=== PATIENT | male | born 1965 | race Caucasian/White ===

== ENCOUNTER 2016-10-19 22:52 | Emergency (ER) | payer OTHER ==
[~2016-10-19] VITALS: Ht 185.4 cm; Wt 99.8 kg
[~2016-10-19 22:52] MED LIST: CITA20TA9 PO; CRD200 PO; CRG25 PO; FURO40TA3 PO; LEVO100T PO; LOSA50TA6 PO; MCRK20 PO; SPR25 PO
[2016-10-19 22:57] VITALS: TEMP 36.5; Ht 185.4 cm; Wt 99.8 kg
[2016-10-19] MEDS ORDERED: SODIUM CHLORIDE 0.9% 1000ML 300 ML IV STA (23:43)
[2016-10-20 00:04] LABS: BASO % 0.5 %; BASO ABS # 0.05 K/uL (0-0.2); COMPLETE YES; EOS % 3.6 %; HEMATOCRIT 43.4 % (42-52); IG% 0.3 %; LYMPH ABS # 1.95 K/uL (1.2-3.4); MEAN CELL VOLUME 86.5 fL (80-100); MEAN CORPUSCULAR HEMOGLOBIN 29.3 pg (25-34); MEAN CORPUSCULAR HGB CONC 33.9 g/dl (32-36); MONO % 13.9 %; NEUT % 60.7 %; PLATELET COUNT 286 K/uL (130-400); RED BLOOD COUNT 5.02 M/uL (4.7-6.1); WHITE BLOOD COUNT 9.27 K/uL (4.8-10.8)
[2016-10-20 00:09] LABS: URINE APPEARANCE CLEAR (CLEAR); URINE BILIRUBIN NEG (NEG); URINE COLOR DK YELLOW; URINE NITRITE NEG (NEG); URINE SPECIFIC GRAVITY 1.026 (1.000-1.030); UROBILINOGEN NEG (NEG); ZZUR CULT IF INDIC CLEAN CATCH NO
[2016-10-20 00:16] LABS: MANUAL MICROSCOPIC REQUIRED? NO; REVIEW REQ? NO
[2016-10-20 00:22] LABS: BUN/CREATININE RATIO 15.7 (10-20); CALCIUM 8.8 mg/dl (8.5-10.1); CREATININE 0.97 mg/dl (0.60-1.40); POTASSIUM 3.7 mmol/L (3.5-5.1)
[2016-10-20 00:25] LABS: ALB/GLOB RATIO 0.9 (0.9-2)
[2016-10-20] MEDS ORDERED: ONDANSETRON INJ 2 MG/ML 2 ML VIAL IV STA (00:39)
[2016-10-20] MEDS ORDERED: OPTIRAY 320 IV PRN (01:45)
[2016-10-20] MEDS ORDERED: POTA20TA16 PO (01:49)
--- NOTE | 2016-10-20 03:13 | EMERGENCY ROOM VISIT NOTE ---
ED Visit Note First contact with patient: 00:17 I saw this patient in conjunction with Sagar Saha PA-C. I agree with his decision-making and treatment plan.
[2016-10-20] MEDS ORDERED: ONDA4TAB10 SL (03:29)
--- NOTE | 2016-10-20 03:29 | EMERGENCY ROOM VISIT NOTE ---
History First contact with patient: 00:17 Chief Complaint: ABDOMINAL PAIN Stated Complaint: LOWER ABDOMINAL PAIN Nursing Triage Summary: Patient c/o n/v/d that began afternoon. Thursday morning, s/s worsened. Tonight, patient c/o low back pain with continued diarrhea. History of Present Illness The patient is a 51 year old male who presents to the Emergency Department by private vehicle for evaluation of his lower abdominal pain, nausea, vomiting, diarrhea, and belching. He reports that evening he noticed nausea and diarrhea. He has since had one episode of emesis. He reports that he's been belching a lot lately and reports that smells like rotten eggs. The patient has not seen his primary care provider this point. He reports some lower abdominal discomfort. The patient rates his current discomfort as 6/10. He denies a previous abdominal surgeries. He does have a significant past mental history of cardiomyopathy. He denies any chest pain, palpitations, short of breath, hemoptysis, headaches, dizziness, lightheadedness, hematemesis, hematochezia, melena, hematuria, or dysuria. Review of Systems A complete 10-point Review of Systems was discussed with the patient, with pertinent positives and negatives listed in the History of Present Illness. All remaining Review of Systems questions can be considered negative unless otherwise specified. Past Medical/Surgical History Medical Problems: (1) Abdominal pain (2) Cardiomyopathy (3) Cephalosporin drug rash (4) Left bundle branch block (5) Pacemaker (6) Ribs, multiple fractures (7) Systolic heart failure Family History Cancer Social History Smoking Status: Never Smoker Alcohol Use: none Drug Use: none Marital Status: Housing Status: lives with family Occupation Status: unemployed Current/Historical Medications Scheduled Amiodarone HCl (Amiodarone HCl), 200 MG PO DAILY Carvedilol (Carvedilol), 37.5 MG PO BID Citalopram Hydrobromide (Celexa), 20 MG PO DAILY Levothyroxine Sodium (Synthroid), 100 MCG PO DAILY Losartan Potassium (Cozaar), 50 MG PO BID Spironolactone (Spironolactone), 25 MG PO DAILY Scheduled PRN Furosemide (Lasix), 40 MG PO DAILY PRN for Fluid Retention/Weight Gain Ondasetron Odt (Zofran Odt), 1 TAB SL Q6 PRN for Nausea or Vomiting Potassium Ext Rel (Klor-Con), 20 MEQ PO DAILY PRN for WHEN LASIX IS TAKEN Allergies Coded Allergies: Cefuroxime (Verified Allergy, Severe, RASH, 10/21/16) Physical Exam Vital Signs Date Time Temp Pulse Resp B/P Pulse Ox O2 Delivery O2 Flow Rate FiO2 10/20/16 03:38 78 16 136/96 96 Room Air 10/20/16 01:44 78 16 141/87 96 Room Air 10/20/16 01:06 81 18 148/99 96 Room Air 10/19/16 22:57 36.5 83 18 146/92 96 Room Air Pain Rating (0-10): 6 Physical Exam VITAL SIGNS - Vital signs and nursing notes were reviewed. GENERAL - 51-year-old male appearing his stated age who is in no acute distress. Communicates well with provider and answers questions appropriately. LUNGS - Chest wall symmetric without accessory muscle use, intercostals retractions, or central cyanosis. Normal vesicular breath sounds CTA B/L. No wheezes, rales, or rhonchi appreciated. CARDIAC - RRR with S1/S2. No murmur, rubs, or gallops appreciated. ABDOMEN - Abdominal contour flat and without pulsations or visible masses. BS normoactive all four quadrants. Mild tenderness to palpation appreciated in the RIGHT upper quadrant. No guarding. no Rebound Tenderness. Negative Rovsing's. Negative Zapata's. No palpable masses, hepatosplenomegaly, or ascites noted. EXTREMITIES - No clubbing or peripheral cyanosis. No pretibial edema present. +3 /5 radial and dorsalis pedis pulses palpated throughout. PSYCH - A&Ox3 and cooperates fully with examiner. Pt is very pleasant and interacts well with examiner. Medical Decision & Procedures ER Provider Diagnostic Interpretation: Radiological imaging and reports were reviewed by myself. Radiologist's Interpretation as follows: KUB CLINICAL HISTORY: n/v/d dyspnea. Pain. COMPARISON STUDY: No previous studies for comparison. FINDINGS: Mild nonobstructive ileus. No evidence of bowel distention. No abnormal calcifications. IMPRESSION: Mild nonobstructive ileus. ULTRASOUND RIGHT UPPER QUADRANT ABDOMEN CLINICAL HISTORY: Right upper quadrant abdominal pain. COMPARISON STUDY: Abdominal CT dated 05/06/2009. TECHNIQUE: Real-time, grayscale, and color flow sonography of the right upper quadrant of the abdomen was performed. Images are reviewed in the transverse and longitudinal planes. FINDINGS: Liver: The liver is enlarged and demonstrates heterogeneously increased echotexture consistent with hepatic steatosis. Fatty sparing is seen adjacent to gallbladder fossa. There is no intrahepatic biliary ductal dilatation. The main portal vein is patent. Gallbladder: There are calcified shadowing gallstones identified. There is no gallbladder wall thickening or pericholecystic fluid. A sonographic Zapata's sign is reportedly absent. The common bile duct measures up to 0.4 cm in diameter. Pancreas: Visualized portions of the pancreatic head and body are normal in appearance. Right kidney: Survey images of the right kidney demonstrate normal size and echotexture. There is no hydronephrosis. Ascites: None. IMPRESSION: 1. Cholelithiasis without sonographic evidence of acute cholecystitis. 2. Hepatomegaly and hepatic steatosis. ABDOMEN AND PELVIS CT WITH IV CONTRAST CT DOSE: 749.45 mGy.cm HISTORY: Right upper quadrant ultrasound upper abd pain - f/u from US tonight TECHNIQUE: Multiaxial CT images of the abdomen and pelvis were performed following the use of intravenous contrast. COMPARISON STUDY: 2009 FINDINGS: Lung bases are clear. Fatty infiltration of liver. Kidneys are unremarkable. Bowel pattern is nonobstructive. Appendix is normal. There is no free fluid within the pelvic cul-de-sac. IMPRESSION: Fatty infiltration of liver. Otherwise negative study of the abdomen and pelvis Laboratory Results 10/19/16 23:50 Red Blood Count 5.02, Mean Corpuscular Volume 86.5, Mean Corpuscular Hemoglobin 29.3, Mean Corpuscular Hemoglobin Concent 33.9, Mean Platelet Volume 9.0, Neutrophils (%) (Auto) 60.7, Lymphocytes (%) (Auto) 21.0, Monocytes (%) (Auto) 13.9, Eosinophils (%) (Auto) 3.6, Basophils (%) (Auto) 0.5, Neutrophils # (Auto ) 5.62, Lymphocytes # (Auto) 1.95, Monocytes # (Auto) 1.29, Eosinophils # (Auto ) 0.33, Basophils # (Auto) 0.05 10/19/16 23:50 Test 10/19/16 23:45 10/19/16 23:50 Urine Color DK YELLOW Urine Appearance CLEAR (CLEAR) Urine pH 5.0 (4.5-7.5) Urine Specific [place] 1.026 (1.000-1.030) Urine Protein NEG (NEG) Urine Glucose (UA) NEG (NEG) Urine Ketones NEG (NEG) Urine Occult Blood NEG (NEG) Urine Nitrite NEG (NEG) Urine Bilirubin NEG (NEG) Urine Urobilinogen NEG (NEG) Urine Leukocyte Esterase NEG (NEG) White Blood Count 9.27 K/uL (4.8-10.8) Red Blood Count 5.02 M/uL (4.7-6.1) Hemoglobin 14.7 g/dL (14.0-18.0) Hematocrit 43.4 % (42-52) Mean Corpuscular Volume 86.5 fL (80-100) Mean Corpuscular Hemoglobin 29.3 pg (25-34) Mean Corpuscular Hemoglobin Concent 33.9 g/dl (32-36) Platelet Count 286 K/uL (130-400) Mean Platelet Volume 9.0 fL (7.4-10.4) Neutrophils (%) (Auto) 60.7 % Lymphocytes (%) (Auto) 21.0 % Monocytes (%) (Auto) 13.9 % Eosinophils (%) (Auto) 3.6 % Basophils (%) (Auto) 0.5 % Neutrophils # (Auto) 5.62 K/uL (1.4-6.5) Lymphocytes # (Auto) 1.95 K/uL (1.2-3.4) Monocytes # (Auto) 1.29 K/uL (0.11-0.59) Eosinophils # (Auto) 0.33 K/uL (0-0.5) Basophils # (Auto) 0.05 K/uL (0-0.2) RDW Standard Deviation 44.3 fL (36.4-46.3) RDW Coefficient of Variation 14.2 % (11.5-14.5) Immature Granulocyte % (Auto) 0.3 % Immature Granulocyte # (Auto) 0.03 K/uL (0.00-0.02) Anion Gap 8.0 mmol/L (3-11) Est Creatinine Clear Calc Drug Dose 111.9 ml/min Estimated GFR () 104.3 Estimated GFR (Non- 90.0 BUN/Creatinine Ratio 15.7 (10-20) Calcium Level 8.8 mg/dl (8.5-10.1) Total Bilirubin 0.5 mg/dl (0.2-1) Aspartate Amino Transf (AST/SGOT) 29 U/L (15-37) Alanine Aminotransferase (ALT/SGPT) 59 U/L (12-78) Alkaline Phosphatase 68 U/L (45-117) Total Protein 7.5 gm/dl (6.4-8.2) Albumin 3.5 gm/dl (3.4-5.0) Globulin 4.0 gm/dl (2.5-4.0) Albumin/Globulin Ratio 0.9 (0.9-2) Lipase 90 U/L (73-393) Medications Administered Medications (Trade) Dose Ordered Sig/Haresh Route Start Time Stop Time Status Last Admin Dose Admin Sodium Chloride (Nss 1000ml) 300 ml @ 999 mls/hr Q19M STAT IV 10/19/16 23:43 10/20/16 00:01 DC 10/19/16 23:43 999 MLS/HR Ondansetron HCl (Zofran Inj) 4 mg NOW STAT IV 10/20/16 00:39 10/20/16 00:40 DC 10/20/16 00:47 4 MG Ondansetron HCl (ZOFRAN ODT 4MG Home Pack) 1 homepack UD ONCE PO 10/20/16 03:30 10/20/16 03:31 DC 10/20/16 03:30 1 HOMEPACK ED Course Patient was seen and evaluated by myself. Labs were drawn, saline lock in place. The patient was hydrated with normal saline and received IV Zofran for nausea. Gallbladder ultrasound and KUB were ordered. Laboratory results demonstrate no acute leukocytosis, worrisome anemia, or bandemia. The patient has no significant electrolyte abnormalities. Serum results as above. I was contacted by insulator technician he was concern for possible air in the vena cava. Because of this, a CT of the abdomen and pelvis was obtained. Imaging results as above. Laboratory results and imaging studies were reviewed with the patient who acknowledges understanding. 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 He declines these report all. The case was discussed with my attending physician who in the family evaluated the patient and agrees with diagnostic approach and treatment plan. The patient was encouraged to follow-up with his primary care provider in 24-48 hours for repeat abdominal exam. Patient was educated on worrisome symptoms for return visit to the emergency department. Patient discharged home afebrile and in good condition. Medical Decision Given the patient's presentation and exam findings, I did elect to perform the above-mentioned workup. The patient resents today with complaints of nausea, belching, and abdominal discomfort. He does have mild tenderness to palpation in the RIGHT upper quadrant. There was concern for cholelithiasis without acute cholecystitis. The patient has no fever leukocytosis. He has no elevation of his liver enzymes. The patient received Zofran alone. He declines a think for pain at this time. I do not feel that admission is warranted at this point and the patient is resting comfortably not requiring any significant pain intervention at this point. Regardless, the patient was encouraged to follow up closely with his primary care provider in 24-48 hours for repeat abdominal exam. He was educated on worrisome symptoms for return visit to the emergency department. Patient discharged home afebrile and in good condition. In the evaluation and treatment of this patient, the following differential diagnoses were considered: Appendicitis, Diverticulitis, Diverticulosis, Colitis , Ischemic Colitis, Inflammatory Bowel Disease, Irritable Bowel Disease, Testicular Torsion, Kidney Stone, Pyelonephritis, Hydronephrosis, Cholecystitis , Ascending Cholangitis, Choledocholithiasis, GERD. Impression Primary Impression: Nausea Additional Impressions: Diarrhea Abdominal pain Departure Information Dispostion Home / Self-Care Condition GOOD Prescriptions Ondasetron Odt (ZOFRAN ODT) 4 Mg Tab 1 TAB SL Q6 Y for Nausea or Vomiting, #20 TAB Prov: Sagar Saha PA-C 10/20/16 Referrals Rajan Pedersen D.O. Pulmonary (PCP) Patient Instructions My [facility] Additional Instructions You have been treated in the Emergency Department your Abdominal Pain. Laboratory results and imaging studies have ruled out any emergent causes for your abdominal pain which would warrant admission or surgery. You have been prescribed Zofran to be used for any nausea or vomiting. Take as prescribed. For pain control, you can use the following [id number] medicines (if >12 yo): - Regular strength (325mg/tab) Tylenol (acetaminophen) 2 tabs every 4-6 hours as needed. Do not exceed 12 tablets in a 24 hour period. Avoid taking more than 4 grams (4000 mg) of Tylenol per day. This includes any other sources of acetaminophen you may take on a regular basis. - Regular strength (200 mg/tab) Advil (ibuprofen) 1-2 tabs every 4-6 hours as needed. Do not exceed a dose of 3200 mg per day. Drink plenty of water and stay well hydrated. As with any trip to the Emergency Department, you should follow-up with your Primary Care Provider from today's visit. Return to the emergency department if your symptoms persist despite treatment plan outlined above or if the following symptoms occur: increased fevers, chills , worsening nausea/vomiting, blood in your stool or urine. Problem Qualifiers Additional Impressions: Diarrhea Diarrhea type: unspecified type Qualified Codes: R19.7 - Diarrhea, unspecified Abdominal pain Abdominal location: unspecified location Qualified Codes: R10.9 - Unspecified abdominal pain
[2016-10-20] MEDS ORDERED: ONDANSETRON HOME PACK 4MG OD TAB PO ONE (03:30)
[2016-10-20 03:38] VITALS: BP 136/96; PULSE 78; O2SAT 96
--- NOTE | 2016-10-20 06:51 | DIAGNOSTIC IMAGING REPORT ---
ABDOMEN AND PELVIS CT WITH IV CONTRAST CT DOSE: 749.45 mGy.cm HISTORY: Right upper quadrant ultrasound upper abd pain - f/u from US tonight TECHNIQUE: Multiaxial CT images of the abdomen and pelvis were performed following the use of intravenous contrast. COMPARISON STUDY: 2008 FINDINGS: Lung bases are clear. Fatty infiltration of liver. Kidneys are unremarkable. Bowel pattern is nonobstructive. Appendix is normal. There is no free fluid within the pelvic cul-de-sac. IMPRESSION: Fatty infiltration of liver. Otherwise negative study of the abdomen and pelvis Electronically signed by: Marcial Calero M.D. 10/20/2016 6:49 AM Dictated Date/Time: 10/20/2016 6:46 AM
--- NOTE | 2016-10-20 07:09 | DIAGNOSTIC IMAGING REPORT ---
ULTRASOUND RIGHT UPPER QUADRANT ABDOMEN CLINICAL HISTORY: Right upper quadrant abdominal pain. COMPARISON STUDY: Abdominal CT dated 05/06/2009. TECHNIQUE: Real-time, grayscale, and color flow sonography of the right upper quadrant of the abdomen was performed. Images are reviewed in the transverse and longitudinal planes. FINDINGS: Liver: The liver is enlarged and demonstrates heterogeneously increased echotexture consistent with hepatic steatosis. Fatty sparing is seen adjacent to gallbladder fossa. There is no intrahepatic biliary ductal dilatation. The main portal vein is patent. Gallbladder: There are calcified shadowing gallstones identified. There is no gallbladder wall thickening or pericholecystic fluid. A sonographic Zapata's sign is reportedly absent. The common bile duct measures up to 0.4 cm in diameter. Pancreas: Visualized portions of the pancreatic head and body are normal in appearance. Right kidney: Survey images of the right kidney demonstrate normal size and echotexture. There is no hydronephrosis. Ascites: None. IMPRESSION: 1. Cholelithiasis without sonographic evidence of acute cholecystitis. 2. Hepatomegaly and hepatic steatosis. Electronically signed by: Mustapha Mendez M.D. 10/20/2016 7:08 AM Dictated Date/Time: 10/20/2016 7:06 AM
--- NOTE | 2016-10-20 07:57 | DIAGNOSTIC IMAGING REPORT ---
KUB CLINICAL HISTORY: n/v/d dyspnea. Pain. COMPARISON STUDY: No previous studies for comparison. FINDINGS: Mild nonobstructive ileus. No evidence of bowel distention. No abnormal calcifications. IMPRESSION: Mild nonobstructive ileus. Electronically signed by: Marcial Calero M.D. 10/20/2016 7:56 AM Dictated Date/Time: 10/20/2016 7:55 AM
[2016-10-24] MEDS ORDERED: SENN-65 PO (09:27)
[2016-10-24] MEDS ORDERED: OXYC-57 PO (09:27)
== END 2016-10-20 03:46 | disposition home or self-care (01) ==
LOC: C.EDB 22:53 → C.EDA 10-20 03:46
DX: R19.7 Diarrhea, unspecified (principal); R11.2 Nausea with vomiting, unspecified; R10.9 Unspecified abdominal pain; I44.7 Left bundle-branch block, unspecified; I50.20 Unspecified systolic (congestive) heart failure; Z79.899 Other long term (current) drug therapy

== ENCOUNTER 2016-10-21 09:02 | Inpatient (IN) | payer OTHER ==
[~2016-10-21] VITALS: Ht 185.4 cm; Wt 105.0 kg
[~2016-10-21 09:02] MED LIST changes: -MCRK20 PO; +ONDA4TAB10 SL; +POTA20TA16 PO
[2016-10-21 10:36] LABS: BASO % 0.5 %; BASO ABS # 0.04 K/uL (0-0.2); COMPLETE YES; EOS % 3.9 %; HEMATOCRIT 38.5 % (42-52); IG% 0.4 %; LYMPH % 20.8 %; LYMPH ABS # 1.71 K/uL (1.2-3.4); MEAN CELL VOLUME 86.5 fL (80-100); MEAN CORPUSCULAR HEMOGLOBIN 29.4 pg (25-34); MEAN PLATELET VOLUME 8.9 fL (7.4-10.4); MONO % 11.4 %; PLATELET COUNT 273 K/uL (130-400); RED BLOOD COUNT 4.45 M/uL (4.7-6.1); WHITE BLOOD COUNT 8.22 K/uL (4.8-10.8)
[2016-10-21 10:44] LABS: BUN/CREATININE RATIO 13.9 (10-20); CALCIUM 8.2 mg/dl (8.5-10.1); CREATININE 0.94 mg/dl (0.60-1.40)
--- NOTE | 2016-10-21 12:01 | DIAGNOSTIC IMAGING REPORT ---
Right upper quadrant ultrasound GALLBLADDER-ABD LIMITED CLINICAL HISTORY: eval for cholecystitis pain TECHNIQUE: Ultrasound COMPARISON STUDY: CT same date FINDINGS: 1.5 cm gallstone within the gallbladder neck. Gallbladder wall and biliary duct system are normal in terms of caliber. Fatty infiltration of liver. Common bile duct 9 mm intrahepatic defects are unremarkable. Poor visibility of the pancreas due to overlying bowel content. Right kidney is negative for hydronephrosis. IMPRESSION: 1.5 cm gallstone the region of the gallbladder neck. 2. Slight prominence of the biliary ductal system with the extra hepatic common bile duct 9 mm. 3. Fatty infiltration of liver. Electronically signed by: Marcial Calero M.D. 10/21/2016 11:59 AM Dictated Date/Time: 10/21/2016 11:54 AM
[2016-10-21 12:33] LABS: URINE APPEARANCE CLEAR (CLEAR); URINE BILIRUBIN NEG (NEG); URINE COLOR YELLOW; URINE NITRITE NEG (NEG); URINE SPECIFIC GRAVITY 1.012 (1.000-1.030); UROBILINOGEN NEG (NEG); ZZUR CULT IF INDIC CLEAN CATCH NO
[2016-10-21 12:42] LABS: MANUAL MICROSCOPIC REQUIRED? NO; REVIEW REQ? NO
--- NOTE | 2016-10-21 13:48 | History and Physical ---
History & Physical Date & Time of Service: Oct 21, 2016 at 13:45 Chief Complaint: Abdominal Pain,Nausea Primary Care Physician: Rajan Pedersen D.O. Pulmonary History of Present Illness Source: patient, family 51 yo M pmh idiopathic cardiomyopathy s/p AICD, Afib s/p ablation was supposed to be on Xarelto but has stopped taking them 3 months ago admitted for RUQ abd pain/ epigastric pain and found to have cholelithiasis. Patient was in the ED yesterday, had KUB and CT done yesterday which did not show any acute issues. HE was sent home and came back with persistent epigastric pain. Imaging studies today showed a stone in the GB neck. Patient c/o intermittent nausea, no vomiting, crampy RUQ to epigastric discomfort worsened by food intake, especially greasy food. No hcest pain , no sob. No urinary symptoms reported. No orthopnea, no PND. Past Medical/Surgical History Medical Problems: (1) Cardiomyopathy Status: Chronic (2) Cephalosporin drug rash Status: Resolved (3) Left bundle branch block Status: Chronic (4) Pacemaker Status: Chronic (5) Ribs, multiple fractures Status: Resolved (6) Systolic heart failure Status: Chronic Family History Cancer Social History Smoking Status: Never Smoker Drug Use: none Marital Status: Housing status: lives with family Occupational Status: unemployed Immunizations History of Influenza Vaccine: N/A History of Tetanus Vaccine?: Unknown Tetanus Immunization Date: Sep 17, 2009 History of Pneumococcal: No History of Hepatitis B Vaccine: Unknown Multi-Drug Resistant Organisms History of MDRO: No Allergies Coded Allergies: Cefuroxime (Verified Allergy, Severe, RASH, 10/21/16) Home Medications Scheduled Amiodarone HCl (Amiodarone HCl), 200 MG PO DAILY Carvedilol (Carvedilol), 37.5 MG PO BID Citalopram Hydrobromide (Celexa), 20 MG PO DAILY Levothyroxine Sodium (Synthroid), 100 MCG PO DAILY Losartan Potassium (Cozaar), 50 MG PO BID Spironolactone (Spironolactone), 25 MG PO DAILY Scheduled PRN Furosemide (Lasix), 40 MG PO DAILY PRN for Fluid Retention/Weight Gain Ondasetron Odt (Zofran Odt), 1 TAB SL Q6 PRN for Nausea or Vomiting Potassium Ext Rel (Klor-Con), 20 MEQ PO DAILY PRN for WHEN LASIX IS TAKEN Review of Systems ROS as per HPI. Rest of ROS negative. Physical Exam Vital Signs Date Time Temp Pulse Resp B/P Pulse Ox O2 Delivery O2 Flow Rate FiO2 10/21/16 13:00 66 18 138/93 95 Room Air 10/21/16 11:10 78 20 133/88 98 Room Air 10/21/16 09:10 36.4 96 18 143/90 97 Room Air NAD, AOx3 eomi, perrl, anicteric coherent and fluent speech with CN 2-12 grossly intact and without facial drooping s1 s2 rrr, no m/r/g, no JVD ctab no w/r/r abd soft , epigastric tend, -Zapata's, +BS no LE edema Diagnostics Laboratory Results Results Past 24 Hours Test 10/21/16 10:00 10/21/16 12:10 Range/Units White Blood Count 8.22 4.8-10.8 K/uL Red Blood Count 4.45 4.7-6.1 M/uL Hemoglobin 13.1 14.0-18.0 g/dL Hematocrit 38.5 42-52 % Mean Corpuscular Volume 86.5 80-100 fL Mean Corpuscular Hemoglobin 29.4 25-34 pg Mean Corpuscular Hemoglobin Concent 34.0 32-36 g/dl Platelet Count 273 130-400 K/uL Mean Platelet Volume 8.9 7.4-10.4 fL Neutrophils (%) (Auto) 63.0 % Lymphocytes (%) (Auto) 20.8 % Monocytes (%) (Auto) 11.4 % Eosinophils (%) (Auto) 3.9 % Basophils (%) (Auto) 0.5 % Neutrophils # (Auto) 5.18 1.4-6.5 K/uL Lymphocytes # (Auto) 1.71 1.2-3.4 K/uL Monocytes # (Auto) 0.94 0.11-0.59 K/uL Eosinophils # (Auto) 0.32 0-0.5 K/uL Basophils # (Auto) 0.04 0-0.2 K/uL RDW Standard Deviation 44.2 36.4-46.3 fL RDW Coefficient of Variation 14.0 11.5-14.5 % Immature Granulocyte % (Auto) 0.4 % Immature Granulocyte # (Auto) 0.03 0.00-0.02 K/uL Sodium Level 143 136-145 mmol/L Potassium Level 4.0 3.5-5.1 mmol/L Chloride Level 109 98-107 mmol/L Carbon Dioxide Level 25 21-32 mmol/L Anion Gap 9.0 3-11 mmol/L Blood Urea Nitrogen 13 7-18 mg/dl Creatinine 0.94 0.60-1.40 mg/dl Est Creatinine Clear Calc Drug Dose 115.6 ml/min Estimated GFR () 108.4 Estimated GFR (Non- 93.5 BUN/Creatinine Ratio 13.9 10-20 Random Glucose 102 70-99 mg/dl Calcium Level 8.2 8.5-10.1 mg/dl Total Bilirubin 0.4 0.2-1 mg/dl Aspartate Amino Transf (AST/SGOT) 22 15-37 U/L Alanine Aminotransferase (ALT/SGPT) 58 12-78 U/L Alkaline Phosphatase 67 45-117 U/L Troponin I < 0.015 0-0.045 ng/ml Total Protein 6.4 6.4-8.2 gm/dl Albumin 3.2 3.4-5.0 gm/dl Globulin 3.2 2.5-4.0 gm/dl Albumin/Globulin Ratio 1.0 0.9-2 Lipase 86 73-393 U/L Urine Color YELLOW Urine Appearance CLEAR CLEAR Urine pH 5.0 4.5-7.5 Urine Specific [place] 1.012 1.000-1.030 Urine Protein NEG NEG Urine Glucose (UA) NEG NEG Urine Ketones NEG NEG Urine Occult Blood NEG NEG Urine Nitrite NEG NEG Urine Bilirubin NEG NEG Urine Urobilinogen NEG NEG Urine Leukocyte Esterase NEG NEG Diagnostic Radiology KUB CLINICAL HISTORY: n/v/d dyspnea. Pain. COMPARISON STUDY: No previous studies for comparison. FINDINGS: Mild nonobstructive ileus. No evidence of bowel distention. No abnormal calcifications. IMPRESSION: Mild nonobstructive ileus. ABDOMEN AND PELVIS CT WITH IV CONTRAST CT DOSE: 749.45 mGy.cm HISTORY: Right upper quadrant ultrasound upper abd pain - f/u from US tonight TECHNIQUE: Multiaxial CT images of the abdomen and pelvis were performed following the use of intravenous contrast. COMPARISON STUDY: 2008 FINDINGS: Lung bases are clear. Fatty infiltration of liver. Kidneys are unremarkable. Bowel pattern is nonobstructive. Appendix is normal. There is no free fluid within the pelvic cul-de-sac. IMPRESSION: Fatty infiltration of liver. Otherwise negative study of the abdomen and pelvis Right upper quadrant ultrasound GALLBLADDER-ABD LIMITED CLINICAL HISTORY: eval for cholecystitis pain TECHNIQUE: Ultrasound COMPARISON STUDY: CT same date FINDINGS: 1.5 cm gallstone within the gallbladder neck. Gallbladder wall and biliary duct system are normal in terms of caliber. Fatty infiltration of liver. Common bile duct 9 mm intrahepatic defects are unremarkable. Poor visibility of the pancreas due to overlying bowel content. Right kidney is negative for hydronephrosis. IMPRESSION: 1.5 cm gallstone the region of the gallbladder neck. 2. Slight prominence of the biliary ductal system with the extra hepatic common bile duct 9 mm. 3. Fatty infiltration of liver. ABDOMEN 2VIEW W/PA CHEST RTN CLINICAL HISTORY: eval for obstruction pain COMPARISON STUDY: 10/20/2006 seen FINDINGS: Mild nonobstructive ileus. Similar as compared to the prior study. Lungs are clear. Permanent bipolar cardiac pacer/defibrillator is present. IMPRESSION: Mild left nonobstructive ileus. Negative chest. No change from the prior study. EKG Atrial-sensed ventricular-paced rhythm Abnormal ECG When compared with ECG of 14-JUL-2016 15:25, Electronic ventricular pacemaker has replaced Sinus rhythm Impression Assessment and Plan 1. Epigastric/RUQ abd pain - with nausea, no vomiting - GB neck stone - surgical consult - pain regimen 2. idiopathic cardiomyopathy - s/p AICD 2013, ef 40% in 2016 - h/o afib s/p ablation, stopped his xarelto - cardiology consult for risk assessment for OR 3. CHF systolic - clinically euvolemic and compensated - resume coreg, spironolactone, arb 4. AFib s/p ablation - resume amiodarone - cont holding Xarelto, anticipate OR 5. dvt ppx
[2016-10-21] MEDS ORDERED: POTASSIUM CHLORIDE 20 MEQ TABCR PO PRN (14:00)
--- NOTE | 2016-10-21 14:03 | DIAGNOSTIC IMAGING REPORT ---
ABDOMEN 2VIEW W/PA CHEST RTN CLINICAL HISTORY: eval for obstruction pain COMPARISON STUDY: 10/20/2006 seen FINDINGS: Mild nonobstructive ileus. Similar as compared to the prior study. Lungs are clear. Permanent bipolar cardiac pacer/defibrillator is present. IMPRESSION: Mild left nonobstructive ileus. Negative chest. No change from the prior study. Electronically signed by: Marcial Calero M.D. 10/21/2016 2:02 PM Dictated Date/Time: 10/21/2016 2:01 PM
[2016-10-21 14:45] VITALS: BP 130/78; PULSE 70; TEMP 36.6; O2SAT 97
[2016-10-21 15:23] VITALS: BP 144/94; PULSE 71; TEMP 36.9; O2SAT 95; Ht 185.4 cm; Wt 105.0 kg
[2016-10-21] MEDS: MoRPHine SULFATE 2 MG/ML CARP IV PRN ×2 (15:43→23:54)
[2016-10-21 15:55] LABS: PROTHROMBIN TIME (PATIENT) 10.7 SECONDS (9.0-12.0)
[2016-10-21] MEDS: D5W AND 1/2NSS 1,000 ML IV SCH (16:23)
--- NOTE | 2016-10-21 17:06 | Surgery Consultation ---
Consultation Date of Consultation: Oct 21, 2016. Attending Physician: Nolvia Mac MD Reason for Consultation: Cholelithiasis History of Present Illness Elsi is a 51 year-old male with significant past medical history of cardiomyopathy with pacemaker/defibrillator and atrial fibrillation who presented to emergency department originally on Thursday with complaint of abdominal pain, nausea, and diarrhea for 3 days. He states he was having associated lower back pain and mid and right abdominal pain. States he started having diarrhea which was yellow in color and then Thursday night had a loose stools which was doe colored. Denies of any blood in stools. States he ate peanut butter on ast which started his pain and he felt he ate some bad peanut butter but pain persisted and diarrhea began. He was diagnosed with gallstones on Thursday in ER but was discharged home however he states the nausea and abdominal pain persisted. He states he has had this pain previously in the last 1-2 years but not his bad. Denies of any fever, chills, night sweats, blood in stools, or jaundice. Father may have had history of gallstones. Stopped taking his Xarelto due to GI bleeding. Takes occasional aspirin. Past Medical/Surgical History Medical Problems: (1) Abdominal pain Status: Acute (2) Avulsion of skin of finger Status: Acute (3) Diarrhea Status: Acute (4) Nausea Status: Acute Family History Cancer Social History Smoking Status: Never Smoker Drug Use: none Marital Status: Housing Status: lives with family Occupation Status: unemployed Allergies Coded Allergies: Cefuroxime (Verified Allergy, Severe, RASH, 10/21/16) Home Medications Scheduled Amiodarone HCl (Amiodarone HCl), 200 MG PO DAILY Carvedilol (Carvedilol), 37.5 MG PO BID Citalopram Hydrobromide (Celexa), 20 MG PO DAILY Levothyroxine Sodium (Synthroid), 100 MCG PO DAILY Losartan Potassium (Cozaar), 50 MG PO BID Spironolactone (Spironolactone), 25 MG PO DAILY Scheduled PRN Furosemide (Lasix), 40 MG PO DAILY PRN for Fluid Retention/Weight Gain Ondasetron Odt (Zofran Odt), 1 TAB SL Q6 PRN for Nausea or Vomiting Potassium Ext Rel (Klor-Con), 20 MEQ PO DAILY PRN for WHEN LASIX IS TAKEN Current Inpatient Medications Current Inpatient Medications Medications (Trade) Dose Ordered Sig/Haresh Route Start Time Stop Time Status Last Admin Dose Admin Heparin Sodium (Porcine) (Heparin Sq 5000 Unit/0.5ml) 5,000 unit Q8H SQ 10/21/16 22:00 11/20/16 21:59 Amiodarone HCl (Cordarone Tab) 200 mg DAILY PO 10/22/16 09:00 11/21/16 08:59 Carvedilol (Coreg Tab) 37.5 mg BID PO 10/21/16 21:00 11/20/16 20:59 Citalopram Hydrobromide (celeXA TAB) 20 mg DAILY PO 10/22/16 09:00 11/21/16 08:59 Levothyroxine Sodium (Synthroid Tab) 100 mcg DAILYBB PO 10/22/16 06:00 11/21/16 06:59 Losartan Potassium (coZAAR TAB) 50 mg BID PO 10/21/16 21:00 11/20/16 20:59 Potassium Chloride (Klor-Con Tab) 20 meq DAILY PRN PO 10/21/16 14:00 11/20/16 13:59 Spironolactone 25 mg 25 mg DAILY PO 10/22/16 09:00 11/21/16 08:59 Dextrose/Sodium Chloride (D5W And 1/2nss) 1,000 ml @ 40 mls/hr Q24H IV 10/21/16 16:00 11/20/16 15:59 10/21/16 16:23 40 MLS/HR Morphine Sulfate (MoRPHine SULFATE INJ) 1 mg Q6H PRN IV 10/21/16 14:00 11/04/16 13:59 10/21/16 15:43 1 MG Review of Systems Constitutional: No chills, No fever, No sweats Respiratory: No shortness of breath Cardiovascular: No chest pain Abdomen: + diarrhea, + nausea, + pain, No GI bleeding, No constipation, No vomiting Musculoskeletal: + muscle pain (back pain, lower) Genitourinary - Male: No dysuria, No hematuria Neurologic: No weakness Endocrine: No fatigue Physical Exam Date Time Temp Pulse Resp B/P Pulse Ox O2 Delivery O2 Flow Rate FiO2 10/21/16 15:23 36.9 71 19 144/94 95 Room Air 10/21/16 15:09 70 18 129/85 95 10/21/16 14:53 69 18 129/85 96 Room Air 10/21/16 13:00 66 18 138/93 95 Room Air 10/21/16 11:10 78 20 133/88 98 Room Air 10/21/16 09:10 36.4 96 18 143/90 97 Room Air General Appearance: WD/WN, no apparent distress Head: normocephalic, atraumatic Eyes: sclerae normal Neck: supple Respiratory/Chest: lungs clear, normal breath sounds, no respiratory distress, no accessory muscle use Cardiovascular: regular rate, rhythm, no murmur Abdomen/GI: non tender, soft, no organomegaly, no pulsatile mass, + abnormal bowel sounds (hypoactive) Extremities/Musculoskelatal: normal range of motion Neurologic/Psych: alert, normal mood/affect, oriented x 3 Skin: normal color, warm/dry Laboratory Results Last 24 Hours Test 10/21/16 10:00 10/21/16 12:10 White Blood Count 8.22 K/uL Red Blood Count 4.45 M/uL Hemoglobin 13.1 g/dL Hematocrit 38.5 % Mean Corpuscular Volume 86.5 fL Mean Corpuscular Hemoglobin 29.4 pg Mean Corpuscular Hemoglobin Concent 34.0 g/dl Platelet Count 273 K/uL Mean Platelet Volume 8.9 fL Neutrophils (%) (Auto) 63.0 % Lymphocytes (%) (Auto) 20.8 % Monocytes (%) (Auto) 11.4 % Eosinophils (%) (Auto) 3.9 % Basophils (%) (Auto) 0.5 % Neutrophils # (Auto) 5.18 K/uL Lymphocytes # (Auto) 1.71 K/uL Monocytes # (Auto) 0.94 K/uL Eosinophils # (Auto) 0.32 K/uL Basophils # (Auto) 0.04 K/uL RDW Standard Deviation 44.2 fL RDW Coefficient of Variation 14.0 % Immature Granulocyte % (Auto) 0.4 % Immature Granulocyte # (Auto) 0.03 K/uL Prothrombin Time 10.7 SECONDS Prothromb Time International Ratio 1.0 Activated Partial Thromboplast Time 26.8 SECONDS Partial Thromboplastin Ratio 1.0 Sodium Level 143 mmol/L Potassium Level 4.0 mmol/L Chloride Level 109 mmol/L Carbon Dioxide Level 25 mmol/L Anion Gap 9.0 mmol/L Blood Urea Nitrogen 13 mg/dl Creatinine 0.94 mg/dl Est Creatinine Clear Calc Drug Dose 115.6 ml/min Estimated GFR () 108.4 Estimated GFR (Non- 93.5 BUN/Creatinine Ratio 13.9 Random Glucose 102 mg/dl Calcium Level 8.2 mg/dl Total Bilirubin 0.4 mg/dl Aspartate Amino Transf (AST/SGOT) 22 U/L Alanine Aminotransferase (ALT/SGPT) 58 U/L Alkaline Phosphatase 67 U/L Troponin I < 0.015 ng/ml Total Protein 6.4 gm/dl Albumin 3.2 gm/dl Globulin 3.2 gm/dl Albumin/Globulin Ratio 1.0 Lipase 86 U/L Hepatitis C Antibody Screen NEG Urine Color YELLOW Urine Appearance CLEAR Urine pH 5.0 Urine Specific [place] 1.012 Urine Protein NEG Urine Glucose (UA) NEG Urine Ketones NEG Urine Occult Blood NEG Urine Nitrite NEG Urine Bilirubin NEG Urine Urobilinogen NEG Urine Leukocyte Esterase NEG Right upper quadrant ultrasound GALLBLADDER-ABD LIMITED CLINICAL HISTORY: eval for cholecystitis pain TECHNIQUE: Ultrasound COMPARISON STUDY: CT same date FINDINGS: 1.5 cm gallstone within the gallbladder neck. Gallbladder wall and biliary duct system are normal in terms of caliber. Fatty infiltration of liver. Common bile duct 9 mm intrahepatic defects are unremarkable. Poor visibility of the pancreas due to overlying bowel content. Right kidney is negative for hydronephrosis. IMPRESSION: 1.5 cm gallstone the region of the gallbladder neck. 2. Slight prominence of the biliary ductal system with the extra hepatic common bile duct 9 mm. 3. Fatty infiltration of liver. Assessment & Plan Cholelithiasis with biliary colic - 1.5 cm stone neck of gallbladder - no leukocytosis - LFTS and lipase within normal limits - abdomen soft, nontender, negative Zapata's sign - Dilated CBD at 9 mm PLAN: HIDA scan Cardiology to assess patient for pre-operative clearance Continue IV fluids, IV pain management, Zofran Keep NPO repeat labs in am I have discussed this patient with Dr. Jones who is in agreement with above stated findings and treatment plan.
--- NOTE | 2016-10-21 17:18 | EMERGENCY ROOM VISIT NOTE ---
History Report prepared by [facility]: Kaylee Clarke Under the Supervision of: Dr. Scott Brenner M.D. First contact with patient: 10:36 Chief Complaint: ABDOMINAL PAIN Stated Complaint: ABDOMINAL PAIN,NAUSEA Nursing Triage Summary: Abdominal pain, nausea, lack of appetite, diarrhea. Seen Thursday for same symptoms; no improvement per pt. History of Present Illness The patient is a 51 year old male who presents to the Emergency Room with complaints of epigastric and left lower quadrant abdominal pain starting 5 days ago. The patient first started having nausea and diarrhea. He describes his diarrhea to be yellow-colored. He also had some blood with wiping. He has a history of hemorrhoids. He took Imodium with some relief. He is now having soft stools but they continue to be yellow. He states that his burps have a smell of stool. The patient reports his abdominal pain has persisted since its initial onset. He states it feels as though "there is a storm" in his abdomen. He reports a loss of appetite but has been forcing himself to eat. He was evaluated in the Emergency Room 2 days ago for similar symptoms and was diagnosed with gallstones. He was discharged home. He also currently complains of back pain which has been occurring for the past month. He denies any fevers, chest pain, vomiting, or any other complaints. He reports shortness of breath which is not above baseline. He has a history of cardiomyopathy. He was last placed on antibiotics about 3 weeks ago. Source of History: patient Onset: 5 days ago Position: abdomen (epigastric and left lower quadrant) Timing: other (persistent) Associated Symptoms: + diarrhea (resolved), + nausea, No chest pain, No fevers, No vomiting Review of Systems See HPI for pertinent positives & negatives. A total of 10 systems reviewed and were otherwise negative. Past Medical & Surgical Medical Problems: (1) Abdominal pain (2) Cardiomyopathy (3) Cephalosporin drug rash (4) Left bundle branch block (5) Pacemaker (6) Ribs, multiple fractures (7) Systolic heart failure Family History Cancer Social History Smoking Status: Never Smoker Alcohol Use: none Drug Use: none Marital Status: Housing Status: lives with family Occupation Status: unemployed Current/Historical Medications Scheduled Amiodarone HCl (Amiodarone HCl), 200 MG PO DAILY Carvedilol (Carvedilol), 37.5 MG PO BID Citalopram Hydrobromide (Celexa), 20 MG PO DAILY Levothyroxine Sodium (Synthroid), 100 MCG PO DAILY Losartan Potassium (Cozaar), 50 MG PO BID Spironolactone (Spironolactone), 25 MG PO DAILY Scheduled PRN Furosemide (Lasix), 40 MG PO DAILY PRN for Fluid Retention/Weight Gain Ondasetron Odt (Zofran Odt), 1 TAB SL Q6 PRN for Nausea or Vomiting Potassium Ext Rel (Klor-Con), 20 MEQ PO DAILY PRN for WHEN LASIX IS TAKEN Allergies Coded Allergies: Cefuroxime (Verified Allergy, Severe, RASH, 10/21/16) Physical Exam Vital Signs Date Time Temp Pulse Resp B/P Pulse Ox O2 Delivery O2 Flow Rate FiO2 10/21/16 13:00 66 18 138/93 95 Room Air 10/21/16 11:10 78 20 133/88 98 Room Air 10/21/16 09:10 36.4 96 18 143/90 97 Room Air Physical Exam Constitutional: Vital signs reviewed. Eyes: Pupils are equal round reactive to light. Conjunctiva are noninjected. ENT: Pharynx is clear without erythema or exudate. Mucous membranes are moist. Neck supple without meningeal signs. Respiratory: Clear to auscultation bilaterally. Breath sounds are equal bilaterally. Cardiovascular: Regular rate and rhythm. No rubs or gallops. GI: Soft, nondistended. Epigastric, right upper quadrant, and left lower quadrant tenderness, no guarding, no Zapata's sign. Bowel sounds are present. Rectal: Guaiac negative with yellow, light brown stool, no blood. Large hemorrhoids which were not thrombosed or bleeding. Musculoskeletal: No peripheral edema. No CVA tenderness. No midline tenderness to the thoracic or lumbar sacral spine. Integumentary: No cyanosis. No jaundice. Neurological: The patient is awake and alert. No focal deficits. Psychiatric: Normal affect. Medical Decision & Procedures ER Provider Diagnostic Interpretation: US results as stated below per my review and radiologist interpretation. Right upper quadrant ultrasound GALLBLADDER-ABD LIMITED CLINICAL HISTORY: eval for cholecystitis pain TECHNIQUE: Ultrasound COMPARISON STUDY: CT same date FINDINGS: 1.5 cm gallstone within the gallbladder neck. Gallbladder wall and biliary duct system are normal in terms of caliber. Fatty infiltration of liver. Common bile duct 9 mm intrahepatic defects are unremarkable. Poor visibility of the pancreas due to overlying bowel content. Right kidney is negative for hydronephrosis. IMPRESSION: 1.5 cm gallstone the region of the gallbladder neck. 2. Slight prominence of the biliary ductal system with the extra hepatic common bile duct 9 mm. 3. Fatty infiltration of liver. Electronically signed by: Marcial Calero M.D. 10/21/2016 11:59 AM Dictated Date/Time: 10/21/2016 11:54 AM X-ray results as stated below per interpretation by me and the radiologist: ABDOMEN 2VIEW W/PA CHEST RTN CLINICAL HISTORY: eval for obstruction pain COMPARISON STUDY: 10/20/2006 seen FINDINGS: Mild nonobstructive ileus. Similar as compared to the prior study. Lungs are clear. Permanent bipolar cardiac pacer/defibrillator is present. IMPRESSION: Mild left nonobstructive ileus. Negative chest. No change from the prior study. Electronically signed by: Marcial Calero M.D. 10/21/2016 2:02 PM Dictated Date/Time: 10/21/2016 2:01 PM Laboratory Results 10/21/16 10:00 Red Blood Count 4.45, Mean Corpuscular Volume 86.5, Mean Corpuscular Hemoglobin 29.4, Mean Corpuscular Hemoglobin Concent 34.0, Mean Platelet Volume 8.9, Neutrophils (%) (Auto) 63.0, Lymphocytes (%) (Auto) 20.8, Monocytes (%) (Auto) 11.4, Eosinophils (%) (Auto) 3.9, Basophils (%) (Auto) 0.5, Neutrophils # (Auto ) 5.18, Lymphocytes # (Auto) 1.71, Monocytes # (Auto) 0.94, Eosinophils # (Auto ) 0.32, Basophils # (Auto) 0.04 10/21/16 10:00 Test 10/21/16 10:00 10/21/16 12:10 White Blood Count 8.22 K/uL (4.8-10.8) Red Blood Count 4.45 M/uL (4.7-6.1) Hemoglobin 13.1 g/dL (14.0-18.0) Hematocrit 38.5 % (42-52) Mean Corpuscular Volume 86.5 fL (80-100) Mean Corpuscular Hemoglobin 29.4 pg (25-34) Mean Corpuscular Hemoglobin Concent 34.0 g/dl (32-36) Platelet Count 273 K/uL (130-400) Mean Platelet Volume 8.9 fL (7.4-10.4) Neutrophils (%) (Auto) 63.0 % Lymphocytes (%) (Auto) 20.8 % Monocytes (%) (Auto) 11.4 % Eosinophils (%) (Auto) 3.9 % Basophils (%) (Auto) 0.5 % Neutrophils # (Auto) 5.18 K/uL (1.4-6.5) Lymphocytes # (Auto) 1.71 K/uL (1.2-3.4) Monocytes # (Auto) 0.94 K/uL (0.11-0.59) Eosinophils # (Auto) 0.32 K/uL (0-0.5) Basophils # (Auto) 0.04 K/uL (0-0.2) RDW Standard Deviation 44.2 fL (36.4-46.3) RDW Coefficient of Variation 14.0 % (11.5-14.5) Immature Granulocyte % (Auto) 0.4 % Immature Granulocyte # (Auto) 0.03 K/uL (0.00-0.02) Prothrombin Time 10.7 SECONDS (9.0-12.0) Prothromb Time International Ratio 1.0 (0.9-1.1) Activated Partial Thromboplast Time 26.8 SECONDS (21.0-31.0) Partial Thromboplastin Ratio 1.0 Anion Gap 9.0 mmol/L (3-11) Est Creatinine Clear Calc Drug Dose 115.6 ml/min Estimated GFR () 108.4 Estimated GFR (Non- 93.5 BUN/Creatinine Ratio 13.9 (10-20) Calcium Level 8.2 mg/dl (8.5-10.1) Total Bilirubin 0.4 mg/dl (0.2-1) Aspartate Amino Transf (AST/SGOT) 22 U/L (15-37) Alanine Aminotransferase (ALT/SGPT) 58 U/L (12-78) Alkaline Phosphatase 67 U/L (45-117) Troponin I < 0.015 ng/ml (0-0.045) Total Protein 6.4 gm/dl (6.4-8.2) Albumin 3.2 gm/dl (3.4-5.0) Globulin 3.2 gm/dl (2.5-4.0) Albumin/Globulin Ratio 1.0 (0.9-2) Lipase 86 U/L (73-393) Hepatitis C Antibody Screen NEG (NEG) Urine Color YELLOW Urine Appearance CLEAR (CLEAR) Urine pH 5.0 (4.5-7.5) Urine Specific [place] 1.012 (1.000-1.030) Urine Protein NEG (NEG) Urine Glucose (UA) NEG (NEG) Urine Ketones NEG (NEG) Urine Occult Blood NEG (NEG) Urine Nitrite NEG (NEG) Urine Bilirubin NEG (NEG) Urine Urobilinogen NEG (NEG) Urine Leukocyte Esterase NEG (NEG) Laboratory results as reviewed by me. ECG Indication: abdominal pain Rate (beats per minute): 75 Rhythm: other (Atrial sensed ventricular paced rhythm) Findings: no acute ischemic change, no ectopy ED Course 1036: The patient was evaluated in room B06. A complete history and physical exam was performed. 1221: The patient is still complaining of pain. I performed a rectal exam which showed guaiac negative with yellow, light brown stool, no blood. Large hemorrhoids which were not thrombosed or bleeding. 1226: I discussed the patient's case with Dr. Jones, general surgeon with [facility]. Because of his cardiomyopathy, Dr. Jones wants internal medicine to see him to see if he is a candidate for surgery here or if he needs to be transferred. 1238: I [facility] the [facility]40: On reevaluation, the patient is resting comfortably. I discussed the results and findings with him. He verbalized agreement of the treatment plan. The patient will be evaluated for further management and care. Medical Decision This is a 51-year-old male who presents with abdominal pain and diarrhea. Differential diagnosis includes cholecystitis, biliary colic, pancreatitis, bowel obstruction, enteritis, irritable bowel syndrome. I did perform a limited focused review of portions of the patient's old chart on the electronic medical record. The patient was here 2 days ago for lower abdominal pain. His blood work was unremarkable. He had a CT scan of abdomen and pelvis which was unremarkable other than a fatty liver. Gallbladder ultrasound showed gallstones without cholecystitis. I did evaluate the patient as noted above. He is presenting with persistent abdominal pain which seems to be predominantly in the epigastric and right upper quadrant. He does have some pain in the left lower quadrant as well. He does not have a Zapata sign. IV access was established. I did order and personally review the patient's 12-lead EKG and abdominal/chest x-ray as described above. I did order and review the patient's blood work as noted in the electronic medical record. His white blood cell count is not elevated. Troponin is negative. LFTs are unremarkable. I did order an ultrasound of the right upper quadrant. I did review the images myself as well as the radiology report as described above. He has gallstones with one in the vicinity of the neck measuring 1.5 cm. No signs of pericholecystic fluid or wall thickening. I did discuss the test results with the patient. I did discuss the case with Dr. Odonnell of surgery. He recommended medical admission for HIDA scan and further evaluation. He will see the patient as a consult. I did discuss case with the hospitalist and outpatient case manager. Consults Time Called: 1220 Consulting Physician: Dr. Jones, general surgeon with [facility] Returned Call: 1223 I discussed the patient's case with Dr. Jones, general surgeon with [facility]. Because of his cardiomyopathy, Dr. Jones wants internal medicine to see him to see if he is a candidate for surgery here or if he needs to be transferred. Additional Consults: Time Called: 1235 Consulted Physician[facility] Returned Call: 1235 Additional Comments: I discussed the patient's [facility] Impression Primary Impression: Biliary colic Scribe Attestation The scribe's documentation has been prepared under my direct and personally reviewed by me in its entirety. I confirm that the note above accurately reflects all work, treatment, procedures, and medical decision making performed by me. Departure Information Dispostion Being Evaluated By Hospitalist Referrals Rajan Pedersen D.O. Pulmonary (PCP) Patient Instructions My [facility]
--- NOTE | 2016-10-21 17:56 | Cardiology Consultation ---
Cardiology Consultation Date of Consultation: Oct 21, 2016. Pt evaluation today including: conversation w/ patient, physical exam, lab review, review of studies, review of inpatient medication list History of Present Illness This is a very pleasant 51-year-old gentleman who has a nonischemic cardiomyopathy (catheterization with normal coronary arteries and ejection fraction of 30% in September of 2007). He was treated with carvedilol and GALO inhibitors since that time, his ejection fraction has been recorded as high as 40% (September 2009) however had been dropping subsequently. An echocardiogram done on March 26, 2011 demonstrated a baseline ejection fraction of 35% which dropped to 30% with exercise. He was having difficulty with exercise, he got very short of breath and somewhat lightheaded with exercise. Additionally he has a long history of left bundle branch block, this was identified at the time of his initial evaluation September of 2007, I believe that was the first electrocardiogram he had so the total duration of the left bundle pattern is unknown. The LBBB may have been part of the cause of his cardiomyopathy. He underwent biventricular ICD implantation on April 17, 2011. The procedure was uneventful and he was discharged the following day. He initially felt better after implant, his exercise ability had deteriorated subsequently and his corroborates that. We observed that he had very frequent premature ventricular beats at an office visit, this can also contribute to cardiomyopathy and he subsequently had PVC ablation performed at [place]. He is on amiodarone but his PVCs have mostly resolved since that time. His ICD reached replacement time due to battery depletion and was replaced on . An echocardiogram done on 09/10/2015 shows his ejection fraction being 35-40% (that was his last one). He is on gppd doses of carvedilol, and he was on lisinopril but was having a cough therefore that was switched to losartan 50 mg daily which he is tolerating well. He is admitted with gall stones and may require surgery. From the cardiovascular standpoint he feels well, he is not having CHF symptoms, does not have palpitations or chest discomfort. Past Medical/Surgical History Problems 1. Cardiomyopathy (I42.9) 2. Cardioverter-Defibrillator Pulse Generator With Synchronous Cardiac Pacemaker 3. Catheter Ablation for PVCs 4. Chronic systolic congestive heart failure (I50.22) 5. Depression (F32.9) 7. Hyperglycemia (R73.9) 9. Hypothyroidism (E03.9) 10. Left bundle-branch block (I44.7) 12. Paroxysmal atrial fibrillation (I48.0) 15. Premature ventricular contractions (I49.3) Family History Cancer Social History Smoking Status: Never Smoker History of Alcohol Use: Yes (occasional) Review of Systems Constitutional: No fever, No weakness, No weight loss Respiratory: + cough Cardiac: No PND, No chest pain, No edema, No orthopnea, No palpitations Abdomen: + nausea, + see HPI, No GI bleeding, No diarrhea, No pain, No vomiting Male : No nocturia more than once/night, No sexual dysfunction, No slowing stream, No urinary frequency Neurologic: No balance problems, No numbness/tingling, No paralysis, No weakness Heme: No abnormal bleeding/bruising, No clotting problems Endo: No fatigue Skin: No problem reported All Other Systems: Reviewed and Negative Allergies Coded Allergies: Cefuroxime (Verified Allergy, Severe, RASH, 10/21/16) Medications Current Inpatient Medications Medications (Trade) Dose Ordered Sig/Haresh Route Start Time Stop Time Status Last Admin Dose Admin Heparin Sodium (Porcine) (Heparin Sq 5000 Unit/0.5ml) 5,000 unit Q8H SQ 10/21/16 22:00 11/20/16 21:59 Amiodarone HCl (Cordarone Tab) 200 mg DAILY PO 10/22/16 09:00 11/21/16 08:59 Carvedilol (Coreg Tab) 37.5 mg BID PO 10/21/16 21:00 11/20/16 20:59 Citalopram Hydrobromide (celeXA TAB) 20 mg DAILY PO 10/22/16 09:00 11/21/16 08:59 Levothyroxine Sodium (Synthroid Tab) 100 mcg DAILYBB PO 10/22/16 06:00 11/21/16 06:59 Losartan Potassium (coZAAR TAB) 50 mg BID PO 10/21/16 21:00 11/20/16 20:59 Potassium Chloride (Klor-Con Tab) 20 meq DAILY PRN PO 10/21/16 14:00 11/20/16 13:59 Spironolactone 25 mg 25 mg DAILY PO 10/22/16 09:00 11/21/16 08:59 Dextrose/Sodium Chloride (D5W And 1/2nss) 1,000 ml @ 40 mls/hr Q24H IV 10/21/16 16:00 11/20/16 15:59 10/21/16 16:23 40 MLS/HR Morphine Sulfate (MoRPHine SULFATE INJ) 1 mg Q6H PRN IV 10/21/16 14:00 11/04/16 13:59 10/21/16 15:43 1 MG Physical Exam Vital Signs Past 12 Hours Date Time Temp Pulse Resp B/P Pulse Ox O2 Delivery O2 Flow Rate FiO2 10/21/16 15:23 36.9 71 19 144/94 95 Room Air 10/21/16 15:09 70 18 129/85 95 10/21/16 14:53 69 18 129/85 96 Room Air 10/21/16 14:45 36.6 70 18 130/78 97 Room Air 10/21/16 13:00 66 18 138/93 95 Room Air 10/21/16 11:10 78 20 133/88 98 Room Air 10/21/16 09:10 36.4 96 18 143/90 97 Room Air Constitutional: General Apperance: heathly-appearing Level of Distress: NAD Psychiatric: Mental Status: active & alert Head: normocephalic Eyes: EOM: EOMI ENMT: normal ENT inspection, hearing grossly normal Neck: supple, no masses Lungs: Respiratory effort: no dyspnea, good air movement Auscultation: breath sounds normal, no wheezing Cardiovascular: Heart Auscultation: RRR, no murmurs, no rubs, no gallops Peripheral Pulses: Bruits: none appreciated Abdomen: Bowel Sounds: normal Inspection & Palpation: soft, no tenderness, guarding & rebound, no masses Musculoskeletal: normal strength (5/5 throughout) Extremities: no edema Neurologic: Cranial Nerves: grossly intact Sensation: grossly intact Data Laboratory Results: Last 24 Hours Test 10/21/16 10:00 10/21/16 12:10 White Blood Count 8.22 K/uL Red Blood Count 4.45 M/uL Hemoglobin 13.1 g/dL Hematocrit 38.5 % Mean Corpuscular Volume 86.5 fL Mean Corpuscular Hemoglobin 29.4 pg Mean Corpuscular Hemoglobin Concent 34.0 g/dl Platelet Count 273 K/uL Mean Platelet Volume 8.9 fL Neutrophils (%) (Auto) 63.0 % Lymphocytes (%) (Auto) 20.8 % Monocytes (%) (Auto) 11.4 % Eosinophils (%) (Auto) 3.9 % Basophils (%) (Auto) 0.5 % Neutrophils # (Auto) 5.18 K/uL Lymphocytes # (Auto) 1.71 K/uL Monocytes # (Auto) 0.94 K/uL Eosinophils # (Auto) 0.32 K/uL Basophils # (Auto) 0.04 K/uL RDW Standard Deviation 44.2 fL RDW Coefficient of Variation 14.0 % Immature Granulocyte % (Auto) 0.4 % Immature Granulocyte # (Auto) 0.03 K/uL Prothrombin Time 10.7 SECONDS Prothromb Time International Ratio 1.0 Activated Partial Thromboplast Time 26.8 SECONDS Partial Thromboplastin Ratio 1.0 Sodium Level 143 mmol/L Potassium Level 4.0 mmol/L Chloride Level 109 mmol/L Carbon Dioxide Level 25 mmol/L Anion Gap 9.0 mmol/L Blood Urea Nitrogen 13 mg/dl Creatinine 0.94 mg/dl Est Creatinine Clear Calc Drug Dose 115.6 ml/min Estimated GFR () 108.4 Estimated GFR (Non- 93.5 BUN/Creatinine Ratio 13.9 Random Glucose 102 mg/dl Calcium Level 8.2 mg/dl Total Bilirubin 0.4 mg/dl Aspartate Amino Transf (AST/SGOT) 22 U/L Alanine Aminotransferase (ALT/SGPT) 58 U/L Alkaline Phosphatase 67 U/L Troponin I < 0.015 ng/ml Total Protein 6.4 gm/dl Albumin 3.2 gm/dl Globulin 3.2 gm/dl Albumin/Globulin Ratio 1.0 Lipase 86 U/L Hepatitis C Antibody Screen NEG Urine Color YELLOW Urine Appearance CLEAR Urine pH 5.0 Urine Specific [place] 1.012 Urine Protein NEG Urine Glucose (UA) NEG Urine Ketones NEG Urine Occult Blood NEG Urine Nitrite NEG Urine Bilirubin NEG Urine Urobilinogen NEG Urine Leukocyte Esterase NEG EKG: SR with appropriate bi-ventricular pacing Assessment & Plan #1. Biventricular ICD: His ICD has been functioning well, the left ventricular pacing threshold is near his diaphragmatic pacing threshold but we have been able to maintain capture without a lot of diaphragmatic pacing. It has been a year since his ICD was checked, we will do that here. #2. Nonischemic cardiomyopathy: His left ventricular ejection fraction has been in the 35-40% range. He is on good doses of carvedilol and is on Losartan. I think we should check his LVEF before surgery, but clinically he seem to be doing well and probably can go through surgery. #3. Congestive heart failure: Based on his description he has litte in terms of heart failure symptoms. He does not appear to have fluid overload. #4. Paroxysmal atrial fibrillation: Based on pacemaker monitoring he has had brief episodes of atrial fibrillation in the past, he was on Xarelto for this but has not been taking it. We can reassess the AF when we interrogate his ICD. #5. Premature ventricular beats: He has had very few premature ventricular beats since his ablation, he is still on amiodarone. We can tell from his ICD interrogation if this is an acceptable degree of suppression. Thank you for allowing me to participate in his care.
[2016-10-21] MEDS: LOSARTAN POTASSIUM 50 MG TAB PO SCH (19:56)
[2016-10-21] MEDS: CARVEDILOL 25 MG TAB PO SCH (19:57)
[2016-10-21] MEDS: HEPARIN SOD 5000 UNIT/0.5 ML CARP SQ SCH (19:58)
[2016-10-21 23:22] VITALS: BP 111/71; PULSE 70; TEMP 36.5; O2SAT 91
[2016-10-22] MEDS: LEVOTHYROXINE 100 MCG TAB PO SCH (06:13)
[2016-10-22] MEDS: HEPARIN SOD 5000 UNIT/0.5 ML CARP SQ SCH ×3 (06:14→21:51)
[2016-10-22 06:33] LABS: HEMATOCRIT 40.2 % (42-52); MEAN CELL VOLUME 86.1 fL (80-100); MEAN CORPUSCULAR HEMOGLOBIN 29.3 pg (25-34); MEAN CORPUSCULAR HGB CONC 34.1 g/dl (32-36); MEAN PLATELET VOLUME 8.9 fL (7.4-10.4); PLATELET COUNT 282 K/uL (130-400); RED BLOOD COUNT 4.67 M/uL (4.7-6.1); WHITE BLOOD COUNT 7.23 K/uL (4.8-10.8)
--- NOTE | 2016-10-22 06:59 | Surgery Progress Note ---
Surgery Progress Note Date of Service Oct 22, 2016. Subjective Post OP Day: HD 2 + complaints (still with RUQ pain but better), + diet (NPO), + feeling well, + flatus, + pain controlled, No nausea, No vomiting Objective Vital Signs: Date Time Temp Pulse Resp B/P Pulse Ox O2 Delivery O2 Flow Rate FiO2 10/21/16 23:45 Room Air 10/21/16 23:22 36.5 70 17 111/71 91 Room Air 10/21/16 17:30 Room Air 10/21/16 15:23 36.9 71 19 144/94 95 Room Air 10/21/16 15:09 70 18 129/85 95 10/21/16 14:53 69 18 129/85 96 Room Air 10/21/16 14:45 36.6 70 18 130/78 97 Room Air 10/21/16 13:00 66 18 138/93 95 Room Air 10/21/16 11:10 78 20 133/88 98 Room Air 10/21/16 09:10 36.4 96 18 143/90 97 Room Air General Appearance: WD/WN, no apparent distress Head: normocephalic, atraumatic Neck: supple, trachea midline Respiratory/Chest: chest non-tender, lungs clear Cardiovascular: regular rate, rhythm Abdomen: normal bowel sounds, non distended, soft, + tenderness (mild) Extremities: non-tender, no pedal edema Laboratory Results: Results Past 24 Hours Test 10/21/16 10:00 10/21/16 12:10 10/22/16 06:11 Range/Units White Blood Count 8.22 7.23 4.8-10.8 K/uL Red Blood Count 4.45 4.67 4.7-6.1 M/uL Hemoglobin 13.1 13.7 14.0-18.0 g/dL Hematocrit 38.5 40.2 42-52 % Mean Corpuscular Volume 86.5 86.1 80-100 fL Mean Corpuscular Hemoglobin 29.4 29.3 25-34 pg Mean Corpuscular Hemoglobin Concent 34.0 34.1 32-36 g/dl Platelet Count 273 282 130-400 K/uL Mean Platelet Volume 8.9 8.9 7.4-10.4 fL Neutrophils (%) (Auto) 63.0 % Lymphocytes (%) (Auto) 20.8 % Monocytes (%) (Auto) 11.4 % Eosinophils (%) (Auto) 3.9 % Basophils (%) (Auto) 0.5 % Neutrophils # (Auto) 5.18 1.4-6.5 K/uL Lymphocytes # (Auto) 1.71 1.2-3.4 K/uL Monocytes # (Auto) 0.94 0.11-0.59 K/uL Eosinophils # (Auto) 0.32 0-0.5 K/uL Basophils # (Auto) 0.04 0-0.2 K/uL RDW Standard Deviation 44.2 43.6 36.4-46.3 fL RDW Coefficient of Variation 14.0 14.0 11.5-14.5 % Immature Granulocyte % (Auto) 0.4 % Immature Granulocyte # (Auto) 0.03 0.00-0.02 K/uL Prothrombin Time 10.7 9.0-12.0 SECONDS Prothromb Time International Ratio 1.0 0.9-1.1 Activated Partial Thromboplast Time 26.8 21.0-31.0 SECONDS Partial Thromboplastin Ratio 1.0 Sodium Level 143 136-145 mmol/L Potassium Level 4.0 3.5-5.1 mmol/L Chloride Level 109 98-107 mmol/L Carbon Dioxide Level 25 21-32 mmol/L Anion Gap 9.0 3-11 mmol/L Blood Urea Nitrogen 13 7-18 mg/dl Creatinine 0.94 0.60-1.40 mg/dl Est Creatinine Clear Calc Drug Dose 115.6 ml/min Estimated GFR () 108.4 Estimated GFR (Non- 93.5 BUN/Creatinine Ratio 13.9 10-20 Random Glucose 102 70-99 mg/dl Calcium Level 8.2 8.5-10.1 mg/dl Total Bilirubin 0.4 0.2-1 mg/dl Aspartate Amino Transf (AST/SGOT) 22 15-37 U/L Alanine Aminotransferase (ALT/SGPT) 58 12-78 U/L Alkaline Phosphatase 67 45-117 U/L Troponin I < 0.015 0-0.045 ng/ml Total Protein 6.4 6.4-8.2 gm/dl Albumin 3.2 3.4-5.0 gm/dl Globulin 3.2 2.5-4.0 gm/dl Albumin/Globulin Ratio 1.0 0.9-2 Lipase 86 73-393 U/L Hepatitis C Antibody Screen NEG NEG Urine Color YELLOW Urine Appearance CLEAR CLEAR Urine pH 5.0 4.5-7.5 Urine Specific [place] 1.012 1.000-1.030 Urine Protein NEG NEG Urine Glucose (UA) NEG NEG Urine Ketones NEG NEG Urine Occult Blood NEG NEG Urine Nitrite NEG NEG Urine Bilirubin NEG NEG Urine Urobilinogen NEG NEG Urine Leukocyte Esterase NEG NEG Assessment & Plan Diverticulitis; very unlikely appendicitis -con't IV cipro/flagyl -begin clears, possible fulls for dinner -possible discharge in AM
--- NOTE | 2016-10-22 07:03 | Surgery Progress Note ---
Surgery Progress Note Date of Service Oct 22, 2016. Subjective Post OP Day: HD 2 + complaints (RUQ pain), + diet (NPO), + feeling well, + flatus, No nausea, No vomiting Objective Vital Signs: Date Time Temp Pulse Resp B/P Pulse Ox O2 Delivery O2 Flow Rate FiO2 10/21/16 23:45 Room Air 10/21/16 23:22 36.5 70 17 111/71 91 Room Air 10/21/16 17:30 Room Air 10/21/16 15:23 36.9 71 19 144/94 95 Room Air 10/21/16 15:09 70 18 129/85 95 10/21/16 14:53 69 18 129/85 96 Room Air 10/21/16 14:45 36.6 70 18 130/78 97 Room Air 10/21/16 13:00 66 18 138/93 95 Room Air 10/21/16 11:10 78 20 133/88 98 Room Air 10/21/16 09:10 36.4 96 18 143/90 97 Room Air General Appearance: WD/WN, no apparent distress Head: normocephalic, atraumatic Neck: supple, trachea midline Respiratory/Chest: chest non-tender, lungs clear Cardiovascular: regular rate, rhythm Abdomen: normal bowel sounds, non distended, soft, + tenderness (RUQ) Extremities: non-tender, no pedal edema Laboratory Results: Results Past 24 Hours Test 10/21/16 10:00 10/21/16 12:10 10/22/16 06:11 Range/Units White Blood Count 8.22 7.23 4.8-10.8 K/uL Red Blood Count 4.45 4.67 4.7-6.1 M/uL Hemoglobin 13.1 13.7 14.0-18.0 g/dL Hematocrit 38.5 40.2 42-52 % Mean Corpuscular Volume 86.5 86.1 80-100 fL Mean Corpuscular Hemoglobin 29.4 29.3 25-34 pg Mean Corpuscular Hemoglobin Concent 34.0 34.1 32-36 g/dl Platelet Count 273 282 130-400 K/uL Mean Platelet Volume 8.9 8.9 7.4-10.4 fL Neutrophils (%) (Auto) 63.0 % Lymphocytes (%) (Auto) 20.8 % Monocytes (%) (Auto) 11.4 % Eosinophils (%) (Auto) 3.9 % Basophils (%) (Auto) 0.5 % Neutrophils # (Auto) 5.18 1.4-6.5 K/uL Lymphocytes # (Auto) 1.71 1.2-3.4 K/uL Monocytes # (Auto) 0.94 0.11-0.59 K/uL Eosinophils # (Auto) 0.32 0-0.5 K/uL Basophils # (Auto) 0.04 0-0.2 K/uL RDW Standard Deviation 44.2 43.6 36.4-46.3 fL RDW Coefficient of Variation 14.0 14.0 11.5-14.5 % Immature Granulocyte % (Auto) 0.4 % Immature Granulocyte # (Auto) 0.03 0.00-0.02 K/uL Prothrombin Time 10.7 9.0-12.0 SECONDS Prothromb Time International Ratio 1.0 0.9-1.1 Activated Partial Thromboplast Time 26.8 21.0-31.0 SECONDS Partial Thromboplastin Ratio 1.0 Sodium Level 143 136-145 mmol/L Potassium Level 4.0 3.5-5.1 mmol/L Chloride Level 109 98-107 mmol/L Carbon Dioxide Level 25 21-32 mmol/L Anion Gap 9.0 3-11 mmol/L Blood Urea Nitrogen 13 7-18 mg/dl Creatinine 0.94 0.60-1.40 mg/dl Est Creatinine Clear Calc Drug Dose 115.6 ml/min Estimated GFR () 108.4 Estimated GFR (Non- 93.5 BUN/Creatinine Ratio 13.9 10-20 Random Glucose 102 70-99 mg/dl Calcium Level 8.2 8.5-10.1 mg/dl Total Bilirubin 0.4 0.2-1 mg/dl Aspartate Amino Transf (AST/SGOT) 22 15-37 U/L Alanine Aminotransferase (ALT/SGPT) 58 12-78 U/L Alkaline Phosphatase 67 45-117 U/L Troponin I < 0.015 0-0.045 ng/ml Total Protein 6.4 6.4-8.2 gm/dl Albumin 3.2 3.4-5.0 gm/dl Globulin 3.2 2.5-4.0 gm/dl Albumin/Globulin Ratio 1.0 0.9-2 Lipase 86 73-393 U/L Hepatitis C Antibody Screen NEG NEG Urine Color YELLOW Urine Appearance CLEAR CLEAR Urine pH 5.0 4.5-7.5 Urine Specific [place] 1.012 1.000-1.030 Urine Protein NEG NEG Urine Glucose (UA) NEG NEG Urine Ketones NEG NEG Urine Occult Blood NEG NEG Urine Nitrite NEG NEG Urine Bilirubin NEG NEG Urine Urobilinogen NEG NEG Urine Leukocyte Esterase NEG NEG Assessment & Plan Symptomatic gallstones versus acute cholecystitis -Cards saw and cleared for surgery -HIDA today -possible lap [place] in AM
[2016-10-22] MEDS: SPIRONOLACTONE 25 MG TAB PO SCH (07:05)
[2016-10-22] MEDS: LOSARTAN POTASSIUM 50 MG TAB PO SCH ×2 (07:06→20:55)
[2016-10-22] MEDS: CITALOPRAM 20 MG TAB PO SCH (07:06)
[2016-10-22] MEDS: AMIODARONE 200 MG TAB PO SCH (07:06)
[2016-10-22] MEDS: CARVEDILOL 25 MG TAB PO SCH ×2 (07:06→20:56)
[2016-10-22 07:08] LABS: BUN/CREATININE RATIO 13.9 (10-20); CALCIUM 8.4 mg/dl (8.5-10.1); CREATININE 0.87 mg/dl (0.60-1.40); POTASSIUM 3.7 mmol/L (3.5-5.1)
[2016-10-22 07:52] VITALS: BP 126/87; PULSE 70; TEMP 36.5; O2SAT 95
[2016-10-22] MEDS ORDERED: PERFLUTREN LIPID MICROSPHERE (DEFINITY) IV ONE (08:06)
--- NOTE | 2016-10-22 11:46 | DIAGNOSTIC IMAGING REPORT ---
NUCLEAR MEDICINE HEPATOBILIARY SCAN HISTORY: Pain r/o acute cholecystitis, gb neck stone present COMPARISON: Ultrasound same date TECHNIQUE: Immediately following the intravenous administration of 5.7 mCi Tc-99m Choletec, dynamic anterior abdominal imaging was performed. FINDINGS: Uniform hepatic tracer accumulation is shown. Prompt intrahepatic biliary excretion is seen. The gallbladder, common bile duct, and small bowel are all visualized by 45 minutes. This appearance represents the normal sequence of biliary excretion, although opacification of the gallbladder is delayed at 45 minutes. IMPRESSION: Slight delay in opacification of the gallbladder at 45 minutes. Possibility of developing chronic calculus cholecystitis is a consideration Electronically signed by: Marcial Calero M.D. 10/22/2016 11:45 AM Dictated Date/Time: 10/22/2016 11:43 AM
--- NOTE | 2016-10-22 12:10 | Progress Note ---
Subjective Date of Service: Oct 22, 2016. Subjective Pt evaluation today including: conversation w/ patient, conversation w/ family (), physical exam, lab review, review of inpatient medication list NO further epigastric/abdominal discomfort. Remains NPO. HIDA done today. No new complaints. No chest pian, no sob. Problem List Medical Problems: (1) Abdominal pain Status: Acute (2) Avulsion of skin of finger Status: Acute (3) Biliary colic Status: Acute (4) Diarrhea Status: Acute (5) Nausea Status: Acute Review of Systems All Other Systems: Reviewed and Negative Medications Amiodarone HCl (Cordarone Tab) 200 mg DAILY PO; Start 10/22/16 at 09:00; Stop at 08:59 Carvedilol (Coreg Tab) 37.5 mg BID PO Last administered on 10/21/16 19:57; Admin Dose 37.5 MG; Start 10/21/16 at 21:00; Stop 11/20/16 at 20:59 Citalopram Hydrobromide (celeXA TAB) 20 mg DAILY PO; Start 10/22/16 at 09:00; Stop 11/21/16 at 08:59 Dextrose/Sodium Chloride (D5W And 1/2nss) 1,000 ml @ 40 mls/hr Q24H IV Last administered on 10/22/16 16:05; Admin Dose 40 MLS/HR; Start 10/21/16 at 16:00; Stop 11/20/16 at 15:59 Heparin Sodium (Porcine) (Heparin Sq 5000 Unit/0.5ml) 5,000 unit Q8H SQ Last administered on 10/22/16 13:30; Admin Dose 5,000 UNIT; Start 10/21/16 at 22:00; Stop 11/20/16 at 21:59 Levothyroxine Sodium (Synthroid Tab) 100 mcg DAILYBB PO Last administered on 10/22 06:13; Admin Dose 100 MCG; Start 10/22/16 at 06:00; Stop 11/21/16 at 06:59 Losartan Potassium (coZAAR TAB) 50 mg BID PO Last administered on 10/21/16 19: 56; Admin Dose 50 MG; Start 10/21/16 at 21:00; Stop 11/20/16 at 20:59 Morphine Sulfate (MoRPHine SULFATE INJ) 1 mg Q6H PRN IV Last administered on t 23:54; Admin Dose 1 MG; Start 10/21/16 at 14:00; Stop 11/04/16 at 13:59 Potassium Chloride (Klor-Con Tab) 20 meq DAILY PRN PO; Start 10/21/16 at 14:00 ; Stop 11/20/16 at 13:59 Spironolactone 25 mg 25 mg DAILY PO; Start 10/22/16 at 09:00; Stop 11/21/16 at 08 :59 Objective Vital Signs Date Time Temp Pulse Resp B/P Pulse Ox O2 Delivery O2 Flow Rate FiO2 10/22/16 07:52 36.5 70 17 126/87 95 Room Air 10/22/16 07:50 Room Air 10/21/16 23:45 Room Air 10/21/16 23:22 36.5 70 17 111/71 91 Room Air 10/21/16 17:30 Room Air 10/21/16 15:23 36.9 71 19 144/94 95 Room Air 10/21/16 15:09 70 18 129/85 95 10/21/16 14:53 69 18 129/85 96 Room Air 10/21/16 14:45 36.6 70 18 130/78 97 Room Air 10/21/16 13:00 66 18 138/93 95 Room Air Physical Exam Comments: nad, aox3, coherent and fluent speech cn 2-12 grossly intact without facial drooping eomi, perrl s1 s2 rrr, no murmurs appreciated ctab no w/r/r abd soft nt/nd +BS no cva tend no LE edema Laboratory Results Last 24 Hours Test 10/21/16 12:10 10/22/16 06:11 Urine Color YELLOW Urine Appearance CLEAR Urine pH 5.0 Urine Specific [place] 1.012 Urine Protein NEG Urine Glucose (UA) NEG Urine Ketones NEG Urine Occult Blood NEG Urine Nitrite NEG Urine Bilirubin NEG Urine Urobilinogen NEG Urine Leukocyte Esterase NEG White Blood Count 7.23 K/uL Red Blood Count 4.67 M/uL Hemoglobin 13.7 g/dL Hematocrit 40.2 % Mean Corpuscular Volume 86.1 fL Mean Corpuscular Hemoglobin 29.3 pg Mean Corpuscular Hemoglobin Concent 34.1 g/dl RDW Standard Deviation 43.6 fL RDW Coefficient of Variation 14.0 % Platelet Count 282 K/uL Mean Platelet Volume 8.9 fL Sodium Level 141 mmol/L Potassium Level 3.7 mmol/L Chloride Level 106 mmol/L Carbon Dioxide Level 25 mmol/L Anion Gap 10.0 mmol/L Blood Urea Nitrogen 12 mg/dl Creatinine 0.87 mg/dl Est Creatinine Clear Calc Drug Dose 127.8 ml/min Estimated GFR () 115.8 Estimated GFR (Non- 99.9 BUN/Creatinine Ratio 13.9 Random Glucose 90 mg/dl Calcium Level 8.4 mg/dl Total Bilirubin 0.6 mg/dl Aspartate Amino Transf (AST/SGOT) 24 U/L Alanine Aminotransferase (ALT/SGPT) 61 U/L Alkaline Phosphatase 55 U/L Total Protein 6.4 gm/dl Albumin 3.2 gm/dl Globulin 3.2 gm/dl Albumin/Globulin Ratio 1.0 Lipase 73 U/L Interpretation Summary * Name: WYATT RAWLS Study Date: 10/22/2016 07:22 AM BP: 126/87 mmHg * Patient Location: [facility]\S\2 HR: 70 * : 1965 (M/d/yyyy) Gender: Male Height: 73 in * Age: 51 yrs Ethnicity: NM Weight: 231 lb * Ordering Physician: Abdirashid Martinez * Referring Physician: Self, Referred * Performed By: Megan Salazar * * Reason For Study: DILATED CARDIOMYOPATHY * BSA: 2.3 m2 * Mild to moderate left ventricular systolic dysfunction. * Mild concentric left ventricular hypertrophy. * Mild left atrial dilatation. * Trace mitral and tricuspid regurgitation. * No significant change from echocardiogram of 02/05/2015. Procedure Details * A complete two-dimensional transthoracic echocardiogram was performed (2D, M-mode, Doppler and color flow Doppler). * A contrast injection of Definity was performed to improve assessment of LV function. * Contrast was injected into an intravenous site in the right arm. * One vial of Definity ultrasound contrast was diluted in normal saline to a total volume of 10 ml. A total of '3' ml of solution was administered during imaging. * Lot # [id number] of Definity utilized for procedure. * Expiration date 09/10. * The attending nurse who injected the contrast agent was SHANT ONTIVEROS RN. Left Ventricle * The left ventricle is normal in size. * There is mild concentric left ventricular hypertrophy. * Ejection Fraction = 40-45%. * Left ventricular systolic function is mild to moderately reduced. * A full diastolic examination was done with clinical findings of Class I diastolic dysfunction. * There is mild to moderate global hypokinesis of the left ventricle. HISTORY: Pain r/o acute cholecystitis, gb neck stone present COMPARISON: Ultrasound same date TECHNIQUE: Immediately following the intravenous administration of 5.7 mCi Tc-99m Choletec, dynamic anterior abdominal imaging was performed. FINDINGS: Uniform hepatic tracer accumulation is shown. Prompt intrahepatic biliary excretion is seen. The gallbladder, common bile duct, and small bowel are all visualized by 45 minutes. This appearance represents the normal sequence of biliary excretion, although opacification of the gallbladder is delayed at 45 minutes. IMPRESSION: Slight delay in opacification of the gallbladder at 45 minutes. Possibility of developing chronic calculus cholecystitis is a consideration Assessment and Plan 1. Epigastric/RUQ abd pain - with nausea, no vomiting - GB neck stone - surgical, HIDA above. possibly for OR tomorrow 2. idiopathic cardiomyopathy - s/p AICD 2013, ef 40% in 2016 - h/o afib s/p ablation, stopped his xarelto - repeat echo as above, ef remains 40-45% - cardio assessment noted 3. CHF systolic - clinically euvolemic and compensated - resume coreg, spironolactone, arb 4. AFib s/p ablation - resume amiodarone - cont holding Xarelto, anticipate OR 5. dvt ppx
--- NOTE | 2016-10-22 12:51 | ECHOCARDIOGRAM REPORT ---
*NOTICE TO RECEIVING LIBERTARIAN AGENCY This information is strictly Confidential and protected under [place] law. [place] law prohibits you from making any further disclosure of this information unless further disclosure is expressly permitted by the written consent of the person to whom it pertains or is authorized by law. A general authorization for the release of medical or other information is not sufficient for this purpose. Hospital accepts no responsibility if the information is made available to any other person, INCLUDING THE PATIENT. Interpretation Summary * Name: WYATT RAWLS Study Date: 10/22/2016 07:22 AM BP: 126/87 mmHg * Patient Location: C.MSN\S\N387\S\2 HR: 70 * : 1965 (M/d/yyyy) Gender: Male Height: 73 in * Age: 51 yrs Ethnicity: CA Weight: 231 lb * Ordering Physician: Abdirashid Martinez * Referring Physician: Self, Referred * Performed By: Megan Salazar * * Reason For Study: DILATED CARDIOMYOPATHY * BSA: 2.3 m2 * Mild to moderate left ventricular systolic dysfunction. * Mild concentric left ventricular hypertrophy. * Mild left atrial dilatation. * Trace mitral and tricuspid regurgitation. * No significant change from echocardiogram of 02/05/2015. Procedure Details * A complete two-dimensional transthoracic echocardiogram was performed (2D, M-mode, Doppler and color flow Doppler). * A contrast injection of Definity was performed to improve assessment of LV function. * Contrast was injected into an intravenous site in the right arm. * One vial of Definity ultrasound contrast was diluted in normal saline to a total volume of 10 ml. A total of '3' ml of solution was administered during imaging. * Lot # [id number] of Definity utilized for procedure. * Expiration date 09/10. * The attending nurse who injected the contrast agent was SHANT ONTIVEROS RN. Left Ventricle * The left ventricle is normal in size. * There is mild concentric left ventricular hypertrophy. * Ejection Fraction = 40-45%. * Left ventricular systolic function is mild to moderately reduced. * A full diastolic examination was done with clinical findings of Class I diastolic dysfunction. * There is mild to moderate global hypokinesis of the left ventricle. Right Ventricle * The right ventricle is normal in size and function. * There is a pacemaker lead in the right ventricle. * The right ventricular systolic function is normal as assessed by tricuspid annular plane systolic excursion (TAPSE) (normal >1.5 cm). Atria * The left atrium is mildly dilated. * Right atrial size is normal. * No ASD detected; PFO is not assessed. Mitral Valve * The mitral valve is normal. * There is no mitral valve stenosis. * There is trace mitral regurgitation. Tricuspid Valve * The tricuspid valve is not well visualized, but is grossly normal. * There is no tricuspid stenosis. * There is trace tricuspid regurgitation. * Right ventricular systolic pressure is normal. Aortic Valve * The aortic valve is trileaflet. * The aortic valve opens well. * Aortic stenosis is absent. * No aortic regurgitation is present. Pulmonic Valve * The pulmonic valve is not well seen, but is grossly normal. * There is no pulmonic valvular stenosis. * There is no pulmonic valvular regurgitation. Great Vessels * The aortic root is normal size. Pericardium/Pleural * There is no pericardial effusion. Great Vessels * Normal inferior vena cava diameter and respiratory variation suggests normal central venous pressure. MMode 2D Measurements and Calculations IVSd 1.3 cm IVSs 1.5 cm LVIDd 5.0 cm LVIDs 3.9 cm LVPWd 1.2 cm LVPWs 1.7 cm IVS/LVPW 1.1 FS 21.2 % EDV(Teich) 118.0 ml ESV(Teich) 67.5 ml EF(Teich) 42.9 % EDV(cubed) 124.7 ml ESV(cubed) 61.1 ml EF(cubed) 51.0 % % IVS thick 15.8 % % LVPW thick 42.6 % LV mass(C)d 254.0 grams LV mass(C)dI 111.0 grams/m\S\2 LV mass(C)s 262.6 grams LV mass(C)sI 114.8 grams/m\S\2 CO(Teich) 3.6 l/min CI(Teich) 1.6 l/min/m\S\2 SV(Teich) 50.6 ml SI(Teich) 22.1 ml/m\S\2 CO(cubed) 4.5 l/min CI(cubed) 2.0 l/min/m\S\2 SV(cubed) 63.7 ml SI(cubed) 27.8 ml/m\S\2 EPSS 0.99 cm Ao root diam 3.4 cm Ao root area 8.8 cm\S\2 ACS 1.5 cm LA dimension 4.6 cm asc Aorta Diam 2.8 cm LA/Ao 1.4 LVOT diam 2.1 cm LVOT area 3.4 cm\S\2 LVAd ap4 45.2 cm\S\2 LVLd ap4 9.7 cm EDV(MOD-sp4) 172.0 ml LVAs ap4 29.6 cm\S\2 LVLs ap4 7.9 cm ESV(MOD-sp4) 89.0 ml EF(MOD-sp4) 48.3 % LVAd ap2 43.5 cm\S\2 LVLd ap2 9.8 cm EDV(MOD-sp2) 161.0 ml LVAs ap2 27.9 cm\S\2 LVLs ap2 7.8 cm ESV(MOD-sp2) 81.0 ml EF(MOD-sp2) 49.7 % CO(MOD-sp4) 5.9 l/min CI(MOD-sp4) 2.6 l/min/m\S\2 SV(MOD-sp4) 83.0 ml SI(MOD-sp4) 36.3 ml/m\S\2 CO(MOD-sp2) 5.7 l/min CI(MOD-sp2) 2.5 l/min/m\S\2 SV(MOD-sp2) 80.0 ml SI(MOD-sp2) 35.0 ml/m\S\2 Doppler Measurements and Calculations MV E max elijah 69.9 cm/sec MV A max elijah 68.6 cm/sec MV E/A 1.0 MV dec time 0.24 sec Ao V2 max 114.8 cm/sec Ao max PG 5.3 mmHg Ao max PG (full) 2.3 mmHg TAYLOR(V,A) 2.6 cm\S\2 TAYLOR(V,D) 2.6 cm\S\2 LV V1 max PG 3.0 mmHg LV V1 max 86.7 cm/sec MR max elijah 418.7 cm/sec MR max PG 70.1 mmHg PA V2 max 69.9 cm/sec PA max PG 2.0 mmHg TR max elijah 233.7 cm/sec
--- NOTE | 2016-10-22 14:37 | Anesthesiology Progress Note ---
Anesthesia Progress Note Date of Service Oct 22, 2016. Progress Notes Mr. Liang is a 51 year old male who is scheduled for a laparoscopic cholecystectomy on 10/23/[address] Jones. 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 He does get SOB with significant activity but is still functional in that he can easily walk to and from the car and is currently employed. Pacer/ICD is a medtronic BiV ICD that was interrogated on 10/22/16. Mode is DDDR, normal function, normal sensing thresholds and battery life 4.7 years. EKG showed HR 75 with Atrial sensed and ventricular paced rhythm. Echo from this hospital admission showed EF 40-45%, mild LVH, LV function mild to moderate reduced, class 1 diastolic dysfunction and mild to moderate global hypokinesis of LV. Cardiology saw this patient this admission and stated his ICD has been interrogated and is working appropriately. Patient does not have fluid overload. He has been doing well clinically and can go through with surgery. Airway exam showed srivastava, FROM of TMJ and neck. MP 2 with TMD 3. Several missing molars with [employer] upper front teeth. CTA and RRR without M/R/G. Anesthetic plan was discussed with patient and at his bedside. He was consented for GETA and all questions were answered. Matthew Nair MD Staff Anesthesiologist
[2016-10-22 15:50] VITALS: BP 131/87; PULSE 70; TEMP 36.5; O2SAT 93
[2016-10-22] MEDS: D5W AND 1/2NSS 1,000 ML IV SCH (16:05)
[2016-10-22 20:53] VITALS: BP 149/97; PULSE 76
[2016-10-22 22:51] VITALS: BP 129/83; PULSE 80; TEMP 37; O2SAT 93
[2016-10-23] VITALS (11 sets, daily range): BP systolic 102–137; BP diastolic 60–92; PULSE 69–94; TEMP 36.3–36.6; O2SAT 90–98
[2016-10-23] MEDS: LEVOTHYROXINE 100 MCG TAB PO SCH (05:44)
[2016-10-23] MEDS: HEPARIN SOD 5000 UNIT/0.5 ML CARP SQ SCH ×3 (05:44→21:21)
[2016-10-23 06:14] LABS: INR 1.1 (0.9-1.1); PROTHROMBIN TIME (PATIENT) 11.7 SECONDS (9.0-12.0)
[2016-10-23 06:29] LABS: BUN/CREATININE RATIO 10.1 (10-20); CALCIUM 8.6 mg/dl (8.5-10.1); CREATININE 0.89 mg/dl (0.60-1.40); MAGNESIUM 2.4 mg/dl (1.8-2.4); POTASSIUM 3.5 mmol/L (3.5-5.1)
[2016-10-23 06:32] LABS: ALB/GLOB RATIO 0.9 (0.9-2)
[2016-10-23 06:50] LABS: BASO % 0.5 %; BASO ABS # 0.04 K/uL (0-0.2); COMPLETE YES; EOS % 2.6 %; HEMATOCRIT 42.8 % (42-52); IG% 0.4 %; LYMPH % 29.5 %; MEAN CELL VOLUME 87.3 fL (80-100); MEAN CORPUSCULAR HGB CONC 33.2 g/dl (32-36); MEAN PLATELET VOLUME 9.1 fL (7.4-10.4); MONO % 9.1 %; NEUT % 57.9 %; PLATELET COUNT 316 K/uL (130-400); WHITE BLOOD COUNT 8.13 K/uL (4.8-10.8)
[2016-10-23] MEDS: SPIRONOLACTONE 25 MG TAB PO SCH (06:53)
[2016-10-23] MEDS: CITALOPRAM 20 MG TAB PO SCH (06:53)
[2016-10-23] MEDS: AMIODARONE 200 MG TAB PO SCH (06:54)
[2016-10-23] MEDS: CARVEDILOL 25 MG TAB PO SCH ×2 (06:54→21:16)
[2016-10-23] MEDS: LOSARTAN POTASSIUM 50 MG TAB PO SCH ×2 (06:54→21:16)
--- NOTE | 2016-10-23 11:27 | Progress Note ---
Subjective Date of Service: Oct 23, 2016. Subjective Pt evaluation today including: conversation w/ patient, physical exam, review of studies, review of inpatient medication list No chest pain, no sob. On IVF for maintenance while NPO. No abd pain, no n/v. Problem List Medical Problems: (1) Abdominal pain Status: Acute (2) Avulsion of skin of finger Status: Acute (3) Biliary colic Status: Acute (4) Diarrhea Status: Acute (5) Nausea Status: Acute Review of Systems All Other Systems: Reviewed and Negative Medications Amiodarone HCl (Cordarone Tab) 200 mg DAILY PO; Start 10/22/16 at 09:00; Stop at 08:59 Carvedilol (Coreg Tab) 37.5 mg BID PO Last administered on 10/22/16 20:56; Admin Dose 37.5 MG; Start 10/21/16 at 21:00; Stop 11/20/16 at 20:59 Citalopram Hydrobromide (celeXA TAB) 20 mg DAILY PO; Start 10/22/16 at 09:00; Stop 11/21/16 at 08:59 Dextrose/Sodium Chloride (D5W And 1/2nss) 1,000 ml @ 40 mls/hr Q24H IV Last administered on 10/22/16 16:05; Admin Dose 40 MLS/HR; Start 10/21/16 at 16:00; Stop 11/20/16 at 15:59 Heparin Sodium (Porcine) (Heparin Sq 5000 Unit/0.5ml) 5,000 unit Q8H SQ Last administered on 10/22/16 21:51; Admin Dose 5,000 UNIT; Start 10/21/16 at 22:00; Stop 11/20/16 at 21:59 Levothyroxine Sodium (Synthroid Tab) 100 mcg DAILYBB PO Last administered on 10/22 06:13; Admin Dose 100 MCG; Start 10/22/16 at 06:00; Stop 11/21/16 at 06:59 Losartan Potassium (coZAAR TAB) 50 mg BID PO Last administered on 10/22/16 20:55 ; Admin Dose 50 MG; Start 10/21/16 at 21:00; Stop 11/20/16 at 20:59 Morphine Sulfate (MoRPHine SULFATE INJ) 1 mg Q6H PRN IV Last administered on 2/ 28/17at 23:54; Admin Dose 1 MG; Start 10/21/16 at 14:00; Stop 11/04/16 at 13:59 Potassium Chloride (Klor-Con Tab) 20 meq DAILY PRN PO; Start 10/21/16 at 14:00 ; Stop 11/20/16 at 13:59 Spironolactone 25 mg 25 mg DAILY PO; Start 10/22/16 at 09:00; Stop 11/21/16 at 08 :59 Objective Vital Signs Date Time Temp Pulse Resp B/P Pulse Ox O2 Delivery O2 Flow Rate FiO2 10/23/16 08:24 Room Air 10/23/16 07:40 94 Room Air 10/23/16 07:23 36.5 69 16 102/60 92 Room Air 10/22/16 23:51 Room Air 10/22/16 22:51 37.0 80 14 129/83 93 Room Air 10/22/16 20:53 76 149/97 10/22/16 15:50 36.5 70 18 131/87 93 Room Air 10/22/16 15:45 Room Air Physical Exam Comments: nad, aox3, eomi, perrl, anicteric s1 s2 rrr, no m/r/g ctab no w/r/r abd soft nt/nd +BS no organomegaly no LE edema cn 2-12 grossly intact without facial drooping Laboratory Results Last 24 Hours Test 10/23/16 05:17 White Blood Count 8.13 K/uL Red Blood Count 4.90 M/uL Hemoglobin 14.2 g/dL Hematocrit 42.8 % Mean Corpuscular Volume 87.3 fL Mean Corpuscular Hemoglobin 29.0 pg Mean Corpuscular Hemoglobin Concent 33.2 g/dl Platelet Count 316 K/uL Mean Platelet Volume 9.1 fL Neutrophils (%) (Auto) 57.9 % Lymphocytes (%) (Auto) 29.5 % Monocytes (%) (Auto) 9.1 % Eosinophils (%) (Auto) 2.6 % Basophils (%) (Auto) 0.5 % Neutrophils # (Auto) 4.71 K/uL Lymphocytes # (Auto) 2.40 K/uL Monocytes # (Auto) 0.74 K/uL Eosinophils # (Auto) 0.21 K/uL Basophils # (Auto) 0.04 K/uL RDW Standard Deviation 44.6 fL RDW Coefficient of Variation 13.9 % Immature Granulocyte % (Auto) 0.4 % Immature Granulocyte # (Auto) 0.03 K/uL Prothrombin Time 11.7 SECONDS Prothromb Time International Ratio 1.1 Sodium Level 143 mmol/L Potassium Level 3.5 mmol/L Chloride Level 107 mmol/L Carbon Dioxide Level 26 mmol/L Anion Gap 10.0 mmol/L Blood Urea Nitrogen 9 mg/dl Creatinine 0.89 mg/dl Est Creatinine Clear Calc Drug Dose 124.9 ml/min Estimated GFR () 114.7 Estimated GFR (Non- 99.0 BUN/Creatinine Ratio 10.1 Random Glucose 91 mg/dl Calcium Level 8.6 mg/dl Magnesium Level 2.4 mg/dl Total Bilirubin 0.5 mg/dl Aspartate Amino Transf (AST/SGOT) 24 U/L Alanine Aminotransferase (ALT/SGPT) 59 U/L Alkaline Phosphatase 54 U/L Total Protein 6.8 gm/dl Albumin 3.3 gm/dl Globulin 3.5 gm/dl Albumin/Globulin Ratio 0.9 Assessment and Plan 1. Epigastric/RUQ abd pain - with nausea, no vomiting - GB neck stone - for OR this afternoon 2. idiopathic cardiomyopathy - s/p AICD 2013, ef 40% in 2016 - h/o afib s/p ablation, stopped his xarelto - repeat echo as above, ef remains 40-45% - cardio assessment noted 3. CHF systolic - clinically euvolemic and compensated - low-rate ivf for maintenance while npo - resume coreg, spironolactone, arb 4. AFib s/p ablation - resume amiodarone - cont holding Xarelto, anticipate OR 5. dvt ppx
--- NOTE | 2016-10-23 11:33 | Surgery Progress Note ---
Surgery Progress Note Date of Service Oct 23, 2016. Subjective Post OP Day: HD # 2 + complaints, + feeling well, No SOB, No chest pain, No nausea, No vomiting Objective Vital Signs: Date Time Temp Pulse Resp B/P Pulse Ox O2 Delivery O2 Flow Rate FiO2 10/23/16 11:28 36.6 70 14 137/92 95 Room Air 10/23/16 08:24 Room Air 10/23/16 07:40 94 Room Air 10/23/16 07:23 36.5 69 16 102/60 92 Room Air 10/22/16 23:51 Room Air 10/22/16 22:51 37.0 80 14 129/83 93 Room Air 10/22/16 20:53 76 149/97 10/22/16 15:50 36.5 70 18 131/87 93 Room Air 10/22/16 15:45 Room Air General Appearance: WD/WN, no apparent distress Head: normocephalic, atraumatic Respiratory/Chest: no respiratory distress, no accessory muscle use Abdomen: non distended, soft, + tenderness (slight tenderness in RUQ) Laboratory Results: Results Past 24 Hours Test 10/23/16 05:17 Range/Units White Blood Count 8.13 4.8-10.8 K/uL Red Blood Count 4.90 4.7-6.1 M/uL Hemoglobin 14.2 14.0-18.0 g/dL Hematocrit 42.8 42-52 % Mean Corpuscular Volume 87.3 80-100 fL Mean Corpuscular Hemoglobin 29.0 25-34 pg Mean Corpuscular Hemoglobin Concent 33.2 32-36 g/dl Platelet Count 316 130-400 K/uL Mean Platelet Volume 9.1 7.4-10.4 fL Neutrophils (%) (Auto) 57.9 % Lymphocytes (%) (Auto) 29.5 % Monocytes (%) (Auto) 9.1 % Eosinophils (%) (Auto) 2.6 % Basophils (%) (Auto) 0.5 % Neutrophils # (Auto) 4.71 1.4-6.5 K/uL Lymphocytes # (Auto) 2.40 1.2-3.4 K/uL Monocytes # (Auto) 0.74 0.11-0.59 K/uL Eosinophils # (Auto) 0.21 0-0.5 K/uL Basophils # (Auto) 0.04 0-0.2 K/uL RDW Standard Deviation 44.6 36.4-46.3 fL RDW Coefficient of Variation 13.9 11.5-14.5 % Immature Granulocyte % (Auto) 0.4 % Immature Granulocyte # (Auto) 0.03 0.00-0.02 K/uL Prothrombin Time 11.7 9.0-12.0 SECONDS Prothromb Time International Ratio 1.1 0.9-1.1 Sodium Level 143 136-145 mmol/L Potassium Level 3.5 3.5-5.1 mmol/L Chloride Level 107 98-107 mmol/L Carbon Dioxide Level 26 21-32 mmol/L Anion Gap 10.0 3-11 mmol/L Blood Urea Nitrogen 9 7-18 mg/dl Creatinine 0.89 0.60-1.40 mg/dl Est Creatinine Clear Calc Drug Dose 124.9 ml/min Estimated GFR () 114.7 Estimated GFR (Non- 99.0 BUN/Creatinine Ratio 10.1 10-20 Random Glucose 91 70-99 mg/dl Calcium Level 8.6 8.5-10.1 mg/dl Magnesium Level 2.4 1.8-2.4 mg/dl Total Bilirubin 0.5 0.2-1 mg/dl Aspartate Amino Transf (AST/SGOT) 24 15-37 U/L Alanine Aminotransferase (ALT/SGPT) 59 12-78 U/L Alkaline Phosphatase 54 45-117 U/L Total Protein 6.8 6.4-8.2 gm/dl Albumin 3.3 3.4-5.0 gm/dl Globulin 3.5 2.5-4.0 gm/dl Albumin/Globulin Ratio 0.9 0.9-2 Assessment & Plan Cholelithiasis with possible resolving acute cholecystitis - AVSS - HIDA scan showed Slight delay in opacification of the gallbladder at 45 minutes. Possibility of developing chronic calculus cholecystitis is a consideration. Plan for laparoscopic cholecystectomy today with Dr. Jones Cleared by medical laboratory scientist for surgery Continue NPO and current orders.
[2016-10-23] MEDS ORDERED: MIDAZOLAM HCL 1 MG/ML 2ML VIAL ONE (11:39)
[2016-10-23] MEDS ORDERED: FENTANYL CITRATE INJ 50 MCG/1 ML 2 ML VIAL ONE (11:39)
[2016-10-23] MEDS ORDERED: ROCURONIUM BROMID 50MG/5ML SYR ONE (11:40)
[2016-10-23] MEDS ORDERED: LIDOCAINE HCL 2% 2 ML VIAL (20MG/ML) ONE (11:40)
[2016-10-23] MEDS ORDERED: PROPOFOL IV EMULSION 10 MG/ML 20 ML VIAL IV ONE (11:40)
[2016-10-23] MEDS ORDERED: BUPIVACAINE/EPINEPHRINE 0.5% MPF 1:200,000 30 ML VIAL ONE (11:48)
[2016-10-23] MEDS ORDERED: NEOSTIGMINE METHYLSULFATE 5 MG/5 ML SYR ONE (11:57)
[2016-10-23] MEDS ORDERED: GLYCOPYRROLATE INJ 0.2 MG/ML VIAL ONE (11:57)
[2016-10-23] MEDS ORDERED: CEFAZOLIN IV 2,000 MG/60 ML D5W IV ONE (12:14)
[2016-10-23] MEDS ORDERED: LABETALOL HCL IV 5 MG/ML 20ML IV PRN (12:30)
[2016-10-23] MEDS ORDERED: ONDANSETRON INJ 2 MG/ML 2 ML VIAL IV PRN (12:30)
[2016-10-23] MEDS ORDERED: HYDROmorphone INJ 2 MG/ML SYR/VIAL IV PRN (12:30)
[2016-10-23] MEDS ORDERED: NURSING VERBAL MED ORDER ONE (12:30)
[2016-10-23] MEDS ORDERED: KETOROLAC TROMETHAMINE 30 MG/ML VIAL IV. PRN (12:30)
[2016-10-23] MEDS ORDERED: ATROPINE SULFATE 0.1 MG/ML 5ML SYR IV PRN (12:30)
[2016-10-23] MEDS ORDERED: PHENYLEPHRINE HCL INJ 10 MG/ML VIAL ONE (12:49)
--- NOTE | 2016-10-23 13:03 | [facility] Post Operative Brief Note ---
Immediate Operative Summary Operative Date Oct 23, 2016. Pre-Operative Diagnosis Cholelithiasis Post-Operative Diagnosis Cholelithiasis Procedure(s) Performed Laparoscopic cholecystectomy, no cholangiogram Surgeon Dr Miah Jones Product Distribution Specialist Surgeon(s) Ariadne Vallejo PA-C Estimated Blood Loss 15cc Findings acute cholecystitis Specimens gallbladder Drains none Anesthesia RONA w/annamaria Complication(s) None Disposition Recovery Room / PACU
[2016-10-23] MEDS ORDERED: MoRPHine SULFATE 2 MG/ML CARP IV PRN (13:15)
[2016-10-23] MEDS: CIPROFLOXACIN / D5W 400 MG in PREMIXED IN D5W 200 ML IV SCH (13:46)
--- NOTE | 2016-10-23 14:36 | Anesthesiology Progress Note ---
Anesthesia Post Op Note Date & Time Oct 23, 2016 at 14:36 Vital Signs Pain Intensity: 3 Vital Signs Past 12 Hours Date Time Temp Pulse Resp B/P Pulse Ox O2 Delivery O2 Flow Rate FiO2 10/23/16 14:30 36.5 70 14 124/74 98 Nasal Cannula 2.0 10/23/16 14:18 70 11 10/23/16 14:18 70 11 94 10/23/16 14:15 117/74 10/23/16 14:15 36.1 70 16 117/74 94 Nasal Cannula 2 10/23/16 14:13 69 12 10/23/16 14:13 69 12 93 10/23/16 14:10 123/78 10/23/16 14:08 70 16 10/23/16 14:08 70 16 94 10/23/16 14:05 114/72 10/23/16 14:03 66 12 10/23/16 14:03 70 12 93 10/23/16 14:02 70 11 92 10/23/16 14:02 70 11 10/23/16 14:00 128/81 10/23/16 13:57 70 10 10/23/16 13:57 69 10 96 10/23/16 13:55 116/77 10/23/16 13:52 70 11 96 10/23/16 13:52 70 11 10/23/16 13:50 115/73 10/23/16 13:47 70 12 95 10/23/16 13:47 71 12 10/23/16 13:45 127/78 10/23/16 13:42 76 18 10/23/16 13:42 76 18 96 10/23/16 13:40 128/86 10/23/16 13:37 36.6 77 16 129/86 97 Mask 10 10/23/16 13:37 78 13 10/23/16 13:37 78 13 129/86 98 10/23/16 11:28 36.6 70 14 137/92 95 Room Air 10/23/16 08:24 Room Air 10/23/16 07:40 94 Room Air 10/23/16 07:23 36.5 69 16 102/60 92 Room Air Notes Mental Status: alert / awake / arousable, participated in evaluation Pt Amnestic to Procedure: Yes Nausea / Vomiting: adequately controlled Pain: adequately controlled Airway Patency, RR, SpO2: stable & adequate BP & HR: stable & adequate Hydration State: stable & adequate Anesthetic Complications: no major complications apparent
[2016-10-23] MEDS: D5W AND 1/2NSS 1,000 ML IV SCH (15:34)
--- NOTE | 2016-10-23 16:08 | OPERATIVE REPORT ---
DATE OF OPERATION: 10/23/2016 PREOPERATIVE DIAGNOSIS: Acute cholecystitis. POSTOPERATIVE DIAGNOSIS: Same. PROCEDURE PERFORMED: Laparoscopic cholecystectomy. SURGEON: Frantz Jones MD RADAR ENGINEER: Ariadne Andrew PA-C ANESTHESIA: General endotracheal with 0.5% Marcaine with epinephrine local. ESTIMATED BLOOD LOSS: 15 mL. DRAINS: None. COMPLICATIONS: None. SPECIMENS: Gallbladder to pathology. INDICATION FOR PROCEDURE: This is a 51-year-old male who was admitted through the ER with a couple episodes previously of some right upper quadrant pain radiating into his back. He has a known gallstone. In a second time in the ED, he was admitted with continued pain. He has cardiomyopathy which was worked up by cardiology. He was cleared by cardiology, and will be taken to the OR for laparoscopic cholecystectomy. He understands the risk of an open procedure, common bile duct injury, retained common bile duct stone, postop bile leak, bleeding and wound problems. DESCRIPTION OF PROCEDURE: The patient was taken to the OR and underwent excellent general endotracheal anesthesia. His abdomen was prepped and draped in normal sterile fashion. Transverse supraumbilical incision was made and dissection was taken down to identify his anterior fascia. Two Vicryls placed in either side of midline. The midline was incised sharply. Brenda trocar was then inserted. Good pneumoperitoneum achieved to 15 mmHg pressure. Good diagnostic lap was performed. It could see some adhesions in his gallbladder and an acute gallbladder. An 11 subxiphoid and two 5 lateral ports were placed in normal fashion. The patient was placed in head up and rolled to the left. The fundus of the gallbladder was grasped and retracted superiorly. The neck was grasped and retracted laterally. The peritoneal attachments were taken down. Cystic duct and cystic artery were identified and skeletonized. A medial and lateral window was created in the gallbladder and gallbladder fossa and structures going straight to the gallbladder. Once this critical view was seen, 3 clips were placed distally on the cystic duct, 1 proximally on the cystic duct and cystic duct was transected. Two clips were then placed proximally on the cystic artery, 1 distally on the cystic artery and cystic artery was transected. A posterior branch was also clipped doubly and transected. Electrocautery hook was then used to remove the gallbladder from gallbladder fossa. The gallbladder was brought out with an Endobag and sent for pathologic evaluation. Pneumoperitoneum was reestablished, the abdomen was irrigated out. There were some raw areas on the gallbladder fossa which were cauterized. There was no bleeding at the end of the case. The clips were well placed in the duct and artery. The ports removed and pneumoperitoneum was decompressed. A 0 Vicryl was used to close the fascial defect. A 0.5% Marcaine with epinephrine local was used to create a local field block. Interrupted 3-0 Vicryl was used to close the subQ space. Interrupted 4-0 Vicryl suture was used to close the skin. Steri-Strips and benzoin were used to reinforce the incision. Sterile dressings were applied. The patient tolerated the procedure well with no complications, sent to postop recovery area for a period of observation and be discharged to his room once he meets criteria. I attest to the content of the Intraoperative Record and any orders documented therein. Any exceptio ns are noted below.
--- NOTE | 2016-10-23 17:28 | Cardiology Follow-Up ---
Subjective Date of Service: Oct 23, 2016. Pt evaluation today including: conversation w/ patient, physical exam, lab review, review of studies, review of inpatient medication list History of Present Illness This is a very pleasant 51-year-old gentleman who has a nonischemic cardiomyopathy (catheterization with normal coronary arteries and ejection fraction of 30% in September of 2007). He was treated with carvedilol and GALO inhibitors since that time, his ejection fraction has been recorded as high as 40% (September 2009) however had been dropping subsequently. An echocardiogram done on March 26, 2011 demonstrated a baseline ejection fraction of 35% which dropped to 30% with exercise. He was having difficulty with exercise, he got very short of breath and somewhat lightheaded with exercise. Additionally he has a long history of left bundle branch block, this was identified at the time of his initial evaluation September of 2007, I believe that was the first electrocardiogram he had so the total duration of the left bundle pattern is unknown. The LBBB may have been part of the cause of his cardiomyopathy. He underwent biventricular ICD implantation on April 17, 2011. The procedure was uneventful and he was discharged the following day. He initially felt better after implant, his exercise ability had deteriorated subsequently and his corroborates that. We observed that he had very frequent premature ventricular beats at an office visit, this can also contribute to cardiomyopathy and he subsequently had PVC ablation performed at [place]. He is on amiodarone but his PVCs have mostly resolved since that time. His ICD reached replacement time due to battery depletion and was replaced on . An echocardiogram done on 09/10/2015 shows his ejection fraction being 35-40% (that was his last one). He is on gppd doses of carvedilol, and he was on lisinopril but was having a cough therefore that was switched to losartan 50 mg daily which he is tolerating well. He is admitted with gall stones and had a laparoscopic cholecystectomy today. From the cardiovascular standpoint he feels well, he is not having CHF symptoms , does not have palpitations or chest discomfort. Social History Smoking Status: Never Smoker History of Alcohol Use: Yes (occasional) Review of Systems Respiratory: + cough Cardiac: No PND, No chest pain, No edema, No orthopnea, No palpitations Medications Cardiovascular: Item Value Date Time Labetalol HCl 5 mg 10/23/16 1230 (Normodyne IV) Q5M PRN/IV Amiodarone HCl 200 mg 10/22/16 0900 (Cordarone Tab) DAILY/PO Spironolactone 25 mg 10/22/16 0900 (Aldactone Tab) DAILY/PO Carvedilol 37.5 mg 10/21/16 2100 (Coreg Tab) BID/PO Losartan Potassium 50 mg 10/21/16 2100 (coZAAR TAB) BID/PO Objective Vital Signs Past 12 Hours Date Time Temp Pulse Resp B/P Pulse Ox O2 Delivery O2 Flow Rate FiO2 10/23/16 16:32 36.4 69 16 120/79 93 Nasal Cannula 2.0 10/23/16 15:30 36.5 69 16 121/79 94 Nasal Cannula 2.0 10/23/16 15:00 70 15 115/76 97 10/23/16 14:30 98 Nasal Cannula 2.0 10/23/16 14:30 36.5 70 14 124/74 98 Nasal Cannula 2.0 10/23/16 14:18 70 11 10/23/16 14:18 70 11 94 10/23/16 14:15 117/74 10/23/16 14:15 36.1 70 16 117/74 94 Nasal Cannula 2 10/23/16 14:13 69 12 10/23/16 14:13 69 12 93 10/23/16 14:10 123/78 10/23/16 14:08 70 16 10/23/16 14:08 70 16 94 10/23/16 14:05 114/72 10/23/16 14:03 66 12 10/23/16 14:03 70 12 93 10/23/16 14:02 70 11 92 10/23/16 14:02 70 11 10/23/16 14:00 128/81 10/23/16 13:57 70 10 10/23/16 13:57 69 10 96 10/23/16 13:55 116/77 10/23/16 13:52 70 11 96 10/23/16 13:52 70 11 10/23/16 13:50 115/73 10/23/16 13:47 70 12 95 10/23/16 13:47 71 12 10/23/16 13:45 127/78 10/23/16 13:42 76 18 10/23/16 13:42 76 18 96 10/23/16 13:40 128/86 10/23/16 13:37 36.6 77 16 129/86 97 Mask 10 10/23/16 13:37 78 13 10/23/16 13:37 78 13 129/86 98 10/23/16 11:28 36.6 70 14 137/92 95 Room Air 10/23/16 08:24 Room Air 10/23/16 07:40 94 Room Air 10/23/16 07:23 36.5 69 16 102/60 92 Room Air Last Recorded Weight-Kilograms: 105.000 Intake & Output 8-Hour Column 10/22/16 10/23/16 10/23/16 16:00 00:00 08:00 Intake Total 736 ml 755 ml 334 ml Output Total 1500 ml 600 ml Balance 736 ml -745 ml -266 ml 24-Hour Column 10/23/16 08:00 Intake Total 1825 ml Output Total 2100 ml Balance -275 ml Physical Exam Constitutional: General Apperance: heathly-appearing Level of Distress: NAD Lungs: Respiratory effort: no dyspnea, good air movement Auscultation: breath sounds normal, no wheezing Cardiovascular: Heart Auscultation: RRR, no murmurs, no rubs, no gallops Peripheral Pulses: Bruits: none appreciated Extremities: no edema Data Laboratory Results: Last 24 Hours Test 10/23/16 05:17 White Blood Count 8.13 K/uL Red Blood Count 4.90 M/uL Hemoglobin 14.2 g/dL Hematocrit 42.8 % Mean Corpuscular Volume 87.3 fL Mean Corpuscular Hemoglobin 29.0 pg Mean Corpuscular Hemoglobin Concent 33.2 g/dl Platelet Count 316 K/uL Mean Platelet Volume 9.1 fL Neutrophils (%) (Auto) 57.9 % Lymphocytes (%) (Auto) 29.5 % Monocytes (%) (Auto) 9.1 % Eosinophils (%) (Auto) 2.6 % Basophils (%) (Auto) 0.5 % Neutrophils # (Auto) 4.71 K/uL Lymphocytes # (Auto) 2.40 K/uL Monocytes # (Auto) 0.74 K/uL Eosinophils # (Auto) 0.21 K/uL Basophils # (Auto) 0.04 K/uL RDW Standard Deviation 44.6 fL RDW Coefficient of Variation 13.9 % Immature Granulocyte % (Auto) 0.4 % Immature Granulocyte # (Auto) 0.03 K/uL Prothrombin Time 11.7 SECONDS Prothromb Time International Ratio 1.1 Sodium Level 143 mmol/L Potassium Level 3.5 mmol/L Chloride Level 107 mmol/L Carbon Dioxide Level 26 mmol/L Anion Gap 10.0 mmol/L Blood Urea Nitrogen 9 mg/dl Creatinine 0.89 mg/dl Est Creatinine Clear Calc Drug Dose 124.9 ml/min Estimated GFR () 114.7 Estimated GFR (Non- 99.0 BUN/Creatinine Ratio 10.1 Random Glucose 91 mg/dl Calcium Level 8.6 mg/dl Magnesium Level 2.4 mg/dl Total Bilirubin 0.5 mg/dl Aspartate Amino Transf (AST/SGOT) 24 U/L Alanine Aminotransferase (ALT/SGPT) 59 U/L Alkaline Phosphatase 54 U/L Total Protein 6.8 gm/dl Albumin 3.3 gm/dl Globulin 3.5 gm/dl Albumin/Globulin Ratio 0.9 Assessment and Plan #1. Biventricular ICD: His ICD has been functioning well, the left ventricular pacing threshold is near his diaphragmatic pacing threshold but we have been able to maintain capture without a lot of diaphragmatic pacing. We checked his ICD here and is functioning very well.. #2. Nonischemic cardiomyopathy: His left ventricular ejection fraction has been in the 35-40% range. He is on good doses of carvedilol and is on Losartan ( although these are held until he eats again). His left ventricular ejection fraction is no worse on his recent echocardiogram preop. #3. Congestive heart failure: Based on his description he has litle in terms of heart failure symptoms. He does not appear to have fluid overload. #4. Paroxysmal atrial fibrillation: Based on pacemaker monitoring he has had brief episodes of atrial fibrillation in the past, he was on Xarelto for this but has not been taking it. We will have to address this when, at the moment he is in sinus rhythm and I've not started it. #5. Premature ventricular beats: He has had very few premature ventricular beats since his ablation, he is still on amiodarone. Hopefully he can restart his oral medications since, right now I don't think we need to switch most of them to IV. Thank you for allowing me to participate in his care.
[2016-10-23] MEDS: OXYCODONE/ACETAMINOPHEN 5-325 TAB PO PRN (21:11)
[2016-10-24] MEDS: CIPROFLOXACIN / D5W 400 MG in PREMIXED IN D5W 200 ML IV SCH (01:47)
[2016-10-24 03:50] VITALS: BP 99/57; PULSE 70; TEMP 36.7; O2SAT 92
[2016-10-24] MEDS: LEVOTHYROXINE 100 MCG TAB PO SCH (05:33)
[2016-10-24] MEDS: HEPARIN SOD 5000 UNIT/0.5 ML CARP SQ SCH (05:35)
[2016-10-24 07:59] LABS: BASO % 0.1 %; BASO ABS # 0.01 K/uL (0-0.2); COMPLETE YES; HEMATOCRIT 39.7 % (42-52); IG% 0.3 %; LYMPH % 8.8 %; LYMPH ABS # 1.12 K/uL (1.2-3.4); MEAN CELL VOLUME 85.6 fL (80-100); MEAN CORPUSCULAR HEMOGLOBIN 28.7 pg (25-34); MEAN CORPUSCULAR HGB CONC 33.5 g/dl (32-36); MEAN PLATELET VOLUME 8.8 fL (7.4-10.4); MONO % 7.5 %; NEUT % 83.3 %; PLATELET COUNT 318 K/uL (130-400); RED BLOOD COUNT 4.64 M/uL (4.7-6.1); WHITE BLOOD COUNT 12.68 K/uL (4.8-10.8)
[2016-10-24 08:34] LABS: BUN/CREATININE RATIO 7.1 (10-20); CALCIUM 8.6 mg/dl (8.5-10.1); CREATININE 0.98 mg/dl (0.60-1.40); MAGNESIUM 2.3 mg/dl (1.8-2.4)
[2016-10-24 08:37] LABS: ALB/GLOB RATIO 0.9 (0.9-2)
[2016-10-24 08:42] VITALS: BP 110/72; PULSE 67; TEMP 36.7; O2SAT 91
--- NOTE | 2016-10-24 09:18 | Discharge Summary ---
Discharge Summary Date of Service Oct 24, 2016. Discharge Summary Admission Date: Oct 21, 2016 at 13:54 Discharge Date: Oct 24, 2016 Discharge Disposition: Home Principal Diagnosis: chronic cholelithiasis Immunizations: Have You Had Influenza Vaccine: N/A History of Tetanus Vaccine?: Unknown Tetanus Immunization Date: Sep 17, 2009 History of Pneumococcal: No History of Hepatitis B Vaccine: Unknown Medication Reconciliation New Medications: Sennosides-Docusate Sodium (Senokot S) 1 Tab Tab 1 TAB PO DAILY for 5 Days, #5 TAB take with pain medication Oxycodone/Acetaminophen 5MG/325MG (Percocet 5MG/325MG) Tab 1-2 TAB PO Q8H PRN for Pain for 5 Days, #15 TAB PAIN Continued Medications: Amiodarone HCl (Amiodarone HCl) 200 Mg Tab 200 MG PO DAILY Carvedilol (Carvedilol) 25 Mg Tab 37.5 MG PO BID Citalopram Hydrobromide (Celexa) 20 Mg Tab 20 MG PO DAILY, TAB Furosemide (Lasix) 40 Mg Tab 40 MG PO DAILY PRN for Fluid Retention/Weight Gain, TAB Levothyroxine Sodium (Synthroid) 100 Mcg Tab 100 MCG PO DAILY, TAB Losartan Potassium (Cozaar) 50 Mg Tab 50 MG PO BID, TAB Ondasetron Odt (Zofran Odt) 4 Mg Tab 1 TAB SL Q6 PRN for Nausea or Vomiting, #20 TAB Potassium Ext Rel (Klor-Con) 20 Meq Tabcr 20 MEQ PO DAILY PRN for WHEN LASIX IS TAKEN, TAB Spironolactone (Spironolactone) 25 Mg Tab 25 MG PO DAILY Hospital Course 51 yo M pmh idiopathic cardiomyopathy s/p AICD, Afib s/p ablation was supposed to be on Xarelto but has stopped taking them 3 months ago admitted for RUQ abd pain/ epigastric pain and found to have cholelithiasis. Patient was in the ED yesterday, had KUB and CT done yesterday which did not show any acute issues. HE was sent home and came back with persistent epigastric pain. Imaging studies today showed a stone in the GB neck. Patient c/o intermittent nausea, no vomiting, crampy RUQ to epigastric discomfort worsened by food intake, especially greasy food. No hcest pain , no sob. No urinary symptoms reported. No orthopnea, no PND. Patient was evaluated by surgery and risk-assessment done by cardiology. HIDA was done as above and patient was scheduled for lap [facility] on 10/23/16. Patient tolerated surgery well. AMbulating without problems and has +flatus. Tolerating diet without abd pain, n/v. Vital Signs Date Time Temp Pulse Resp B/P Pulse Ox O2 Delivery O2 Flow Rate FiO2 10/24/16 10:28 36.7 67 16 91 Room Air 10/24/16 08:42 110/72 10/23/16 17:35 2.0 nad, aox3 eomi, perrl s1 s2 rrr no murmurs appreciated ctab no w/r/r abd soft, surgical incisions dressed, no active bleeding, nt +BS no LE edema 1. Epigastric/RUQ abd pain - with nausea, no vomiting - GB neck stone - POD#1 lap [facility] - + flatus - pain regimen with bowel regimen at discharge - will hold off further abx therapy on discharge - f/u surgery as outpatient - stop ivf 2. idiopathic cardiomyopathy - s/p AICD 2013, ef 40% in 2016 - h/o afib s/p ablation, stopped his xarelto - repeat echo as above, ef remains 40-45% 3. CHF systolic - clinically euvolemic and compensated - stop fluids, tolerating diet - resume coreg, spironolactone, arb 4. AFib s/p ablation - resume amiodarone - stopped Xarelto bec he was bleeding too much - will defer to cardio Total Time Spent: Less than 30 minutes This includes examination of the patient, discharge planning, medication reconciliation, and communication with other providers. Discharge Instructions Please refer to the electronic Patient Visit Report (Discharge Instructions) for additional information.
[2016-10-24] MEDS: CITALOPRAM 20 MG TAB PO SCH (09:19)
[2016-10-24] MEDS: CARVEDILOL 25 MG TAB PO SCH (09:20)
[2016-10-24] MEDS: SPIRONOLACTONE 25 MG TAB PO SCH (09:20)
[2016-10-24] MEDS: LOSARTAN POTASSIUM 50 MG TAB PO SCH (09:20)
[2016-10-24] MEDS: AMIODARONE 200 MG TAB PO SCH (09:21)
[2016-10-24] MEDS: OXYCODONE/ACETAMINOPHEN 5-325 TAB PO PRN (09:25)
[2016-10-24] MEDS ORDERED: OXYC-57 PO (09:27)
[2016-10-24] MEDS ORDERED: SENN-65 PO (09:27)
--- NOTE | 2016-10-24 09:29 | Discharge Instructions ---
Discharge Instructions Admission Reason for Admission: Abdominal Pain Discharge Discharge Diagnosis / Problem: stable for home Discharge Goals Goal(s): Decrease discomfort Activity Recommendations Activity Limitations: resume your previous activity Driving or Machine Use: do not drive or operate heavy machineries if on pain meds . Current Hospital Diet Patient's current hospital diet: Regular Diet Discharge Diet Recommended Diet: Low Fat Diet Fluid Restriction: 1200 ml (5 cups) Procedures Procedures Performed: Laparoscopic cholecystectomy, no cholangiogram Pending Studies Studies pending at discharge: no Medical Emergencies . Who to Call and When: Medical Emergencies: If at any time you feel your situation is an emergency, please call 911 immediately. . Non-Emergent Contact Non-Emergency issues call your: Primary Care Provider, Postdoctoral Fellow . . "Provider Documentation" section prepared by Nolvia Mac. VTE Core Measure Inpt VTE Proph given/why not?: SCD's
[2016-10-24 09:54] VITALS: O2SAT 91
--- NOTE | 2016-10-24 10:15 | Cardiology Follow-Up ---
Cardiology Follow-Up Date of Service Oct 24, 2016. Cardiology Follow-Up SUBJECTIVE: 51-year-old man with nonischemic cardiomyopathy (normal coronaries 2007), chronic left bundle-branch block, status post ICD implantation, status post he ablation procedure for ventricular ectopy (on amiodarone) who is now status post laparoscopic cholecystectomy (performed yesterday). He feels well, denies any chest pain, shortness of breath, or other complaints. PHYSICAL EXAMINATION: No distress. Vitals: Afebrile. BP 110/72, pulse 67 and regular, respirations 16. Skin: No unusual lesions or ecchymosis. HEENT: Unremarkable. Neck: Jugular venous pulse at the clavicle at 90, no carotid bruits. Lungs: Clear and equal breath sounds bilaterally. No wheezing or crackles. Cardiac: Regular rhythm with normal S1 and S2. No murmur or gallop. Abdomen: Benign. Extremities: Nontender without edema. Intact peripheral pulses. Neurologic: Normal affect, nonfocal DATA: Hemoglobin 13.3 with white count 12.68, normal platelet count. Normal electrolytes, BUN 7, creatinine 0.98. Pacemaker/ICD check this hospitalization showed episodic paroxysmal atrial fibrillation but no episodes longer than 4 hours. Occasional nonsustained ventricular tachycardia noted, less than 5 seconds. Sensing, thresholds, and device function were all within acceptable limits. IMPRESSION: 1. Biventricular ICD, functioning appropriately. 2. Nonischemic cardiomyopathy (EF 35-40 % range), compensated. 3. Paroxysmal atrial fibrillation, infrequent/nonsustained. 4. PVCs, infrequent since ablation/on amiodarone. 5. Status post laparoscopic cholecystectomy, uneventful course. DISCUSSION: Patient is doing well from a cardiac standpoint. Several weeks ago, he had noted some rectal bleeding on Xarelto (? hemorrhoidal ) and he stopped this medication. Since he has a low Chads-Vasc score (0 or 1 depending upon whether his remote heart failure is counted) and does not have evidence of sustained atrial fibrillation, reasonable for him to remain OFF Xarelto for now. No other medication changes, he looks well enough for discharge from a cardiac standpoint. Thank you for allowing me to participate in the care of this patient.
[2016-10-24 10:28] VITALS: BP 110/72; PULSE 67; TEMP 36.7; O2SAT 91
--- NOTE | 2016-10-24 10:44 | Surgery Progress Note ---
Surgery Progress Note Date of Service Oct 24, 2016. Subjective Post OP Day: 1 + diet (fulls), + feeling well, + flatus, No complaints, No nausea, No vomiting Objective Vital Signs: Date Time Temp Pulse Resp B/P Pulse Ox O2 Delivery O2 Flow Rate FiO2 10/24/16 10:28 36.7 67 16 91 Room Air 10/24/16 09:54 91 Room Air 10/24/16 08:42 36.7 67 16 110/72 91 Room Air 10/24/16 07:20 Room Air 10/24/16 03:50 36.7 70 17 99/57 92 Room Air 10/23/16 22:51 36.5 88 17 119/75 90 Room Air 10/23/16 21:14 94 113/73 10/23/16 20:56 36.3 93 16 111/68 91 Room Air 10/23/16 19:20 Room Air 10/23/16 17:35 36.4 72 16 114/72 92 Nasal Cannula 2.0 10/23/16 16:32 36.4 69 16 120/79 93 Nasal Cannula 2.0 10/23/16 15:30 36.5 69 16 121/79 94 Nasal Cannula 2.0 10/23/16 15:00 70 15 115/76 97 10/23/16 14:30 98 Nasal Cannula 2.0 10/23/16 14:30 36.5 70 14 124/74 98 Nasal Cannula 2.0 10/23/16 14:18 70 11 10/23/16 14:18 70 11 94 10/23/16 14:15 117/74 10/23/16 14:15 36.1 70 16 117/74 94 Nasal Cannula 2 10/23/16 14:13 69 12 10/23/16 14:13 69 12 93 10/23/16 14:10 123/78 10/23/16 14:08 70 16 10/23/16 14:08 70 16 94 10/23/16 14:05 114/72 10/23/16 14:03 66 12 10/23/16 14:03 70 12 93 10/23/16 14:02 70 11 92 10/23/16 14:02 70 11 10/23/16 14:00 128/81 10/23/16 13:57 70 10 10/23/16 13:57 69 10 96 10/23/16 13:55 116/77 10/23/16 13:52 70 11 96 10/23/16 13:52 70 11 10/23/16 13:50 115/73 10/23/16 13:47 70 12 95 10/23/16 13:47 71 12 10/23/16 13:45 127/78 10/23/16 13:42 76 18 10/23/16 13:42 76 18 96 10/23/16 13:40 128/86 10/23/16 13:37 36.6 77 16 129/86 97 Mask 10 10/23/16 13:37 78 13 10/23/16 13:37 78 13 129/86 98 10/23/16 11:28 36.6 70 14 137/92 95 Room Air General Appearance: WD/WN, no apparent distress Head: normocephalic, atraumatic Neck: supple Respiratory/Chest: lungs clear Cardiovascular: regular rate, rhythm Abdomen: normal bowel sounds, non distended, soft, + tenderness Incision(s): dry, intact Extremities: non-tender, no pedal edema Laboratory Results: Results Past 24 Hours Test 10/24/16 07:46 Range/Units White Blood Count 12.68 4.8-10.8 K/uL Red Blood Count 4.64 4.7-6.1 M/uL Hemoglobin 13.3 14.0-18.0 g/dL Hematocrit 39.7 42-52 % Mean Corpuscular Volume 85.6 80-100 fL Mean Corpuscular Hemoglobin 28.7 25-34 pg Mean Corpuscular Hemoglobin Concent 33.5 32-36 g/dl Platelet Count 318 130-400 K/uL Mean Platelet Volume 8.8 7.4-10.4 fL Neutrophils (%) (Auto) 83.3 % Lymphocytes (%) (Auto) 8.8 % Monocytes (%) (Auto) 7.5 % Eosinophils (%) (Auto) 0.0 % Basophils (%) (Auto) 0.1 % Neutrophils # (Auto) 10.56 1.4-6.5 K/uL Lymphocytes # (Auto) 1.12 1.2-3.4 K/uL Monocytes # (Auto) 0.95 0.11-0.59 K/uL Eosinophils # (Auto) 0.00 0-0.5 K/uL Basophils # (Auto) 0.01 0-0.2 K/uL RDW Standard Deviation 42.5 36.4-46.3 fL RDW Coefficient of Variation 13.7 11.5-14.5 % Immature Granulocyte % (Auto) 0.3 % Immature Granulocyte # (Auto) 0.04 0.00-0.02 K/uL Sodium Level 141 136-145 mmol/L Potassium Level 4.0 3.5-5.1 mmol/L Chloride Level 107 98-107 mmol/L Carbon Dioxide Level 24 21-32 mmol/L Anion Gap 10.0 3-11 mmol/L Blood Urea Nitrogen 7 7-18 mg/dl Creatinine 0.98 0.60-1.40 mg/dl Est Creatinine Clear Calc Drug Dose 113.4 ml/min Estimated GFR () 103.0 Estimated GFR (Non- 88.9 BUN/Creatinine Ratio 7.1 10-20 Random Glucose 133 70-99 mg/dl Calcium Level 8.6 8.5-10.1 mg/dl Magnesium Level 2.3 1.8-2.4 mg/dl Total Bilirubin 0.4 0.2-1 mg/dl Aspartate Amino Transf (AST/SGOT) 46 15-37 U/L Alanine Aminotransferase (ALT/SGPT) 90 12-78 U/L Alkaline Phosphatase 57 45-117 U/L Total Protein 6.6 6.4-8.2 gm/dl Albumin 3.2 3.4-5.0 gm/dl Globulin 3.4 2.5-4.0 gm/dl Albumin/Globulin Ratio 0.9 0.9-2 Assessment & Plan s/p lap [facility] -doing well -discharge -appt 3 weeks
--- NOTE | 2016-10-24 13:43 | Anesthesiology Progress Note ---
Anesthesia Post Op Note Date & Time Oct 24, 2016 at 08:00 Vital Signs Pain Intensity: 3.0 Vital Signs Past 12 Hours Date Time Temp Pulse Resp B/P Pulse Ox O2 Delivery O2 Flow Rate FiO2 10/24/16 10:28 36.7 67 16 91 Room Air 10/24/16 09:54 91 Room Air 10/24/16 08:42 36.7 67 16 110/72 91 Room Air 10/24/16 07:20 Room Air 10/24/16 03:50 36.7 70 17 99/57 92 Room Air Notes Mental Status: alert / awake / arousable, participated in evaluation Pt Amnestic to Procedure: Yes Nausea / Vomiting: adequately controlled Pain: adequately controlled Airway Patency, RR, SpO2: stable & adequate BP & HR: stable & adequate Hydration State: stable & adequate Anesthetic Complications: no major complications apparent
== END 2016-10-24 12:15 | disposition home or self-care (01) | DRG 418 ==
LOC: ENRESERVTM → ENRESERVDT → C.EDB 09:03 → C.MSN 13:54
PROVIDERS: ADMIT Internal Medicine; ATTEND Internal Medicine
PROC: 0FT44ZZ Resection of Gallbladder, Percutaneous Endoscopic Approach (ICD-10-PCS; principal; 2016-10-23 12:15)
DX: K80.10 Calculus of gallbladder with chronic cholecystitis without obstruction (principal); I42.9 Cardiomyopathy, unspecified; I50.22 Chronic systolic (congestive) heart failure; K56.7 Ileus, unspecified; Z95.810 Presence of automatic (implantable) cardiac defibrillator; I44.7 Left bundle-branch block, unspecified; Z79.899 Other long term (current) drug therapy

== ENCOUNTER 2017-03-08 10:07 | Emergency (ER) | payer OTHER ==
[~2017-03-08] VITALS: Ht 185.4 cm; Wt 89.0 kg
[~2017-03-08 10:07] MED LIST changes: +OXYC-57 PO
[2017-03-08 10:12] VITALS: TEMP 36.7; Ht 185.4 cm; Wt 89.0 kg
[2017-03-08] MEDS ORDERED: SODIUM CHLORIDE 0.9% 250ML 250 ML IV STA (10:39)
[2017-03-08 11:12] LABS: ALT/SGPT 29 U/L (12-78); BLOOD UREA NITROGEN 17 mg/dl (7-18); BUN/CREATININE RATIO 21.4 (10-20); CALCIUM 9.4 mg/dl (8.5-10.1); CARBON DIOXIDE 26 mmol/L (21-32); CHLORIDE 109 mmol/L (98-107); GLUCOSE 99 mg/dl (70-99); MAGNESIUM 1.9 mg/dl (1.8-2.4); POTASSIUM 4.1 mmol/L (3.5-5.1); SODIUM 142 mmol/L (136-145)
--- NOTE | 2017-03-08 11:20 | DIAGNOSTIC IMAGING REPORT ---
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 Diaphragms smooth. Lungs are considered clear. IMPRESSION: No acute process. The above report was generated using voice recognition software. It may contain grammatical, syntax or spelling errors. Electronically signed by: Marcial Calero M.D. 03/08/2017 11:19 AM Dictated Date/Time: 03/08/2017 11:19 AM
--- NOTE | 2017-03-08 11:21 | DIAGNOSTIC IMAGING REPORT ---
LEFT ELBOW MIN 3 VIEWS ROUTINE CLINICAL HISTORY: eval for epicondylitis pain COMPARISON: None. DISCUSSION: The bones and joint spaces appear intact. There is no evidence of fracture, dislocation or bony disease. There is no evidence for soft tissue swelling. IMPRESSION: Negative study. The above report was generated using voice recognition software. It may contain grammatical, syntax or spelling errors. Electronically signed by: Marcial Calero M.D. 03/08/2017 11:20 AM Dictated Date/Time: 03/08/2017 11:19 AM
[2017-03-08 11:25] LABS: ALKALINE PHOSPHATASE 58 U/L (45-117); AST/SGOT 19 U/L (15-37); THYROID STIMULATING HORMONE < 0.005 uIu/ml (0.300-4.500)
[2017-03-08 11:28] LABS: MEAN CELL VOLUME 85.4 fL (80-100); MEAN CORPUSCULAR HEMOGLOBIN 27.7 pg (25-34); MEAN CORPUSCULAR HGB CONC 32.4 g/dl (32-36); MEAN PLATELET VOLUME 10.4 fL (7.4-10.4); PLATELET COUNT 222 K/uL (130-400); WHITE BLOOD COUNT 6.37 K/uL (4.8-10.8)
[2017-03-08 11:29] LABS: BASO % 0.2 %; BASO ABS # 0.01 K/uL (0-0.2); COMPLETE YES; EOS % 3.6 %; IG% 0.2 %; LYMPH % 19.2 %; LYMPH ABS # 1.22 K/uL (1.2-3.4); MONO % 18.4 %; NEUT % 58.4 %
[2017-03-08 11:31] LABS: LYME DISEASE AB IGG NEG (NEG); LYME DISEASE AB IGM NEG (NEG)
[2017-03-08] MEDS ORDERED: SODIUM CHLORIDE 0.9% 500ML 500 ML IV STA (12:00)
[2017-03-08] MEDS ORDERED: LOSARTAN POTASSIUM 50 MG TAB PO STA (13:20)
[2017-03-08] MEDS ORDERED: CARVEDILOL 25 MG TAB PO ONE (13:30)
[2017-03-08] MEDS ORDERED: AMIODARONE 200 MG TAB PO ONE (13:30)
[2017-03-08 14:01] LABS: MANUAL MICROSCOPIC REQUIRED? NO; REVIEW REQ? NO; URINE APPEARANCE CLEAR (CLEAR); URINE BILIRUBIN NEG (NEG); URINE COLOR YELLOW; URINE NITRITE NEG (NEG); UROBILINOGEN NEG (NEG)
[2017-03-08] MEDS ORDERED: DOXY100C2 PO (14:51)
[2017-03-08 15:14] VITALS: BP 104/68; PULSE 105; O2SAT 94
--- NOTE | 2017-03-08 16:35 | EMERGENCY ROOM VISIT NOTE ---
History Report prepared by Freedom: Carmen Shanks Under the Supervision of: Dr. Scott Brenner M.D. First contact with patient: 10:29 Chief Complaint: ILLNESS Stated Complaint: RUN DOWN,WEAKNESS,SORE ARM History of Present Illness The patient is a 51 year old male who presents to the Emergency Room with complaints of a persistent decrease in appetite over the past month. The patient states that for the past month he has had not been eating normally. He states that food just seems too hot to eat. The patient states that he has been losing weight and has been feeling run down. He states that he will typically stop at [employer] and buy a sandwich, but states that he will eat half a sandwich, but drink the entire soda he gets. Then the next day he won't eat anything at all. The patient states that he has been drinking soda, energy drinks, and water, but will not eat. The patient reports a history of congestive heart failure and notes that he has a pacemaker/defibrillator. He states that he feels he is retaining fluids, but states that he has been taking his medication regularly. He feels like his feet and hands are swelling. The patient denies any current breathing difficulties. He states that he has noticed a lump on his left arm for the past year, noting that it is painful if he lets it hang down. The patient states that Thursday he noticed a tickbite to his right neck, stating that he successfully removed it with addis dish soap. He denies any rash. The patient states that he did vomit on Thursday night. He denies any fever, chest pain, diarrhea, or urinary symptoms. The patient reports joint pain the past week and a headache on Thursday. Source of History: patient Onset: past month Position: other (global) Quality: other (decrease in appetite) Timing: other (persistent) Associated Symptoms: + headache, No fevers, No chest pain, No SOB, No diarrhea, No urinary symptoms, No rash Note: Associated symptoms: fluid retention, feeling run down, recent tick bite, joint pain Review of Systems See HPI for pertinent positives & negatives. A total of 10 systems reviewed and were otherwise negative. Past Medical & Surgical Medical Problems: (1) Abdominal pain (2) Cardiomyopathy (3) Cephalosporin drug rash (4) Left bundle branch block (5) Pacemaker (6) Ribs, multiple fractures (7) Systolic heart failure Family History Cancer Social History Smoking Status: Never Smoker Alcohol Use: none Drug Use: none Marital Status: Housing Status: lives with family Occupation Status: unemployed Current/Historical Medications Scheduled Amiodarone HCl (Amiodarone HCl), 200 MG PO DAILY Carvedilol (Carvedilol), 37.5 MG PO BID Citalopram Hydrobromide (Celexa), 20 MG PO DAILY Doxycycline Hyclate (Vibramycin), 100 MG PO BID Losartan Potassium (Cozaar), 50 MG PO BID Spironolactone (Spironolactone), 25 MG PO DAILY Scheduled PRN Furosemide (Lasix), 40 MG PO DAILY PRN for Fluid Retention/Weight Gain Potassium Ext Rel (Klor-Con), 20 MEQ PO DAILY PRN for WHEN LASIX IS TAKEN Allergies Coded Allergies: Cefuroxime (Verified Allergy, Intermediate, RASH, 03/08/17) Physical Exam Vital Signs Date Time Temp Pulse Resp B/P (MAP) Pulse Ox O2 Delivery O2 Flow Rate FiO2 03/08/17 15:14 105 20 104/68 94 03/08/17 14:09 110 03/08/17 13:00 107 20 140/105 97 Room Air 03/08/17 11:43 107 16 135/100 97 Room Air 03/08/17 11:17 101 20 136/95 97 Room Air 03/08/17 10:57 111 03/08/17 10:52 108 22 119/77 94 Room Air 03/08/17 10:12 36.7 85 18 123/72 95 Physical Exam Constitutional: Vital signs reviewed. Eyes: Pupils are equal round reactive to light. Conjunctiva are noninjected. ENT: Pharynx is clear without erythema or exudate. Mucous membranes are moist. Neck supple without meningeal signs. No thyromegaly Respiratory: Clear to auscultation bilaterally. Breath sounds are equal bilaterally. Cardiovascular: Regular rate and rhythm. No rubs or gallops. GI: Soft, nondistended and nontender. Bowel sounds are present. Musculoskeletal: Left elbow his mild tenderness over medial epicondyle no masses noted. No peripheral edema. No lower extremity tenderness. Integumentary: Mild erythema to the posterior right neck without erythema migrans or tick parts. No cyanosis. Neurological: The patient is awake and alert. No focal deficits. Psychiatric: Normal affect. Medical Decision & Procedures ER Provider Diagnostic Interpretation: Radiology results as stated below per my review and the radiologist's interpretation: LEFT ELBOW MIN 3 VIEWS ROUTINE CLINICAL HISTORY: eval for epicondylitis pain COMPARISON: None. DISCUSSION: The bones and joint spaces appear intact. There is no evidence of fracture, dislocation or bony disease. There is no evidence for soft tissue swelling. IMPRESSION: Negative study. The above report was generated using voice recognition software. It may contain grammatical, syntax or spelling errors. Electronically signed by: Marcial Calero M.D. 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 Diaphragms smooth. Lungs are considered clear. IMPRESSION: No acute process. The above report was generated using voice recognition software. It may contain grammatical, syntax or spelling errors. Electronically signed by: Marcial Calero M.D. 03/08/2017 11:19 AM Dictated Date/Time: 03/08/2017 11:19 AM Laboratory Results 03/08/17 10:30 Red Blood Count 4.80, Mean Corpuscular Volume 85.4, Mean Corpuscular Hemoglobin 27.7, Mean Corpuscular Hemoglobin Concent 32.4, Mean Platelet Volume 10.4, Neutrophils (%) (Auto) 58.4, Lymphocytes (%) (Auto) 19.2, Monocytes (%) (Auto) 18.4, Eosinophils (%) (Auto) 3.6, Basophils (%) (Auto) 0.2, Neutrophils # (Auto ) 3.73, Lymphocytes # (Auto) 1.22, Monocytes # (Auto) 1.17, Eosinophils # (Auto ) 0.23, Basophils # (Auto) 0.01 03/08/17 10:30 Test 03/08/17 10:30 03/08/17 13:30 White Blood Count 6.37 K/uL (4.8-10.8) Red Blood Count 4.80 M/uL (4.7-6.1) Hemoglobin 13.3 g/dL (14.0-18.0) Hematocrit 41.0 % (42-52) Mean Corpuscular Volume 85.4 fL (80-100) Mean Corpuscular Hemoglobin 27.7 pg (25-34) Mean Corpuscular Hemoglobin Concent 32.4 g/dl (32-36) Platelet Count 222 K/uL (130-400) Mean Platelet Volume 10.4 fL (7.4-10.4) Neutrophils (%) (Auto) 58.4 % Lymphocytes (%) (Auto) 19.2 % Monocytes (%) (Auto) 18.4 % Eosinophils (%) (Auto) 3.6 % Basophils (%) (Auto) 0.2 % Neutrophils # (Auto) 3.73 K/uL (1.4-6.5) Lymphocytes # (Auto) 1.22 K/uL (1.2-3.4) Monocytes # (Auto) 1.17 K/uL (0.11-0.59) Eosinophils # (Auto) 0.23 K/uL (0-0.5) Basophils # (Auto) 0.01 K/uL (0-0.2) RDW Standard Deviation 40.8 fL (36.4-46.3) RDW Coefficient of Variation 13.0 % (11.5-14.5) Immature Granulocyte % (Auto) 0.2 % Immature Granulocyte # (Auto) 0.01 K/uL (0.00-0.02) Anion Gap 7.0 mmol/L (3-11) Est Creatinine Clear Calc Drug Dose 123.4 ml/min Estimated GFR () 119.9 Estimated GFR (Non- 103.4 BUN/Creatinine Ratio 21.4 (10-20) Calcium Level 9.4 mg/dl (8.5-10.1) Magnesium Level 1.9 mg/dl (1.8-2.4) Total Bilirubin 0.4 mg/dl (0.2-1) Direct Bilirubin 0.1 mg/dl (0-0.2) Aspartate Amino Transf (AST/SGOT) 19 U/L (15-37) Alanine Aminotransferase (ALT/SGPT) 29 U/L (12-78) Alkaline Phosphatase 58 U/L (45-117) Total Protein 6.6 gm/dl (6.4-8.2) Albumin 3.0 gm/dl (3.4-5.0) Thyroid Stimulating Hormone (TSH) < 0.005 uIu/ml (0.300-4.500) Free Thyroxine 6.23 ng/dl (0.80-1.60) Lyme Disease IgG Antibody NEG (NEG) Lyme Disease IgM Antibody NEG (NEG) Urine Color YELLOW Urine Appearance CLEAR (CLEAR) Urine pH 5.0 (4.5-7.5) Urine Specific [place] 1.020 (1.000-1.030) Urine Protein NEG (NEG) Urine Glucose (UA) NEG (NEG) Urine Ketones NEG (NEG) Urine Occult Blood NEG (NEG) Urine Nitrite NEG (NEG) Urine Bilirubin NEG (NEG) Urine Urobilinogen NEG (NEG) Urine Leukocyte Esterase NEG (NEG) Laboratory results as reviewed by me. Medications Administered Medications (Trade) Dose Ordered Sig/Haresh Route Start Time Stop Time Status Last Admin Dose Admin Sodium Chloride 250 ml @ 999 mls/hr Q16M STAT IV 03/08/17 10:39 03/08/17 10:54 DC 03/08/17 10:39 999 MLS/HR Sodium Chloride 500 ml @ 999 mls/hr Q31M STAT IV 03/08/17 12:00 03/08/17 12:30 DC 03/08/17 12:00 999 MLS/HR Amiodarone HCl (Cordarone Tab) 200 mg NOW ONCE PO 03/08/17 13:30 03/08/17 13:31 DC 03/08/17 13:30 200 MG Carvedilol (Coreg Tab) 37.5 mg NOW ONCE PO 03/08/17 13:30 03/08/17 13:31 DC 03/08/17 13:30 37.5 MG Losartan Potassium (coZAAR TAB) 50 mg NOW STAT PO 03/08/17 13:20 03/08/17 13:22 DC 03/08/17 13:20 50 MG ECG Indication: other (decrease in appetite, feeling run down) Rate (beats per minute): 103 Rhythm: other (atrial sensed, ventricularly paced) Findings: PVC, other (no widening of QRS) ED Course 1031: The patient was evaluated in room B8. A complete history and physical exam was performed. 1039: Ordered Sodium Chloride 250 ml @ 999 mls/hr IV. 1143: I reevaluated the patient and he states that he used to be on thyroid medications, but states that he stopped taking the mediation one month ago. I discussed all the exam findings with him thus far. 1157: I discussed the patients case with RONN Meadows. He states that he would not treat with Methimazole, but would place on a beta romy, but he is already on Carvedilol. He states that the patient should be treated with fluids and see how he does. 1200: Ordered Sodium Chloride 500 ml @ 999 mls/hr IV. 1317: I reevaluated the patient and he is slightly hypertensive and still tachycardic. He mentioned that he did not take any of his medications today. 1320: Ordered Cozaar Tab 50 mg PO. 1330: Ordered Carvedilol 37.5 mg PO, Cordarone Tab 200 mg PO. 1414: I reevaluated the patient and he is still tachycardic. He states that he just got his medication a little while ago. 1443: I reevaluated the patient and he is still tachycardic, but still feels fine. 1452: I reevaluated the patient and he is resting. I discussed all the exam findings with him and I discussed the treatment plan. He verbalized complete understanding and agreement. He is ready to go home. Medical Decision This is a 51-year-old male who presents with generalized weakness. Differential diagnosis includes poor nutrition, dehydration, metabolic derangement, infection, renal failure. I did perform a limited focused review of portions of the patient's old chart on the electronic medical record. The patient was admitted in September for chronic cholecystitis. He underwent a cholecystectomy. Medication Reconciliation: I attest that I have personally reviewed the patient' s current medication list. Blood Pressure Screening: Patient was found to have normal blood pressure on screening and does not require follow-up. I did evaluate the patient as noted above. The patient is presenting with generalized weakness. The patient states that he has not been eating for the past month. He will eat occasionally and will mostly drink sugary sodas and energy drinks. I did explain to him that this certainly can be contributing to his feeling of being rundown. He was advised to eat regularly whether he has an appetite are not and to avoid injury drinks. He also had a tick bite to the right neck and has a rash developing there. He also complains of headache and joint pain. Finally he complains of a lump to his left elbow. He does not have a palpable lump to his elbow and when he shows me where the lump is he is pointing to his medial epicondyle. There is no erythema or significant tenderness or joint effusion. IV access was established. The patient was placed on a continuous satellite project site monitor. While in the emergency department the patient became increasingly tachycardic. I did treat him with IV fluids. I did order and personally review the patient's 12-lead EKG and chest/elbow x- rays as described above. I did order and review the patient's blood work as noted in the electronic medical record. His TSH is low and his T4 is elevated. I did reassess the patient. He continues to be tachycardic despite IV fluids. He finally tells me that he has not taken any of his medications this morning. This may be contributing to his tachycardia. He was given his carvedilol, losartan and amiodarone. His heart rate did improve but he did remain slightly tachycardic. He states that he feels fine and does not notice his heart racing or have any chest pain or shortness of breath. At this time I did not feel any hospitalization was indicated. He was advised to call his doctor tomorrow for further evaluation and management of his symptoms and elevated thyroid levels. He was discharged in good condition. He was given a prescription for doxycycline. Despite a negative Lyme test he does have symptoms concerning for lung disease. Consults Time Called: 1145 Consulting Physician: RONN Meadows Returned Call: 1158 I discussed the patients case with RONN Meadows. He states that he would not treat with Methimazole, but would place on a beta romy, but he is already on Carvedilol. He states that the patient should be treated with fluids and see how he does. Impression Primary Impression: Generalized weakness Additional Impressions: Loss of appetite Tick bite Rash Scribe Attestation The scribe's documentation has been prepared under my direct and personally reviewed by me in its entirety. I confirm that the note above accurately reflects all work, treatment, procedures, and medical decision making performed by me. Departure Information Dispostion Home / Self-Care Prescriptions Doxycycline Hyclate (VIBRAMYCIN) 100 Mg Cap 100 MG PO BID for 21 Days, #42 CAP Prov: Scott Brenner M.D. 03/08/17 Referrals No Doctor, Assigned (PCP) Forms HOME CARE DOCUMENTATION FORM, IMPORTANT VISIT INFORMATION, WORK / SCHOOL INSTRUCTIONS Patient Instructions Hyperthyroidism Nathan, My [facility] Additional Instructions You have been examined and treated today on an emergency basis only. This is not a substitute for, or an effort to provide, complete comprehensive medical care. It is impossible to recognize and treat all injuries or illnesses in a single emergency department visit. It is therefore important that you follow up closely with your physician. Call as soon as possible for an appointment. Return for worsening symptoms or if you develop fever, vomiting, chest pain, shortness of breath, confusion or any other concerning symptoms. Problem Qualifiers Additional Impressions: Tick bite Encounter type: initial encounter Qualified Codes: W57.XXXA - Bitten or stung by nonvenomous insect and other nonvenomous arthropods, initial encounter
[2017-03-09 11:05] LABS: POINT OF CARE TROPONIN I 0.04 ng/ml (0-0.045)
== END 2017-03-08 15:16 | disposition home or self-care (01) ==
LOC: C.EDB 10:08
DX: R53.1 Weakness (principal); R63.0 Anorexia; S10.96XA Insect bite of unspecified part of neck, initial encounter; W57.XXXA Bitten or stung by nonvenomous insect and other nonvenomous arthropods, initial encounter; R21 Rash and other nonspecific skin eruption; R00.0 Tachycardia, unspecified; R22.32 Localized swelling, mass and lump, left upper limb; I42.9 Cardiomyopathy, unspecified; I50.22 Chronic systolic (congestive) heart failure; Z95.810 Presence of automatic (implantable) cardiac defibrillator; Z79.899 Other long term (current) drug therapy

== ENCOUNTER 2017-03-22 13:34 | Observation (INO) | payer OTHER ==
[~2017-03-22] VITALS: Ht 185.4 cm; Wt 88.6 kg
[~2017-03-22 13:34] MED LIST changes: +DOXY100C2 PO; -LEVO100T PO; -ONDA4TAB10 SL; -OXYC-57 PO
[2017-03-22] MEDS ORDERED: SODIUM CHLORIDE 0.9% 1000ML 1,000 ML IV STA (14:01)
[2017-03-22] MEDS ORDERED: FURO-85 PO (14:17)
[2017-03-22] MEDS ORDERED: SERT25TA PO (14:17)
[2017-03-22] MEDS ORDERED: POTA10CA28 PO (14:17)
[2017-03-22] MEDS ORDERED: LISI-725 PO (14:17)
--- NOTE | 2017-03-22 14:24 | DIAGNOSTIC IMAGING REPORT ---
CHEST ONE VIEW PORTABLE CLINICAL HISTORY: EVALUATE WEAKNESS dyspnea COMPARISON STUDY: 03/08/2017 FINDINGS: Permanent cardiac pacemaker. These are in good position. Lungs are considered clear. IMPRESSION: No acute process. The above report was generated using voice recognition software. It may contain grammatical, syntax or spelling errors. Electronically signed by: Marcial Calero M.D. 03/22/2017 2:23 PM Dictated Date/Time: 03/22/2017 2:22 PM
[2017-03-22 14:37] LABS: BASO % 0.3 %; BASO ABS # 0.02 K/uL (0-0.2); COMPLETE YES; EOS % 3.4 %; HEMATOCRIT 41.7 % (42-52); IG% 0.2 %; LYMPH ABS # 1.28 K/uL (1.2-3.4); MEAN CELL VOLUME 84.2 fL (80-100); MEAN CORPUSCULAR HEMOGLOBIN 27.3 pg (25-34); MEAN CORPUSCULAR HGB CONC 32.4 g/dl (32-36); MEAN PLATELET VOLUME 9.5 fL (7.4-10.4); MONO % 12.3 %; NEUT % 61.8 %; PLATELET COUNT 243 K/uL (130-400); RED BLOOD COUNT 4.95 M/uL (4.7-6.1); WHITE BLOOD COUNT 5.83 K/uL (4.8-10.8)
[2017-03-22 14:52] LABS: ALT/SGPT 29 U/L (12-78); BLOOD UREA NITROGEN 15 mg/dl (7-18); BUN/CREATININE RATIO 20.4 (10-20); CALCIUM 9.3 mg/dl (8.5-10.1); CARBON DIOXIDE 26 mmol/L (21-32); CHLORIDE 109 mmol/L (98-107); CREATININE 0.74 mg/dl (0.60-1.40); GLUCOSE 102 mg/dl (70-99); MAGNESIUM 1.9 mg/dl (1.8-2.4); POTASSIUM 4.5 mmol/L (3.5-5.1); SODIUM 142 mmol/L (136-145)
[2017-03-22 15:36] LABS: LYME DISEASE AB IGG NEG (NEG); LYME DISEASE AB IGM NEG (NEG)
[2017-03-22 15:51] LABS: ALKALINE PHOSPHATASE 66 U/L (45-117); AST/SGOT 15 U/L (15-37); CKMB/CK RATIO 3.2 (0-3.0); THYROID STIMULATING HORMONE < 0.005 uIu/ml (0.300-4.500)
[2017-03-22 15:56] LABS: URINE APPEARANCE CLEAR (CLEAR); URINE BILIRUBIN NEG (NEG); URINE COLOR YELLOW; URINE NITRITE NEG (NEG); URINE SPECIFIC GRAVITY 1.022 (1.000-1.030); UROBILINOGEN NEG (NEG)
[2017-03-22 15:58] LABS: MANUAL MICROSCOPIC REQUIRED? NO; REVIEW REQ? NO
[2017-03-22 16:53] VITALS: O2SAT 96; Ht 185.4 cm; Wt 88.6 kg
[2017-03-22] MEDS ORDERED: ASPIRIN 81 MG CHEW PO STA (18:17)
[2017-03-22] MEDS ORDERED: MoRPHine SULFATE 2 MG/ML CARP IV PRN (18:30)
[2017-03-22] MEDS ORDERED: ACETAMINOPHEN 325 MG TAB PO PRN (18:30)
[2017-03-22] MEDS ORDERED: FUROSEMIDE 20 MG TAB PO PRN (18:30)
[2017-03-22] MEDS ORDERED: NITROGLYCERIN 0.4 MG SL PER TAB CHARGE SL PRN (18:30)
[2017-03-22] MEDS ORDERED: ONDANSETRON INJ 2 MG/ML 2 ML VIAL IV PRN (18:30)
[2017-03-22 19:03] VITALS: BP 123/81; PULSE 96; TEMP 36.4; O2SAT 96
[2017-03-22] MEDS ORDERED: IV FLUIDS COMPLETED PRN (19:30)
[2017-03-22 20:00] VITALS: O2SAT 96
--- NOTE | 2017-03-22 20:10 | EMERGENCY ROOM VISIT NOTE ---
History Report prepared by Rodrigueibvijaya: Patty Jane Under the Supervision of: Dr. Valentín Clements M.D. First contact with patient: 13:47 Chief Complaint: ILLNESS Stated Complaint: LOSS OF WEIGHT, LIGHTHEADED History of Present Illness The patient is a 51 year old male who presents to the Emergency Room with complaints of unintended weight loss for the past several months. He states he feels tired all the time and has been losing weight without trying. He believes he's lost over 40 pounds in the past 6 months. His appetite has been extremely decreased. The patient states he used to eat a large fast food meal with no problem, but now "that stuff doesn't appeal to me". He was seen here in the ED 2 weeks ago for a tick bite and was advised to start retaking thyroid medication he had been previously prescribed. He states he recently saw his PCP , who told him to stop taking the medication. The patient complains of fatigue, weakness and dizziness for the past several months as well as intermittent joint pain. He also notes about 10 days ago, his pacemaker fired, but he was experiencing no symptoms. He denies LOC, headache, fevers, chills, diaphoresis, visual changes, neck pain, chest pain, breathing difficulties, nausea, vomiting , abdominal pain, back pain, melena, hematochezia, urinary symptoms, numbness, lymphadenopathy, rash, or other complaints. 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 A total of ten systems were reviewed and were otherwise negative. Past Medical & Surgical Medical Problems: (1) Abdominal pain (2) Cardiomyopathy (3) Cephalosporin drug rash (4) Hyperthyroidism (5) Left bundle branch block (6) Pacemaker (7) Ribs, multiple fractures (8) Systolic heart failure Family History Cancer Social History Smoking Status: Former Smoker Alcohol Use: none Drug Use: none Marital Status: Housing Status: lives with family Occupation Status: unemployed Current/Historical Medications Scheduled Amiodarone HCl (Amiodarone HCl), 200 MG PO DAILY Carvedilol (Carvedilol), 37.5 MG PO BID Doxycycline Hyclate (Vibramycin), 100 MG PO BID Lisinopril (Zestril), 20 MG PO DAILY Potassium Chloride (Micro-K Ext Rel), 10 MEQ PO DAILY Sertraline (Zoloft), 25 MG PO DAILY Spironolactone (Spironolactone), 25 MG PO DAILY Scheduled PRN Furosemide (Lasix), 20 MG PO DAILY PRN for FLUID RETENTION Allergies Coded Allergies: Cefuroxime (Verified Allergy, Intermediate, RASH, 03/08/17) Physical Exam Vital Signs Date Time Temp Pulse Resp B/P (MAP) Pulse Ox O2 Delivery O2 Flow Rate FiO2 03/22/17 16:53 96 Room Air 03/22/17 15:31 90 16 126/85 96 Room Air 03/22/17 15:05 90 16 96 03/22/17 14:31 87 03/22/17 14:29 87 16 114/80 96 Room Air 03/22/17 14:28 96 Room Air 03/22/17 13:39 36.6 94 18 102/70 97 Room Air Physical Exam GENERAL: Awake, alert, well-appearing, in no distress HENT: Normocephalic, atraumatic. Oropharynx unremarkable. EYES: Normal conjunctiva. Sclera non-icteric. NECK: Supple. No nuchal rigidity. FROM. No JVD. RESPIRATORY: Clear to auscultation. CARDIAC: Borderline tachycardic heart rate, normal rhythm. Extremities warm and well perfused. Pulses equal. ABDOMEN: Soft, non-distended. No tenderness to palpation. No rebound or guarding. No masses. RECTAL: Deferred. MUSCULOSKELETAL: Chest examination reveals no tenderness. The back is symmetrical on inspection without obvious abnormality. There is no CVA tenderness to palpation. No joint edema. LOWER EXTREMITIES: Calves are equal size bilaterally and non-tender. No edema. No discoloration. NEURO: Normal sensorium. No sensory or motor deficits noted. SKIN: No rash or jaundice noted. Medical Decision & Procedures ER Provider Diagnostic Interpretation: Radiology results as stated below per my review and radiologist interpretation: CHEST ONE VIEW PORTABLE CLINICAL HISTORY: EVALUATE WEAKNESS dyspnea COMPARISON STUDY: 03/08/2017 FINDINGS: Permanent cardiac pacemaker. These are in good position. Lungs are considered clear. IMPRESSION: No acute process. The above report was generated using voice recognition software. It may contain grammatical, syntax or spelling errors. Electronically signed by: Marcial Calero M.D. 03/22/2017 2:23 PM Laboratory Results 03/22/17 14:15 Red Blood Count 4.95, Mean Corpuscular Volume 84.2, Mean Corpuscular Hemoglobin 27.3, Mean Corpuscular Hemoglobin Concent 32.4, Mean Platelet Volume 9.5, Neutrophils (%) (Auto) 61.8, Lymphocytes (%) (Auto) 22.0, Monocytes (%) (Auto) 12.3, Eosinophils (%) (Auto) 3.4, Basophils (%) (Auto) 0.3, Neutrophils # (Auto ) 3.60, Lymphocytes # (Auto) 1.28, Monocytes # (Auto) 0.72, Eosinophils # (Auto ) 0.20, Basophils # (Auto) 0.02 03/22/17 14:15 Test 03/22/17 14:15 03/22/17 15:30 White Blood Count 5.83 K/uL (4.8-10.8) Red Blood Count 4.95 M/uL (4.7-6.1) Hemoglobin 13.5 g/dL (14.0-18.0) Hematocrit 41.7 % (42-52) Mean Corpuscular Volume 84.2 fL (80-100) Mean Corpuscular Hemoglobin 27.3 pg (25-34) Mean Corpuscular Hemoglobin Concent 32.4 g/dl (32-36) Platelet Count 243 K/uL (130-400) Mean Platelet Volume 9.5 fL (7.4-10.4) Neutrophils (%) (Auto) 61.8 % Lymphocytes (%) (Auto) 22.0 % Monocytes (%) (Auto) 12.3 % Eosinophils (%) (Auto) 3.4 % Basophils (%) (Auto) 0.3 % Neutrophils # (Auto) 3.60 K/uL (1.4-6.5) Lymphocytes # (Auto) 1.28 K/uL (1.2-3.4) Monocytes # (Auto) 0.72 K/uL (0.11-0.59) Eosinophils # (Auto) 0.20 K/uL (0-0.5) Basophils # (Auto) 0.02 K/uL (0-0.2) RDW Standard Deviation 39.5 fL (36.4-46.3) RDW Coefficient of Variation 13.0 % (11.5-14.5) Immature Granulocyte % (Auto) 0.2 % Immature Granulocyte # (Auto) 0.01 K/uL (0.00-0.02) Prothrombin Time 11.0 SECONDS (9.0-12.0) Prothromb Time International Ratio 1.0 (0.9-1.1) Activated Partial Thromboplast Time 25.0 SECONDS (21.0-31.0) Partial Thromboplastin Ratio 1.0 Anion Gap 7.0 mmol/L (3-11) Est Creatinine Clear Calc Drug Dose 133.4 ml/min Estimated GFR () 123.8 Estimated GFR (Non- 106.8 BUN/Creatinine Ratio 20.4 (10-20) Calcium Level 9.3 mg/dl (8.5-10.1) Magnesium Level 1.9 mg/dl (1.8-2.4) Total Bilirubin 0.3 mg/dl (0.2-1) Direct Bilirubin < 0.1 mg/dl (0-0.2) Aspartate Amino Transf (AST/SGOT) 15 U/L (15-37) Alanine Aminotransferase (ALT/SGPT) 29 U/L (12-78) Alkaline Phosphatase 66 U/L (45-117) Total Creatine Kinase 31 U/L (39-308) Creatine Kinase MB 1.0 ng/ml (0.5-3.6) Creatine Kinase MB Ratio 3.2 (0-3.0) Troponin I < 0.015 ng/ml (0-0.045) Total Protein 6.4 gm/dl (6.4-8.2) Albumin 3.0 gm/dl (3.4-5.0) Lipase 114 U/L (73-393) Thyroid Stimulating Hormone (TSH) < 0.005 uIu/ml (0.300-4.500) Free Thyroxine 3.71 ng/dl (0.80-1.60) Free Triiodothyronine 9.78 pg/ml (2.30-4.20) Lyme Disease IgG Antibody NEG (NEG) Lyme Disease IgM Antibody NEG (NEG) Urine Color YELLOW Urine Appearance CLEAR (CLEAR) Urine pH 5.0 (4.5-7.5) Urine Specific [place] 1.022 (1.000-1.030) Urine Protein NEG (NEG) Urine Glucose (UA) NEG (NEG) Urine Ketones NEG (NEG) Urine Occult Blood NEG (NEG) Urine Nitrite NEG (NEG) Urine Bilirubin NEG (NEG) Urine Urobilinogen NEG (NEG) Urine Leukocyte Esterase NEG (NEG) Laboratory results reviewed by me Medications Administered Medications (Trade) Dose Ordered Sig/Haresh Route Start Time Stop Time Status Last Admin Dose Admin Sodium Chloride 1,000 ml @ 125 mls/hr Q8H STAT IV 03/22/17 14:01 03/22/17 18:36 DC 03/22/17 14:01 125 MLS/HR ED Course 1356: The patient was evaluated in room B2. A complete history and physical exam was performed. 1401: NSS 1000 ml @ 125 mls/hr IV. 1620: I reevaluated the patient. He is resting comfortably. I discussed my recommendation that he remain in the hospital for further evaluation and management and he verbalized complete understanding and agreement. 1633: I [facility] the patients [facility] The patient will be further evaluated. Medical Decision Triage Nursing notes reviewed. The patient's presentation and history were concerning for weight loss and thyroid issues. Etiologies such as hyperthyroidism, metabolic, infection, hypo/hyperglycemia, electrolyte abnormalities, cardiac sources, intracerebral event, toxicologic, neurologic, as well as others were entertained. The patient was evaluated. Physical examination as above. The patient was borderline tachycardic. His CBC, chemistry panel, LFTs, and cardiac markers were unremarkable. His TSH was undetectable and his T3 and T4 were elevated consistent with hyperthyroidism. The patient noted having a defibrillator discharge last week. His device was interrogated. The [employer] billing representative noted that he had an episode of A. fib with RVR that was defibrillated successfully to normal sinus rhythm. He also had an episode of nonsustained ventricular tachycardia, about 6 beats, and an episode of nonsustained one-to-one SVT. The patient was hydrated. Given the findings further evaluation and management in the hospital is felt to be appropriate. Consultation was made with the internal medicine team. The patient was evaluated for further management. Medication Reconcilliation Current Medication List: was personally reviewed by me Blood Pressure Screening Patient's blood pressure: Normal blood pressure Blood pressure disposition: Did not require urgent referral Consults Time Called: 1628 Consulting Physician: Khari [facility] Hospitalist Returned Call: 1633 I discussed the patients case [facility]. The patient will be further evaluated. Impression Primary Impression: Thyrotoxicosis Scribe Attestation The scribe's documentation has been prepared under my direction and personally reviewed by me in its entirety. I confirm that the note above accurately reflects all work, treatment, procedures, and medical decision making performed by me. Departure Information Dispostion Being Evaluated By Hospitalist Referrals Georgia Aguillon D.O. (PCP) Patient Instructions My [facility]
--- NOTE | 2017-03-22 20:55 | History and Physical ---
History & Physical Date & Time of Service: Mar 22, 2017 at 18:29 Chief Complaint: Hyperthyroidism Primary Care Physician: Georgia Aguillon D.O. History of Present Illness Source: patient, family, clinic records, hospital records Pt is a 51 yoM who presents to the ER with complaints of weight loss x 3 months. He was in the ER two weeks ago for a tick bite and was started on doxycycline, and has completed 14 of the 21 day course. Since then he was seen to establish care with Dr. Aguillon. At that time he told her that he had been noncompliant with his meds for a few months including his Synthroid. She encouraged compliance, however, when the labwork came back showing that he was hyperthyroid, she called him and advised him to stop his Synthroid. He reports being diagnosed with hypothyroidism after significant weight gain and fatigue 1- 2 years ago. His son committed suicide a few months ago and the patient stopped taking some of his meds including Synthroid and Lisinopril. He has an idiopathic cardiomyopathy, which is being managed by Dr. Munson with [facility], however, the patient was interested in a change and recently was referred to [facility] with an appointment in two weeks. He reports feeling his ICD fire a few days ago. [facility], he was found to have gone into afib w/RVR which was initially paced and then a shock occurred. He was in sinus rhythm after this with some periods of NSVT around 5- 6 beat runs. He reports having a h/o afib and underwent ablation in the past. He was on coumadin for a time and then was on Xarelto, but stopped this a year ago 2/2 GI bleeding and discomfort. He reports his baseline weight 3 months ago was 230lbs and he is currently 195lbs. He has insomnia and is tachycardic despite being on Carvedilol 37.5mg PO BID (and compliant with this med). He also reports chest pain that "feels like a heaviness in the center of my chest" and occurs with exertion. The discomfort lasts anywhere from 10-20 minutes at a time and is relieved by rest. He also reports dyspnea on exertion that is worse form his baseline dyspnea. This started about 1-2 months ago. Past Medical/Surgical History Medical Problems: (1) Cardiomyopathy Status: Chronic (2) Cephalosporin drug rash Status: Resolved (3) Left bundle branch block Status: Chronic (4) Pacemaker Status: Chronic (5) Ribs, multiple fractures Status: Resolved (6) Systolic heart failure Status: Chronic Surgical Problems: (1) S/P ablation of atrial fibrillation Status: Chronic (2) S/P cholecystectomy Status: Chronic (3) S/P ICD (internal cardiac defibrillator) procedure Status: Chronic Family History Cancer Largely unknown as patient was adopted. Social History Smoking Status: Former Smoker Smokeless Tobacco Use: Yes Alcohol Use: none Drug Use: none Marital Status: Housing status: lives with family Occupational Status: unemployed Immunizations History of Influenza Vaccine: N/A History of Tetanus Vaccine?: Unknown Tetanus Immunization Date: Sep 17, 2009 History of Pneumococcal: No History of Hepatitis B Vaccine: Unknown Multi-Drug Resistant Organisms History of MDRO: No Allergies Coded Allergies: Cefuroxime (Verified Allergy, Intermediate, RASH, 03/08/17) Home Medications Scheduled Carvedilol (Carvedilol), 37.5 MG PO BID Doxycycline Hyclate (Vibramycin), 100 MG PO BID Lisinopril (Zestril), 20 MG PO DAILY Potassium Chloride (Micro-K Ext Rel), 10 MEQ PO DAILY Sertraline (Zoloft), 25 MG PO DAILY Spironolactone (Spironolactone), 25 MG PO DAILY Scheduled PRN Furosemide (Lasix), 20 MG PO DAILY PRN for FLUID RETENTION Review of Systems Constitutional: + chills, + weight loss, No fever Eyes: No problem reported ENT: No sore throat Respiratory: + dyspnea on exertion, No cough, No dyspnea at rest Cardiovascular: + chest pain, + orthopnea, + edema, No palpitations Abdomen: + diarrhea, + problem reported (blood in stool from hemorrhoids), No pain, No nausea, No vomiting Musculoskeletal: + joint pain (L shoulder) Genitourinary - Male: + urinary frequency, No hematuria, No dysuria, No urinary urgency Neurologic: No numbness/tingling Psychiatric: + insomnia Hematologic / Lymphatic: + night sweats Integumentary: No new/changing skin lesions Allergic / Immunologic: No food allergies Physical Exam Vital Signs Date Time Temp Pulse Resp B/P (MAP) Pulse Ox O2 Delivery O2 Flow Rate FiO2 03/22/17 17:23 86 16 135/93 97 03/22/17 16:53 96 Room Air 03/22/17 15:31 90 16 126/85 96 Room Air 03/22/17 15:05 90 16 96 03/22/17 14:31 87 03/22/17 14:29 87 16 114/80 96 Room Air 03/22/17 14:28 96 Room Air 03/22/17 13:39 36.6 94 18 102/70 97 Room Air GEN: WNWD, in no acute distress, alert and appropriate, mentating appropriately with no tachypnea, tremulousness or conversational dyspnea. HEENT: NC/AT, PERRL, normal sclerae, no evidence of ophthalmopathy CARDIO: reg rate, S1/2 heard without m/g/r, no JVD, no edema. LUNGS: CTA bilaterally, no crackles, rales or wheezes, good diaphragmatic excursion ABD: soft, non-tender, non-distended, no rebound or guarding, +BS EXTREMITY: RP and DP palpable 2+ bilat, no LE swelling or edema, extremities are warm and well-perfused NEURO: CN 2-12 grossly intact, sensation intact throughout, no gross focal deficits. MUSC: 5/5 strength throughout, no focal deficits SKIN: warm and dry Diagnostics Laboratory Results Results Past 24 Hours Test 03/22/17 14:15 03/22/17 15:30 Range/Units White Blood Count 5.83 4.8-10.8 K/uL Red Blood Count 4.95 4.7-6.1 M/uL Hemoglobin 13.5 14.0-18.0 g/dL Hematocrit 41.7 42-52 % Mean Corpuscular Volume 84.2 80-100 fL Mean Corpuscular Hemoglobin 27.3 25-34 pg Mean Corpuscular Hemoglobin Concent 32.4 32-36 g/dl Platelet Count 243 130-400 K/uL Mean Platelet Volume 9.5 7.4-10.4 fL Neutrophils (%) (Auto) 61.8 % Lymphocytes (%) (Auto) 22.0 % Monocytes (%) (Auto) 12.3 % Eosinophils (%) (Auto) 3.4 % Basophils (%) (Auto) 0.3 % Neutrophils # (Auto) 3.60 1.4-6.5 K/uL Lymphocytes # (Auto) 1.28 1.2-3.4 K/uL Monocytes # (Auto) 0.72 0.11-0.59 K/uL Eosinophils # (Auto) 0.20 0-0.5 K/uL Basophils # (Auto) 0.02 0-0.2 K/uL RDW Standard Deviation 39.5 36.4-46.3 fL RDW Coefficient of Variation 13.0 11.5-14.5 % Immature Granulocyte % (Auto) 0.2 % Immature Granulocyte # (Auto) 0.01 0.00-0.02 K/uL Prothrombin Time 11.0 9.0-12.0 SECONDS Prothromb Time International Ratio 1.0 0.9-1.1 Activated Partial Thromboplast Time 25.0 21.0-31.0 SECONDS Partial Thromboplastin Ratio 1.0 Sodium Level 142 136-145 mmol/L Potassium Level 4.5 3.5-5.1 mmol/L Chloride Level 109 98-107 mmol/L Carbon Dioxide Level 26 21-32 mmol/L Anion Gap 7.0 3-11 mmol/L Blood Urea Nitrogen 15 7-18 mg/dl Creatinine 0.74 0.60-1.40 mg/dl Est Creatinine Clear Calc Drug Dose 133.4 ml/min Estimated GFR () 123.8 Estimated GFR (Non- 106.8 BUN/Creatinine Ratio 20.4 10-20 Random Glucose 102 70-99 mg/dl Calcium Level 9.3 8.5-10.1 mg/dl Magnesium Level 1.9 1.8-2.4 mg/dl Total Bilirubin 0.3 0.2-1 mg/dl Direct Bilirubin < 0.1 0-0.2 mg/dl Aspartate Amino Transf (AST/SGOT) 15 15-37 U/L Alanine Aminotransferase (ALT/SGPT) 29 12-78 U/L Alkaline Phosphatase 66 45-117 U/L Total Creatine Kinase 31 39-308 U/L Creatine Kinase MB 1.0 0.5-3.6 ng/ml Creatine Kinase MB Ratio 3.2 0-3.0 Troponin I < 0.015 0-0.045 ng/ml Total Protein 6.4 6.4-8.2 gm/dl Albumin 3.0 3.4-5.0 gm/dl Lipase 114 73-393 U/L Thyroid Stimulating Hormone (TSH) < 0.005 0.300-4.500 uIu/ml Free Thyroxine 3.71 0.80-1.60 ng/dl Free Triiodothyronine 9.78 2.30-4.20 pg/ml Lyme Disease IgG Antibody NEG NEG Lyme Disease IgM Antibody NEG NEG Urine Color YELLOW Urine Appearance CLEAR CLEAR Urine pH 5.0 4.5-7.5 Urine Specific [place] 1.022 1.000-1.030 Urine Protein NEG NEG Urine Glucose (UA) NEG NEG Urine Ketones NEG NEG Urine Occult Blood NEG NEG Urine Nitrite NEG NEG Urine Bilirubin NEG NEG Urine Urobilinogen NEG NEG Urine Leukocyte Esterase NEG NEG Microbiology Results 03/22/17 Urine Culture, Received Pending Diagnostic Radiology CHEST ONE VIEW PORTABLE CLINICAL HISTORY: EVALUATE WEAKNESS dyspnea COMPARISON STUDY: 03/08/2017 FINDINGS: Permanent cardiac pacemaker. These are in good position. Lungs are considered clear. IMPRESSION: No acute process. EKG A-sensed, v-paced, no ST changes. Impression Assessment and Plan 51 yo M with overt hypothyroidism likely peripheral in nature with very low TSH. 1. Hyperthyroidism-no evidence of myxedema and he is relatively hemodynamically stable aside from the fact that his HR is in the 90s on Coreg 37.5mg BID. TSH Receptor antibodies were ordered and as a reference lab, will not be back prior to discharge. Will ask Cardiology to adjust meds. No overt signs of Graves on exam, may require a LAMAS uptake scan which cane be performed as outpatient. Referral to endocrinology is highly recommended to the patient and his . 2. Idiopathic cardiomyopathy s/p ICD-medically managed, however, reports being noncompliant with medications. No overt failure on exam today but patient reporting new chest pain and worsening exercise tolerance. Will repeat TTE and consult Cardiology for assistance with evel and titrating meds Trend serial cardiac enzymes to ensure no ACS. 3. Depression-appears stable. Cont sertraline. Was taking Celexa in the past. 4. Weight loss 2/2 #1 5. Atrial fibrillation with discharge from ICD recently-likely 2/2 hyperthyroid state. Currently in NSR and not anticoagulated. Cont amiodarone/ coreg 6. Lyme disease-on day 14 of 21 of doxycycline. DVT prophylaxis: Lovenox FULL CODE Dispo-to telemetry Level of Care Telemetry Advanced Directives Existing Living Will: No Existing Power of Waiter/Waitress Club: No Resuscitation Status FULL RESUSCITATION VTE Prophylaxis VTE Risk Assessment Done? Y/N: Yes Risk Level: Moderate Given or contraindicated: Enoxaparin (Lovenox)SQ
[2017-03-22 21:12] LABS: CKMB/CK RATIO 2.6 (0-3.0)
[2017-03-22] MEDS: CARVEDILOL 12.5 MG TAB PO SCH (21:25)
[2017-03-22] MEDS: DOXYCYCLINE HYCLATE 100 MG CAP PO SCH (21:25)
[2017-03-22 23:14] VITALS: BP 107/73; PULSE 84; TEMP 36.6; O2SAT 96
[2017-03-23 02:40] LABS: HEMATOCRIT 39.8 % (42-52); MEAN CELL VOLUME 84.1 fL (80-100); MEAN CORPUSCULAR HEMOGLOBIN 26.6 pg (25-34); MEAN CORPUSCULAR HGB CONC 31.7 g/dl (32-36); MEAN PLATELET VOLUME 9.3 fL (7.4-10.4); PLATELET COUNT 231 K/uL (130-400); RED BLOOD COUNT 4.73 M/uL (4.7-6.1); WHITE BLOOD COUNT 6.75 K/uL (4.8-10.8)
[2017-03-23 03:02] LABS: BUN/CREATININE RATIO 18.2 (10-20); CALCIUM 9.1 mg/dl (8.5-10.1); CREATININE 0.72 mg/dl (0.60-1.40); POTASSIUM 4.1 mmol/L (3.5-5.1)
[2017-03-23 03:07] LABS: CHOLESTEROL/HDL RATIO 3.2; FERRITIN 411.2 ng/ml (8.0-388.0)
[2017-03-23 03:10] LABS: CKMB/CK RATIO 1.7 (0-3.0)
[2017-03-23 04:19] VITALS: BP 103/68; PULSE 79; TEMP 36.8; O2SAT 94
[2017-03-23 07:41] VITALS: BP 118/73; PULSE 89; TEMP 36.5; O2SAT 94
[2017-03-23] MEDS: DOXYCYCLINE HYCLATE 100 MG CAP PO SCH (07:49)
[2017-03-23] MEDS: CARVEDILOL 12.5 MG TAB PO SCH (07:49)
[2017-03-23] MEDS ORDERED: LISINOPRIL 20 MG TAB PO SCH (09:00)
[2017-03-23] MEDS ORDERED: POTASSIUM CHLORIDE 10 MEQ TABCR PO SCH (09:00)
[2017-03-23] MEDS ORDERED: ASPIRIN 81 MG ECTAB PO SCH (09:00)
[2017-03-23] MEDS ORDERED: SPIRONOLACTONE 25 MG TAB PO SCH (09:00)
[2017-03-23] MEDS ORDERED: AMIODARONE 200 MG TAB PO SCH (09:00)
[2017-03-23] MEDS ORDERED: SERTRALINE HCL 50 MG TAB PO SCH (09:00)
[2017-03-23] MEDS ORDERED: ENOXAPARIN 40 MG/0.4 ML SYR SC SCH (09:00)
--- NOTE | 2017-03-23 09:41 | CARDIOLOGY CONSULTATION ---
DATE OF CONSULTATION: 03/23/2017 REFERRING PHYSICIAN: Dr. Martinez. REASON FOR CONSULTATION: Cardiomyopathy. HISTORY OF PRESENT ILLNESS: This is a 51-year-old male patient who has an idiopathic cardiomyopathy, normal coronary arteries by cardiac catheterization, left bundle branch block, biventricular pacemaker/ICD and a history of ablation for frequent PVCs. He also has a history of paroxysmal atrial fibrillation. His PVC ablation was performed at [facility] several years ago, at which time the patient states that he was started on amiodarone. Approximately 1-2 years ago, he was noted to be hypothyroid and was started on hormone supplement. At that time, he had gained weight and had symptoms of hypothyroidism and felt better after being placed on Synthroid. Approximately a year ago, the patient states that he stopped his Synthroid and had been doing well until the past 2-3 months he has noted weight loss approximately 40 pounds. The patient also has been hyperactive and felt warm all the time with sweating. The patient has been somewhat noncompliant with other medications as well as followup, but recently has started to follow with Dr. Aguillon through [facility] internal medicine. Labs were obtained and the patient is noted to be hyperthyroid. He was asked to stop his Synthroid. He was admitted through the Emergency Department due to symptoms of insomnia, tachycardia and chest pain. It should be noted that his ICD was interrogated in the Emergency Department and previously, the patient had received a therapy due to AFib with RVR. He was noted to be in normal sinus in the Emergency Department. Finally, the patient had been on Xarelto, which was stopped a year ago due to GI bleeding. He has had no complaints of progressive shortness of breath, lower extremity edema, dizziness or lightheadedness. So far, his labs indicate that he has hyperthyroid. He has thyroid immunoglobulins pending. He has no history of goiter and there is no family history of thyroid goiters. ALLERGIES: CEFUROXIME. PAST MEDICAL HISTORY: As outlined in the history of chief complaint, he has a nonischemic cardiomyopathy with a left bundle branch block and is status post biventricular pacemaker ICD. He has had a previous cardiac catheterization, which revealed normal coronary arteries. Several years ago, he was noted to have frequent PVCs and was referred to [facility], where he underwent a PVC ablation. He does have a history of paroxysmal atrial fibrillation, but according to records, he was started on amiodarone after the PVC ablation perhaps to suppress some of the ventricular arrhythmias. He has been on amiodarone for several years. SOCIAL HISTORY: He is currently a nonsmoker. He lives with his . FAMILY MEDICAL HISTORY: Noncontributory. REVIEW OF SYSTEMS: A 10-point review of systems is negative except for the history of chief complaint. PHYSICAL EXAMINATION: GENERAL: He is alert and oriented. No acute distress. VITAL SIGNS: Blood pressure is 120/80. Pulse is regular at 80 beats per minute. He is afebrile. HEENT: He is normocephalic. Pupils are equal and reactive to light. Extraocular muscles are intact bilaterally. NECK: The neck veins are flat. Carotids have good upstrokes bilaterally without bruits. Thyroid is nonpalpable. RESPIRATORY: Breath sounds equal bilaterally and clear to auscultation. CARDIOVASCULAR: Heart has a regular rhythm. Normal S1 and S2. No S3 or S4. No cardiac rubs or murmurs. GASTROINTESTINAL: Abdomen is soft and nontender without organomegaly. EXTREMITIES: Free of edema, digit clubbing, or cyanosis. NEUROLOGIC: Grossly intact. SKIN: Warm to touch. LYMPH NODES: Negative to palpation. LABORATORY DATA: TSH is less than 0.005. Free T4 is 3.71. Free T3 is 9.78. Lyme's titer is negative. EKG reveals a sinus rhythm with ventricular pacing. IMPRESSION: 1. Hyperthyroidism, which could be related to amiodarone therapy, rule out Graves' disease and other etiologies for hyperthyroidism. 2. Idiopathic nonischemic cardiomyopathy. 3. Left bundle branch block. 4. PVC ablation at [facility]. 5. Paroxysmal atrial fibrillation. 6. Status post biventricular pacemaker/ICD. RECOMMENDATIONS: I would recommend stopping his amiodarone at this point. Amiodarone can cause both hypo and hyperthyroidism. It is a very complex drug. I would continue his other cardiac medications including his carvedilol. We will wait for the thyroid stimulating antibodies, but I have ordered an ultrasound of the thyroid to rule out a possible goiter. The patient is with a history or potential for thyroid goiter are at greater risk for developing hyperthyroidism from amiodarone. He has an echocardiogram pending. Once other labs are back, we may want to consider starting him on methimazole. Once we have the other labs and thyroid ultrasound, we should consider doing a nuclear medicine uptake scan of the thyroid. We will follow along with you during his hospital stay.
[2017-03-23 11:29] VITALS: BP 104/66; PULSE 83; TEMP 36.6; O2SAT 94
--- NOTE | 2017-03-23 11:58 | DIAGNOSTIC IMAGING REPORT ---
SOFT TISS HEAD/NECK-THYROID CLINICAL HISTORY: 51 years-old Male presenting with hyperthyroid. TECHNIQUE: Real-time grayscale and color and spectral Doppler ultrasound imaging of the thyroid and base of the neck was performed. COMPARISON: None. FINDINGS: Right lobe: Heterogeneous echotexture. The right lobe of the thyroid measures 4.6 x 2.1 x 1.9 cm. No nodules. No parenchymal hyperemia. Left lobe: Heterogeneous echotexture. The left lobe of the thyroid measures 5.2 x 2.1 x 2.0 cm. No nodules. No parenchymal hyperemia. Isthmus: The isthmus measures 6 mm in thickness. No nodules. IMPRESSION: Heterogeneous echotexture of the thyroid could be compatible with the given history of hyperthyroidism/Graves' disease. No focal nodule. Electronically signed by: Rony Teran M.D. 03/23/2017 11:57 AM Dictated Date/Time: 03/23/2017 11:55 AM
--- NOTE | 2017-03-23 12:09 | Progress Note ---
Medicine Progress Note Date & Time of Visit: Mar 23, 2017 at 12:03. Subjective 51 yo M admitted with 3 months of weight loss and progressive dyspnea on exertion -no SOB, no CP -we discussed the outgoing plan and he repeated it back to me to ensure understanding. -was unable to contact his as promised as I called her but no answer and no vmail was setup. This was conveyed to nurse, who promised to let her know this and page me if she had any questions. -reviewed case with Endocrinology at [facility] (Dr. Huffman) and Dr. Gaudencio Ley- Cardiology. Objective Last 8 Hrs Date Time Temp Pulse Resp B/P (MAP) Pulse Ox O2 Delivery O2 Flow Rate FiO2 03/23/17 11:29 36.6 83 18 104/66 (79) 94 Room Air 03/23/17 08:00 Room Air 03/23/17 07:41 36.5 89 18 118/73 (88) 94 Room Air 03/23/17 04:19 36.8 79 18 103/68 (80) 94 Room Air Physical Exam: GEN: WNWD, in no acute distress, alert and appropriate, mentating appropriately with no tachypnea, tremulousness or conversational dyspnea. HEENT: NC/AT, normal sclerae, no evidence of ophthalmopathy CARDIO: reg rate, S1/2 heard without m/g/r, no JVD, no edema. LUNGS: CTA bilaterally, no crackles, rales or wheezes, good diaphragmatic excursion ABD: soft, non-tender, non-distended, no rebound or guarding, +BS EXTREMITY: RP and DP palpable 2+ bilat, no LE swelling or edema, extremities are warm and well-perfused NEURO: CN 2-12 grossly intact, sensation intact throughout, no gross focal deficits. MUSC: 5/5 strength throughout, no focal deficits SKIN: warm and dry Laboratory Results: Last 24 Hours Test 03/22/17 14:15 03/22/17 15:30 03/22/17 20:36 03/23/17 02:31 White Blood Count 5.83 K/uL 6.75 K/uL Red Blood Count 4.95 M/uL 4.73 M/uL Hemoglobin 13.5 g/dL 12.6 g/dL Hematocrit 41.7 % 39.8 % Mean Corpuscular Volume 84.2 fL 84.1 fL Mean Corpuscular Hemoglobin 27.3 pg 26.6 pg Mean Corpuscular Hemoglobin Concent 32.4 g/dl 31.7 g/dl Platelet Count 243 K/uL 231 K/uL Mean Platelet Volume 9.5 fL 9.3 fL Neutrophils (%) (Auto) 61.8 % Lymphocytes (%) (Auto) 22.0 % Monocytes (%) (Auto) 12.3 % Eosinophils (%) (Auto) 3.4 % Basophils (%) (Auto) 0.3 % Neutrophils # (Auto) 3.60 K/uL Lymphocytes # (Auto) 1.28 K/uL Monocytes # (Auto) 0.72 K/uL Eosinophils # (Auto) 0.20 K/uL Basophils # (Auto) 0.02 K/uL RDW Standard Deviation 39.5 fL 39.4 fL RDW Coefficient of Variation 13.0 % 12.9 % Immature Granulocyte % (Auto) 0.2 % Immature Granulocyte # (Auto) 0.01 K/uL Prothrombin Time 11.0 SECONDS Prothromb Time International Ratio 1.0 Activated Partial Thromboplast Time 25.0 SECONDS Partial Thromboplastin Ratio 1.0 Sodium Level 142 mmol/L 143 mmol/L Potassium Level 4.5 mmol/L 4.1 mmol/L Chloride Level 109 mmol/L 110 mmol/L Carbon Dioxide Level 26 mmol/L 27 mmol/L Anion Gap 7.0 mmol/L 6.0 mmol/L Blood Urea Nitrogen 15 mg/dl 13 mg/dl Creatinine 0.74 mg/dl 0.72 mg/dl Est Creatinine Clear Calc Drug Dose 133.4 ml/min 137.1 ml/min Estimated GFR () 123.8 125.2 Estimated GFR (Non- 106.8 108.0 BUN/Creatinine Ratio 20.4 18.2 Random Glucose 102 mg/dl 92 mg/dl Calcium Level 9.3 mg/dl 9.1 mg/dl Magnesium Level 1.9 mg/dl Total Bilirubin 0.3 mg/dl Direct Bilirubin < 0.1 mg/dl Aspartate Amino Transf (AST/SGOT) 15 U/L Alanine Aminotransferase (ALT/SGPT) 29 U/L Alkaline Phosphatase 66 U/L Total Creatine Kinase 31 U/L 27 U/L 29 U/L Creatine Kinase MB 1.0 ng/ml 0.7 ng/ml 0.5 ng/ml Creatine Kinase MB Ratio 3.2 2.6 1.7 Troponin I < 0.015 ng/ml < 0.015 ng/ml < 0.015 ng/ml Total Protein 6.4 gm/dl Albumin 3.0 gm/dl Lipase 114 U/L Thyroid Stimulating Hormone (TSH) < 0.005 uIu/ml Free Thyroxine 3.71 ng/dl Free Triiodothyronine 9.78 pg/ml Lyme Disease IgG Antibody NEG Lyme Disease IgM Antibody NEG Urine Color YELLOW Urine Appearance CLEAR Urine pH 5.0 Urine Specific Wright 1.022 Urine Protein NEG Urine Glucose (UA) NEG Urine Ketones NEG Urine Occult Blood NEG Urine Nitrite NEG Urine Bilirubin NEG Urine Urobilinogen NEG Urine Leukocyte Esterase NEG Iron Level 47 mcg/dl Total Iron Binding Capacity 212 mcg/dl Ferritin 411.2 ng/ml Triglycerides Level 132 mg/dl Cholesterol Level 123 mg/dl HDL Cholesterol 38 mg/dl LDL Cholesterol, Calculated 59 mg/dl VLDL Cholesterol, Calculated 26 mg/dl Cholesterol/HDL Ratio 3.2 Date/Time Source Procedure Growth Status 03/22/17 15:30 Urine , Clean Catch Urine Culture - Preliminary PIN-POINT GROWTH PRESENT, REINCUBATING. 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 1. Hyperthyroidism-no evidence of myxedema and he is relatively hemodynamically stable aside from the fact that his HR is in the 90s on Coreg 37.5mg BID. TSH Receptor antibodies were ordered and as a reference lab, will not be back prior to discharge. No overt signs of Graves on exam, and antibodies have been ordered. Per Endocrinology at [facility], stopping the amiodarone is the mainstay of treatment here. A LAMAS uptake scan will not be helpful in the setting of recent amio administration. Some T4 to T3 blockade may occur on the methimazole-type drugs, however, this will be a relatively small effect in the setting of amio use. It will take roughly 6 months for the amiodarone effects to wear off. In that time, he will need to remain beta- blocked to maintain HD stability. However, if he becomes acutely ill/ symptomatic, he may need a therapeutic thyroidectomy. For these reasons, plan to send patient for urgent outpatient referral to Endocrinology and if he returns to the ER with symptoms or clinically picture consistent with hyperthyroidism,i immediate transfer to [place] would be advised. 2. Idiopathic cardiomyopathy s/p ICD-medically managed, however, reports being noncompliant with medications. No overt failure on exam today but patient reporting new chest pain--not currently present and did not occur during admission-- and worsening exercise tolerance. Repeat TTE reveals * No significant change compared to previous study of 10/22/16. * Normal LV chamber size with mild concentric LVH. * Moderately reduced LV systolic function with moderate global hypokinesis, EF 40-45%. * No segmental left ventricular wall motion abnormalities are noted. * Grade II diastolic dysfunction. * No significant valvular pathology. Serial cardiac enzymes were negative overnight and telemetry was unremarkable. Per Cardiology, will have him followed as an outpatient in 2-3 weeks. 3. Depression-appears stable. Cont sertraline. Was taking Celexa in the past. Pt is dealing with the loss of his son to suicide 6 months ago. 4. Weight loss 2/2 #1 5. Atrial fibrillation with discharge from ICD recently-likely 2/2 hyperthyroid state. Currently in NSR and not anticoagulated. Cont coreg. 6. Lyme disease-on 21-day course of doxycycline--will cont as outpatient. On day of discharge he was hemodynamically stable and afebrile. He was tolerating PO and ambulatory. He was scheduled for 3-day follow up with PCP to obtain referral to Endocrinology. Cardiology followup appointment was also scheduled in advance and included on discharge instructions sheet. Consultants: Dr. Gaudencio Ley (Cardiology) Current Inpatient Medications: Current Inpatient Medications Medications (Trade) Dose Ordered Sig/Haresh Route Start Time Stop Time Status Last Admin Dose Admin Enoxaparin Sodium (Lovenox Inj) 40 mg QAM SC 03/23/17 09:00 04/22/17 08:59 Acetaminophen (Tylenol Tab) 650 mg Q4H PRN PO 03/22/17 18:30 04/21/17 18:29 Ondansetron HCl (Zofran Inj) 4 mg Q6H PRN IV 03/22/17 18:30 04/21/17 18:29 Nitroglycerin (Nitrostat Tab) 0.4 mg UD PRN SL 03/22/17 18:30 04/21/17 18:29 Morphine Sulfate (MoRPHine SULFATE INJ) 2 mg Q30M PRN IV 03/22/17 18:30 04/05/17 18:29 Aspirin (Ecotrin Tab) 81 mg QAM PO 03/23/17 09:00 04/22/17 08:59 03/23/17 07:48 81 MG Carvedilol (Coreg Tab) 37.5 mg BID PO 03/22/17 21:00 04/21/17 20:59 03/23/17 07:49 37.5 MG Doxycycline Hyclate (Vibramycin Cap) 100 mg BID PO 03/22/17 21:00 04/01/17 20:59 03/23/17 07:49 100 MG Furosemide (Lasix Tab) 20 mg DAILY PRN PO 03/22/17 18:30 04/21/17 18:29 Lisinopril (Zestril Tab) 20 mg DAILY PO 03/23/17 09:00 04/22/17 08:59 03/23/17 07:48 20 MG Potassium Chloride (Klor-Con M10) 10 meq DAILY PO 03/23/17 09:00 04/22/17 08:59 03/23/17 07:49 10 MEQ Sertraline HCl (Zoloft Tab) 25 mg DAILY PO 03/23/17 09:00 04/22/17 08:59 03/23/17 07:48 25 MG Spironolactone (Aldactone Tab) 25 mg DAILY PO 03/23/17 09:00 04/22/17 08:59 03/23/17 07:48 25 MG Miscellaneous (Iv Fluids Completed) 1 ea PRN PRN N/A 03/22/17 19:30 03/22/18 19:29
--- NOTE | 2017-03-23 12:11 | ECHOCARDIOGRAM REPORT ---
*NOTICE TO RECEIVING CONSTITUTION PARTY AGENCY This information is strictly Confidential and protected under [place] law. [place] law prohibits you from making any further disclosure of this information unless further disclosure is expressly permitted by the written consent of the person to whom it pertains or is authorized by law. A general authorization for the release of medical or other information is not sufficient for this purpose. Hospital accepts no responsibility if the information is made available to any other person, INCLUDING THE PATIENT. Interpretation Summary * Name: WYATT RAWLS Study Date: 03/23/2017 09:03 AM BP: 103/68 mmHg * Patient Location: [facility]\S\N276\S\1 HR: 79 * : 1965 (M/d/yyyy) Gender: Male Height: 73 in * Age: 51 yrs Ethnicity: CA Weight: 198 lb * Ordering Physician: Nissa Martinez * Performed By: Megan Salazar * * Reason For Study: CHEST PAIN * BSA: 2.1 m2 * -- Conclusions -- * No significant change compared to previous study of 10/22/16. * Normal LV chamber size with mild concentric LVH. * Moderately reduced LV systolic function with moderate global hypokinesis, EF 40-45%. * No segmental left ventricular wall motion abnormalities are noted. * Grade II diastolic dysfunction. * No significant valvular pathology. Procedure Details * A complete two-dimensional transthoracic echocardiogram was performed (2D, M-mode, Doppler and color flow Doppler). Left Ventricle * The left ventricle is normal in size. * There is mild concentric left ventricular hypertrophy. * Ejection Fraction = 40-45%. * Left ventricular systolic function is moderately reduced. * No segmental left ventricular wall motion abnormalities are noted. * There is moderate global hypokinesis of the left ventricle. Right Ventricle * The right ventricular cavity size is normal (basal dimension <4.2 cm in right ventricular apical 4-chamber view). * There is a pacemaker lead in the right ventricle. * The right ventricular systolic function is normal as assessed by tricuspid annular plane systolic excursion (TAPSE) (normal >1.5 cm). Atria * The left atrium is mildly dilated. * Right atrial size is normal. * No ASD detected; PFO is not assessed. Mitral Valve * The mitral valve is normal in structure and function. Tricuspid Valve * The tricuspid valve is normal in structure and function. Aortic Valve * The aortic valve is normal in structure and function. Pulmonic Valve * The pulmonary valve is not well seen, but the Doppler examination is normal without significant regurgitation or stenosis. Great Vessels * The aortic root and proximal ascending aorta are normal sized. Pericardium/Pleural * There is no pericardial effusion. Left Ventricular Diastolic Function * Diastolic dysfunction, Grade II (pseudonormalization pattern). MMode 2D Measurements and Calculations IVSd 1.5 cm IVSs 1.9 cm LVIDd 5.4 cm LVIDs 4.1 cm LVPWd 1.5 cm LVPWs 2.6 cm IVS/LVPW 1.0 FS 22.7 % EDV(Teich) 138.6 ml ESV(Teich) 75.8 ml EF(Teich) 45.3 % EDV(cubed) 153.5 ml ESV(cubed) 70.8 ml EF(cubed) 53.9 % % IVS thick 28.5 % % LVPW thick 72.2 % LV mass(C)d 356.4 grams LV mass(C)dI 166.3 grams/m\S\2 LV mass(C)s 476.1 grams LV mass(C)sI 222.2 grams/m\S\2 SV(Teich) 62.8 ml SI(Teich) 29.3 ml/m\S\2 SV(cubed) 82.7 ml SI(cubed) 38.6 ml/m\S\2 ACS 1.5 cm LA dimension 4.9 cm asc Aorta Diam 2.6 cm LVOT diam 2.1 cm LVOT area 3.6 cm\S\2 LVAd ap4 35.2 cm\S\2 LVLd ap4 8.5 cm EDV(MOD-sp4) 122.8 ml EDV(sp4-el) 122.8 ml LVAs ap4 24.3 cm\S\2 LVLs ap4 7.7 cm ESV(MOD-sp4) 66.6 ml ESV(sp4-el) 65.0 ml EF(MOD-sp4) 45.8 % EF(sp4-el) 47.1 % LVAd ap2 41.2 cm\S\2 LVLd ap2 9.1 cm EDV(MOD-sp2) 159.1 ml EDV(sp2-el) 158.3 ml LVAs ap2 28.8 cm\S\2 LVLs ap2 8.0 cm ESV(MOD-sp2) 84.6 ml ESV(sp2-el) 87.8 ml EF(MOD-sp2) 46.8 % EF(sp2-el) 44.6 % LVLd %diff 6.0 % EDV(MOD-bp) 144.1 ml LVLs %diff 3.7 % ESV(MOD-bp) 77.2 ml EF(MOD-bp) 46.4 % SV(MOD-sp4) 56.2 ml SI(MOD-sp4) 26.2 ml/m\S\2 SV(MOD-sp2) 74.5 ml SI(MOD-sp2) 34.8 ml/m\S\2 SV(MOD-bp) 66.9 ml SI(MOD-bp) 31.2 ml/m\S\2 SV(sp4-el) 57.8 ml SI(sp4-el) 27.0 ml/m\S\2 SV(sp2-el) 70.6 ml SI(sp2-el) 32.9 ml/m\S\2 Doppler Measurements and Calculations MV E max elijah 84.5 cm/sec MV A max elijah 60.3 cm/sec MV E/A 1.4 MV dec time 0.22 sec Ao V2 max 141.2 cm/sec Ao max PG 8.0 mmHg Ao max PG (full) 3.7 mmHg TAYLOR(V,A) 2.6 cm\S\2 TAYLOR(V,D) 2.6 cm\S\2 LV V1 max PG 4.3 mmHg LV V1 max 103.3 cm/sec MR max elijah 391.4 cm/sec MR max PG 62.0 mmHg PA V2 max 138.0 cm/sec PA max PG 7.6 mmHg TR max elijah 264.8 cm/sec
--- NOTE | 2017-03-23 12:57 | Discharge Instructions ---
Discharge Instructions Date of Service Mar 23, 2017. Admission Reason for Admission: Hyperthyroidism Discharge Discharge Diagnosis / Problem: Amiodarone-induced Hyperthyroidism Discharge Goals Goal(s): Prevent Disease Progression Activity Recommendations Activity Limitations: per Instructions/Follow-up section . Instructions / Follow-Up Instructions / Follow-Up Please take all medications as instructed. Please stop your amiodarone. You have a follow-up appointment with Dr. Aguillon on , 03/26 @ 11:05am for follow-up from this hospitalization. It will be important to get an Endocrinology referral from her at this time and get set up to see them in 2-3 weeks. You have a follow-up appointment with Dr. Ken Do ([facility]) on 04/08 @ 2:45p which was previously scheduled. You have completed an echocardiogram here in the hospital, so likely do not need to repeat the echocardiogram again as an outpatient as you are currently scheduled. Please call and cancel this appointment after speaking with Dr. Aguillon on . It was a pleasure taking care of you! Call if you have any questions or problems. You can reach a [facility] hospitalist on duty at [facility] 24 hours a day by calling [phone]. Take care of yourself. Nissa Martinez DO [facility] Hospitalist Current Hospital Diet Patient's current hospital diet: Low Sodium Diet (2gm Na) Discharge Diet Recommended Diet: Low Sodium Diet (2gm Na) Pending Studies Studies pending at discharge: yes List of pending studies: Final urine culture-prelim negative TSH Receptor antibody pending at discharge Laboratory Results Lipid Panel Test 03/23/17 02:31 Range/Units Triglycerides Level 132 0-150 mg/dl Cholesterol Level 123 0-200 mg/dl HDL Cholesterol 38 mg/dl Cholesterol/HDL Ratio 3.2 LDL Cholesterol, Calculated 59 mg/dl Medical Emergencies . Who to Call and When: Medical Emergencies: If at any time you feel your situation is an emergency, please call 911 immediately. . Non-Emergent Contact Non-Emergency issues call your: Primary Care Provider . . "Provider Documentation" section prepared by Nissa Martinez. . VTE Core Measure Inpt VTE Proph given/why not?: Enoxaparin (Lovenox)SQ
--- NOTE | 2017-03-23 13:00 | Discharge Summary ---
Discharge Summary Date of Service Mar 23, 2017. 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 Vaccinations: None. Consultations: Cardiology-Dr. Gaudencio Ley Endocrinology-Dr. Huffman ([facility] [place]) Pending Studies/Follow-Up: see instructions below Medication Reconciliation Continued Medications: Carvedilol (Carvedilol) 25 Mg Tab 37.5 MG PO BID Doxycycline Hyclate (Vibramycin) 100 Mg Cap 100 MG PO BID for 21 Days, #42 CAP Furosemide (Lasix) 20 Mg Tab 20 MG PO DAILY PRN for FLUID RETENTION, TAB Lisinopril (Zestril) 20 Mg Tab 20 MG PO DAILY, TAB Potassium Chloride (Micro-K Ext Rel) 10 Meq Capcr 10 MEQ PO DAILY, CAP Sertraline (Zoloft) 25 Mg Tab 25 MG PO DAILY, TAB Spironolactone (Spironolactone) 25 Mg Tab 25 MG PO DAILY Discontinued Medications: Amiodarone HCl (Amiodarone HCl) 200 Mg Tab 200 MG PO DAILY Admission Information HPI (per Admitting provider): Pt is a 51 yoM who presents to the ER with complaints of weight loss x 3 months. He was in the ER two weeks ago for a tick bite and was started on doxycycline, and has completed 14 of the 21 day course. Since then he was seen to establish care with Dr. Aguillon. At that time he told her that he had been noncompliant with his meds for a few months including his Synthroid. She encouraged compliance, however, when the labwork came back showing that he was hyperthyroid, she called him and advised him to stop his Synthroid. He reports being diagnosed with hypothyroidism after significant weight gain and fatigue 1- 2 years ago. His son committed suicide a few months ago and the patient stopped taking some of his meds including Synthroid and Lisinopril. He has an idiopathic cardiomyopathy, which is being managed by Dr. Munson with [facility], however, the patient was interested in a change and recently was referred to [facility]iology with an appointment in two weeks. He reports feeling his ICD fire a few days ago. Upon device interrogation in the ER tonalvaro, he was found to have gone into afib w/RVR which was initially paced and then a shock occurred. He was in sinus rhythm after this with some periods of NSVT around 5- 6 beat runs. He reports having a h/o afib and underwent ablation in the past. He was on coumadin for a time and then was on Xarelto, but stopped this a year ago 2/2 GI bleeding and discomfort. He reports his baseline weight 3 months ago was 230lbs and he is currently 195lbs. He has insomnia and is tachycardic despite being on Carvedilol 37.5mg PO BID (and compliant with this med). He also reports chest pain that "feels like a heaviness in the center of my chest" and occurs with exertion. The discomfort lasts anywhere from 10-20 minutes at a time and is relieved by rest. He also reports dyspnea on exertion that is worse form his baseline dyspnea. This started about 1-2 months ago. Physical Exam (per Admitting): GEN: WNWD, in no acute distress, alert and appropriate, mentating appropriately with no tachypnea, tremulousness or conversational dyspnea. HEENT: NC/AT, PERRL, normal sclerae, no evidence of ophthalmopathy CARDIO: reg rate, S1/2 heard without m/g/r, no JVD, no edema. LUNGS: CTA bilaterally, no crackles, rales or wheezes, good diaphragmatic excursion ABD: soft, non-tender, non-distended, no rebound or guarding, +BS EXTREMITY: RP and DP palpable 2+ bilat, no LE swelling or edema, extremities are warm and well-perfused NEURO: CN 2-12 grossly intact, sensation intact throughout, no gross focal deficits. MUSC: 5/5 strength throughout, no focal deficits SKIN: warm and dry Hospital Course 51 yo M with amiodarone-induced hyperthyroidism admitted for observation for cardiac stability in setting of idiopathic cardiomyopathy with recent ICD discharge last week. 1. Hyperthyroidism-no evidence of myxedema and he is relatively hemodynamically stable aside from the fact that his HR is in the 90s on Coreg 37.5mg BID. TSH Receptor antibodies were ordered and as a reference lab, will not be back prior to discharge. No overt signs of Graves on exam, and antibodies have been ordered. Per Endocrinology at [facility] [place], stopping the amiodarone is the mainstay of treatment here. A LAMAS uptake scan will not be helpful in the setting of recent amio administration. Some T4 to T3 blockade may occur on the methimazole-type drugs, however, this will be a relatively small effect in the setting of amio use. It will take roughly 6 months for the amiodarone effects to wear off. In that time, he will need to remain beta- blocked to maintain HD stability. However, if he becomes acutely ill/ symptomatic, he may need a therapeutic thyroidectomy. For these reasons, plan to send patient for urgent outpatient referral to Endocrinology and if he returns to the ER with symptoms or clinically picture consistent with hyperthyroidism,i immediate transfer to [place] would be advised. 2. Idiopathic cardiomyopathy s/p ICD-medically managed, however, reports being noncompliant with medications. No overt failure on exam today but patient reporting new chest pain--not currently present and did not occur during admission-- and worsening exercise tolerance. Repeat TTE reveals * No significant change compared to previous study of 10/22/16. * Normal LV chamber size with mild concentric LVH. * Moderately reduced LV systolic function with moderate global hypokinesis, EF 40-45%. * No segmental left ventricular wall motion abnormalities are noted. * Grade II diastolic dysfunction. * No significant valvular pathology. Serial cardiac enzymes were negative overnight and telemetry was unremarkable. Per Cardiology, will have him followed as an outpatient in 2-3 weeks. We discussed briefly the ICD interrogation results regarding PAF that was seen prior to the shock. No anticoagulation was advised at this time. 3. Depression-appears stable. Cont sertraline. Was taking Celexa in the past. Pt is dealing with the loss of his son to suicide 6 months ago. 4. Weight loss 2/2 #1 5. Atrial fibrillation with discharge from ICD recently-likely 2/2 hyperthyroid state. Currently in NSR and not anticoagulated. Cont coreg. 6. Lyme disease-on 21-day course of doxycycline--will cont as outpatient. On day of discharge he was hemodynamically stable and afebrile. He was tolerating PO and ambulatory. He was scheduled for 3-day follow up with PCP to obtain referral to Endocrinology. Cardiology followup appointment was also scheduled in advance and included on discharge instructions sheet. Total time spent on discharge = 60 minutes This includes examination of the patient, discharge planning, medication reconciliation, and communication with other providers. Discharge Instructions Discharge Instructions Date of Service Mar 23, 2017. Admission Reason for Admission: Hyperthyroidism Discharge Discharge Diagnosis / Problem: Amiodarone-induced Hyperthyroidism Discharge Goals Goal(s): Prevent Disease Progression Activity Recommendations Activity Limitations: per Instructions/Follow-up section . Instructions / Follow-Up Instructions / Follow-Up Please take all medications as instructed. Please stop your amiodarone. You have a follow-up appointment with Dr. Aguillon on 03/26 @ 11:05am for follow-up from this hospitalization. It will be important to get an Endocrinology referral from her at this time and get set up to see them in 2-3 weeks. You will need to follow-up with [facility]iology in 2-3 weeks time. It was a pleasure taking care of you! Call if you have any questions or problems. You can reach a [facility] hospitalist on duty at [facility] 24 hours a day by calling [phone]. Take care of yourself. Nissa Martinez DO [facility] Hospitalist Current Hospital Diet Patient's current hospital diet: Low Sodium Diet (2gm Na) Discharge Diet Recommended Diet: Low Sodium Diet (2gm Na) Pending Studies Studies pending at discharge: yes List of pending studies: Final urine culture-prelim negative TSH Receptor antibody pending at discharge Laboratory Results Lipid Panel Test 03/23/17 02:31 Range/Units Triglycerides Level 132 0-150 mg/dl Cholesterol Level 123 0-200 mg/dl HDL Cholesterol 38 mg/dl Cholesterol/HDL Ratio 3.2 LDL Cholesterol, Calculated 59 mg/dl Medical Emergencies . Who to Call and When: Medical Emergencies: If at any time you feel your situation is an emergency, please call 911 immediately. . Non-Emergent Contact Non-Emergency issues call your: Primary Care Provider . . "Provider Documentation" section prepared by Nissa Martinez. . VTE Core Measure Inpt VTE Proph given/why not?: Enoxaparin (Lovenox)SQ Additional Copies To Miah Ley DO; Georgia Aguillon D.O.
[2017-03-23 13:21] VITALS: BP 104/66; PULSE 83; TEMP 36.6; O2SAT 94
[2017-03-25 19:33] LABS: TSI <89 % baseline (<140)
== END 2017-03-23 14:38 | disposition home or self-care (01) ==
LOC: C.EDB 13:36 → C.MED 16:56 → ENRESERV 17:11 → C.MED 20:25
PROVIDERS: ADMIT Hospitalist; ATTEND Hospitalist
DX: E05.90 Thyrotoxicosis, unspecified without thyrotoxic crisis or storm (principal); R63.4 Abnormal weight loss; Z87.891 Personal history of nicotine dependence; I42.9 Cardiomyopathy, unspecified; Z95.0 Presence of cardiac pacemaker; Z87.81 Personal history of (healed) traumatic fracture; Z90.49 Acquired absence of other specified parts of digestive tract; F32.9 Major depressive disorder, single episode, unspecified; A69.20 Lyme disease, unspecified; I48.0 Paroxysmal atrial fibrillation; I44.7 Left bundle-branch block, unspecified

== ENCOUNTER 2017-04-29 11:58 | Emergency (ER) | payer OTHER ==
[~2017-04-29] VITALS: Ht 185.4 cm; Wt 89.1 kg
[~2017-04-29 11:58] MED LIST changes: -CITA20TA9 PO; -CRD200 PO; +FURO-85 PO; -FURO40TA3 PO; +LISI-725 PO; -LOSA50TA6 PO; +POTA10CA28 PO; -POTA20TA16 PO; +SERT25TA PO
[2017-04-29 12:01] VITALS: TEMP 36.7
[2017-04-29] MEDS ORDERED: METH10TA6 PO (12:23)
--- NOTE | 2017-04-29 12:34 | EMERGENCY ROOM VISIT NOTE ---
History Report prepared by [place]: Jam Tripp Under the Supervision of: Dr. Jonathna Huang D.O. First contact with patient: 12:11 Chief Complaint: COUGH Stated Complaint: FLU LIKE SX Nursing Triage Summary: patient reports productive cough x 3 weeks. Also c/o body aches History of Present Illness The patient is a 51 year old male who presents to the Emergency Room with complaints of an intermittent cough that started around a month ago. He says that he has a thyroid problem, and was seen here in February for it. He then proceeded to see his thyroid doctor, who started him on a new thyroid medication. He states that ever since he started the new medication, he has had an intermittent cough with phlegm, but the phlegm is not colored. He adds that he has had flu-like symptoms as well, including body aches. The patient notes that intermittently when he eats, he feels that food gets caught in his throat and he gurgles, and he has to cough the food back up. He says the same things happen occasionally when he drinks. The patient says that this occurrence does not happen every day. He called his primary care doctor about the problem prior to arrival, but he says that his doctor was busy, so he decided to come here. The patient notes that he has been taking Jacqueline [place] and Mucinex with no relief. The patient adds that he has been losing weight even though he has been eating. He says that he has a pacemaker defibrillator for cardiomyopathy. He says that he takes medications for his heart issues. The patient takes medication occasionally for leg swelling as well. He is an ex-smoker. Source of History: patient Onset: A month ago Position: other (global - cough) Timing: intermittent Note: Associated symptoms: Body aches. Food gets caught in throat as well as liquids. Review of Systems See HPI for pertinent positives & negatives. A total of 10 systems reviewed and were otherwise negative. Past Medical & Surgical Medical Problems: (1) Abdominal pain (2) Cardiomyopathy (3) Cephalosporin drug rash (4) Hyperthyroidism (5) Left bundle branch block (6) Pacemaker (7) Ribs, multiple fractures (8) Systolic heart failure Surgical Problems: (1) S/P ablation of atrial fibrillation (2) S/P cholecystectomy (3) S/P ICD (internal cardiac defibrillator) procedure Family History Cancer Social History Smoking Status: Never Smoker Alcohol Use: none Drug Use: none Marital Status: Housing Status: lives with family Occupation Status: unemployed Current/Historical Medications Scheduled Carvedilol (Carvedilol), 37.5 MG PO BID Lisinopril (Zestril), 10 MG PO BID Methimazole (Methimazole), 10 MG PO QAM Potassium Chloride (Micro-K Ext Rel), 10 MEQ PO UD Spironolactone (Spironolactone), 25 MG PO QAM Scheduled PRN Furosemide (Lasix), 20 MG PO UD PRN for FLUID RETENTION Allergies Coded Allergies: Cefuroxime (Verified Allergy, Intermediate, RASH, 04/29/17) Physical Exam Vital Signs Date Time Temp Pulse Resp B/P (MAP) Pulse Ox O2 Delivery O2 Flow Rate FiO2 04/29/17 14:00 16 117/74 98 Room Air 04/29/17 12:56 79 16 110/75 04/29/17 12:55 89 04/29/17 12:04 99 Room Air 04/29/17 12:01 36.7 108 20 112/79 99 Room Air Physical Exam GENERAL: Patient is awake, alert, and in no acute distress. Patient is resting comfortably and showing no signs of anxiety EYES: The conjunctivae are clear. The pupils are round and reactive. EARS, NOSE, MOUTH AND THROAT: The nose is without any evidence of any deformity. Mucous membranes are moist tongue is midline NECK: The neck is nontender and supple. RESPIRATORY: Lung sounds diminished throughout with scattered rhonchi. No tachypnea or conversational dyspnea appreciated. CARDIOVASCULAR: Regular rate and rhythm noted there no murmurs rubs or gallops normal S1 normal S2 GASTROINTESTINAL: The abdomen is soft. Bowel sounds are present in all quadrants. Abdomen is nontender MUSCULOSKELETAL/EXTREMITIES: There is no evidence of gross deformity full range of motion is noted in the hips and shoulders SKIN: There is no obvious evidence of any rash. There are no petechiae, pallor or cyanosis noted. NEUROLOGIC: Patient is awake alert and oriented x3 strength is symmetric patellar reflexes are 2+ bilaterally Medical Decision & Procedures ER Provider Diagnostic Interpretation: X-ray results as stated below per interpretation by me and the radiologist. CHEST 2 VIEWS ROUTINE CLINICAL HISTORY: EVALUATE RESPIRATORY DISTRESS. DYSPNEA dyspnea COMPARISON STUDY: 03/22/2017 FINDINGS: Prominent bipolar cardiac pacemaker/defibrillator. Mild chronic atelectatic change left base. Multiple old right-sided rib fractures. No acute infiltrate. IMPRESSION: Chronic and postoperative change. No acute process. The above report was generated using voice recognition software. It may contain grammatical, syntax or spelling errors. Electronically signed by: Marcial Calero M.D. 04/29/2017 1:25 PM Dictated Date/Time: 04/29/2017 1:22 PM Laboratory Results 04/29/17 13:00 Red Blood Count 5.09, Mean Corpuscular Volume 80.9, Mean Corpuscular Hemoglobin 26.7, Mean Corpuscular Hemoglobin Concent 33.0, Mean Platelet Volume 9.3, Neutrophils (%) (Auto) 60.1, Lymphocytes (%) (Auto) 21.8, Monocytes (%) (Auto) 13.5, Eosinophils (%) (Auto) 4.2, Basophils (%) (Auto) 0.3, Neutrophils # (Auto ) 4.04, Lymphocytes # (Auto) 1.47, Monocytes # (Auto) 0.91, Eosinophils # (Auto ) 0.28, Basophils # (Auto) 0.02 04/29/17 13:00 Test 04/29/17 13:00 White Blood Count 6.73 K/uL (4.8-10.8) Red Blood Count 5.09 M/uL (4.7-6.1) Hemoglobin 13.6 g/dL (14.0-18.0) Hematocrit 41.2 % (42-52) Mean Corpuscular Volume 80.9 fL (80-100) Mean Corpuscular Hemoglobin 26.7 pg (25-34) Mean Corpuscular Hemoglobin Concent 33.0 g/dl (32-36) Platelet Count 247 K/uL (130-400) Mean Platelet Volume 9.3 fL (7.4-10.4) Neutrophils (%) (Auto) 60.1 % Lymphocytes (%) (Auto) 21.8 % Monocytes (%) (Auto) 13.5 % Eosinophils (%) (Auto) 4.2 % Basophils (%) (Auto) 0.3 % Neutrophils # (Auto) 4.04 K/uL (1.4-6.5) Lymphocytes # (Auto) 1.47 K/uL (1.2-3.4) Monocytes # (Auto) 0.91 K/uL (0.11-0.59) Eosinophils # (Auto) 0.28 K/uL (0-0.5) Basophils # (Auto) 0.02 K/uL (0-0.2) RDW Standard Deviation 40.7 fL (36.4-46.3) RDW Coefficient of Variation 13.8 % (11.5-14.5) Immature Granulocyte % (Auto) 0.1 % Immature Granulocyte # (Auto) 0.01 K/uL (0.00-0.02) Anion Gap 7.0 mmol/L (3-11) Est Creatinine Clear Calc Drug Dose 106.2 ml/min Estimated GFR () 109.8 Estimated GFR (Non- 94.7 BUN/Creatinine Ratio 17.4 (10-20) Calcium Level 9.1 mg/dl (8.5-10.1) Total Bilirubin 0.3 mg/dl (0.2-1) Aspartate Amino Transf (AST/SGOT) 13 U/L (15-37) Alanine Aminotransferase (ALT/SGPT) 23 U/L (12-78) Alkaline Phosphatase 79 U/L (45-117) Total Creatine Kinase 39 U/L (39-308) Creatine Kinase MB < 0.5 ng/ml (0.5-3.6) Creatine Kinase MB Ratio (0-3.0) Troponin I < 0.015 ng/ml (0-0.045) Pro-B-Type Natriuretic Peptide 646 pg/ml (0-900) Total Protein 6.7 gm/dl (6.4-8.2) Albumin 3.3 gm/dl (3.4-5.0) Globulin 3.4 gm/dl (2.5-4.0) Albumin/Globulin Ratio 1.0 (0.9-2) Thyroid Stimulating Hormone (TSH) < 0.005 uIu/ml (0.300-4.500) Free Thyroxine 2.33 ng/dl (0.80-1.60) Laboratory results per my review. ECG Indication: SOB/dyspnea Rate (beats per minute): 79 Rhythm: other (atrial sensed ventricular paced rhythm) Findings: other (no PVCs, inferior ST and T-wave abnormalities noted) Change: no significant change (from March 23 of this year) ED Course 1220: The patient was evaluated in room B6. complete history and physical examination were performed. 1404: Upon reevaluation, the patient is resting comfortably. I discussed the results and treatment plan with him. He verbalized agreement of the treatment plan. He was discharged home. Medical Decision Differential diagnosis: Etiologies such as infections, reactive airway disease, pneumonia, pneumothorax , COPD, CHF, cardiac ischemia, pulmonary embolism, musculoskeletal, gastrointestinal, as well as others were entertained. Nursing notes reviewed. The patient is a 51-year-old male who presented to emergency department for an evaluation of cough. He does not appear to have signs of pneumonia. This did not appear to be cardiac in nature. The patient doesn't a history of hyperthyroidism. I did review the patient's laboratory radiographic studies with him. He was encouraged to try to avoid any tobacco use. He was also encouraged to follow-up with his primary care physician this is possible. The rn field case manager's were able to get the patient an appointment with his primary care physician this week. I encouraged him to discuss the possibility he may require a change in his thyroid medication as well as a referral to an endocrine specialist. He does not appear to have any signs of goiter on exam. He was encouraged to rest and avoid any strenuous activity. He was also encouraged return to the emergency apartment immediately if symptoms change worsen or the need arises. Medication Reconcilliation Current Medication List: was personally reviewed by me Blood Pressure Screening Patient's blood pressure: Normal blood pressure Impression Primary Impression: Hyperthyroidism Additional Impression: Cough Scribe Attestation The scribe's documentation has been prepared under my direction and personally reviewed by me in its entirety. I confirm that the note above accurately reflects all work, treatment, procedures, and medical decision making performed by me. Departure Information Dispostion Home / Self-Care Referrals Georgia Aguillon D.O. (PCP) Forms HOME CARE DOCUMENTATION FORM, IMPORTANT VISIT INFORMATION, Work Instructions Patient Instructions Grave Disease [place], My [facility] Additional Instructions Follow-up with your family tomorrow as scheduled. Try to avoid any tobacco use. Rest and avoid any strenuous activity. Continue all medications as prescribed. Problem Qualifiers
[2017-04-29 12:56] VITALS: PULSE 79; Ht 185.4 cm; Wt 89.1 kg
[2017-04-29 13:22] LABS: BASO % 0.3 %; BASO ABS # 0.02 K/uL (0-0.2); COMPLETE YES; EOS % 4.2 %; HEMATOCRIT 41.2 % (42-52); IG% 0.1 %; LYMPH % 21.8 %; LYMPH ABS # 1.47 K/uL (1.2-3.4); MEAN CELL VOLUME 80.9 fL (80-100); MEAN CORPUSCULAR HEMOGLOBIN 26.7 pg (25-34); MEAN PLATELET VOLUME 9.3 fL (7.4-10.4); MONO % 13.5 %; NEUT % 60.1 %; PLATELET COUNT 247 K/uL (130-400); RED BLOOD COUNT 5.09 M/uL (4.7-6.1); WHITE BLOOD COUNT 6.73 K/uL (4.8-10.8)
--- NOTE | 2017-04-29 13:26 | DIAGNOSTIC IMAGING REPORT ---
CHEST 2 VIEWS ROUTINE CLINICAL HISTORY: EVALUATE RESPIRATORY DISTRESS. DYSPNEA dyspnea COMPARISON STUDY: 03/22/2017 FINDINGS: Prominent bipolar cardiac pacemaker/defibrillator. Mild chronic atelectatic change left base. Multiple old right-sided rib fractures. No acute infiltrate. IMPRESSION: Chronic and postoperative change. No acute process. The above report was generated using voice recognition software. It may contain grammatical, syntax or spelling errors. Electronically signed by: Marcial Calero M.D. 04/29/2017 1:25 PM Dictated Date/Time: 04/29/2017 1:22 PM
[2017-04-29 13:41] LABS: ALT/SGPT 23 U/L (12-78); AST/SGOT 13 U/L (15-37); BLOOD UREA NITROGEN 16 mg/dl (7-18); BUN/CREATININE RATIO 17.4 (10-20); CALCIUM 9.1 mg/dl (8.5-10.1); CARBON DIOXIDE 24 mmol/L (21-32); CHLORIDE 108 mmol/L (98-107); CREATININE 0.93 mg/dl (0.60-1.40); GLUCOSE 94 mg/dl (70-99); SODIUM 139 mmol/L (136-145)
[2017-04-29 13:51] LABS: ALKALINE PHOSPHATASE 79 U/L (45-117); THYROID STIMULATING HORMONE < 0.005 uIu/ml (0.300-4.500)
[2017-04-29 14:00] VITALS: BP 117/74; O2SAT 98
== END 2017-04-29 14:28 | disposition home or self-care (01) ==
LOC: C.EDB 11:59
DX: E05.90 Thyrotoxicosis, unspecified without thyrotoxic crisis or storm (principal); R05 Cough; Z95.0 Presence of cardiac pacemaker; I42.9 Cardiomyopathy, unspecified; Z80.9 Family history of malignant neoplasm, unspecified; Z79.899 Other long term (current) drug therapy

== ENCOUNTER 2017-08-04 07:00 | Inpatient (IN) | payer OTHER ==
[~2017-08-04] VITALS: Ht 185.4 cm; Wt 95.6 kg
[~2017-08-04 07:00] MED LIST changes: -DOXY100C2 PO; +METH10TA6 PO; -SERT25TA PO
[2017-08-04] MEDS ORDERED: MoRPHine SULFATE 10 MG/ML CARP/VIAL IV STA (07:32)
[2017-08-04] MEDS ORDERED: ONDANSETRON INJ 2 MG/ML 2 ML VIAL IV STA (07:32)
[2017-08-04 08:11] LABS: BASO % 0.5 %; BASO ABS # 0.04 K/uL (0-0.2); COMPLETE YES; EOS % 2.9 %; HEMATOCRIT 44.2 % (42-52); IG% 0.3 %; LYMPH % 18.3 %; LYMPH ABS # 1.62 K/uL (1.2-3.4); MEAN CELL VOLUME 89.8 fL (80-100); MEAN CORPUSCULAR HEMOGLOBIN 29.5 pg (25-34); MEAN CORPUSCULAR HGB CONC 32.8 g/dl (32-36); MEAN PLATELET VOLUME 9.2 fL (7.4-10.4); MONO % 10.5 %; NEUT % 67.5 %; PLATELET COUNT 276 K/uL (130-400); RED BLOOD COUNT 4.92 M/uL (4.7-6.1); WHITE BLOOD COUNT 8.83 K/uL (4.8-10.8)
[2017-08-04 08:28] LABS: ALT/SGPT 36 U/L (12-78); BLOOD UREA NITROGEN 11 mg/dl (7-18); BUN/CREATININE RATIO 13.2 (10-20); CALCIUM 8.4 mg/dl (8.5-10.1); CARBON DIOXIDE 25 mmol/L (21-32); CHLORIDE 108 mmol/L (98-107); CREATININE 0.86 mg/dl (0.60-1.40); GLUCOSE 94 mg/dl (70-99); POTASSIUM 3.6 mmol/L (3.5-5.1); SODIUM 141 mmol/L (136-145)
[2017-08-04 08:30] LABS: ALKALINE PHOSPHATASE 78 U/L (45-117); AST/SGOT 24 U/L (15-37)
[2017-08-04 08:33] LABS: URINE APPEARANCE CLEAR (CLEAR); URINE BILIRUBIN NEG (NEG); URINE COLOR YELLOW; URINE NITRITE NEG (NEG); URINE SPECIFIC GRAVITY 1.021 (1.000-1.030); UROBILINOGEN NEG (NEG); ZZUR CULT IF INDIC CLEAN CATCH NO
--- NOTE | 2017-08-04 08:33 | DIAGNOSTIC IMAGING REPORT ---
ABDOMEN 2VIEW W/PA CHEST RTN CLINICAL HISTORY: 52 years-old Male presenting with lower abdominal pain. TECHNIQUE: PA view of the chest and supine and upright views of the abdomen were obtained. COMPARISON: 04/29/2017 and 10/21/2016.. FINDINGS: Left subclavian implanted cardiac defibrillator with leads to the right atrium, right ventricular apex, and coronary sinus. Mild prominence of the main pulmonary artery. Cardiac silhouette mildly enlarged, new from prior. Prominence of pulmonary vasculature most pronounced in the upper lobes, stable slightly increased from prior. Minimal perihilar opacity, right greater than left. Minimal bandlike opacity at the left lung base. Cholecystectomy clips. The stomach is mildly distended with gas and ingested material. Mild stool burden noted throughout the colon. Small bowel is distended with gas diffusely measuring up to an apparent diameter of 4.5 cm though this may be affected by magnification. No gross pneumoperitoneum. Mottled lucencies most consistent with stool. No convincing evidence of pneumatosis or portal venous gas. Allowing for bowel gas and stool, no calcifications project over the kidneys to suggest nephrolithiasis. Few pelvic phleboliths, similar distribution to prior exam from September. Multiple old right rib fractures evident. IMPRESSION: 1. Mild cardiomegaly, new from prior with suggestion of volume overload. No spencer pulmonary edema. 2. Diffuse small bowel gaseous distention. The apparent diameter of 4.5 cm is likely affected by magnification. However, this is concerning for small bowel obstruction or ileus. Further evaluation with CT should be considered. Electronically signed by: Rony Teran M.D. 08/04/2017 8:32 AM Dictated Date/Time: 08/04/2017 8:28 AM
[2017-08-04 08:35] LABS: MANUAL MICROSCOPIC REQUIRED? NO; REVIEW REQ? NO
[2017-08-04] MEDS ORDERED: OPTIRAY 320 IV PRN (09:00)
--- NOTE | 2017-08-04 12:02 | DIAGNOSTIC IMAGING REPORT ---
ABDOMEN AND PELVIS CT WITH IV AND ORAL CONTRAST CT DOSE: 576.42 mGy.cm HISTORY: Small bowel dilation seen on comparison radiographs concerning for ileus or obstruction. Acute lower abdominal pain abnormal x-ray CT recommended TECHNIQUE: Multiaxial CT images of the abdomen and pelvis were performed following the use of intravenous and oral contrast. A dose lowering technique was utilized adhering to the principles of ALARA. COMPARISON STUDY: Acute abdominal series radiographs of same day, CT 10/20/2016. FINDINGS: Mild dependent bibasilar atelectasis. No pneumatosis or pneumoperitoneum identified. Imaged inferior cardiac chambers are moderately enlarged with pacer wires noted. The liver, spleen, pancreas and adrenal glands are within normal limits. Prior cholecystectomy. Probable cyst of the interpolar left kidney is noted, 6 mm. Focal area of slightly decreased attenuation is noted within the inferior pole left kidney as seen on image 226 series 3. Additionally, there is mild nonspecific bilateral perinephric stranding. No renal calculi or hydronephrosis. Prostate measures Limits of normal. Urinary bladder is unremarkable. Small fat filled left inguinal hernia. Aorta is normal in course and caliber. No bulky adenopathy. There is distention of the contrast filled stomach. The duodenum appears normal in caliber. There are multiple loops of mildly dilated small bowel within the central and right lower abdomen measuring up to 3.6 cm transversely. Several loops are fluid-filled and several demonstrate fecal material. The terminal ileum is collapsed. Transitioned dilated normal caliber loops of small bowel are seen within the right midabdomen without definite transition point identified. Several loops of small bowel demonstrate angular morphology suggesting possible underlying adhesions. Appendix appears normal. No large volume ascites. Contrast does not extend past small bowel the mid abdomen. Moderate volume of formed colonic stool suggests constipation. Mild colonic diverticulosis without diverticulitis. Soft tissues are unremarkable. Probable bone island of the pelvis. Facet arthrosis of the lower lumbar spine. IMPRESSION: 1. Mildly dilated loops of small bowel within the central and right lower abdomen measure up to 3.6 cm with transitioned normal caliber loops of ileum seen within the right lower abdomen. No discrete transition point identified. Findings suggest a low-grade partial small bowel obstruction. Follow-up recommended. 2. No pneumatosis or pneumoperitoneum. 3. Normal appendix. 4. Mild colonic diverticulosis without diverticulitis. 5. Prior cholecystectomy. 6. Ill-defined area of decreased enhancement involving the lower pole left kidney may reflect subtle pyelonephritis. Correlate with urinalysis. Electronically signed by: Abilio Hamilton M.D. 08/04/2017 12:01 PM Dictated Date/Time: 08/04/2017 11:48 AM
[2017-08-04] MEDS ORDERED: SODIUM CHLORIDE 0.9% 1000ML 1,000 ML IV STA (12:12)
[2017-08-04] MEDS ORDERED: SODIUM CHLORIDE 0.9% 500ML 500 ML IV STA (12:12)
--- NOTE | 2017-08-04 12:20 | EMERGENCY ROOM VISIT NOTE ---
History First contact with patient: 07:10 Chief Complaint: ABDOMINAL PAIN Stated Complaint: FLU LIKE SYMPTOMS,STOMACH PAIN ALSO Nursing Triage Summary: Has not felt good since Thursday with diarrhea & abdominal pain, called here yesterday and was told "there's something going around". "I just can't shake this". Current symptoms include abdominal pain, now constipation, last BM sat, nausea, & poor intake. Denies vomiting. Reports frequent urination. History of Present Illness The patient is a 52 year old male who presents to the Emergency Room with complaints of abdominal pain which started on Thursday. The patient states that at the onset of the symptoms he felt tired with decreased appetite and felt dizzy. Then he got the diarrhea for 2 days. Now he has not had a bowel movement since Thursday. He is passing gas but has not passed any stool since that time. The patient took Pepto-Bismol Tums and Imodium for his diarrhea and upset stomach. He now feels like there is "a basketball in his belly." He also states that his stools are black from Pepto-Bismol. He does have a history of hemorrhoids. He denies any bright red blood per rectum. He denies any pain with bowel movements. The patient denies any fever, chest pain he does admit to some nausea but denies any vomiting. The patient states that his pain is mainly across the entire lower abdomen but he has also had some reflux with his symptoms. He does not have a history of GERD. Review of Systems 10 system review was performed and was negative unless stated otherwise history of present illness. Past Medical/Surgical History Medical Problems: (1) Abdominal pain (2) Cardiomyopathy (3) Cephalosporin drug rash (4) Hyperthyroidism (5) Left bundle branch block (6) Pacemaker (7) Ribs, multiple fractures (8) Systolic heart failure Surgical Problems: (1) S/P ablation of atrial fibrillation (2) S/P cholecystectomy (3) S/P ICD (internal cardiac defibrillator) procedure Family History Cancer Social History Smoking Status: Never Smoker Alcohol Use: none Drug Use: none Marital Status: Housing Status: lives with family Occupation Status: unemployed Current/Historical Medications Scheduled Carvedilol (Carvedilol), 37.5 MG PO BID Lisinopril (Zestril), 10 MG PO BID Methimazole (Methimazole), 10 MG PO QAM Potassium Chloride (Micro-K Ext Rel), 10 MEQ PO UD Spironolactone (Spironolactone), 25 MG PO QAM Scheduled PRN Furosemide (Lasix), 20 MG PO UD PRN for FLUID RETENTION Physical Exam Vital Signs Date Time Temp Pulse Resp B/P (MAP) Pulse Ox O2 Delivery O2 Flow Rate FiO2 08/04/17 11:00 80 16 129/88 98 Room Air 08/04/17 09:00 70 16 132/89 96 Room Air 08/04/17 07:03 36.4 78 18 151/95 95 Room Air Physical Exam GENERAL: 52-year-old white male appears in no acute distress. MENTAL Status: Alert and oriented 3. MOUTH: Mucosa is moist NECK: Supple, no lymphadenopathy noted. No carotid bruits noted. LUNGS: Clear auscultation without wheezes rales or rhonchi. CARDIAC: Regular rate and rhythm without murmur. Pulses is full and equal throughout. BACK: No CVA tenderness noted. ABDOMEN: Positive bowel sounds all 4 quadrants. Bowel sounds are hyperactive throughout. Abdomen is protuberant. Soft, generalized tenderness to palpation throughout. No organomegaly or masses noted. EXTREMITIES: No cyanosis or edema noted. Medical Decision & Procedures ER Provider Diagnostic Interpretation: Patient Name: WYATT RAWLS Unit Number: [id number] Dictated: 08/04/17827 Transcribed: 08/04/17827 PBS Printed Date/Time: [~ rep prt dt]/[~ rep prt tm] [~ rep ct labl] - [~ rep ct ivnm] [facility] [place] [address] Dictated: 08/04/17827 Transcribed: 08/04/17827 PBS Printed Date/Time: [~ rep prt dt]/[~ rep prt tm] [~ rep ct labl] - [~ rep ct ivnm] ABDOMEN 2VIEW W/PA CHEST RTN CLINICAL HISTORY: 52 years-old Male presenting with lower abdominal pain. TECHNIQUE: PA view of the chest and supine and upright views of the abdomen were obtained. COMPARISON: 04/29/2017 and 10/21/2016.. FINDINGS: Left subclavian implanted cardiac defibrillator with leads to the right atrium, right ventricular apex, and coronary sinus. Mild prominence of the main pulmonary artery. Cardiac silhouette mildly enlarged, new from prior. Prominence of pulmonary vasculature most pronounced in the upper lobes, stable slightly increased from prior. Minimal perihilar opacity, right greater than left. Minimal bandlike opacity at the left lung base. Cholecystectomy clips. The stomach is mildly distended with gas and ingested material. Mild stool burden noted throughout the colon. Small bowel is distended with gas diffusely measuring up to an apparent diameter of 4.5 cm though this may be affected by magnification. No gross pneumoperitoneum. Mottled lucencies most consistent with stool. No convincing evidence of pneumatosis or portal venous gas. Allowing for bowel gas and stool, no calcifications project over the kidneys to suggest nephrolithiasis. Few pelvic phleboliths, similar distribution to prior exam from September. Multiple old right rib fractures evident. IMPRESSION: 1. Mild cardiomegaly, new from prior with suggestion of volume overload. No spencer pulmonary edema. 2. Diffuse small bowel gaseous distention. The apparent diameter of 4.5 cm is likely affected by magnification. However, this is concerning for small bowel obstruction or ileus. Further evaluation with CT should be considered. Electronically signed by: Rony Teran M.D. 08/04/2017 8:32 AM Dictated Date/Time: 08/04/2017 8:28 AM The status of this report is Signed. Draft = Not yet reviewed or approved by Radiologist. Signed = Reviewed and approved by Radiologist. <AttendingPhy></AttendingPhy> <FamilyPhy>Georgia Aguillon D.O.</FamilyPhy> < PrimaryPhy>Georgia Aguillon D.O.</PrimaryPhy> <UnitNumber>[id number]</ UnitNumber> <VisitNumber>[id number]</VisitNumber> <PatientName>WYATT RAWLS</PatientName> <DateOfBirth>1965</DateOfBirth> <Location>[facility]</ Location> <ServiceDate>08/04/17</ServiceDate> <MNE>ESINDI</MNE> <OrderingPhy> Tamela Calero PA-C</OrderingPhy> <OrderingPhyMNE>f rep ord dr bacon</ OrderingPhyMNE> <DictatingPhyMNE>f rep dict dr bacon</DictatingPhyMNE> <CCListMNE> f rep ct bryane</CCListMNE> <AdmittingPhyMNE>f pt admit dr bacon</AdmittingPhyMNE> < AttendingPhyMNE>f pt attend dr bacon</AttendingPhyMNE> <ConsultingPhyMNE>f pt consult dr bacon</ConsultingPhyMNE> <FamilyPhyMNE>f pt fam dr bacon</FamilyPhyMNE> <OtherPhyMNE>f pt other dr bacon</OtherPhyMNE> < PrimaryPhyMNE>f pt prim care dr bacon</PrimaryPhyMNE> <ReferringPhyMNE>f pt referring dr bacon</ReferringPhyMNE> ABDOMEN AND PELVIS CT WITH IV AND ORAL CONTRAST CT DOSE: 576.42 mGy.cm HISTORY: Small bowel dilation seen on comparison radiographs concerning for ileus or obstruction. Acute lower abdominal pain abnormal x-ray CT recommended TECHNIQUE: Multiaxial CT images of the abdomen and pelvis were performed following the use of intravenous and oral contrast. A dose lowering technique was utilized adhering to the principles of ALARA. COMPARISON STUDY: Acute abdominal series radiographs of same day, CT 10/20/2016. FINDINGS: Mild dependent bibasilar atelectasis. No pneumatosis or pneumoperitoneum identified. Imaged inferior cardiac chambers are moderately enlarged with pacer wires noted. The liver, spleen, pancreas and adrenal glands are within normal limits. Prior cholecystectomy. Probable cyst of the interpolar left kidney is noted, 6 mm. Focal area of slightly decreased attenuation is noted within the inferior pole left kidney as seen on image 226 series 3. Additionally, there is mild nonspecific bilateral perinephric stranding. No renal calculi or hydronephrosis. Prostate measures Limits of normal. Urinary bladder is unremarkable. Small fat filled left inguinal hernia. Aorta is normal in course and caliber. No bulky adenopathy. There is distention of the contrast filled stomach. The duodenum appears normal in caliber. There are multiple loops of mildly dilated small bowel within the central and right lower abdomen measuring up to 3.6 cm transversely. Several loops are fluid-filled and several demonstrate fecal material. The terminal ileum is collapsed. Transitioned dilated normal caliber loops of small bowel are seen within the right midabdomen without definite transition point identified. Several loops of small bowel demonstrate angular morphology suggesting possible underlying adhesions. Appendix appears normal. No large volume ascites. Contrast does not extend past small bowel the mid abdomen. Moderate volume of formed colonic stool suggests constipation. Mild colonic diverticulosis without diverticulitis. Soft tissues are unremarkable. Probable bone island of the pelvis. Facet arthrosis of the lower lumbar spine. IMPRESSION: 1. Mildly dilated loops of small bowel within the central and right lower abdomen measure up to 3.6 cm with transitioned normal caliber loops of ileum seen within the right lower abdomen. No discrete transition point identified. Findings suggest a low-grade partial small bowel obstruction. Follow-up recommended. 2. No pneumatosis or pneumoperitoneum. 3. Normal appendix. 4. Mild colonic diverticulosis without diverticulitis. 5. Prior cholecystectomy. 6. Ill-defined area of decreased enhancement involving the lower pole left kidney may reflect subtle pyelonephritis. Correlate with urinalysis. Electronically signed by: Abilio Hamilton M.D. 08/04/2017 12:01 PM Dictated Date/Time: 08/04/2017 11:48 AM Laboratory Results 08/04/17 07:50 Red Blood Count 4.92, Mean Corpuscular Volume 89.8, Mean Corpuscular Hemoglobin 29.5, Mean Corpuscular Hemoglobin Concent 32.8, Mean Platelet Volume 9.2, Neutrophils (%) (Auto) 67.5, Lymphocytes (%) (Auto) 18.3, Monocytes (%) (Auto) 10.5, Eosinophils (%) (Auto) 2.9, Basophils (%) (Auto) 0.5, Neutrophils # (Auto ) 5.95, Lymphocytes # (Auto) 1.62, Monocytes # (Auto) 0.93, Eosinophils # (Auto ) 0.26, Basophils # (Auto) 0.04 08/04/17 07:50 Test 08/04/17 07:25 08/04/17 07:50 Urine Color YELLOW Urine Appearance CLEAR (CLEAR) Urine pH 5.0 (4.5-7.5) Urine Specific Howard 1.021 (1.000-1.030) Urine Protein NEG (NEG) Urine Glucose (UA) NEG (NEG) Urine Ketones NEG (NEG) Urine Occult Blood NEG (NEG) Urine Nitrite NEG (NEG) Urine Bilirubin NEG (NEG) Urine Urobilinogen NEG (NEG) Urine Leukocyte Esterase NEG (NEG) White Blood Count 8.83 K/uL (4.8-10.8) Red Blood Count 4.92 M/uL (4.7-6.1) Hemoglobin 14.5 g/dL (14.0-18.0) Hematocrit 44.2 % (42-52) Mean Corpuscular Volume 89.8 fL (80-100) Mean Corpuscular Hemoglobin 29.5 pg (25-34) Mean Corpuscular Hemoglobin Concent 32.8 g/dl (32-36) Platelet Count 276 K/uL (130-400) Mean Platelet Volume 9.2 fL (7.4-10.4) Neutrophils (%) (Auto) 67.5 % Lymphocytes (%) (Auto) 18.3 % Monocytes (%) (Auto) 10.5 % Eosinophils (%) (Auto) 2.9 % Basophils (%) (Auto) 0.5 % Neutrophils # (Auto) 5.95 K/uL (1.4-6.5) Lymphocytes # (Auto) 1.62 K/uL (1.2-3.4) Monocytes # (Auto) 0.93 K/uL (0.11-0.59) Eosinophils # (Auto) 0.26 K/uL (0-0.5) Basophils # (Auto) 0.04 K/uL (0-0.2) RDW Standard Deviation 48.5 fL (36.4-46.3) RDW Coefficient of Variation 14.7 % (11.5-14.5) Immature Granulocyte % (Auto) 0.3 % Immature Granulocyte # (Auto) 0.03 K/uL (0.00-0.02) Anion Gap 8.0 mmol/L (3-11) Est Creatinine Clear Calc Drug Dose 113.5 ml/min Estimated GFR () 115.6 Estimated GFR (Non- 99.7 BUN/Creatinine Ratio 13.2 (10-20) Calcium Level 8.4 mg/dl (8.5-10.1) Total Bilirubin 0.3 mg/dl (0.2-1) Direct Bilirubin < 0.1 mg/dl (0-0.2) Aspartate Amino Transf (AST/SGOT) 24 U/L (15-37) Alanine Aminotransferase (ALT/SGPT) 36 U/L (12-78) Alkaline Phosphatase 78 U/L (45-117) Total Protein 6.6 gm/dl (6.4-8.2) Albumin 3.2 gm/dl (3.4-5.0) Lipase 79 U/L (73-393) Medications Administered Medications (Trade) Dose Ordered Sig/Haresh Route Start Time Stop Time Status Last Admin Dose Admin Ondansetron HCl (Zofran Inj) 4 mg NOW STAT IV 08/04/17 07:32 08/04/17 07:35 DC 08/04/17 07:56 4 MG ED Course The patient was evaluated. The patient's EMR medication list were reviewed. IV access was obtained. CBC and differential, renal profile, LFTs and lipase levels were ordered. Labs are reviewed and were unremarkable. Urinalysis was ordered. Urinalysis was negative. Abdominal series x-ray was ordered and interpreted by the radiologist and myself as above with a partial small bowel obstruction. The patient was given morphine 6 mg IV for pain and Zofran 4 mg IV push for nausea. The patient was reevaluated by myself and Dr. Tracy. He stated that he did not feel any better and we gave him the option to come into the hospital or to go home. The patient opted to be admitted. The [facility] hospitalist was consulted. Who agreed to admit the patient but one me to consult surgery. I consult the doctor Linh to inform him that the patient was being admitted. Medical Decision Differential diagnoses include reflux, gastritis, gastroenteritis, pancreatitis , cholelithiasis, cholecystitis, appendicitis, mesenteric ischemia, pyelonephritis, urinary tract infection, renal colic, diverticulitis, shingles, bowel obstruction, intussusception, hernia, [place] Drug Monitoring Program Search Results: patient reviewed within database Medication Reconcilliation Current Medication List: was personally reviewed by me Blood Pressure Screening Patient's blood pressure: Normal blood pressure Impression Primary Impression: Partial small bowel obstruction Departure Information Dispostion Being Evaluated By Hospitalist Condition GOOD Referrals Georgia Aguillon D.O. (PCP) Patient Instructions My [facility]
[2017-08-04] MEDS ORDERED: ONDANSETRON INJ 2 MG/ML 2 ML VIAL IV PRN (12:45)
[2017-08-04] MEDS ORDERED: MoRPHine SULFATE 4 MG/ML 1 ML CARP\\VIAL IV PRN (12:45)
[2017-08-04 12:50] VITALS: O2SAT 95; Ht 185.4 cm; Wt 95.6 kg
--- NOTE | 2017-08-04 13:01 | Surgery Consultation ---
Consultation Date of Consultation: Aug 04, 2017. Attending Physician: Reason for Consultation: Possible partial small bowel obstruction History of Present Illness 52-year-old male presented to the emergency department with 1 week history of nausea, vomiting, diarrhea, and abdominal pain. He started feeling ill last week, and his had a viral illness and he believed he had the same thing. He started to feel better, however on Thursday he had a loose bowel movement and started feeling bloated. He took some Imodium, and has not had a bowel movement since Thursday evening. He is passing gas. He denies any nausea or vomiting. His abdomen feels bloated, there is minimal pain. He has never had a bowel obstruction the past. Prior history of laparoscopic cholecystectomy. He had a colonoscopy in the past that was normal. Past Medical/Surgical History Past Medical History: SVT s/p pacemaker, cardiomyopathy, thyroid disorder, htn Past Surgical History: laparoscopic cholecystectomy Family History Cancer noncontributory Social History Smoking Status: Never Smoker Drug Use: none Marital Status: Housing Status: lives with family Occupation Status: unemployed Allergies Coded Allergies: Cefuroxime (Verified Allergy, Intermediate, RASH, 08/04/17) Home Medications Scheduled Carvedilol (Carvedilol), 37.5 MG PO BID Lisinopril (Zestril), 10 MG PO BID Methimazole (Methimazole), 10 MG PO QAM Potassium Chloride (Micro-K Ext Rel), 10 MEQ PO UD Spironolactone (Spironolactone), 25 MG PO QAM Scheduled PRN Furosemide (Lasix), 20 MG PO UD PRN for FLUID RETENTION Current Inpatient Medications Current Inpatient Medications Medications (Trade) Dose Ordered Sig/Haresh Route Start Time Stop Time Status Last Admin Dose Admin Ioversol (Optiray 320) 125 ml UD PRN IV 08/04/17 09:00 08/08/17 08:59 Sodium Chloride 500 ml @ 999 mls/hr Q31M STAT IV 08/04/17 12:12 08/04/17 12:42 Sodium Chloride 1,000 ml @ 125 mls/hr Q8H STAT IV 08/04/17 12:12 08/04/17 20:11 Review of Systems 10 point review of systems negative except as above Physical Exam Date Time Temp Pulse Resp B/P (MAP) Pulse Ox O2 Delivery O2 Flow Rate FiO2 08/04/17 11:00 80 16 129/88 98 Room Air 08/04/17 09:00 70 16 132/89 96 Room Air 08/04/17 07:03 36.4 78 18 151/95 95 Room Air General Appearance: WD/WN, no apparent distress Head: normocephalic, atraumatic Eyes: normal inspection, PERRL, EOMI ENT: normal ENT inspection, hearing grossly normal Neck: supple, no adenopathy Respiratory/Chest: chest non-tender, lungs clear, normal breath sounds Cardiovascular: regular rate, rhythm, no edema, no gallop Abdomen/GI: normal bowel sounds, non tender, soft, + distended, + pertinent finding (port site scars well-healed) Back: normal inspection, no CVA tenderness Extremities/Musculoskelatal: normal inspection, no calf tenderness, no pedal edema Neurologic/Psych: gambling monitor II-XII nml as tested, no motor/sensory deficits, alert, oriented x 3 Laboratory Results Last 24 Hours Test 08/04/17 07:25 08/04/17 07:50 Urine Color YELLOW Urine Appearance CLEAR Urine pH 5.0 Urine Specific [place] 1.021 Urine Protein NEG Urine Glucose (UA) NEG Urine Ketones NEG Urine Occult Blood NEG Urine Nitrite NEG Urine Bilirubin NEG Urine Urobilinogen NEG Urine Leukocyte Esterase NEG White Blood Count 8.83 K/uL Red Blood Count 4.92 M/uL Hemoglobin 14.5 g/dL Hematocrit 44.2 % Mean Corpuscular Volume 89.8 fL Mean Corpuscular Hemoglobin 29.5 pg Mean Corpuscular Hemoglobin Concent 32.8 g/dl Platelet Count 276 K/uL Mean Platelet Volume 9.2 fL Neutrophils (%) (Auto) 67.5 % Lymphocytes (%) (Auto) 18.3 % Monocytes (%) (Auto) 10.5 % Eosinophils (%) (Auto) 2.9 % Basophils (%) (Auto) 0.5 % Neutrophils # (Auto) 5.95 K/uL Lymphocytes # (Auto) 1.62 K/uL Monocytes # (Auto) 0.93 K/uL Eosinophils # (Auto) 0.26 K/uL Basophils # (Auto) 0.04 K/uL RDW Standard Deviation 48.5 fL RDW Coefficient of Variation 14.7 % Immature Granulocyte % (Auto) 0.3 % Immature Granulocyte # (Auto) 0.03 K/uL Sodium Level 141 mmol/L Potassium Level 3.6 mmol/L Chloride Level 108 mmol/L Carbon Dioxide Level 25 mmol/L Anion Gap 8.0 mmol/L Blood Urea Nitrogen 11 mg/dl Creatinine 0.86 mg/dl Est Creatinine Clear Calc Drug Dose 113.5 ml/min Estimated GFR () 115.6 Estimated GFR (Non- 99.7 BUN/Creatinine Ratio 13.2 Random Glucose 94 mg/dl Calcium Level 8.4 mg/dl Total Bilirubin 0.3 mg/dl Direct Bilirubin < 0.1 mg/dl Aspartate Amino Transf (AST/SGOT) 24 U/L Alanine Aminotransferase (ALT/SGPT) 36 U/L Alkaline Phosphatase 78 U/L Total Protein 6.6 gm/dl Albumin 3.2 gm/dl Lipase 79 U/L ABDOMEN AND PELVIS CT WITH IV AND ORAL CONTRAST CT DOSE: 576.42 mGy.cm HISTORY: Small bowel dilation seen on comparison radiographs concerning for ileus or obstruction. Acute lower abdominal pain abnormal x-ray CT recommended TECHNIQUE: Multiaxial CT images of the abdomen and pelvis were performed following the use of intravenous and oral contrast. A dose lowering technique was utilized adhering to the principles of ALARA. COMPARISON STUDY: Acute abdominal series radiographs of same day, CT 10/20/2016. FINDINGS: Mild dependent bibasilar atelectasis. No pneumatosis or pneumoperitoneum identified. Imaged inferior cardiac chambers are moderately enlarged with pacer wires noted. The liver, spleen, pancreas and adrenal glands are within normal limits. Prior cholecystectomy. Probable cyst of the interpolar left kidney is noted, 6 mm. Focal area of slightly decreased attenuation is noted within the inferior pole left kidney as seen on image 226 series 3. Additionally, there is mild nonspecific bilateral perinephric stranding. No renal calculi or hydronephrosis. Prostate measures Limits of normal. Urinary bladder is unremarkable. Small fat filled left inguinal hernia. Aorta is normal in course and caliber. No bulky adenopathy. There is distention of the contrast filled stomach. The duodenum appears normal in caliber. There are multiple loops of mildly dilated small bowel within the central and right lower abdomen measuring up to 3.6 cm transversely. Several loops are fluid-filled and several demonstrate fecal material. The terminal ileum is collapsed. Transitioned dilated normal caliber loops of small bowel are seen within the right midabdomen without definite transition point identified. Several loops of small bowel demonstrate angular morphology suggesting possible underlying adhesions. Appendix appears normal. No large volume ascites. Contrast does not extend past small bowel the mid abdomen. Moderate volume of formed colonic stool suggests constipation. Mild colonic diverticulosis without diverticulitis. Soft tissues are unremarkable. Probable bone island of the pelvis. Facet arthrosis of the lower lumbar spine. IMPRESSION: 1. Mildly dilated loops of small bowel within the central and right lower abdomen measure up to 3.6 cm with transitioned normal caliber loops of ileum seen within the right lower abdomen. No discrete transition point identified. Findings suggest a low-grade partial small bowel obstruction. Follow-up recommended. 2. No pneumatosis or pneumoperitoneum. 3. Normal appendix. 4. Mild colonic diverticulosis without diverticulitis. 5. Prior cholecystectomy. 6. Ill-defined area of decreased enhancement involving the lower pole left kidney may reflect subtle pyelonephritis. Correlate with urinalysis. Electronically signed by: Abilio Hamilton M.D. Assessment & Plan 52-year-old male with abdominal distention, CT scan with concern for low-grade partial small bowel traction. He has significant stool burden noted on CT, and I feel that this may be result of constipation. He is currently stable, his abdomen is distended but benign, with no nausea or vomiting, and normal labs. Agree with admission to hospitalist service Sips of clears and ice chips okay Recommend MiraLAX, and tap water enemas when necessary Surgery will continue to follow Call if questions or concerns The plan of care was discussed with the patient and admitting service, all questions are answered, the patient expressed understanding and agreed with the plan of care as stated
[2017-08-04] MEDS ORDERED: MoRPHine SULFATE 4 MG/ML 1 ML CARP\\VIAL ONE (13:09)
[2017-08-04] MEDS ORDERED: SERT25TA PO (13:20)
[2017-08-04 13:31] LABS: MAGNESIUM 2.3 mg/dl (1.8-2.4); THYROID STIMULATING HORMONE 5.94 uIu/ml (0.300-4.500)
[2017-08-04] MEDS: D5W AND NSS 1,000 ML IV SCH ×2 (13:58→23:28)
[2017-08-04] MEDS ORDERED: POLYETHYLENE (MIRALAX) 17 GM PACK PO ONE (14:00)
--- NOTE | 2017-08-04 14:09 | History and Physical ---
History & Physical Date & Time of Service: Aug 04, 2017 ~ 12:15 Chief Complaint: Abdominal Pain Primary Care Physician: Georgia Aguillon D.O. History of Present Illness 52 year old male who presented to the ED with abdominal pain. Patient reports his symptoms began about 6 days ago. He reports he initially felt tired and weak for 2 days. Then he developed diarrhea a four days ago. He reports 3-4 episodes. Three days ago, he reports a very hard bowel movement that was followed by diarrhea. He has had no further bowel movements since then. He reports increasing abdominal distention. He has has mid epigastric pain that he describes as a pressure. He reports a poor appetite but denies nausea or vomiting. He took several over the counter medicines including TUMS, Maalox, and Imodium. No fevers or chills. He denies chest pain, palpitations, and shortness of breath. He has had some mild lightheadedness and dizziness but denies any syncopal events. No urinary symptoms. In the ED, patient had a CT abd /pelvis that is suggesting possible partial SBO. He was given IVF and Zofran. He is hemodynamically stable. Past Medical/Surgical History Medical Problems: (1) Amiodarone-induced hyperthyroidism Status: Chronic (2) Diastolic dysfunction Permanent Comment: echo 02/2017- grade II Status: Chronic (3) Idiopathic cardiomyopathy Permanent Comment: echo 02/2017 - EF 40-45% Status: Chronic Surgical Problems: (1) S/P ablation of atrial fibrillation Status: Chronic (2) S/P cholecystectomy Status: Chronic (3) S/P ICD (internal cardiac defibrillator) procedure Status: Chronic Family History Cervical cancer MOTHER Social History Smoking Status: Former Smoker Smokeless Tobacco Use: Yes Alcohol Use: socially Marital Status: Housing status: lives with family Occupational Status: employed Immunizations History of Tetanus Vaccine?: Yes Tetanus Immunization Date: Apr 30, 2015 History of Pneumococcal: Yes Pneumococcal Date: Jul 05, 2012 Multi-Drug Resistant Organisms History of MDRO: No Allergies Coded Allergies: Cefuroxime (Verified Allergy, Intermediate, RASH, 08/04/17) Home Medications Scheduled Carvedilol (Carvedilol), 37.5 MG PO BID Methimazole (Methimazole), 10 MG PO QAM Sertraline (Zoloft), 1 TAB PO DAILY Spironolactone (Spironolactone), 25 MG PO QAM Scheduled PRN Furosemide (Lasix), 20 MG PO UD PRN for FLUID RETENTION Potassium Chloride (Micro-K Ext Rel), 10 MEQ PO UD PRN for with lasix Review of Systems ROS per HPI, all other systems reviewed and negative Physical Exam Vital Signs Date Time Temp Pulse Resp B/P (MAP) Pulse Ox O2 Delivery O2 Flow Rate FiO2 08/04/17 12:58 75 16 135/87 95 Room Air 08/04/17 12:50 95 Room Air 08/04/17 11:00 80 16 129/88 98 Room Air 08/04/17 09:00 70 16 132/89 96 Room Air 08/04/17 07:03 36.4 78 18 151/95 95 Room Air General Appearance: WD/WN, no apparent distress Head: normocephalic, atraumatic Eyes: normal inspection, EOMI, sclerae normal ENT: hearing grossly normal, + pertinent finding (mucous membranes moist) Neck: supple, no JVD, trachea midline Respiratory/Chest: chest non-tender, lungs clear, normal breath sounds, no respiratory distress Cardiovascular: regular rate, rhythm, no edema, normal peripheral pulses Abdomen/GI: no organomegaly, + tenderness (mild, generalized), + abnormal bowel sounds (hypoactive), + distended (semi firm) Extremities/Musculoskelatal: normal inspection, no calf tenderness, normal capillary refill Neurologic/Psych: no motor/sensory deficits, alert, normal mood/affect, oriented x 3 Skin: normal color, warm/dry Diagnostics Laboratory Results Results Past 24 Hours Test 08/04/17 07:25 08/04/17 07:50 08/04/17 13:46 Range/Units Urine Color YELLOW Urine Appearance CLEAR CLEAR Urine pH 5.0 4.5-7.5 Urine Specific [place] 1.021 1.000-1.030 Urine Protein NEG NEG Urine Glucose (UA) NEG NEG Urine Ketones NEG NEG Urine Occult Blood NEG NEG Urine Nitrite NEG NEG Urine Bilirubin NEG NEG Urine Urobilinogen NEG NEG Urine Leukocyte Esterase NEG NEG White Blood Count 8.83 4.8-10.8 K/uL Red Blood Count 4.92 4.7-6.1 M/uL Hemoglobin 14.5 14.0-18.0 g/dL Hematocrit 44.2 42-52 % Mean Corpuscular Volume 89.8 80-100 fL Mean Corpuscular Hemoglobin 29.5 25-34 pg Mean Corpuscular Hemoglobin Concent 32.8 32-36 g/dl Platelet Count 276 130-400 K/uL Mean Platelet Volume 9.2 7.4-10.4 fL Neutrophils (%) (Auto) 67.5 % Lymphocytes (%) (Auto) 18.3 % Monocytes (%) (Auto) 10.5 % Eosinophils (%) (Auto) 2.9 % Basophils (%) (Auto) 0.5 % Neutrophils # (Auto) 5.95 1.4-6.5 K/uL Lymphocytes # (Auto) 1.62 1.2-3.4 K/uL Monocytes # (Auto) 0.93 0.11-0.59 K/uL Eosinophils # (Auto) 0.26 0-0.5 K/uL Basophils # (Auto) 0.04 0-0.2 K/uL RDW Standard Deviation 48.5 36.4-46.3 fL RDW Coefficient of Variation 14.7 11.5-14.5 % Immature Granulocyte % (Auto) 0.3 % Immature Granulocyte # (Auto) 0.03 0.00-0.02 K/uL Sodium Level 141 136-145 mmol/L Potassium Level 3.6 3.5-5.1 mmol/L Chloride Level 108 98-107 mmol/L Carbon Dioxide Level 25 21-32 mmol/L Anion Gap 8.0 3-11 mmol/L Blood Urea Nitrogen 11 7-18 mg/dl Creatinine 0.86 0.60-1.40 mg/dl Est Creatinine Clear Calc Drug Dose 113.5 ml/min Estimated GFR () 115.6 Estimated GFR (Non- 99.7 BUN/Creatinine Ratio 13.2 10-20 Random Glucose 94 70-99 mg/dl Calcium Level 8.4 8.5-10.1 mg/dl Magnesium Level 2.3 1.8-2.4 mg/dl Total Bilirubin 0.3 0.2-1 mg/dl Direct Bilirubin < 0.1 0-0.2 mg/dl Aspartate Amino Transf (AST/SGOT) 24 15-37 U/L Alanine Aminotransferase (ALT/SGPT) 36 12-78 U/L Alkaline Phosphatase 78 45-117 U/L Total Protein 6.6 6.4-8.2 gm/dl Albumin 3.2 3.4-5.0 gm/dl Lipase 79 73-393 U/L Thyroid Stimulating Hormone (TSH) 5.940 0.300-4.500 uIu/ml Diagnostic Radiology CHEST/ABD XR IMPRESSION: 1. Mild cardiomegaly, new from prior with suggestion of volume overload. No spencer pulmonary edema. 2. Diffuse small bowel gaseous distention. The apparent diameter of 4.5 cm is likely affected by magnification. However, this is concerning for small bowel obstruction or ileus. Further evaluation with CT should be considered. CT ABD/PELVIS IMPRESSION: 1. Mildly dilated loops of small bowel within the central and right lower abdomen measure up to 3.6 cm with transitioned normal caliber loops of ileum seen within the right lower abdomen. No discrete transition point identified. Findings suggest a low-grade partial small bowel obstruction. Follow-up recommended. 2. No pneumatosis or pneumoperitoneum. 3. Normal appendix. 4. Mild colonic diverticulosis without diverticulitis. 5. Prior cholecystectomy. 6. Ill-defined area of decreased enhancement involving the lower pole left kidney may reflect subtle pyelonephritis. Correlate with urinalysis. Impression Assessment and Plan POSSIBLE PARTIAL SBO - admit to med/surg - patient presenting with 4 days of increasing abdominal distention and diarrhea / constipation; in the ED, CT suggestive of possible partial SBO - abdominal surgical history: cholecystectomy - evaluated by surgery in the ED who feels this is more constipation rather than SBO - will give one dose of Miralx today; NPO except sips, IVF - no role for NG at this time - follow up abdominal XR in AM - case discussed with Dr. Melton IDIOPATHIC CARDIOMYOPATHY S/P AICD - EF 40-45% - appears euvolemic; CXR suggestive of pulmonary congestion however lungs are clear on exam, no other signs of volume overload - holding diuretics while giving IVF for SBO and NPO status - monitor volume status closely - continue beta romy AMIODARONE INDUCED HYPERTHYROIDISM - follows with endocrine in [place] - check TFTs - continue methimazole for now DVT PROPHYLAXIS - SCDs in the event patient needs a surgical procedure DISPO - In my clinical judgment this beneficiary meets acute admission criteria, established by [facility], that includes being hospitalized through two midnights. - expect d/c home once medically stable ADDENDUM: This is a 52 year old male with a PMH of idiopathic cardiomyopathy s/p implantable defibrillator, hx. of paroxysmal A. fib off of anticoagulation due to multiple GI bleed episodes, hx. of PVC s/p ablation, hx. of cholecystectomy in October 2016 - presents with abdominal pain/discomfort/distention. States that on July 30 or he initially developed some diarrhea/loose stools. This stopped and he has not had a bowel movement since then. He denies fevers/ chills. Denies nausea/vomiting. Presented to the ED - noted to have abdominal distention. CT was done showing a possible partial SBO. General surgery saw the patient and decision to admit was made. On exam: there are surgical scars from previous lap [place]; abdomen is distended and bowel sounds are diminished. +defibrillator L chest wall Plan is to admit the patient under med/surg. sips/chips for now, IVFs, pain control general surgery consulted check KUB in AM Advanced Directives Existing Living Will: No Existing Power of Documentation Designer: No VTE Prophylaxis VTE Risk Assessment Done? Y/N: Yes Risk Level: Moderate
[2017-08-04 14:46] VITALS: BP 152/104; PULSE 73; TEMP 36.6; O2SAT 96
[2017-08-04 14:49] VITALS: BP_SYST 147; BP_SYST 150; BP_DIAS 103; BP_DIAS 99; PULSE 82; O2SAT 94
[2017-08-04 15:30] VITALS: BP 137/91; PULSE 76; TEMP 36.4; O2SAT 95
[2017-08-04] MEDS ORDERED: POLYETHYLENE (MIRALAX) 17 GM PACK PO PRN (16:00)
[2017-08-04] MEDS: CARVEDILOL 25 MG TAB PO SCH (20:58)
[2017-08-04 21:02] VITALS: BP 135/91; PULSE 71
[2017-08-04 23:25] VITALS: BP 120/79; PULSE 71; TEMP 36.6; O2SAT 94
[2017-08-04] MEDS: ACETAMINOPHEN 325 MG TAB PO PRN (23:27)
[2017-08-05 06:20] LABS: HEMATOCRIT 41.1 % (42-52); MEAN CELL VOLUME 90.1 fL (80-100); MEAN CORPUSCULAR HEMOGLOBIN 29.6 pg (25-34); MEAN CORPUSCULAR HGB CONC 32.8 g/dl (32-36); MEAN PLATELET VOLUME 9.1 fL (7.4-10.4); PLATELET COUNT 232 K/uL (130-400); RED BLOOD COUNT 4.56 M/uL (4.7-6.1)
[2017-08-05 06:54] LABS: BUN/CREATININE RATIO 10.2 (10-20); CREATININE 0.76 mg/dl (0.60-1.40); POTASSIUM 3.6 mmol/L (3.5-5.1)
[2017-08-05 08:22] VITALS: BP 117/72; PULSE 62; PULSE 64; TEMP 36.8; O2SAT 94
[2017-08-05 08:36] VITALS: O2SAT 97
[2017-08-05] MEDS: METHIMAZOLE 5 MG TAB PO SCH (08:51)
[2017-08-05] MEDS: SERTRALINE HCL 50 MG TAB PO SCH (08:51)
[2017-08-05] MEDS: CARVEDILOL 25 MG TAB PO SCH ×2 (08:52→21:23)
--- NOTE | 2017-08-05 09:08 | Surgery Progress Note ---
Surgery Progress Note Date of Service Aug 05, 2017. Subjective + feeling well, + ambulating, + flatus, + pain controlled, + diet (NPO), No complaints, No bowel movement, No nausea, No vomiting Doing well, abdominal bloating improving. States he feels hungry. Objective Vital Signs: Date Time Temp Pulse Resp B/P (MAP) Pulse Ox O2 Delivery O2 Flow Rate FiO2 08/05/17 00:15 Room Air 08/04/17 23:25 36.6 71 16 120/79 (93) 94 Room Air 08/04/17 21:02 71 135/91 (106) 08/04/17 15:30 Room Air 08/04/17 15:30 36.4 76 17 137/91 (106) 95 Room Air 08/04/17 14:49 82 150/103 (119) 94 Room Air 147/99 (115) 08/04/17 14:46 36.6 73 20 152/104 (120) 96 Room Air 08/04/17 12:58 75 16 135/87 95 Room Air 08/04/17 12:50 95 Room Air 08/04/17 11:00 80 16 129/88 98 Room Air 08/04/17 09:00 70 16 132/89 96 Room Air General Appearance: WD/WN, no apparent distress Head: normocephalic, atraumatic Neck: supple Abdomen: normal bowel sounds, non tender, soft, no organomegaly, no pulsatile mass, + distended (Mild) Laboratory Results: Results Past 24 Hours Test 08/04/17 07:50 08/05/17 05:29 Range/Units White Blood Count 8.83 6.10 4.8-10.8 K/uL Red Blood Count 4.92 4.56 4.7-6.1 M/uL Hemoglobin 14.5 13.5 14.0-18.0 g/dL Hematocrit 44.2 41.1 42-52 % Mean Corpuscular Volume 89.8 90.1 80-100 fL Mean Corpuscular Hemoglobin 29.5 29.6 25-34 pg Mean Corpuscular Hemoglobin Concent 32.8 32.8 32-36 g/dl Platelet Count 276 232 130-400 K/uL Mean Platelet Volume 9.2 9.1 7.4-10.4 fL Neutrophils (%) (Auto) 67.5 % Lymphocytes (%) (Auto) 18.3 % Monocytes (%) (Auto) 10.5 % Eosinophils (%) (Auto) 2.9 % Basophils (%) (Auto) 0.5 % Neutrophils # (Auto) 5.95 1.4-6.5 K/uL Lymphocytes # (Auto) 1.62 1.2-3.4 K/uL Monocytes # (Auto) 0.93 0.11-0.59 K/uL Eosinophils # (Auto) 0.26 0-0.5 K/uL Basophils # (Auto) 0.04 0-0.2 K/uL RDW Standard Deviation 48.5 48.2 36.4-46.3 fL RDW Coefficient of Variation 14.7 14.6 11.5-14.5 % Immature Granulocyte % (Auto) 0.3 % Immature Granulocyte # (Auto) 0.03 0.00-0.02 K/uL Sodium Level 141 141 136-145 mmol/L Potassium Level 3.6 3.6 3.5-5.1 mmol/L Chloride Level 108 109 98-107 mmol/L Carbon Dioxide Level 25 25 21-32 mmol/L Anion Gap 8.0 7.0 3-11 mmol/L Blood Urea Nitrogen 11 8 7-18 mg/dl Creatinine 0.86 0.76 0.60-1.40 mg/dl Est Creatinine Clear Calc Drug Dose 113.5 128.5 ml/min Estimated GFR () 115.6 121.6 Estimated GFR (Non- 99.7 104.9 BUN/Creatinine Ratio 13.2 10.2 10-20 Random Glucose 94 89 70-99 mg/dl Calcium Level 8.4 8.0 8.5-10.1 mg/dl Magnesium Level 2.3 1.8-2.4 mg/dl Total Bilirubin 0.3 0.2-1 mg/dl Direct Bilirubin < 0.1 0-0.2 mg/dl Aspartate Amino Transf (AST/SGOT) 24 15-37 U/L Alanine Aminotransferase (ALT/SGPT) 36 12-78 U/L Alkaline Phosphatase 78 45-117 U/L Total Protein 6.6 6.4-8.2 gm/dl Albumin 3.2 3.4-5.0 gm/dl Lipase 79 73-393 U/L Thyroid Stimulating Hormone (TSH) 5.940 0.300-4.500 uIu/ml Free Thyroxine 0.94 0.80-1.60 ng/dl Diagnostic Interpretation: ABDOMEN AND PELVIS CT WITH IV AND ORAL CONTRAST CT DOSE: 576.42 mGy.cm HISTORY: Small bowel dilation seen on comparison radiographs concerning for ileus or obstruction. Acute lower abdominal pain abnormal x-ray CT recommended TECHNIQUE: Multiaxial CT images of the abdomen and pelvis were performed following the use of intravenous and oral contrast. A dose lowering technique was utilized adhering to the principles of ALARA. COMPARISON STUDY: Acute abdominal series radiographs of same day, CT 10/20/2016. FINDINGS: Mild dependent bibasilar atelectasis. No pneumatosis or pneumoperitoneum identified. Imaged inferior cardiac chambers are moderately enlarged with pacer wires noted. The liver, spleen, pancreas and adrenal glands are within normal limits. Prior cholecystectomy. Probable cyst of the interpolar left kidney is noted, 6 mm. Focal area of slightly decreased attenuation is noted within the inferior pole left kidney as seen on image 226 series 3. Additionally, there is mild nonspecific bilateral perinephric stranding. No renal calculi or hydronephrosis. Prostate measures Limits of normal. Urinary bladder is unremarkable. Small fat filled left inguinal hernia. Aorta is normal in course and caliber. No bulky adenopathy. There is distention of the contrast filled stomach. The duodenum appears normal in caliber. There are multiple loops of mildly dilated small bowel within the central and right lower abdomen measuring up to 3.6 cm transversely. Several loops are fluid-filled and several demonstrate fecal material. The terminal ileum is collapsed. Transitioned dilated normal caliber loops of small bowel are seen within the right midabdomen without definite transition point identified. Several loops of small bowel demonstrate angular morphology suggesting possible underlying adhesions. Appendix appears normal. No large volume ascites. Contrast does not extend past small bowel the mid abdomen. Moderate volume of formed colonic stool suggests constipation. Mild colonic diverticulosis without diverticulitis. Soft tissues are unremarkable. Probable bone island of the pelvis. Facet arthrosis of the lower lumbar spine. IMPRESSION: 1. Mildly dilated loops of small bowel within the central and right lower abdomen measure up to 3.6 cm with transitioned normal caliber loops of ileum seen within the right lower abdomen. No discrete transition point identified. Findings suggest a low-grade partial small bowel obstruction. Follow-up recommended. 2. No pneumatosis or pneumoperitoneum. 3. Normal appendix. 4. Mild colonic diverticulosis without diverticulitis. 5. Prior cholecystectomy. 6. Ill-defined area of decreased enhancement involving the lower pole left kidney may reflect subtle pyelonephritis. Correlate with urinalysis. Electronically signed by: Abilio Hamilton M.D. 08/04/2017 12:01 PM Dictated Date/Time: 08/04/2017 11:48 AM Assessment & Plan Low-grade partial small bowel obstruction and significant stool burden on CT Abdomen distention improving. No BM yet. No N/V. Continue MiraLAX PRN, Tap water enema today to stimulate bowel. Will attempt clears for now and see how he tolerates. Surgery will continue to follow. Please call with questions or concerns.
[2017-08-05] MEDS: D5W AND NSS 1,000 ML IV SCH (10:32)
--- NOTE | 2017-08-05 11:03 | DIAGNOSTIC IMAGING REPORT ---
ABDOMEN 2 VIEWS CLINICAL HISTORY: Follow-up small bowel obstruction. FINDINGS: Supine and erect abdominal radiographs are correlated with abdominal CT dated 08/04/2017. Cholestatic clips are identified in the right upper quadrant. There is no radiographic evidence of small bowel obstruction. Enteric contrast is seen throughout the colon. Mildly distended and gas-filled loops of small bowel measure up to 3.7 cm. No evidence of intraperitoneal free air is seen. Phlebolith are observed in the pelvis. The bony structures appear intact. The heart is enlarged and pacemaker leads are identified. IMPRESSION: 1. There is no radiographic evidence of high-grade bowel obstruction. Enteric contrast fills the colon. 2. Mildly distended and gas-filled loops of small bowel persist. These are nonspecific and may represent an infectious/inflammatory enteritis. Low-grade/partial bowel obstruction is the top differential consideration. 3. No intraperitoneal free air is seen. Electronically signed by: Mustapha Mendez M.D. 08/05/2017 11:01 AM Dictated Date/Time: 08/05/2017 10:59 AM
[2017-08-05 11:54] VITALS: BP 117/72; PULSE 64; TEMP 36.8; O2SAT 94
--- NOTE | 2017-08-05 15:36 | Progress Note ---
Medicine Progress Note Date & Time of Visit: Aug 05, 2017 at 13:14. Subjective 52 yoM presents with several days of non-bloody diarrhea and worsening abdominal pain with evidence of partial SBO on workup in the ER. He was started on IVF and given supportive care without NGT placement. Overnight he did well and General Surgery has advanced him to clear liquids which he is tolerating without issue. He reports taking TUMS, Pepto-Bismol and Imodium all prior to arrival yesterday. He has now had another episode of diarrhea just today. His pain is very minimal and much improved since yesterday. Objective Last 8 Hrs Date Time Temp Pulse Resp B/P (MAP) Pulse Ox O2 Delivery O2 Flow Rate FiO2 08/05/17 11:54 36.8 64 18 117/72 (87) 94 Room Air 08/05/17 08:36 97 Room Air 08/05/17 08:22 36.8 62 18 117/72 (87) 94 Room Air 08/05/17 07:55 Room Air Physical Exam: GEN: WNWD, in no acute distress, alert and appropriate HEENT: NC/AT, normal sclerae, MMM CARDIO: reg rate, S1/2 heard without m/g/r LUNGS: CTA bilaterally, no crackles, rales or wheezes, good diaphragmatic excursion ABD: soft, non-tender, non-distended, no rebound or guarding, +BS EXTREMITY: RP and DP palpable 2+ bilat, no LE swelling or edema, extremities are warm and well-perfused NEURO: CN 2-12 grossly intact, no gross focal deficits. MUSC: moves all extremities equally SKIN: warm and dry Laboratory Results: 08/05/17 05:29 08/05/17 05:29 Test 08/04/17 07:25 08/04/17 07:50 08/05/17 05:29 Urine Color YELLOW Urine Appearance CLEAR (CLEAR) Urine pH 5.0 (4.5-7.5) Urine Specific [place] 1.021 (1.000-1.030) Urine Protein NEG (NEG) Urine Glucose (UA) NEG (NEG) Urine Ketones NEG (NEG) Urine Occult Blood NEG (NEG) Urine Nitrite NEG (NEG) Urine Bilirubin NEG (NEG) Urine Urobilinogen NEG (NEG) Urine Leukocyte Esterase NEG (NEG) Immature Granulocyte % (Auto) 0.3 % White Blood Count 8.83 K/uL (4.8-10.8) Red Blood Count 4.92 M/uL (4.7-6.1) 4.56 M/uL (4.7-6.1) Hemoglobin 14.5 g/dL (14.0-18.0) Hematocrit 44.2 % (42-52) Mean Corpuscular Volume 89.8 fL (80-100) 90.1 fL (80-100) Mean Corpuscular Hemoglobin 29.5 pg (25-34) 29.6 pg (25-34) Mean Corpuscular Hemoglobin Concent 32.8 g/dl (32-36) 32.8 g/dl (32-36) Platelet Count 276 K/uL (130-400) Mean Platelet Volume 9.2 fL (7.4-10.4) 9.1 fL (7.4-10.4) Neutrophils (%) (Auto) 67.5 % Lymphocytes (%) (Auto) 18.3 % Monocytes (%) (Auto) 10.5 % Eosinophils (%) (Auto) 2.9 % Basophils (%) (Auto) 0.5 % Neutrophils # (Auto) 5.95 K/uL (1.4-6.5) Lymphocytes # (Auto) 1.62 K/uL (1.2-3.4) Monocytes # (Auto) 0.93 K/uL (0.11-0.59) Eosinophils # (Auto) 0.26 K/uL (0-0.5) Basophils # (Auto) 0.04 K/uL (0-0.2) Immature Granulocyte # (Auto) 0.03 K/uL (0.00-0.02) Magnesium Level 2.3 mg/dl (1.8-2.4) Total Bilirubin 0.3 mg/dl (0.2-1) Direct Bilirubin < 0.1 mg/dl (0-0.2) Aspartate Amino Transf (AST/SGOT) 24 U/L (15-37) Alanine Aminotransferase (ALT/SGPT) 36 U/L (12-78) Alkaline Phosphatase 78 U/L (45-117) Total Protein 6.6 gm/dl (6.4-8.2) Albumin 3.2 gm/dl (3.4-5.0) Lipase 79 U/L (73-393) Thyroid Stimulating Hormone (TSH) 5.940 uIu/ml (0.300-4.500) Free Thyroxine 0.94 ng/dl (0.80-1.60) RDW Standard Deviation 48.2 fL (36.4-46.3) RDW Coefficient of Variation 14.6 % (11.5-14.5) Anion Gap 7.0 mmol/L (3-11) Est Creatinine Clear Calc Drug Dose 128.5 ml/min Estimated GFR () 121.6 Estimated GFR (Non- 104.9 BUN/Creatinine Ratio 10.2 (10-20) Calcium Level 8.0 mg/dl (8.5-10.1) Last 24 Hours Test 08/05/17 05:29 White Blood Count 6.10 K/uL Red Blood Count 4.56 M/uL Hemoglobin 13.5 g/dL Hematocrit 41.1 % Mean Corpuscular Volume 90.1 fL Mean Corpuscular Hemoglobin 29.6 pg Mean Corpuscular Hemoglobin Concent 32.8 g/dl RDW Standard Deviation 48.2 fL RDW Coefficient of Variation 14.6 % Platelet Count 232 K/uL Mean Platelet Volume 9.1 fL Sodium Level 141 mmol/L Potassium Level 3.6 mmol/L Chloride Level 109 mmol/L Carbon Dioxide Level 25 mmol/L Anion Gap 7.0 mmol/L Blood Urea Nitrogen 8 mg/dl Creatinine 0.76 mg/dl Est Creatinine Clear Calc Drug Dose 128.5 ml/min Estimated GFR () 121.6 Estimated GFR (Non- 104.9 BUN/Creatinine Ratio 10.2 Random Glucose 89 mg/dl Calcium Level 8.0 mg/dl Assessment & Plan 52 yoM presents with several days of non-bloody diarrhea and worsening abdominal pain with evidence of partial SBO on workup in the ER. He was started on IVF and given supportive care without NGT placement. Overnight he did well and General Surgery has advanced him to clear liquids which he is tolerating without issue. He reports taking TUMS, Pepto-Bismol and Imodium all prior to arrival yesterday. He has now had another episode of diarrhea just today. His pain is very minimal and much improved since yesterday. 1. Abdominal pain 2/2 partial SBO vs acute gastroenteritis. Pt has minimal pain and is now tolerating clear liquids. Diarrhea has returned so will monitor this and check stool studies. Of note, was also sick with a GI illness recently. 2. Idiopathic cardiomyopathy s/p AICD-admission CXR was suggestive of pulmonary congestion, however, he is compensated. Stopping IVF to avoid fluid overload. Cont BB. 3. Amiodarone-induced hyperthyroidism-cont methimazole. Cont management per outpatient Endo group in [place]. DVT PROPHYLAXIS: Lovenox Full Code Dispo-To home in 1-2 days. Nissa Martinez DO [facility] Hospitalist Consultants: Gen Surg. Current Inpatient Medications: Current Inpatient Medications Medications (Trade) Dose Ordered Sig/Haresh Route Start Time Stop Time Status Last Admin Dose Admin Ioversol (Optiray 320) 125 ml UD PRN IV 08/04/17 09:00 08/08/17 08:59 Acetaminophen (Tylenol Tab) 650 mg Q4H PRN PO 08/04/17 12:45 09/03/17 12:44 08/04/17 23:27 650 MG Ondansetron HCl (Zofran Inj) 4 mg Q6H PRN IV 08/04/17 12:45 09/03/17 12:44 Dextrose/Sodium Chloride 1,000 ml @ 100 mls/hr Q10H IV 08/04/17 14:00 09/03/17 13:59 08/05/17 10:32 100 MLS/HR Morphine Sulfate (MoRPHine SULFATE INJ) 4 mg Q4H PRN IV 08/04/17 12:45 08/18/17 12:44 Carvedilol (Coreg Tab) 37.5 mg BID PO 08/04/17 21:00 09/03/17 20:59 08/05/17 08:52 37.5 MG Sertraline HCl (Zoloft Tab) 25 mg DAILY PO 08/05/17 09:00 09/04/17 08:59 08/05/17 08:51 25 MG Methimazole (Methimazole Tab) 10 mg QAM PO 08/05/17 09:00 09/04/17 08:59 08/05/17 08:51 10 MG Polyethylene (Miralax Powder Packet) 17 gm DAILY PRN PO 08/04/17 16:00 09/03/17 15:59
[2017-08-05 15:40] VITALS: BP 108/73; PULSE 71; TEMP 36.8; O2SAT 96
[2017-08-05] MEDS: ACETAMINOPHEN 325 MG TAB PO PRN (15:54)
[2017-08-05 21:31] VITALS: BP 126/84; PULSE 71
[2017-08-05 23:02] VITALS: BP 116/74; PULSE 68; TEMP 36.6; O2SAT 95
[2017-08-06 06:40] LABS: HEMATOCRIT 42.2 % (42-52); MEAN CELL VOLUME 89.8 fL (80-100); MEAN CORPUSCULAR HEMOGLOBIN 29.6 pg (25-34); MEAN CORPUSCULAR HGB CONC 32.9 g/dl (32-36); MEAN PLATELET VOLUME 9.1 fL (7.4-10.4); PLATELET COUNT 239 K/uL (130-400); WHITE BLOOD COUNT 6.43 K/uL (4.8-10.8)
[2017-08-06 06:56] LABS: INR 1.1 (0.9-1.1); PROTHROMBIN TIME (PATIENT) 11.3 SECONDS (9.0-12.0)
[2017-08-06 07:14] LABS: BUN/CREATININE RATIO 8.5 (10-20); CALCIUM 8.2 mg/dl (8.5-10.1); CREATININE 0.83 mg/dl (0.60-1.40); MAGNESIUM 2.2 mg/dl (1.8-2.4); POTASSIUM 3.7 mmol/L (3.5-5.1)
[2017-08-06 07:20] VITALS: BP 129/84; PULSE 70; TEMP 36.6; O2SAT 95
--- NOTE | 2017-08-06 07:48 | Surgery Progress Note ---
Surgery Progress Note Date of Service Aug 06, 2017. Subjective + bowel movement, + diet (clears), No nausea Objective Vital Signs: Date Time Temp Pulse Resp B/P (MAP) Pulse Ox O2 Delivery O2 Flow Rate FiO2 08/06/17 07:20 36.6 70 16 129/84 (99) 95 Room Air 08/06/17 00:15 Room Air 08/05/17 23:02 36.6 68 18 116/74 (88) 95 Room Air 08/05/17 21:31 71 126/84 (98) 08/05/17 15:40 36.8 71 16 108/73 (85) 96 Room Air 08/05/17 15:30 Room Air 08/05/17 11:54 36.8 64 18 117/72 (87) 94 Room Air 08/05/17 08:36 97 Room Air 08/05/17 08:22 36.8 62 18 117/72 (87) 94 Room Air 08/05/17 07:55 Room Air Abdomen: non tender, non distended, soft Laboratory Results: Results Past 24 Hours Test 08/06/17 06:17 Range/Units White Blood Count 6.43 4.8-10.8 K/uL Red Blood Count 4.70 4.7-6.1 M/uL Hemoglobin 13.9 14.0-18.0 g/dL Hematocrit 42.2 42-52 % Mean Corpuscular Volume 89.8 80-100 fL Mean Corpuscular Hemoglobin 29.6 25-34 pg Mean Corpuscular Hemoglobin Concent 32.9 32-36 g/dl RDW Standard Deviation 47.1 36.4-46.3 fL RDW Coefficient of Variation 14.5 11.5-14.5 % Platelet Count 239 130-400 K/uL Mean Platelet Volume 9.1 7.4-10.4 fL Prothrombin Time 11.3 9.0-12.0 SECONDS Prothromb Time International Ratio 1.1 0.9-1.1 Sodium Level 141 136-145 mmol/L Potassium Level 3.7 3.5-5.1 mmol/L Chloride Level 108 98-107 mmol/L Carbon Dioxide Level 27 21-32 mmol/L Anion Gap 6.0 3-11 mmol/L Blood Urea Nitrogen 7 7-18 mg/dl Creatinine 0.83 0.60-1.40 mg/dl Est Creatinine Clear Calc Drug Dose 117.6 ml/min Estimated GFR () 117.3 Estimated GFR (Non- 101.2 BUN/Creatinine Ratio 8.5 10-20 Random Glucose 88 70-99 mg/dl Calcium Level 8.2 8.5-10.1 mg/dl Magnesium Level 2.2 1.8-2.4 mg/dl Assessment & Plan PSBO vs enteritis improving can begin advancing diet
[2017-08-06] MEDS: CARVEDILOL 25 MG TAB PO SCH (08:03)
[2017-08-06] MEDS: SERTRALINE HCL 50 MG TAB PO SCH (08:04)
[2017-08-06] MEDS: METHIMAZOLE 5 MG TAB PO SCH (08:04)
[2017-08-06] MEDS ORDERED: ENOXAPARIN 40 MG/0.4 ML SYR SQ SCH (09:00)
--- NOTE | 2017-08-06 14:07 | Discharge Summary ---
Discharge Summary Date of Service Aug 06, 2017. Discharge Summary Admission Date: Aug 04, 2017 at 12:44 Discharge Date: Aug 06, 2017 Discharge Disposition: Home Principal Diagnosis: Partial SBO. Consultations: Gen Surg. Medication Reconciliation Continued Medications: Carvedilol (Carvedilol) 25 Mg Tab 37.5 MG PO BID Furosemide (Lasix) 20 Mg Tab 20 MG PO UD PRN for FLUID RETENTION Methimazole (Methimazole) 10 Mg Tab 10 MG PO QAM Potassium Chloride (Micro-K Ext Rel) 10 Meq Capcr 10 MEQ PO UD PRN for with lasix Sertraline (Zoloft) 25 Mg Tab 1 TAB PO DAILY for 30 Days, #30 TAB 2 Refills Spironolactone (Spironolactone) 25 Mg Tab 25 MG PO QAM Admission Information HPI (per Admitting provider): 52 year old male who presented to the ED with abdominal pain. Patient reports his symptoms began about 6 days ago. He reports he initially felt tired and weak for 2 days. Then he developed diarrhea a four days ago. He reports 3-4 episodes. Three days ago, he reports a very hard bowel movement that was followed by diarrhea. He has had no further bowel movements since then. He reports increasing abdominal distention. He has has mid epigastric pain that he describes as a pressure. He reports a poor appetite but denies nausea or vomiting. He took several over the counter medicines including TUMS, Maalox, and Imodium. No fevers or chills. He denies chest pain, palpitations, and shortness of breath. He has had some mild lightheadedness and dizziness but denies any syncopal events. No urinary symptoms. In the ED, patient had a CT abd /pelvis that is suggesting possible partial SBO. He was given IVF and Zofran. He is hemodynamically stable. Physical Exam (per Admitting): General Appearance: WD/WN, no apparent distress Head: normocephalic, atraumatic Eyes: normal inspection, EOMI, sclerae normal ENT: hearing grossly normal, + pertinent finding (mucous membranes moist) Neck: supple, no JVD, trachea midline Respiratory/Chest: chest non-tender, lungs clear, normal breath sounds, no respiratory distress Cardiovascular: regular rate, rhythm, no edema, normal peripheral pulses Abdomen/GI: no organomegaly, + tenderness (mild, generalized), + abnormal bowel sounds (hypoactive), + distended (semi firm) Extremities/Musculoskelatal: normal inspection, no calf tenderness, normal capillary refill Neurologic/Psych: no motor/sensory deficits, alert, normal mood/affect, oriented x 3 Skin: normal color, warm/dry Hospital Course 52 yoM presents with several days of non-bloody diarrhea and worsening abdominal pain with evidence of partial SBO on workup in the ER. He was started on IVF and given supportive care without NGT placement. Overnight he did well and General Surgery has advanced him to clear liquids which he is tolerating without issue. He reports taking TUMS, Pepto-Bismol and Imodium all prior to arrival yesterday. He has now had another episode of diarrhea just today. His pain is very minimal and much improved since yesterday. 1. Abdominal pain 2/2 partial SBO vs acute gastroenteritis. Pt has minimal pain and is now tolerating clear liquids. Diarrhea has returned so will monitor this and check stool studies. Of note, was also sick with a GI illness recently. 2. Idiopathic cardiomyopathy s/p AICD-admission CXR was suggestive of pulmonary congestion, however, he is compensated. Stopping IVF to avoid fluid overload. Cont BB. 3. Amiodarone-induced hyperthyroidism-cont methimazole. Cont management per outpatient Endo group in [place]. DVT PROPHYLAXIS: Lovenox Full Code Dispo-To home in 1-2 days. Nissa Martinez DO [facility] Hospitalist Total time spent on discharge = 60 minutes This includes examination of the patient, discharge planning, medication reconciliation, and communication with other providers. Discharge Instructions [address] [address] Discharge Medical Patient Name: Elsi Liang Unit Number: [id number] Date of : 1965 Patient Status: Admitted Inpatient Attending Doctor: Nissa Martinez DO DI: Medical v4 Discharge Instructions Date of Service Aug 06, 2017. Admission Reason for Admission: Partial Small Bowel Obstruction Discharge Discharge Diagnosis / Problem: partial SBO Discharge Goals Goal(s): Prevent Disease Progression Activity Recommendations Activity Limitations: per Instructions/Follow-up section . Instructions / Follow-Up Instructions / Follow-Up Please continue all medications as listed above. I would recommend sticking to a diet that is bland and does not include any dairy products or milk products until things normalize for you. I would also avoid any Imodium, Pepto or other over the counter anti-diarrhea meds or any laxatives at this point for few days. This will allow your body to readjust back to baseline. You have a follow-up appointment with Dr. Aguillon on 08/10 @ 1045am at the [facility] location for follow-up from this hospitalization. It was a pleasure taking care of you! Call if you have any questions or problems. You can reach a [facility] hospitalist on duty at [facility] 24 hours a day by calling [phone]. Take care of yourself. Nissa Martinez DO [facility] Hospitalist Current Hospital Diet Patient's current hospital diet: Regular Diet Discharge Diet Recommended Diet: Regular Diet Procedures Procedures Performed: None. Pending Studies Studies pending at discharge: yes List of pending studies: Stool studies. Medical Emergencies . Who to Call and When: Medical Emergencies: If at any time you feel your situation is an emergency, please call 911 immediately. . Non-Emergent Contact Non-Emergency issues call your: Primary Care Provider . . "Provider Documentation" section prepared by Nissa Martinez. . VTE Core Measure Inpt VTE Proph given/why not?: Enoxaparin (Lovenox)SQ Additional Copies To [place] Aguillon D.O.
[2017-08-06 14:29] VITALS: BP 129/84; PULSE 70; TEMP 36.6; O2SAT 95
== END 2017-08-06 15:35 | disposition home or self-care (01) | DRG 389 ==
LOC: C.EDB 07:00 → C.MSW 12:44 → ENRESERV 13:06
PROVIDERS: ADMIT Family Medicine; ATTEND Hospitalist
DX: K56.600 Partial intestinal obstruction, unspecified as to cause (principal); I42.9 Cardiomyopathy, unspecified; K52.9 Noninfective gastroenteritis and colitis, unspecified; I48.0 Paroxysmal atrial fibrillation; E05.80 Other thyrotoxicosis without thyrotoxic crisis or storm; T46.2X5S Adverse effect of other antidysrhythmic drugs, sequela; Z95.810 Presence of automatic (implantable) cardiac defibrillator; Z79.899 Other long term (current) drug therapy

== ENCOUNTER → 2017-11-24 | Outpatient (CLI) | payer OTHER ==
[~2017-11-24] MED LIST changes: -LISI-725 PO; +SERT25TA PO
[2017-11-24 12:07] LABS: BASO % 0.6 %; BASO ABS # 0.05 K/uL (0-0.2); EOS % 3.6 %; EOS ABS # 0.31 K/uL (0-0.5); HEMATOCRIT 45.3 % (42-52); IG# 0.02 K/uL (0.00-0.02); LYMPH % 23.9 %; LYMPH ABS # 2.09 K/uL (1.2-3.4); MEAN CELL VOLUME 88.8 fL (80-100); MEAN CORPUSCULAR HEMOGLOBIN 29.4 pg (25-34); MEAN CORPUSCULAR HGB CONC 33.1 g/dl (32-36); MEAN PLATELET VOLUME 9.4 fL (7.4-10.4); MONO % 9.2 %; NEUT % 62.5 %; NEUT ABS # 5.46 K/uL (1.4-6.5); PLATELET COUNT 297 K/uL (130-400); RED CELL DISTRIBUTION WIDTH CV 13.6 % (11.5-14.5); RED CELL DISTRIBUTION WIDTH SD 44.5 fL (36.4-46.3); WHITE BLOOD COUNT 8.73 K/uL (4.8-10.8)
[2017-11-24 12:45] LABS: ALT/SGPT 30 U/L (12-78); BLOOD UREA NITROGEN 26 mg/dl (7-18); CARBON DIOXIDE 25 mmol/L (21-32); CREATININE 1.06 mg/dl (0.60-1.40); GLUCOSE 93 mg/dl (70-99); POTASSIUM 4.2 mmol/L (3.5-5.1); SODIUM 140 mmol/L (136-145)
[2017-11-24 13:02] LABS: ALKALINE PHOSPHATASE 63 U/L (45-117); AST/SGOT 16 U/L (15-37); TOTAL PROTEIN 7.4 gm/dl (6.4-8.2)
== END | disposition home or self-care (01) ==
LOC: C.LAB1850 09:56
PROVIDERS: ATTEND Physician Assistant Medical
DX: E03.9 Hypothyroidism, unspecified (principal)

== ENCOUNTER 2018-12-08 15:52 | Observation (INO) ==
[2018-12-08] MEDS ORDERED: ASPIRIN CHEW 324 MG PO STA (17:15)
[2018-12-08] MEDS ORDERED: SODIUM CHLORIDE 0.9% 500 ML IV SCH (17:15)
--- NOTE | 2018-12-08 17:35 | XRay Report ---
XR chest 1V portable CLINICAL HISTORY: Chest Pain dyspnea COMPARISON STUDY: 09/01/2018 FINDINGS: The bones soft tissues and hemidiaphragms are normal. The cardiomediastinal silhouette is n ormal. The lungs are clear. The pulmonary vasculature is normal. IMPRESSION: Negative chest. Permanent pacemaker in good position The above report was generated using voice recognition software. It may contain grammatical, syntax or spelling errors. Electronically signed by: Marcial Calero M.D. 12/08/2018 5:34 PM
[2018-12-08 18:25] LABS: Basophils # (auto) 0.03 K/uL (0-0.2); Basophils % (auto) 0.3 %; Eosinophils # (auto) 0.19 K/uL (0-0.5); Eosinophils % (auto) 2.1 %; Hematocrit (blood only) 43.1 % (42-52); Hemoglobin 14.4 g/dL (14.0-18.0); Immature Granulocytes # (auto) 0.02 K/uL (0.00-0.02); Immature Granulocytes % (auto) 0.2 %; Lymphocytes # (auto) 2.24 K/uL (1.2-3.4); Lymphocytes % (auto) 25.1 %; Mean Corpuscular Hgb Conc 33.4 g/dL (32-36); Mean Corpuscular Volume 88.3 fL (80-100); Mean Platelet Volume 9.1 fL (7.4-10.4); Monocytes # (auto) 0.74 K/uL (0.11-0.59); Monocytes % (auto) 8.3 %; Neutrophils # (auto) 5.71 K/uL (1.4-6.5); Platelet Count 261 K/uL (130-400); RDW Coefficient of Variation 13.8 % (11.5-14.5); RDW Standard Deviation 44.8 fL (36.4-46.3); Red Blood Count 4.88 M/uL (4.7-6.1); White Blood Count 8.93 K/uL (4.8-10.8)
[2018-12-08 18:37] LABS: INR 1.1 (0.9-1.1); Partial Thromboplastin Ratio 0.9; Partial Thromboplastin Time 24.8 Seconds (21.0-31.0); Prothrombin Time 10.9 Seconds (9.0-12.0)
[2018-12-08 18:46] LABS: Alanine Aminotransferase 43 U/L (12-78); Albumin Level 3.7 gm/dl (3.4-5.0); Aspartate Aminotransferase 23 U/L (15-37); Blood Urea Nitrogen 21 mg/dl (7-18); Carbon Dioxide 25 mmol/L (21-32); Chloride 110 mmol/L (98-107); Est GFR (African American) 96.8; Est GFR (Non-African American) 83.5; Glucose 76 mg/dl (70-99); Magnesium 2.4 mg/dl (1.8-2.4); Potassium 3.7 mmol/L (3.5-5.1); Sodium 142 mmol/L (136-145)
[2018-12-08 18:51] LABS: Alkaline Phosphatase 63 U/L (45-117); Bilirubin,Total 0.6 mg/dl (0.2-1); Globulin 3.7 gm/dl (2.5-4.0); Total Protein 7.4 gm/dl (6.4-8.2); Troponin I < 0.015 ng/ml (0-0.045)
--- NOTE | 2018-12-08 20:08 | History & Physical Report ---
Date of Service December 08, 2018 Assessment & Plan (1) Chest pain: This is a 53-year-old male who has a significant past medical history of nonischemic cardiomyopathy EF 45%, AICD, PAF, thyroid disorder who presents to [facility] secondary to chest pain X 1 day. In ED initial troponin WNL, ECG revealing paced rhythm Received ASA 325 mg Symptoms have resolved on arrival While in ED he remained hemodynamically stable upon my evaluation he was hypertensive 157/107 CBC, CMP, TSH relatively unremarkable Admit patient to telemetry Consult cardiology Recently had a nuclear stress test in August 2018 N.p.o. after midnight Please refer to attending addendum for further assessment and plan (2) Cardiomyopathy: Nonischemic cardiomyopathy diagnosed in 2007, cardiac cath at that time revealed minimal nonobstructive CAD Follows [facility] cardiology Recent nuclear stress echo on 08/2018 -EF 45% was negative for inducible ischemia Continue medical management with ASA, BB, ARB, Aldactone, lasix prn Daily weights, strict I and O (3) PAF (paroxysmal atrial fibrillation): Rate and rhythm control on sotalol Not on oral anticoagulation - per recent cardiology note pt had stopped on own due to blood in stool ( had been on eliquis, xarelto and coumadin in past) Currently on ASA 81mg (4) Thyroid disorder: TSH WNL had been on high dose levothyroxine secondary to amiodarone toxicity - stopped levothyroxine on his own monitor (5) DVT prophylaxis: DVT ppx: Per Attending Full Code Disposition: D/C to home when able Follow up: PCP Dr. Li upon discharge Patient was seen and examined in collaboration with Dr. Rivas, please see addendum for full assessment and plan History of Present Illness Chief Complaint: Chest pain x 1 day. Primary Care Provider: Georgia Aguillon, This is a 53-year-old male who has a significant past medical history of nonischemic cardiomyopathy EF 45%, AICD, PAF, thyroid disorder who presents to [facility] secondary to chest pain X 1 day. Patient was shoveling cow manure today when he developed diffuse chest tightness that radiated to his left arm, described as "pressure, ache," overall feel ill, dizzy, diaphoretic. Patient rested and symptoms did not resolve therefore he opted to come to ED. He did not try anything [id number] to improve symptoms. When he arrived at ED symptoms had improved with rest. He feels symptoms were present for approximately 2-3 hours. He denies any recent illness, shortness of breath, ADRIAN, palpitations, cough, hemoptysis. He further denies any fever, chills, sweats, syncope, nausea, vomiting, diarrhea, abdominal pain. He notes for the past month and a half he has been having looser stool, but denies melena or hematochezia. His appetite has been normal. Patient follows with [facility] cardiology. He saw Dr. Dwyer in 08/2018 in which he expressed an episode of chest pain. Given symptoms he underwent a nuclear stress test which revealed EF of 45% and negative for inducible ischemia. At that visit it was also noted that patient had overall stopped his levothyroxine. 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 A repeat TSH revealed TSH elevated at 5.4 with a normal T4. He was recommended to restart levothyroxine at a lower dose 50 mcg, but never did. Allergies Allergy/AdvReac Type Severity Reaction Status Date / Time cefuroxime Allergy Intermediate Rash Verified 12/08/18 17:09 Home Medications Home Medications Medication Instructions Recorded Confirmed Type aspirin [Aspir-81] 81 mg PO DAILY 07/05/18 12/08/18 History carvedilol 37.5 mg PO BID 07/05/18 12/08/18 History potassium chloride [Klor-Con M20] 20 meq PO UD PRN 07/05/18 12/08/18 History spironolactone 25 mg PO DAILY 07/05/18 12/08/18 History amiodarone 100 mg PO DAILY 09/01/18 12/08/18 History furosemide [Lasix] 20 mg PO DAILY PRN 12/08/18 12/08/18 History losartan 100 mg PO DAILY 12/08/18 12/08/18 History Past Med/Surg History Medical History PAF (paroxysmal atrial fibrillation) (Chronic) Thyroid disorder (Chronic) Diastolic dysfunction (Chronic) "echo 02/2017- grade II" Idiopathic cardiomyopathy (Chronic) Had nuclear stress test/echo 08/2018 EF 45%, negative for inducible ischemia Amiodarone-induced hyperthyroidism (Chronic) Surgical History S/P cholecystectomy (Chronic) S/P ablation of atrial fibrillation (Chronic) S/P ICD (internal cardiac defibrillator) procedure (Chronic) Family History Uncle Stroke Mother , 38 Cervical cancer Other Adopted Social History Preferred Language: Romanian Communication Ability: Effective 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 Beliefs That Will Affect Care: None marital status: Current Living Situation: Spouse current occupational status: employed Other Information That Helps Us Care for You: No Feels Safe at Home: Yes Safety Concerns: Feels Safe At This Time Smoking Status: Former smoker Tobacco Type: smokeless tobacco Do You Dip or Chew Tobacco: Yes (1-2 cans/year) Second Hand Exposure: No Tobacco Cessation Education Requested by Patient: No Hx Alcohol Use: Yes Alcohol type: beer Hx Substance Use: No Review of Systems Review of Systems: All systems reviewed & are unremarkable except as noted in HPI & below Physical Exam Vital Signs (Past 24 Hours): Last Vital Signs Temp 36.6 C 12/08/18 15:55 Pulse 70 12/08/18 18:47 Resp 17 12/08/18 18:47 BP 130/88 12/08/18 18:47 Pulse Ox 98 12/08/18 18:47 Physical Exam: Gen: WD/WN, M, NAD, sitting up in bed, pleasant, conversing easily Head: Normocephalic, Atraumatic Eyes: Sclera normal, no conjunctival injection, PERRLA, EOMI ENT: Gross hearing intact, normal pharynx, mucous membranes moist Neck: supple, no adenopathy, No JVD, no bruit, Resp: Clear to auscultation b/l, no wheeze, rales, rhonchi. 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 Extremities: Minimal edema bilaterally Skin: warm, moist, no rash, negative turgor, cap refill < 2sec Neuro: Alert and oriented x 3, speech normal, good mood/affect, cran nerve 2-12 intact grossly : deferred Results & Data Laboratory Results 12/08/18 12/08/18 12/08/18 Range/Units 18:08 18:08 18:08 WBC 8.93 (4.8-10.8) K/uL RBC 4.88 (4.7-6.1) M/uL Hgb 14.4 (14.0-18.0) g/dL Hct 43.1 (42-52) % MCV 88.3 (80-100) fL MCH 29.5 (25-34) pg MCHC 33.4 (32-36) g/dL RDW Std Deviation 44.8 (36.4-46.3) fL RDW Coeff of Yousuf 13.8 (11.5-14.5) % Plt Count 261 (130-400) K/uL MPV 9.1 (7.4-10.4) fL Immature Gran % (Auto) 0.2 % Neut % (Auto) 64.0 % Lymph % (Auto) 25.1 % Wayne % (Auto) 8.3 % Eos % (Auto) 2.1 % Baso % (Auto) 0.3 % Immature Gran # (Auto) 0.02 (0.00-0.02) K/uL Neut # (Auto) 5.71 (1.4-6.5) K/uL Lymph # (Auto) 2.24 (1.2-3.4) K/uL Wayne # (Auto) 0.74 H (0.11-0.59) K/uL Eos # (Auto) 0.19 (0-0.5) K/uL Baso # (Auto) 0.03 (0-0.2) K/uL PT 10.9 (9.0-12.0) Seconds INR 1.1 (0.9-1.1) APTT 24.8 (21.0-31.0) Seconds PTT Ratio 0.9 Sodium 142 (136-145) mmol/L Potassium 3.7 (3.5-5.1) mmol/L Chloride 110 H (98-107) mmol/L Carbon Dioxide 25 (21-32) mmol/L Anion Gap 7.0 (3-11) BUN 21 H (7-18) mg/dl Creatinine 1.02 (0.6-1.4) mg/dl Est Cr Clr Drug Dosing Not Reportable Est GFR ( Amer) 96.8 Est GFR (Non-Af Amer) 83.5 BUN/Creatinine Ratio 21.0 H (10-20) Glucose 76 (70-99) mg/dl Calcium 9.0 (8.5-10.1) mg/dl Magnesium 2.4 (1.8-2.4) mg/dl Total Bilirubin 0.6 (0.2-1) mg/dl AST 23 (15-37) U/L ALT 43 (12-78) U/L Alkaline Phosphatase 63 (45-117) U/L Troponin I < 0.015 (0-0.045) ng/ml Total Protein 7.4 (6.4-8.2) gm/dl Albumin 3.7 (3.4-5.0) gm/dl Globulin 3.7 (2.5-4.0) gm/dl Albumin/Globulin Ratio 1.0 (0.9-2) Lipase 70 L (73-393) U/L TSH 3.710 (0.300-4.500) uIu/ml Diagnostic Findings CXR: IMPRESSION: Negative chest. Permanent pacemaker in good position Medications Administered Discontinued Medications Aspirin (Aspirin) 324 mg PO NOW STA Stop: 12/08/18 17:16 Last Admin: 12/08/18 17:52 Dose: 324 mg Documented by: [id number] Sodium Chloride (Nss) 500 mls @ 999 mls/hr IV .Q31M RED Stop: 12/08/18 17:45 Last Infusion: 12/08/18 18:48 Dose: 0 mls/hr Documented by: [id number] Admin: 12/08/18 18:15 Dose: 999 mls/hr Documented by: [id number] ECG Rate (beats per minute): 74 Findings: + paced rhythm Code Status & VTE Plan Code Status Full code VTE Prophylaxis Plan VTE Prophylaxis will be ordered: Yes Supervising Physician Co-Signing Physician Notes IM ATTENDING : Patient seen and examined. History obtained from patient and records. Preceding documentation by Ms. Charisma Teague PA-C reviewed. FINAL ASSESSMENT AND PLAN as follows : Chest pain going to the left arm Possible ACS hx CAD on previous diagnostic cardiac catheterization Chronic systolic CHF, patient euvolemic PAF status post ablation status post PPM, not on anti-coagulation as per patient preference hx left bundle branch block OBS Medical telemetry Continue aspirin for secondary CAD prevention Follow troponin Cardiology consult in a.m. RE exertional angina DVT prophylaxis. Lovenox subcu Full code (1) Chest pain Chest pain type: precordial pain Qualified Code(s): R07.2 - Precordial pain (2) Cardiomyopathy Cardiomyopathy type: unspecified Qualified Code(s): I42.9 - Cardiomyopathy, unspecified
[2018-12-08] MEDS ORDERED: MoRPHine SULFATE 4 MG/ML 1 ML CARP\\VIAL IV PRN (21:10)
[2018-12-08] MEDS ORDERED: NITROGLYCERIN SL 0.4 MG/TAB TAB SL PRN (21:10)
[2018-12-08] MEDS ORDERED: ACETAMINOPHEN 325 MG TAB PO PRN (21:10)
[2018-12-08] MEDS ORDERED: TRAMADOL HCL 50 MG TABLET PO PRN (21:10)
[2018-12-08] MEDS ORDERED: PROCHLORPERAZINE 5 MG in SYRINGE 4 ML IV PRN (21:10)
[2018-12-08] MEDS ORDERED: LORazepam 0.25 MG/0.5 ML VIAL IV PRN (21:10)
[2018-12-08] MEDS: CARVEDILOL 25 MG TAB PO SCH (22:11)
[2018-12-09] MEDS ORDERED: D5W AND LACTATED RINGERS 1,000 ML IV SCH (00:01)
--- NOTE | 2018-12-09 00:22 | Emergency Department Note ---
Entered by Karey Silva acting as a scribe for History of Present Illness General Chief complaint: Chest Pain Stated complaint: CHEST PAIN, SWEATING, RUN DOWN Time Seen by Provider: 12/08/18 17:06 Source: patient Mode of arrival: ambulatory Limitations: no limitations History of Present Illness Provider complaint: chest pain Onset (ago): hour(s) 6 Location: chest Radiation: extremity Pain Consistency: + other (episode) Maximum Pain Intensity: 3 Quality: + other (chest pain) Relieved By: + rest Associated symptoms: + diaphoresis, + shortness of breath and + other (diarrhea, tingling); no nausea/vomiting The patient is a 53 year old male who presents to the ER with complaints of an episode of chest pain that occurred about 6 hours ago. The patient reports that he did experience diaphoresis and shortness of breath during this episode and that he decided to sit and rest. He notes his symptoms persisted after rest but that the pain did decrease from a 10/10. He states that he has been having diarrhea recently as well been tired and restless. He denies any nausea or vomiting. He reports he has a history of a cholecystectomy. He also states that during the episode, the chest pain did radiate to his left arm. He reports that he was shoveling dirt when his symptoms started. He denies ever experiencing a heart attack. Home Medications Home Medications Medication Instructions Recorded Confirmed Type aspirin [Aspir-81] 81 mg PO DAILY 07/05/18 12/08/18 History carvedilol 37.5 mg PO BID 07/05/18 12/08/18 History potassium chloride [Klor-Con M20] 20 meq PO UD PRN 07/05/18 12/08/18 History spironolactone 25 mg PO DAILY 07/05/18 12/08/18 History amiodarone 100 mg PO DAILY 09/01/18 12/08/18 History furosemide [Lasix] 20 mg PO DAILY PRN 12/08/18 12/08/18 History losartan 100 mg PO DAILY 12/08/18 12/08/18 History Allergies Allergy/AdvReac Type Severity Reaction Status Date / Time cefuroxime Allergy Intermediate Rash Verified 12/08/18 17:09 Past Med/Surg History Medical History PAF (paroxysmal atrial fibrillation) (Chronic) Thyroid disorder (Chronic) Diastolic dysfunction (Chronic) "echo 02/2017- grade II" Idiopathic cardiomyopathy (Chronic) Had nuclear stress test/echo 08/2018 EF 45%, negative for inducible ischemia Amiodarone-induced hyperthyroidism (Chronic) Surgical History S/P cholecystectomy (Chronic) S/P ablation of atrial fibrillation (Chronic) S/P ICD (internal cardiac defibrillator) procedure (Chronic) Family History Uncle Stroke Mother , 38 Cervical cancer Other Adopted Social History Preferred Language: Ivorian Communication Ability: Effective Superintendent Tests Required: No Beliefs That Will Affect Care: None marital status: Current Living Situation: Spouse current occupational status: employed Other Information That Helps Us Care for You: No Feels Safe at Home: Yes Safety Concerns: Feels Safe At This Time Smoking Status: Former smoker Tobacco Type: smokeless tobacco Do You Dip or Chew Tobacco: Yes (1-2 cans/year) Second Hand Exposure: No Tobacco Cessation Education Requested by Patient: No Hx Alcohol Use: Yes Alcohol type: beer Hx Substance Use: No Review of Systems See HPI for pertinent positives & negatives. and A total of 10 systems reviewed and were otherwise negative Physical Exam Vital Signs Vital Signs - 24 hr 12/08/18 15:55 12/08/18 16:40 12/08/18 16:48 Temperature 36.6 C Temperature Source Oral Sepsis Recent Fever Within 48 Hours No Sepsis New/Unexplained Change in Mental Status No Sepsis Action Taken by Nursing No Action Required Pulse Rate 71 71 70 Pulse Rate [Finger] Pulse Rate from SpO2 Sensor 68 70 Respiratory Rate 17 15 15 Respiratory Effort / Characteristics Non-Labored Respiratory Depth Normal Blood Pressure 114/70 139/94 Blood Pressure [Left Arm] Blood Pressure Mean 84 109 Blood Pressure Mean [Left Arm] Blood Pressure Position Sitting Blood Pressure Position [Left Arm] Pulse Oximetry 98 94 94 Oxygen Delivery Method Room Air 12/08/18 17:00 12/08/18 17:07 12/08/18 17:19 Temperature Temperature Source Sepsis Recent Fever Within 48 Hours Sepsis New/Unexplained Change in Mental Status Sepsis Action Taken by Nursing Pulse Rate 70 Pulse Rate [Finger] Pulse Rate from SpO2 Sensor 70 Respiratory Rate 13 Respiratory Effort / Characteristics Respiratory Depth Blood Pressure Blood Pressure [Left Arm] Blood Pressure Mean Blood Pressure Mean [Left Arm] Blood Pressure Position Blood Pressure Position [Left Arm] Pulse Oximetry 95 96 97 Oxygen Delivery Method Room Air Room Air 12/08/18 17:30 12/08/18 18:00 12/08/18 18:30 Temperature Temperature Source Sepsis Recent Fever Within 48 Hours Sepsis New/Unexplained Change in Mental Status Sepsis Action Taken by Nursing Pulse Rate 75 75 74 Pulse Rate [Finger] Pulse Rate from SpO2 Sensor 69 Respiratory Rate 20 17 15 Respiratory Effort / Characteristics Respiratory Depth Blood Pressure Blood Pressure [Left Arm] Blood Pressure Mean Blood Pressure Mean [Left Arm] Blood Pressure Position Blood Pressure Position [Left Arm] Pulse Oximetry 97 Oxygen Delivery Method 12/08/18 18:47 12/08/18 19:01 12/08/18 19:31 Temperature Temperature Source Sepsis Recent Fever Within 48 Hours Sepsis New/Unexplained Change in Mental Status Sepsis Action Taken by Nursing Pulse Rate 72 70 72 Pulse Rate [Finger] 70 Pulse Rate from SpO2 Sensor 64 69 68 Respiratory Rate 20 15 14 Respiratory Effort / Characteristics Respiratory Depth Blood Pressure 130/88 137/87 155/108 H Blood Pressure [Left Arm] 130/88 Blood Pressure Mean 102 103 123 Blood Pressure Mean [Left Arm] 102 Blood Pressure Position Blood Pressure Position [Left Arm] Pulse Oximetry 96 96 97 Oxygen Delivery Method Room Air 12/08/18 20:01 12/08/18 21:39 12/08/18 21:52 Temperature 36.4 C L Temperature Source Oral Sepsis Recent Fever Within 48 Hours Sepsis New/Unexplained Change in Mental Status Sepsis Action Taken by Nursing Pulse Rate 71 75 Pulse Rate [Finger] 60 Pulse Rate from SpO2 Sensor 70 Respiratory Rate 18 18 Respiratory Effort / Characteristics Respiratory Depth Blood Pressure 157/107 H Blood Pressure [Left Arm] 139/90 Blood Pressure Mean 123 Blood Pressure Mean [Left Arm] 106 Blood Pressure Position Blood Pressure Position [Left Arm] Pulse Oximetry 96 93 Oxygen Delivery Method Room Air 12/08/18 23:33 Temperature 36.3 C L Temperature Source Oral Sepsis Recent Fever Within 48 Hours Sepsis New/Unexplained Change in Mental Status Sepsis Action Taken by Nursing Pulse Rate Pulse Rate [Finger] 69 Pulse Rate from SpO2 Sensor Respiratory Rate 18 Respiratory Effort / Characteristics Respiratory Depth Blood Pressure Blood Pressure [Left Arm] 117/73 Blood Pressure Mean Blood Pressure Mean [Left Arm] 87 Blood Pressure Position Blood Pressure Position [Left Arm] Lying Pulse Oximetry 90 Oxygen Delivery Method Room Air GENERAL: Patient is in no acute distress. HEENT: No acute trauma, normocephalic atraumatic, mucous membranes moist, no nasal congestion, no scleral icterus. NECK: No stridor, no adenopathy, no meningismus, trachea is midline. LUNGS: Clear to auscultation bilaterally, no wheeze, no rhonchi, breath sounds equal. HEART: Slight systolic murmur, regular rate and rhythm. ABDOMEN: Soft, nontender, bowel sounds positive, no hernias, no peritonitis. EXTREMITIES: No cyanosis or edema, full range of motion of all the joints without pain or difficulty, no signs for acute trauma. NEUROLOGIC: Oriented x 3, no acute motor or sensory deficits, no focal weakness. SKIN: No rash, no jaundice, no diaphoresis. Course 1706: Past medical records reviewed. The patient was evaluated in room A10 and a complete history and physical examination was performed. 1904: I updated the patient on todays findings and on the treatment plan. 1906: I discussed the patients case with Charisma Teague PA-C. She will evaluate the patient for further management. Administered Medications Carvedilol (Coreg) 37.5 mg PO BID RED Stop: 01/07/19 21:09 Last Admin: 12/08/18 22:11 Dose: 37.5 mg Documented by: [id number] Dextrose/Lactated Ringer's (D5w And Lactated Ringers) 1,000 mls @ 40 mls/hr IV .Q24H RED Stop: 01/08/19 00:00 Last Admin: 12/09/18 00:19 Dose: 40 mls/hr Documented by: [id number] Discontinued Medications Aspirin (Aspirin) 324 mg PO NOW STA Stop: 12/08/18 17:16 Last Admin: 12/08/18 17:52 Dose: 324 mg Documented by: [id number] Sodium Chloride (Nss) 500 mls @ 999 mls/hr IV .Q31M RED Stop: 12/08/18 17:45 Last Infusion: 12/08/18 18:48 Dose: 0 mls/hr Documented by: [id number] Admin: 12/08/18 18:15 Dose: 999 mls/hr Documented by: [id number] Medical Decision Making Differential Diagnosis Differential Diagnosis includes: HI, angina, aortic dissection, PE, pneumothorax, musculoskeletal pain, and dysrhythmia. Medical Records Attestation: I reviewed the patient's medical records. Home Medications Current Medication List: was personally reviewed by me Laboratory Data Attestation: I reviewed the patient's lab results. Result diagrams: 12/08/18 18:08 12/08/18 18:08 Lab Results 12/08/18 12/08/18 12/08/18 Range/Units 18:08 18:08 18:08 WBC 8.93 (4.8-10.8) K/uL RBC 4.88 (4.7-6.1) M/uL Hgb 14.4 (14.0-18.0) g/dL Hct 43.1 (42-52) % MCV 88.3 (80-100) fL MCH 29.5 (25-34) pg MCHC 33.4 (32-36) g/dL RDW Std Deviation 44.8 (36.4-46.3) fL RDW Coeff of Yousuf 13.8 (11.5-14.5) % Plt Count 261 (130-400) K/uL MPV 9.1 (7.4-10.4) fL Immature Gran % (Auto) 0.2 % Neut % (Auto) 64.0 % Lymph % (Auto) 25.1 % [place] % (Auto) 8.3 % Eos % (Auto) 2.1 % Baso % (Auto) 0.3 % Immature Gran # (Auto) 0.02 (0.00-0.02) K/uL Neut # (Auto) 5.71 (1.4-6.5) K/uL Lymph # (Auto) 2.24 (1.2-3.4) K/uL [place] # (Auto) 0.74 H (0.11-0.59) K/uL Eos # (Auto) 0.19 (0-0.5) K/uL Baso # (Auto) 0.03 (0-0.2) K/uL PT 10.9 (9.0-12.0) Seconds INR 1.1 (0.9-1.1) APTT 24.8 (21.0-31.0) Seconds PTT Ratio 0.9 Sodium 142 (136-145) mmol/L Potassium 3.7 (3.5-5.1) mmol/L Chloride 110 H (98-107) mmol/L Carbon Dioxide 25 (21-32) mmol/L Anion Gap 7.0 (3-11) BUN 21 H (7-18) mg/dl Creatinine 1.02 (0.6-1.4) mg/dl Est Cr Clr Drug Dosing Not Reportable Est GFR ( Amer) 96.8 Est GFR (Non-Af Amer) 83.5 BUN/Creatinine Ratio 21.0 H (10-20) Glucose 76 (70-99) mg/dl Calcium 9.0 (8.5-10.1) mg/dl Magnesium 2.4 (1.8-2.4) mg/dl Total Bilirubin 0.6 (0.2-1) mg/dl AST 23 (15-37) U/L ALT 43 (12-78) U/L Alkaline Phosphatase 63 (45-117) U/L Troponin I < 0.015 (0-0.045) ng/ml Total Protein 7.4 (6.4-8.2) gm/dl Albumin 3.7 (3.4-5.0) gm/dl Globulin 3.7 (2.5-4.0) gm/dl Albumin/Globulin Ratio 1.0 (0.9-2) Lipase 70 L (73-393) U/L TSH 3.710 (0.300-4.500) uIu/ml Imaging Data Radiologist's Impression: Radiology results as stated below per my review and the radiologist's interpretation: XR chest 1V portable CLINICAL HISTORY: Chest Pain dyspnea COMPARISON STUDY: 09/01/2018 FINDINGS: The bones soft tissues and hemidiaphragms are normal. The cardiomediastinal silhouette is normal. The lungs are clear. The pulmonary vasculature is normal. IMPRESSION: Negative chest. Permanent pacemaker in good position The above report was generated using voice recognition software. It may contain grammatical, syntax or spelling errors. Electronically signed by: Marcial Calero M.D. 12/08/2018 5:34 PM ECG Data Attestation: I personally reviewed and interpreted this ECG as follows: Indication: chest pain Rate (beats per minute): 76 Rhythm: other (AV pacemaker) Findings: + PVC; no ST elevation Blood Pressure Blood Pressure Findings: Normal blood pressure Blood Pressure Disposition: did not require urgent referral MDM Narrative There is no leukocytosis or concerning anemia. No coagulopathy. No significant electrolyte abnormality or kidney failure. No hepatitis. The patient appears to be in a euthyroid state. No evidence for pancreatitis. EKG shows a sinus rhythm, no acute ischemia. Cardiac enzyme testing x1 is not consistent with acute cardiac injury. Chest x-ray does not show mediastinal widening, pneumothorax or pneumonia. The patient does have a heart history. He presents with chest pain and diaphoresis. The pain was present with exertion. I do think further cardiac workup is warranted. I do not feel safe with discharge home. During the ED stay, the patient was given oral aspirin, he received a small amount of IV saline. I did speak to the patient and case management. The on-call hospitalist was consulted. Impression & Plan Chest pain, Diaphoresis, Cardiomyopathy Discharge Plan Visit Data *Final* Discharge Date/Time: 12/08/18 20:52 Chief Complaint: Chest Pain Stated Complaint: CHEST PAIN, SWEATING, RUN DOWN ED Provider: Mustapha Atwood Discharge Problem: Chest pain, Diaphoresis, Cardiomyopathy Patient Disposition: Admitted As Inpatient Discharge Instructions Interventions: ED Discharge Assessment Last Done: 12/08/18 20:52 Discharge Problem: Chest pain Qualifiers: Chest pain type: precordial pain Qualified Code(s): R07.2 - Precordial pain Cardiomyopathy Qualifiers: Cardiomyopathy type: unspecified Qualified Code(s): I42.9 - Cardiomyopathy, unspecified The scribe's documentation has been prepared under my direction and personally reviewed by me in its entirety. I confirm that the note above accurately reflects all work, treatment, procedures, and medical decision making performed by me.
[2018-12-09 02:10] LABS: Basophils # (auto) 0.02 K/uL (0-0.2); Basophils % (auto) 0.3 %; Eosinophils # (auto) 0.25 K/uL (0-0.5); Eosinophils % (auto) 3.9 %; Hematocrit (blood only) 39.5 % (42-52); Hemoglobin 12.9 g/dL (14.0-18.0); Immature Granulocytes # (auto) 0.01 K/uL (0.00-0.02); Immature Granulocytes % (auto) 0.2 %; Lymphocytes # (auto) 2.13 K/uL (1.2-3.4); Lymphocytes % (auto) 33.6 %; Mean Corpuscular Hgb Conc 32.7 g/dL (32-36); Mean Corpuscular Volume 89.2 fL (80-100); Mean Platelet Volume 8.9 fL (7.4-10.4); Monocytes # (auto) 0.62 K/uL (0.11-0.59); Monocytes % (auto) 9.8 %; Neutrophils # (auto) 3.31 K/uL (1.4-6.5); Neutrophils % (auto) 52.2 %; Platelet Count 224 K/uL (130-400); RDW Coefficient of Variation 13.8 % (11.5-14.5); RDW Standard Deviation 45.6 fL (36.4-46.3); Red Blood Count 4.43 M/uL (4.7-6.1); White Blood Count 6.34 K/uL (4.8-10.8)
[2018-12-09 02:22] LABS: Partial Thromboplastin Ratio 0.9; Partial Thromboplastin Time 25.6 Seconds (21.0-31.0)
[2018-12-09 02:37] LABS: BUN Creatinine Ratio 18.1 (10-20); Blood Urea Nitrogen 20 mg/dl (7-18); Calcium 8.1 mg/dl (8.5-10.1); Carbon Dioxide 28 mmol/L (21-32); Chloride 109 mmol/L (98-107); Creatinine Clr Calc Pharmacy 96.3 ml/min; Est GFR (African American) 87.4; Est GFR (Non-African American) 75.4; Glucose 110 mg/dl (70-99); Potassium 3.3 mmol/L (3.5-5.1); Sodium 141 mmol/L (136-145)
[2018-12-09 02:42] LABS: Chol HDL Ratio 4; Cholesterol 159 mg/dl (0-200); HDL Cholesterol 39 mg/dl; LDL Cholesterol Calculated 88 mg/dl; Triglycerides 161 mg/dl (0-150); Troponin I < 0.015 ng/ml (0-0.045); VLDL Cholesterol 32 mg/dl
[2018-12-09] MEDS ORDERED: POTASSIUM CHLORIDE 20 MEQ TABCR PO STA (06:20)
[2018-12-09] MEDS ORDERED: INFLUENZA ADMINISTRATION CHARGE ONE (07:45)
[2018-12-09] MEDS ORDERED: INFLUENZA VIRUS QUAD VACCINE 0.5 ML SYR IM ONE (07:45)
[2018-12-09 07:59] LABS: BUN Creatinine Ratio 20.7 (10-20); Blood Urea Nitrogen 19 mg/dl (7-18); Calcium 8.4 mg/dl (8.5-10.1); Carbon Dioxide 25 mmol/L (21-32); Chloride 111 mmol/L (98-107); Creatinine Clr Calc Pharmacy 116.8 ml/min; Est GFR (African American) 109.7; Est GFR (Non-African American) 94.6; Glucose 103 mg/dl (70-99); Magnesium 2.4 mg/dl (1.8-2.4); Sodium 142 mmol/L (136-145)
[2018-12-09 08:04] LABS: Troponin I < 0.015 ng/ml (0-0.045)
[2018-12-09] MEDS: CARVEDILOL 25 MG TAB PO SCH (08:37)
[2018-12-09] MEDS ORDERED: LOSARTAN POTASSIUM 50 MG TAB PO SCH (09:00)
[2018-12-09] MEDS ORDERED: ASPIRIN 81 MG ECTAB PO SCH (09:00)
[2018-12-09] MEDS ORDERED: AMIODARONE 200 MG TAB PO SCH (09:00)
[2018-12-09] MEDS ORDERED: ENOXAPARIN INJ 40 MG/0.4 ML SYR SQ SCH (09:00)
--- NOTE | 2018-12-09 13:13 | Consultation Report ---
DATE OF CONSULTATION: 12/09/2018 INPATIENT CARDIOLOGY CONSULTATION CONSULTATION REQUESTED BY: Charisma Teague PA-C REASON FOR CONSULTATION: Chest pain. HISTORY OF PRESENT ILLNESS: Mr. Liang is a 53-year-old gentleman who normally follows with Dr. Dwyer of our cardiology practice who presented to [facility] on 12/08/2018 with a complaint of chest pain. The patient states he was in his normal state of health yesterday when he decided to shovel maneuver and subsequently developed chest pain. He admits that he has not been very active over the winter and this was the first time he shoveled in quite some time. He shoveled for about 10 minutes and then developed a sharp, stabbing chest pain, radiating across the precordium. This was a fall with significant diaphoresis; however, the patient does note that he is wearing a coat at that time and he did feel overheated and he felt a little short of breath. He sat down and rested and tried to repeat shoveling; however, the pain reoccurred. Upon further questioning, he admits that when he was having the pain if he took a deep inhalation, it would significantly worsen the pain. He became concerned and came to the Emergency Department. In the Emergency Department, his workup was unremarkable and his pain resolved prior to presentation. He has not had any further pain overnight after being admitted to telemetry. His cardiac enzymes are unremarkable. Upon further questioning, the patient states that this is exactly similar to the pain that he had in August when Dr. Wells sent for nuclear stress test which ended up being nonischemic. PAST SURGICAL HISTORY: 1. BiV ICD placement. 2. Cardiac catheterization reportedly showing no significant disease. 3. Cholecystectomy. 4. PVC ablation. MEDICAL ILLNESSES: 1. Nonischemic cardiomyopathy. 2. Hypothyroidism, on amiodarone. 3. Paroxysmal atrial fibrillation. FAMILY HISTORY: Noncontributory. SOCIAL HISTORY: The patient is a former smoker. Drinks occasional alcohol. Denies any recreational drug use. REVIEW OF SYSTEMS: As per HPI. All other review of systems reviewed and negative at this time. ALLERGIES: CEFUROXIME. MEDICATIONS AN OUTPATIENT: 1. Amiodarone 100 mg daily. 2. Losartan 100 mg daily. 3. Spironolactone 25 mg daily. 4. Carvedilol 37.5 mg b.i.d. 5. Aspirin 81 mg daily. 6. Lasix and potassium as needed. 7. Levoxyl daily. PHYSICAL EXAMINATION: VITALS: Temperature 36.4, pulse 70, respiratory rate 12, blood pressure 110/70. GENERAL: Awake, alert, oriented x3, in no acute distress. HEENT: Normocephalic, atraumatic. Pupils equal, round, reactive to light and accommodation. Extraocular muscles intact. Anicteric sclerae. Moist mucous membranes. NECK: No JVD, no bruit. CARDIOVASCULAR: Regular. Positive S4. Normal S1 and S2. No S3. No murmurs or rubs. PULMONARY: Clear to auscultation bilaterally. No rales, rhonchi, or wheezing. ABDOMEN: Bowel sounds x4, soft rebound, guarding, tenderness. No organomegaly. EXTREMITIES: No clubbing, cyanosis or edema. +2 pedal pulses bilaterally. SKIN: Warm and dry. MUSCULOSKELETAL: Direct palpation of the right sternal border fourth intercostal space was able to reproduce the pain. TEST RESULTS, LABORATORY STUDIES OF SIGNIFICANCE: Troponin negative x2. A 12-lead EKG reveals a paced rhythm. Lexiscan nuclear stress test performed 09/20/2018 at [facility] was nonischemic. IMPRESSION: 1. Chest pain, reproducible. 2. History of nonischemic cardiomyopathy. 3. Paroxysmal atrial fibrillation. 4. Frequent premature ventricular contractions. RECOMMENDATIONS: Mr. Liang was counseled given the fact that his chest pain is reproducible and similar to the pain he had back with a negative stress test several months ago. I believe this is musculoskeletal in nature, so at this point, a 2D echocardiogram will be performed to evaluate for wall motion and should there not be any significant changes, it is okay to discharge the patient to home and follow up as regularly scheduled. Otherwise, he should follow up with his primary care physician for the musculoskeletal pain. No medication changes will be made today.
[2018-12-09] MEDS ORDERED: FUROSEMIDE 20 MG TAB PO PRN (15:20)
--- NOTE | 2018-12-09 15:43 | Hospitalist Progress Note ---
Date of Service December 09, 2018 Assessment & Plan (1) Chest pain: This is a 53-year-old male who has a significant past medical history of nonischemic cardiomyopathy EF 45%, AICD, PAF, thyroid disorder who presents to [facility] secondary to chest pain X 1 day. Recent nuclear stress echo on 08/2018 -EF 45% was negative for inducible ischemia In ED initial troponin WNL, ECG revealing paced rhythm Received ASA 325 mg Symptoms have resolved on arrival While in ED he remained hemodynamically stable but mildly hypertensive 157/107 CBC, CMP, TSH relatively unremarkable patient's blood pressure generally better controlled during rest of hospital stay was monitored on telemetry and evaluated by cardiology service, troponins negative Echocardiogram again with EF 40 to 45% (mild to moderate global hypokinesis of the left ventricle), discussed results with Dr. Yañez who reports patient can be discharge. and main diagnosis that chest pain was non cardiac in etiology (2) Cardiomyopathy: Nonischemic cardiomyopathy diagnosed in 2007, cardiac cath at that time revealed minimal nonobstructive CAD Recent nuclear stress echo on 08/2018 -EF 45% was negative for inducible ischemia Echocardiogram again with EF 40 to 45% (mild to moderate global hypokinesis of the left ventricle), discussed results with Dr. Yañez who reports patient can be discharge. 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 - patient stopped levothyroxine on his own in the past TSH is normal and no need to be on levothyroxine at this time (5) DVT prophylaxis: DVT ppx: ambulation Full Code Discharge diagnosis Chest pain, nonischemic cardiomyopathy, Paroxysmal atrial fibrillation Discharge to home Continue medications as prescribed and follow up with clinic appointments 12/16/2018 1:00 PM Provider Georgia Aguillon DO Department General Internal Medicine [facility] 01/20/2019 2:30 PM Provider Rafael Dwyer DO Department Cardiology, [facility] Subjective patient denies chest pain during the day. no shortness of breath. no lightheadedness, no dizziness. no vomiting Physical Exam Constitutional: WD/WN, vitals as above Eyes: PERRL, conjunctivae normal, anicteric sclerae EOM intact bilaterally ENMT: external ear and nose normal, oropharynx normal Neck: trachea midline, no thyromegaly Respiratory: normal respiratory effort, lungs clear to auscultation Cardiovascular: RRR, no murmur, no edema Gastrointestinal (Abdomen): normal bowel sounds, soft, nontender, no hepatosplenomegaly Musculoskeletal: no cyanosis or clubbing, extremities motor strength 5/5 Head/Neck/Chest: normocephalic and head atraumatic Neurologic: PERRL, EOMI, accommodation nl, no face palsy, no dysarthria CN's II-XI intact bilaterally Psychiatric: A+Ox3, euthymic affect Results & Data Vital Signs (Past 12 Hours) Vital Signs Temp Pulse Pulse Resp BP Pulse Ox 12/09/18 11:32 36.4 C L 71 16 118/76 94 12/09/18 07:41 70 12/09/18 07:16 36.4 C L 73 16 110/70 92 12/09/18 04:00 36.5 C 75 18 110/72 93 (1) Chest pain Chest pain type: precordial pain Qualified Code(s): R07.2 - Precordial pain (2) Cardiomyopathy Cardiomyopathy type: unspecified Qualified Code(s): I42.9 - Cardiomyopathy, unspecified
--- NOTE | 2018-12-09 15:50 | Discharge Summary ---
Date of Service December 09, 2018 Admission HPI Per Admitting Provider This is a 53-year-old male who has a significant past medical history of nonischemic cardiomyopathy EF 45%, AICD, PAF, thyroid disorder who presents to [facility] secondary to chest pain X 1 day. Patient was shoveling cow manure today when he developed diffuse chest tightness that radiated to his left arm, described as "pressure, ache," overall feel ill, dizzy, diaphoretic. Patient rested and symptoms did not resolve therefore he opted to come to ED. He did not try anything [id number] to improve symptoms. When he arrived at ED symptoms had improved with rest. He feels symptoms were present for approximately 2-3 hours. He denies any recent illness, shortness of breath, ADRIAN, palpitations, cough, hemoptysis. He further denies any fever, chills, sweats, syncope, nausea, vomiting, diarrhea, abdominal pain. He notes for the past month and a half he has been having looser stool, but denies melena or hematochezia. His appetite has been normal. Patient follows with [facility] cardiology. He saw Dr. Dwyer in 08/2018 in which he expressed an episode of chest pain. Given symptoms he underwent a nuclear stress test which revealed EF of 45% and negative for inducible ischemia. At that visit it was also noted that patient had overall stopped his levothyroxine. 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 A repeat TSH revealed TSH elevated at 5.4 with a normal T4. He was recommended to restart levothyroxine at a lower dose 50 mcg, but never did. Admission Exam Per Admitting Provider Gen: WD/WN, M, NAD, sitting up in bed, pleasant, conversing easily Head: Normocephalic, Atraumatic Eyes: Sclera normal, no conjunctival injection, PERRLA, EOMI ENT: Gross hearing intact, normal pharynx, mucous membranes moist Neck: supple, no adenopathy, No JVD, no bruit, Resp: Clear to auscultation b/l, no wheeze, rales, rhonchi. 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 Extremities: Minimal edema bilaterally Skin: warm, moist, no rash, negative turgor, cap refill < 2sec Neuro: Alert and oriented x 3, speech normal, good mood/affect, cran nerve 2-12 intact grossly : deferred Principal Diagnosis Chest pain, nonischemic cardiomyopathy, Paroxysmal atrial fibrillation Discharge Exam Constitutional WD/WN, vitals as above Eyes PERRL, conjunctivae normal, anicteric sclerae EOM intact bilaterally ENMT external ear and nose normal, oropharynx normal Neck trachea midline, no thyromegaly Respiratory normal respiratory effort, lungs clear to auscultation Cardiovascular RRR, no murmur, no edema Gastrointestinal (Abdomen) normal bowel sounds, soft, nontender, no hepatosplenomegaly Musculoskeletal no cyanosis or clubbing, extremities motor strength 5/5 Head/Neck/Chest: normocephalic and head atraumatic Neurologic PERRL, EOMI, accommodation nl, no face palsy, no dysarthria CN's II-XI intact bilaterally Psychiatric A+Ox3, euthymic affect Discharge Data Allergies Allergy/AdvReac Type Severity Reaction Status Date / Time cefuroxime Allergy Intermediate Rash Verified 12/08/18 17:09 Consultations 12/08/18 19:07 ED Decision to Admit Stat 12/08/18 21:10 Consult Cardiology Routine Hospital Course (1) Chest pain: This is a 53-year-old male who has a significant past medical history of nonischemic cardiomyopathy EF 45%, AICD, PAF, thyroid disorder who presents to [facility] secondary to chest pain X 1 day. Recent nuclear stress echo on 08/2018 -EF 45% was negative for inducible ischemia In ED initial troponin WNL, ECG revealing paced rhythm Received ASA 325 mg Symptoms have resolved on arrival While in ED he remained hemodynamically stable but mildly hypertensive 157/107 CBC, CMP, TSH relatively unremarkable patient's blood pressure generally better controlled during rest of hospital stay was monitored on telemetry and evaluated by cardiology service, troponins negative Echocardiogram again with EF 40 to 45% (mild to moderate global hypokinesis of the left ventricle), discussed results with Dr. Yañez who reports patient can be discharge. and main diagnosis that chest pain was non cardiac in etiology (2) Cardiomyopathy: Nonischemic cardiomyopathy diagnosed in 2007, cardiac cath at that time revealed minimal nonobstructive CAD Recent nuclear stress echo on 08/2018 -EF 45% was negative for inducible ischemia Echocardiogram again with EF 40 to 45% (mild to moderate global hypokinesis of the left ventricle), discussed results with Dr. Yañez who reports patient can be discharge. 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 - patient stopped levothyroxine on his own in the past TSH is normal and no need to be on levothyroxine at this time (5) DVT prophylaxis: DVT ppx: ambulation Full Code Discharge diagnosis Chest pain, nonischemic cardiomyopathy, Paroxysmal atrial fibrillation Discharge to home Continue medications as prescribed and follow up with clinic appointments 12/16/2018 1:00 PM Provider Georgia Aguillon DO Department General Internal Medicine [facility] 01/20/2019 2:30 PM Provider Rafael Dwyer DO Department Cardiology, [facility] Total Time Total Time Spent Total Time Spent (In Minutes): 40 minutes Total Time Includes: Examination of the Patient, Discharge Planning and Medication Reconciliation Discharge Plan Discharge Items Patient Disposition: Home - Self-Care Reason For Visit: CHEST PAIN Discharge Diagnosis: Chest pain, nonischemic cardiomyopathy, Paroxysmal atrial fibrillation Condition: Good Discharge Goals: Decrease discomfort Activity: Resume your previous activity Non-emergency contact: Primary Care Provider Call non-emergency contact if: you have any medication questions Follow-up/Referrals: Georgia Aguillon DO [Primary Care Provider] - Diet: Heart Healthy Addtl Provider Instructions: Discharge to home Continue medications as prescribed and follow up with clinic appointments 12/16/2018 1:00 PM Provider Georgia Aguillon DO Department General Internal Medicine [facility] 01/20/2019 2:30 PM Provider Rafael Dwyer DO Department Cardiology, [facility] Prescriptions: New carvedilol 25 mg Tablet 37.5 mg PO BID 30 Days Qty: 90 RF: 0 amiodarone 200 mg Tablet 100 mg PO DAILY 30 Days Qty: 15 RF: 0 aspirin [Ecotrin Low Strength] 81 mg Tablet,Delayed Release (Dr/Ec) 81 mg PO DAILY 30 Days Qty: 30 RF: 0 spironolactone 25 mg Tablet 25 mg PO QAM 30 Days Qty: 30 RF: 0 furosemide 20 mg Tablet 20 mg PO QAM PRN (Reason: edema) 30 Days Qty: 30 RF: 0 losartan 50 mg Tablet 100 mg PO DAILY 30 Days Qty: 60 RF: 0 Continued potassium chloride [Klor-Con M20] 20 mEq Tablet,Er Particles/Crystals 20 meq PO UD PRN (Reason: lasix) RF: 0 Discontinued carvedilol 25 mg Tablet 37.5 mg PO BID RF: 0 aspirin [Aspir-81] 81 mg Tablet,Delayed Release (Dr/Ec) 81 mg PO DAILY RF: 0 spironolactone 25 mg Tablet 25 mg PO DAILY RF: 0 furosemide [Lasix] 20 mg Tablet 20 mg PO DAILY PRN (Reason: Edema) RF: 0 losartan 100 mg Tablet 100 mg PO DAILY RF: 0 amiodarone 200 mg tablet 100 mg PO DAILY RF: 0 Stand-Alone Forms: Call Back Authorization, [facility] Discharge Orders: Discharge Order (Routine); Ordered 12/09/18 Ordered By: Levi Root Admission Data Admit Date/Time: 12/08/18 20:16 Attending Provider: Levi Root Admit Provider: Justin Rivas Primary Care Provider: Georgia Aguillon Other Providers: Justin Rivas ; Jonathan Yañez ; Rafael Dwyer ; Ken Mcguire ; Scott Newsome ; Miah Ley ; Marcial El ; Elena Amaya ; Maura Dunaway Service: Telemetry Medical
[2018-12-10] MEDS ORDERED: SPIRONOLACTONE 25 MG TAB PO SCH (09:00)
== END 2018-12-09 16:02 | disposition home or self-care (01) ==
LOC: 2N 15:52 → ED 15:52 → 2N 20:52

== ENCOUNTER 2021-02-06 22:45 | Inpatient (IN) ==
[2021-02-07 00:28] LABS: Basophils # (auto) 0.03 K/uL (0-0.2); Basophils % (auto) 0.3 %; Eosinophils % (auto) 3.2 %; Hematocrit (blood only) 43.8 % (42-52); Hemoglobin 14.3 g/dL (14.0-18.0); Immature Granulocytes # (auto) 0.03 K/uL (0.00-0.02); Immature Granulocytes % (auto) 0.3 %; Lymphocytes # (auto) 2.48 K/uL (1.2-3.4); Lymphocytes % (auto) 26.5 %; Mean Corpuscular Hemoglobin 29.5 pg (25-34); Mean Corpuscular Hgb Conc 32.6 g/dL (32-36); Mean Corpuscular Volume 90.3 fL (80-100); Mean Platelet Volume 9.2 fL (7.4-10.4); Monocytes % (auto) 10.7 %; Neutrophils # (auto) 5.51 K/uL (1.4-6.5); Platelet Count 289 K/uL (130-400); RDW Coefficient of Variation 13.7 % (11.5-14.5); RDW Standard Deviation 45.3 fL (36.4-46.3); Red Blood Count 4.85 M/uL (4.7-6.1); White Blood Count 9.35 K/uL (4.8-10.8)
[2021-02-07 00:39] LABS: Partial Thromboplastin Ratio 0.9; Partial Thromboplastin Time 24.8 Seconds (21.0-31.0)
[2021-02-07 00:46] LABS: Albumin Level 3.5 gm/dl (3.4-5.0); BUN Creatinine Ratio 16.2 (10-20); Calcium 8.7 mg/dl (8.5-10.1); Creatinine Clr Calc Pharmacy 13.6 ml/min; Est GFR (African American) 106.7 ml/min; Est GFR (Non-African American) 92.1 ml/min; Potassium 3.5 mmol/L (3.5-5.1)
[2021-02-07 01:12] LABS: Albumin Globulin Ratio 1.1 (0.9-2); Bilirubin,Total 0.4 mg/dl (0.2-1); Globulin 3.2 gm/dl (2.5-4.0); Total Protein 6.7 gm/dl (6.4-8.2); Troponin I 0.472 ng/ml (0-0.045)
--- NOTE | 2021-02-07 01:20 | Emergency Department Note ---
History of Present Illness General Chief complaint: Cardiac Assessment Stated complaint: DIFIBULATOR ALARMED 2 TIMES Time Seen by Provider: 02/07/21 00:13 Source: patient Mode of arrival: ambulatory Limitations: no limitations History of Present Illness Provider complaint: Defibrillator activation Maximum Pain Intensity: 5 This is a 55-year-old male who presents to the ED with a chief complaint of a defibrillator activation. The patient reports that he was out of town and he was talking with a friend. He states that he began feeling a little lightheaded around 340 and his defibrillator fired. He did not have syncope. Short time later it fired a second time. Other than feeling a little weak and little lightheaded, he had no other symptoms. Denies any chest pains or shortness of breath. No fevers or recent illness. He states that he decided come here this evening because he just arrived back into the area and wanted to be evaluated for his symptoms since his doctors are here. Previous activation of his defibrillator occurred a couple years ago. Home Medications Medication Instructions Recorded Confirmed Type amiodarone 200 mg tablet 100 mg PO QAM #90 tab 05/11/19 12/31/20 History carvedilol 25 mg tablet 37.5 mg PO BID #90 tab 05/11/19 12/31/20 History furosemide 40 mg tablet 40 mg PO DAILY PRN #30 tab 05/11/19 12/31/20 History losartan 50 mg tablet 50 mg PO BID #60 tab 05/11/19 12/31/20 History potassium chloride 20 mEq 20 meq PO DAILY PRN #30 tab 05/11/19 12/31/20 History tablet,extended release spironolactone 25 mg tablet 25 mg PO QAM #30 tab 05/11/19 12/31/20 History Allergy Medicine 1 dose PO QAM 02/13/20 12/31/20 History cholestyramine (with sugar) 4 g PO DAILY #378 g 11/06/20 12/31/20 Rx Allergies Allergy/AdvReac Type Severity Reaction Status Date / Time cefuroxime Allergy Intermediate Rash Verified 12/31/20 14:40 Past Med/Surg History Medical History (Updated 02/07/21 @ 01:33 by Keyon Saucedo DO) Amiodarone-induced hyperthyroidism Anxiety Change in bowel movement Diarrhea Diastolic dysfunction "echo 02/2017- grade II" HTN (hypertension) Hyperlipidemia Idiopathic cardiomyopathy Had nuclear stress test/echo 08/2018 EF 45%, negative for inducible ischemia Osteoarthritis PAF (paroxysmal atrial fibrillation) Thyroid disorder Surgical History History of cardiac cath > 10 years ago - no stents History of cardiac radiofrequency ablation History of colonoscopy Presence of combination internal cardiac defibrillator (ICD) and pacemaker 2003 - cardiomyopathy - follows w/ Dr. Dwyer - medtronic - last checked 3- 4 weeks ago S/P cholecystectomy Family History Uncle Stroke Mother , 38 Cervical cancer Other Adopted No family history of adverse response to anesthesia Social History Smoking Status: Current every day smoker Tobacco Type: Cigarettes Second Hand Exposure: Yes ( smokes); Hx Alcohol Use: Yes Alcohol type: beer Hx Substance Use: No Preferred Language: Mongolian Communication Ability: Effective Cream Gatherer Required: No Beliefs That Will Affect Care: None marital status: Current Living Situation: Spouse current occupational status: employed Feels Safe at Home: Yes Assistive Devices: Glasses Review of Systems A total of 10 systems reviewed and were otherwise negative Physical Exam Vital Signs Vital Signs - 24 hr 02/06/21 22:49 02/06/21 23:43 02/07/21 00:01 Temperature 36.6 C Temperature Source Temporal Artery Scan Pulse Rate 86 Respiratory Rate 18 Blood Pressure 124/88 Blood Pressure Mean 100 Blood Pressure Position Sitting Pulse Oximetry 96 Oxygen Delivery Method Room Air Room Air Room Air Sepsis Recent Fever Within 48 Hours No Sepsis New/Unexplained Change in Mental Status No Sepsis Action Taken by Nursing No Action Required CONSTITUTIONAL/VITAL SIGNS: Reviewed / noted above. GENERAL: Non-toxic in appearance. INTEGUMENTARY: Warm, dry, and [place]. HEAD: Normocephalic. EYES: without scleral icterus or trauma. ENT/OROPHARYNX: clear and moist. LYMPHADENOPATHY/NECK: Is supple without lymphadenopathy or meningismus. RESPIRATORY: Lungs clear and equal. CARDIOVASCULAR: Regular rate and rhythm. GI/ABDOMEN: Soft and nontender. No organomegaly or pulsatile mass. No rebound or guarding. Normal bowel sounds. EXTREMITIES: Warm and well perfused. BACK: No CVA tenderness. NEUROLOGICAL: Intact without focal deficits. PSYCHIATRIC: normal affect. MUSCULOSKELETAL: Normally developed with good muscle tone. TRIAGE NURSING DOCUMENTATION REVIEWED. Medical Decision Making Differential Diagnosis The differential that was considered includes acute myocardial infarction, acute coronary syndrome, myocarditis, pericarditis, pericardial effusions /tamponade, esophageal perforation, thoracic aortic dissection, pulmonary embolism, pneumonia, pneumothorax, pancreatitis, shingles, acute cholecystitis, perforated abdominal viscus. Medical Records Attestation: I reviewed the patient's medical records. Home Medications Current Medication List: was personally reviewed by me Laboratory Data Attestation: I reviewed the patient's lab results. Result diagrams: 02/07/21 00:11 02/07/21 00:11 Lab Results 02/07/21 02/07/21 02/07/21 Range/Units 00:11 00:11 00:11 WBC 9.35 (4.8-10.8) K/uL RBC 4.85 (4.7-6.1) M/uL Hgb 14.3 (14.0-18.0) g/dL Hct 43.8 (42-52) % MCV 90.3 (80-100) fL MCH 29.5 (25-34) pg MCHC 32.6 (32-36) g/dL RDW Std Deviation 45.3 (36.4-46.3) fL RDW Coeff of Yousuf 13.7 (11.5-14.5) % Plt Count 289 (130-400) K/uL MPV 9.2 (7.4-10.4) fL Immature Gran % (Auto) 0.3 % Neut % (Auto) 59.0 % Lymph % (Auto) 26.5 % Island % (Auto) 10.7 % Eos % (Auto) 3.2 % Baso % (Auto) 0.3 % Neut # (Auto) 5.51 (1.4-6.5) K/uL Lymph # (Auto) 2.48 (1.2-3.4) K/uL Island # (Auto) 1.00 H (0.11-0.59) K/uL Eos # (Auto) 0.30 (0-0.5) K/uL Baso # (Auto) 0.03 (0-0.2) K/uL Immature Gran # (Auto) 0.03 H (0.00-0.02) K/uL APTT 24.8 (21.0-31.0) Seconds PTT Ratio 0.9 Sodium 140 (136-145) mmol/L Potassium 3.5 (3.5-5.1) mmol/L Chloride 107 (98-107) mmol/L Carbon Dioxide 26 (21-32) mmol/L Anion Gap 7.0 (3-11) BUN 15 (7-18) mg/dl Creatinine 0.93 (0.6-1.4) mg/dl Est Cr Clr Drug Dosing 13.6 ml/min Est GFR ( Amer) 106.7 ml/min Est GFR (Non-Af Amer) 92.1 ml/min BUN/Creatinine Ratio 16.2 (10-20) Glucose 104 H (70-99) mg/dl Calcium 8.7 (8.5-10.1) mg/dl Total Bilirubin 0.4 (0.2-1) mg/dl AST 14 L (15-37) U/L ALT 39 (12-78) U/L Alkaline Phosphatase 50 (45-117) U/L Troponin I 0.472 H* (0-0.045) ng/ml Total Protein 6.7 (6.4-8.2) gm/dl Albumin 3.5 (3.4-5.0) gm/dl Globulin 3.2 (2.5-4.0) gm/dl Albumin/Globulin Ratio 1.1 (0.9-2) Lipase 84 (73-393) U/L Imaging Data Attestation: I personally reviewed and interpreted this imaging study as follows: My Impression: Chest x-ray: No pneumothorax or pneumonia. No acute disease. ECG Data Attestation: I personally reviewed and interpreted this ECG as follows: Indication: + chest pain Rate (beats per minute): 86 Rhythm: + other (Paced ventricular rhythm) MDM Narrative Patient presents to the ED after his defibrillator fired twice around 340 today. This was confirmed by the [employer] rep. His troponin was elevated 0.472. CBC and chemistry panel was unremarkable. EKG shows a ventricular paced rhythm at a rate of 86 and a chest x-ray did not show acute process. Because of the occurrence and his elevated troponin, he will be seen by the hospitalist. He is currently asymptomatic. Impression & Plan AICD discharge, Elevated troponin Discharge Plan Visit Data Chief Complaint: Cardiac Assessment Stated Complaint: DIFIBULATOR ALARMED 2 TIMES ED Provider: Keyon Saucedo Discharge Problem: AICD discharge, Elevated troponin Patient Disposition: Being Evaluated by Hospitalist Forms Stand Alone Forms: My [facility] Prescriptions Prescriptions: No Action carvedilol 25 mg tablet 37.5 mg PO BID Qty: 90 RF: 0 losartan 50 mg tablet 50 mg PO BID Qty: 60 RF: 0 amiodarone 200 mg tablet 100 mg PO QAM Qty: 90 RF: 0 spironolactone 25 mg tablet 25 mg PO QAM Qty: 30 RF: 0 furosemide 40 mg tablet 40 mg PO DAILY PRN (Reason: weight gain) Qty: 30 RF: 0 potassium chloride 20 mEq tablet extended release 20 meq PO DAILY PRN (Reason: with lasix ) Qty: 30 RF: 0 Allergy Medicine 1 dose PO QAM RF: 0 cholestyramine (with sugar) 4 gram powder 4 g PO DAILY Qty: 378 RF: 0 Referrals Referrals: PCP,NO [Primary Care Provider] -
[2021-02-07] MEDS ORDERED: POTASSIUM CHLORIDE CRTAB 20 MEQ TABCR PO STA ×2 (01:23→04:38)
[2021-02-07 01:45] LABS: Magnesium 2.2 mg/dl (1.8-2.4); Thyroid Stimulating Hormone 4.17 uIu/ml (0.300-4.500)
[2021-02-07] MEDS ORDERED: carvediloL 12.5 MG TAB PO ONE (02:02)
[2021-02-07] MEDS ORDERED: Heparin IV Adult Wt-Based Low-Dose *NO* Bolus Protocol IV SCH (02:02)
--- NOTE | 2021-02-07 02:03 | History & Physical Report ---
Date of Service February 07, 2021 Assessment & Plan (1) AICD discharge: Secondary to tachyarrhythmia Transient rapid AF (recurrence, hx ablation not on anticoagulation as per patient preference due to history GI bleed) versus ventricular tachyarrhythmia (hx paroxysmal VT as per records) as per initial ICD interrogation Troponin elevation secondary to above hx CAD as per records Chronic systolic CHF sp PPM, patient euvolemic hx LBBB Hypothyroidism, euthyroid as of today's TSH PCU Follow ICD report Continue home beta-romy, amiodarone at current doses Trend troponin TTE if with progression Patient agreeable to IV heparin for thromboembolic prevention for possible recurrent AF for now. Cardiology consult Re: Transient tachyarrhythmia, possible recurrent AF, ICD shock DVT prophylaxis. IV heparin Full code Text document was generated using Referrizer voice recognition software. It may contain grammatical or spelling errors. Kindly contact undersigned for clarification of any documentation item in question. History of Present Illness Chief Complaint: ICD shock Primary Care Provider: Dr. Pelletier History obtained from patient and records. Medical history significant for chronic systolic heart failure secondary to nonischemic cardiomyopathy status post ICD (EF 30 to 35%, 2020), PAF sp ablation not on anticoagulation as per patient preference due to history GI bleed as per records, paroxysmal VT as per records, hx CAD as per records, hx LBBB, hypothyroidism, mood disorder, past tobacco abuse. Last confinement November 2018 for chest pain, noncardiac as per Cardiology evaluation. Recent outpatient [facility] outpatient visit last month. ICD with stable electrical characteristics with adequate battery voltage although approaching replacement time. Occasional NSVT despite amiodarone with no ICD shocks as per documentation. Patient complaining of fatigue symptoms. Repeat 2D echo showed EF 30 to 35%. Consideration for switching Losartan to Entresto as per note. Patient was in [place] yesterday with a friend of his for work when he experienced ICD shocks lasting for a few seconds while peeing. Patient felt a cold sensation coming over him. No chest pain, no S OB, no unusual fluid retention as per patient. No unusual stress at home. Patient compliant with home medications. Second ICD shock lasting few seconds experienced by patient subsequently. 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 Allergies Allergy/AdvReac Type Severity Reaction Status Date / Time cefuroxime Allergy Intermediate Rash Verified 02/07/21 01:47 Home Medications Medication Instructions Recorded Confirmed Type amiodarone 200 mg tablet 100 mg PO QAM #90 tab 05/11/19 02/07/21 History carvedilol 25 mg tablet 37.5 mg PO BID #90 tab 05/11/19 02/07/21 History furosemide 40 mg tablet 40 mg PO DAILY PRN #30 tab 05/11/19 02/07/21 History losartan 50 mg tablet 50 mg PO BID #60 tab 05/11/19 02/07/21 History potassium chloride 20 mEq 20 meq PO DAILY PRN #30 tab 05/11/19 02/07/21 History tablet,extended release spironolactone 25 mg tablet 25 mg PO QAM #30 tab 05/11/19 02/07/21 History Past Med/Surg History Medical History (Updated 02/07/21 @ 01:33 by Keyon Saucedo DO) Amiodarone-induced hyperthyroidism Anxiety Change in bowel movement Diarrhea Diastolic dysfunction "echo 02/2017- grade II" HTN (hypertension) Hyperlipidemia Idiopathic cardiomyopathy Had nuclear stress test/echo 08/2018 EF 45%, negative for inducible ischemia Osteoarthritis PAF (paroxysmal atrial fibrillation) Thyroid disorder Surgical History History of cardiac cath > 10 years ago - no stents History of cardiac radiofrequency ablation History of colonoscopy Presence of combination internal cardiac defibrillator (ICD) and pacemaker 2003 - cardiomyopathy - follows w/ Dr. Dwyer - medtronic - last checked 3- 4 weeks ago S/P cholecystectomy Family History Uncle Stroke Mother , 38 Cervical cancer Other Adopted No family history of adverse response to anesthesia Social History Smoking Status: Never smoker Tobacco Type: Cigarettes Second Hand Exposure: Yes ( smokes); Do You Dip or Chew Tobacco: Yes; Hx Alcohol Use: Yes Alcohol type: beer Hx Substance Use: No Preferred Language: Haitian Communication Ability: Effective Hot Knife Cutter Required: No Beliefs That Will Affect Care: None marital status: Current Living Situation: Spouse and Family current occupational status: employed Other Information That Helps Us Care for You: No Feels Safe at Home: Yes Safety Concerns: Feels Safe At This Time Assistive Devices: Glasses Review of Systems Review of Systems: As per HPI, all 10 systems reviewed, all other ROS negative Physical Exam Physical Exam: GENERAL: Comfortable, obese, no respiratory distress SKIN: Normal color, warm HEENT: Bespectacled, pink palpebral conjunctivae, no ptosis, moist buccal mucosa NECK : Supple, no tenderness CHEST : CTA, no tenderness HEART : RRR, no obvious murmurs ABDOMEN: Some distention, nontender EXTREMITIES : No LE swelling/tenderness, no other conspicuous deformities noted NEUROLOGIC : Coherent, no facial asymmetry, no other gross focality Results & Data Results & Data ([facility]) Vital Signs (Past 12 Hours) Vital Signs Temp Pulse Resp BP Pulse Ox 02/07/21 01:31 76 16 97 02/07/21 01:30 78 19 120/87 97 02/07/21 01:01 77 14 97 02/07/21 01:00 78 14 125/88 95 02/07/21 00:31 79 16 95 02/07/21 00:30 78 20 130/94 97 02/07/21 00:01 79 15 96 02/07/21 00:00 83 15 125/87 95 02/06/21 23:31 81 18 96 02/06/21 23:30 82 16 132/85 96 02/06/21 23:26 80 20 96 02/06/21 23:23 84 20 127/86 96 02/06/21 22:49 36.6 C 86 18 124/88 96 Laboratory Results Laboratory Results WBC 9.35 K/uL (4.8-10.8) 02/07/21 00:11 RBC 4.85 M/uL (4.7-6.1) 02/07/21 00:11 Hgb 14.3 g/dL (14.0-18.0) 02/07/21 00:11 Hct 43.8 % (42-52) 02/07/21 00:11 MCV 90.3 fL (80-100) 02/07/21 00:11 MCH 29.5 pg (25-34) 02/07/21 00:11 MCHC 32.6 g/dL (32-36) 02/07/21 00:11 RDW Std Deviation 45.3 fL (36.4-46.3) 02/07/21 00:11 RDW Coeff of Yousuf 13.7 % (11.5-14.5) 02/07/21 00:11 Plt Count 289 K/uL (130-400) 02/07/21 00:11 MPV 9.2 fL (7.4-10.4) 02/07/21 00:11 Immature Gran % (Auto) 0.3 % 02/07/21 00:11 Neut % (Auto) 59.0 % 02/07/21 00:11 Lymph % (Auto) 26.5 % 02/07/21 00:11 [place] % (Auto) 10.7 % 02/07/21 00:11 Eos % (Auto) 3.2 % 02/07/21 00:11 Baso % (Auto) 0.3 % 02/07/21 00:11 Neut # (Auto) 5.51 K/uL (1.4-6.5) 02/07/21 00:11 Lymph # (Auto) 2.48 K/uL (1.2-3.4) 02/07/21 00:11 Bradley # (Auto) 1.00 K/uL (0.11-0.59) H 02/07/21 00:11 Eos # (Auto) 0.30 K/uL (0-0.5) 02/07/21 00:11 Baso # (Auto) 0.03 K/uL (0-0.2) 02/07/21 00:11 Immature Gran # (Auto) 0.03 K/uL (0.00-0.02) H 02/07/21 00:11 APTT 24.8 Seconds (21.0-31.0) 02/07/21 00:11 PTT Ratio 0.9 02/07/21 00:11 Sodium 140 mmol/L (136-145) 02/07/21 00:11 Potassium 3.5 mmol/L (3.5-5.1) 02/07/21 00:11 Chloride 107 mmol/L (98-107) 02/07/21 00:11 Carbon Dioxide 26 mmol/L (21-32) 02/07/21 00:11 Anion Gap 7.0 (3-11) 02/07/21 00:11 BUN 15 mg/dl (7-18) 02/07/21 00:11 Creatinine 0.93 mg/dl (0.6-1.4) 02/07/21 00:11 Est Cr Clr Drug Dosing 13.6 ml/min 02/07/21 00:11 Est GFR ( Amer) 106.7 ml/min 02/07/21 00:11 Est GFR (Non-Af Amer) 92.1 ml/min 02/07/21 00:11 BUN/Creatinine Ratio 16.2 (10-20) 02/07/21 00:11 Glucose 104 mg/dl (70-99) H 02/07/21 00:11 Calcium 8.7 mg/dl (8.5-10.1) 02/07/21 00:11 Magnesium 2.2 mg/dl (1.8-2.4) 02/07/21 00:11 Total Bilirubin 0.4 mg/dl (0.2-1) 02/07/21 00:11 AST 14 U/L (15-37) L 02/07/21 00:11 ALT 39 U/L (12-78) 02/07/21 00:11 Alkaline Phosphatase 50 U/L (45-117) 02/07/21 00:11 Troponin I 0.472 ng/ml (0-0.045) H* 02/07/21 00:11 Total Protein 6.7 gm/dl (6.4-8.2) 02/07/21 00:11 Albumin 3.5 gm/dl (3.4-5.0) 02/07/21 00:11 Globulin 3.2 gm/dl (2.5-4.0) 02/07/21 00:11 Albumin/Globulin Ratio 1.1 (0.9-2) 02/07/21 00:11 Lipase 84 U/L (73-393) 02/07/21 00:11 TSH 4.170 uIu/ml (0.300-4.500) 02/07/21 00:11 COVID-19 Eval Order Covid19 at [facility] 02/07/21 01:35 Diagnostic Findings Chest x-ray as per my interpretation cardiomegaly, ICD EKG as per my interpretation : Rate 85, paced rhythm
[2021-02-07] MEDS: HEPARIN SODIUM/DEXTROSE 25,000 UNITS/500 ML BAG IV SCH ×2 (02:26→22:57)
[2021-02-07] MEDS ORDERED: PROMETHAZINE HCL 12.5 MG in SODIUM CHLORIDE 0.9% 50 ML IV PRN (04:38)
[2021-02-07] MEDS ORDERED: NITROGLYCERIN SL 0.4 MG/TAB TAB SL PRN (04:38)
[2021-02-07] MEDS ORDERED: LORazepam 0.5 MG/1 ML VIAL IV PRN (04:38)
[2021-02-07] MEDS ORDERED: traMADol HCL 50 MG TABLET PO PRN (04:38)
[2021-02-07] MEDS ORDERED: ACETAMINOPHEN 325 MG TAB PO PRN (04:38)
[2021-02-07] MEDS: AMIODARONE 200 MG TAB PO SCH (07:52)
[2021-02-07] MEDS: SPIRONOLACTONE 25 MG TAB PO SCH (07:52)
--- NOTE | 2021-02-07 08:27 | XRay Report ---
XR chest 1V portable CLINICAL HISTORY: Chest Pain COMPARISON STUDY: Chest radiograph March 07, 2019. FINDINGS: A left subclavian biventricular pacer/AICD is in place. Cardiomegaly is unchanged. There is no pneumothorax or pleural effusion. Apparent left basilar opacity is unchanged. There is no consoli dation. Appearance of the chest is unchanged. Old right rib fractures are incidentally noted. IMPRESSION: No acute cardiopulmonary findings. No significant change in appearance of the chest. ACT 112: Negative or not required by law. Electronically signed by: Buster Porter M.D. 02/07/2021 8:25 AM
[2021-02-07 08:30] LABS: Partial Thromboplastin Ratio 1.3; Partial Thromboplastin Time 33.5 Seconds (21.0-31.0)
[2021-02-07] MEDS ORDERED: LOSARTAN POTASSIUM 50 MG TAB PO SCH (09:00)
[2021-02-07] MEDS ORDERED: Nursing to Pharmacy Communication SCH (09:15)
[2021-02-07] MEDS ORDERED: HEPARIN SOD (PORCINE) 1000 UNIT/ML IV ONE (09:30)
[2021-02-07] MEDS: carvediloL 12.5 MG TAB PO SCH ×2 (10:19→21:10)
--- NOTE | 2021-02-07 12:36 | Hospitalist Progress Note ---
Date of Service February 07, 2021 Assessment & Plan (1) AICD discharge: Hx Non sustained ventricular tachycardia Due to atrial fibrillation, very rapid ventricular rate Troponin elevated to 0.47 on admission, trending down to 0.2 Cardiology on board Continue IV heparin drip for now Continue carvedilol 37.5 mg twice daily and amiodarone 100 mg daily. Continue monitor closely in tele Elevated troponin Due to AICD discharge EKG showed atrial paced with no ischemic changes Echo showed moderately dilated left ventricle with moderately to severely reduced systolic function with ejection fraction 30 to 35% Troponin trending down Chronic systolic HF No sign of fluid overload Continue Spironolactone 25mg daily On Lasix PRN HTN BP stable DVT prophylaxis. IV heparin drip Full code Admission and Anticipated Discharge Date Admission Date: February 07, 2021 Subjective Pt was seen and examined for follow up of AICD discharge Lying in bed with no distress. Pt said that he feels ok Currently denies any chest pain, palpitation, dizziness and SOB Review of Systems Review of Systems: All systems reviewed & are unremarkable except as noted in Subjective Physical Exam Physical Exam: General- No acute distress Head- atraumatic Eyes- PERRL, EOMI, ENT- oropharynx clear Neck- supple, no JVD Lungs- clear to auscultation Heart- regular rhythm; no murmur Abdomen- normal bowel sounds, soft, nontender Extremities- no calf tenderness Neuro- alert, oriented x 3; PERRL, EOMI; no facial palsy; no dysarthria Skin- warm & dry Results & Data Results & Data ([facility]) Vital Signs (Past 12 Hours) Vital Signs Temp Pulse Pulse Resp BP BP BP 02/07/21 11:24 36.6 C 68 18 119/78 02/07/21 07:42 36.5 C 72 18 122/80 02/07/21 04:38 36.4 C L 70 20 117/81 02/07/21 04:00 70 13 119/81 02/07/21 03:30 71 12 02/07/21 03:20 77 15 02/07/21 03:10 77 17 02/07/21 02:01 77 17 02/07/21 02:00 77 18 135/92 02/07/21 01:31 76 16 02/07/21 01:30 78 19 120/87 02/07/21 01:01 77 14 02/07/21 01:00 78 14 125/88 Pulse Ox 02/07/21 11:24 95 02/07/21 07:42 95 02/07/21 04:38 96 02/07/21 04:00 92 02/07/21 03:30 93 02/07/21 03:20 93 02/07/21 03:10 94 02/07/21 02:01 97 02/07/21 02:00 97 02/07/21 01:31 97 02/07/21 01:30 97 02/07/21 01:01 97 02/07/21 01:00 95
--- NOTE | 2021-02-07 13:16 | Cardiology Consultation ---
Date of Consultation February 07, 2021 Assessment & Plan (1) AICD discharge: (2) PAF (paroxysmal atrial fibrillation): (3) Idiopathic cardiomyopathy: (4) Elevated troponin: 55-year-old male with longstanding history of nonischemic cardiomyopathy, chronic systolic heart failure, left bundle branch block, angiographically normal coronary arteries by cardiac catheterization in 2007, nonischemic nuclear stress test 2018. Patient has a history of episodes of nonsustained ventricular tachycardia as well as paroxysmal atrial fibrillation. He had previously been on anticoagulation but discontinued this per his own preference several years ago due to concerns of gastrointestinal bleeding. His hemoglobin is stable, and colonoscopy performed January, revealed mild hemorrhoids and diverticular disease without source of bleeding. AICD discharge due to atrial fibrillation, very rapid ventricular rate: Question patient's medication adherence. He at least describes that he had missed several doses of carvedilol leading up to the event. He is on low-dose chronic amiodarone 100 mg daily, with past concerns of amiodarone related thyroid disease, TSH normal this hospital stay. -We will resume carvedilol 37.5 mg twice daily. -Continue current dose of amiodarone 100 mg daily. Would consider titrating this, but the patient has expressed concerns with regards to side effects in the past. Will send amiodarone level which is an outpatient reference lab, but will be helpful in terms of determining adherence and appropriate dose of amiodarone. With regards to stroke prophylaxis, hemoglobin is stable, he has had episodes of atrial fibrillation, longest of which was 38 bpm, I think his risk of stroke is high given his underlying severe left ventricular systolic dysfunction. He is more agreeable to anticoagulation than he had been at the time of my previous discussion to this regard dating back to 2018. For now, we will continue unfractioned heparin pending determination of need for any invasive procedure, will likely transition back to Eliquis. Chronic systolic heart failure, recent worsening LVEF: Once again question medication adherence. Patient has seen multiple providers, and a common theme described in the notes is his recurrent express preference to be off of medications due to concerns that they cause some fatigue. Perhaps however it is the underlying cardiomyopathy that causes him to feel poorly. Will reintroduce carvedilol while hospitalized, hold losartan pending insurance prior authorization for Entresto. Continue spironolactone. Volume status is stable at present without loop diuretic. Question if patient needs a repeat ischemic evaluation, as his initial cardiac catheterization was in 2007. But having reviewed the report with noted angiographically normal coronary arteries, and severe global left ventricular hypokinesis on recent echocardiogram, normal perfusion study in 2019, it likely makes sense that this is related to progression of his previously noted nonischemic cardiomyopathy and this once again brings up the concern of whether or not his worsening LV systolic dysfunction is due to nonadherence, as this has been described on serial notes in the past. Nonsustained ventricular tachycardia: Previously noted, so this is not a new diagnosis. Continue carvedilol, amiodarone. History of Present Illness Attending Physician: Keyana Mercado MD History of Present Illness Mr Liang is a 55-year-old male seen in cardiology consultation per the request of Dr. Rivas with regards to recent ICD discharges that occurred yesterday. The patient states that he was in his normal state of health. He admits that he had likely missed his carvedilol dose the night before and again yesterday morning. He traveled to [place] with a friend who had purchased cattle. They were corralling the cattle into a trailer. The patient states he was not overly exerting himself nor was it excessively warm. He felt the onset of the need to urinate, and after he voided, he felt his defibrillator discharge. He did not lose consciousness. Shortly thereafter, approximately 30 seconds later, he felt a second ICD discharge. Although his overnight stocker expressed concerned and urged him to seek local medical treatment, the patient declined, and traveled back to [place], ultimately arriving here overnight last night with initial vital signs have not been taken at 2249. Interrogation of his device reveals an episode of atrial fibrillation with very rapid ventricular rate, approximately 200 bpm, that occurred at 1537 yesterday and lasted approximately 3 minutes with subsequent defibrillator discharge which was transiently successful, but then he reverted back to atrial fibrillation with very rapid ventricular rate for another 36 seconds, prompting a second ICD discharge 02/06/2021 1539. This time he was successfully converted back into sinus rhythm and he is remained in sinus rhythm in the interim. Device checks reveal occasional brief runs of nonsustained ventricular tachycardia which have been noted in the past. Thus far on telemetry, sinus rhythm with ventricular pacing noted in the range of 60 to 80 bpm. An 8 beat asymptomatic run of nonsustained ventricular tachycardia was observed this morning at 10:20 AM. Past Cardiac History: 1. His initial diagnosis dates back to 2006 or 2007 with findings of severe left ventricular systolic dysfunction and left bundle branch block at that time. 2. Cardiac catheterization took place at [facility], performed by Dr Munson, report reviewed independently by the undersigned today, and it describes angiographically normal coronary arteries, with ejection fraction of 30%. 3. Implantation of a [employer]onic biventricular pacemaker AICD,2010, Dr Martinez. 4. In 2018, the patient established with the undersigned. In addition to noting the above history, he carries a diagnosis of paroxysmal atrial fibrillation and had declined anticoagulation at that time due to concerns of blood per rectum. 5. He has followed somewhat sporadically in the interim, having most recently been seen by the undersigned in 2018, with nonischemic Lexiscan nuclear stress test as an outpatient in August,, LVEF 50% at that time by gated SPECT 6. Dec, 2019, seen by Elena Amaya PA-C of our practice, at which time he had been lost to device clinic follow-up. 7.Recently, he reestablished with Dr Martinez in EP follow up in Dec, 2020. He describes fatigue at that time. Repeat echocardiogram performed with [facility] outpatient echocardiography lab 01/14/2021 revealed moderate left ventricular chamber dilatation, LVEF 30-35%, declined from 40 to 45% in November,. Allergies Allergy/AdvReac Type Severity Reaction Status Date / Time cefuroxime Allergy Intermediate Rash Verified 02/07/21 01:47 Home Medications Medication Instructions Recorded Confirmed Type amiodarone 200 mg tablet 100 mg PO QAM #90 tab 05/11/19 02/07/21 History carvedilol 25 mg tablet 37.5 mg PO BID #90 tab 05/11/19 02/07/21 History furosemide 40 mg tablet 40 mg PO DAILY PRN #30 tab 05/11/19 02/07/21 History losartan 50 mg tablet 50 mg PO BID #60 tab 05/11/19 02/07/21 History potassium chloride 20 mEq 20 meq PO DAILY PRN #30 tab 05/11/19 02/07/21 History tablet,extended release spironolactone 25 mg tablet 25 mg PO QAM #30 tab 05/11/19 02/07/21 History Patient History Medical History Amiodarone-induced hyperthyroidism Anxiety Change in bowel movement Diarrhea Diastolic dysfunction "echo 02/2017- grade II" HTN (hypertension) Hyperlipidemia Idiopathic cardiomyopathy Had nuclear stress test/echo 08/2018 EF 45%, negative for inducible ischemia Osteoarthritis PAF (paroxysmal atrial fibrillation) Thyroid disorder Surgical History History of cardiac cath > 10 years ago - no stents History of cardiac radiofrequency ablation History of colonoscopy Presence of combination internal cardiac defibrillator (ICD) and pacemaker 2003 - cardiomyopathy - follows w/ Dr. Dwyer - medtronic - last checked 3- 4 weeks ago S/P cholecystectomy Family History Uncle Stroke Mother , 38 Cervical cancer Other Adopted No family history of adverse response to anesthesia Social History Smoking Status: Never smoker Tobacco Type: Cigarettes Second Hand Exposure: Yes ( smokes); Do You Dip or Chew Tobacco: Yes; Hx Alcohol Use: Yes Alcohol type: beer Hx Substance Use: No Preferred Language: Greenlandic Communication Ability: Effective Legal Records Clerk Required: No Beliefs That Will Affect Care: None marital status: Current Living Situation: Spouse and Family current occupational status: employed Other Information That Helps Us Care for You: No Feels Safe at Home: Yes Safety Concerns: Feels Safe At This Time Assistive Devices: Glasses Review of Systems Review of Systems: All systems reviewed & are unremarkable except as noted in HPI & below Physical Exam Physical Exam: Temp Pulse Resp BP Pulse Ox 36.6 C 68 18 119/78 95 02/07/21 11:24 02/07/21 11:24 02/07/21 11:24 02/07/21 11:24 02/07/21 11:24 Respiratory: normal respiratory effort, lungs clear to auscultation Cardiovascular: RRR, no murmur, no edema Vessels: no JVD Extremities: no edema Chest (Breasts): Chest: + pacemaker (Well-healed left infraclavicular device pocket) Neurologic: PERRL, EOMI, accommodation nl, no face palsy, no dysarthria Results & Data ([facility]) Vital Signs (Past 12 Hours) Vital Signs Temp Pulse Pulse Resp BP BP BP 02/07/21 11:24 36.6 C 68 18 119/78 02/07/21 07:42 36.5 C 72 18 122/80 02/07/21 04:38 36.4 C L 70 20 117/81 02/07/21 04:00 70 13 119/81 02/07/21 03:30 71 12 02/07/21 03:20 77 15 02/07/21 03:10 77 17 02/07/21 02:01 77 17 02/07/21 02:00 77 18 135/92 02/07/21 01:31 76 16 02/07/21 01:30 78 19 120/87 02/07/21 01:01 77 14 02/07/21 01:00 78 14 125/88 Pulse Ox 02/07/21 11:24 95 02/07/21 07:42 95 02/07/21 04:38 96 02/07/21 04:00 92 02/07/21 03:30 93 02/07/21 03:20 93 02/07/21 03:10 94 02/07/21 02:01 97 02/07/21 02:00 97 02/07/21 01:31 97 02/07/21 01:30 97 02/07/21 01:01 97 02/07/21 01:00 95 Laboratory Results Cardiac Enzymes 02/07/21 02/07/21 Range/Units 00:11 07:56 AST 14 L (15-37) U/L Troponin I 0.472 H* 0.213 H* (0-0.045) ng/ml Coagulation 02/07/21 02/07/21 Range/Units 00:11 07:56 APTT 24.8 33.5 H (21.0-31.0) Seconds CBC 02/07/21 Range/Units 00:11 WBC 9.35 (4.8-10.8) K/uL RBC 4.85 (4.7-6.1) M/uL Hgb 14.3 (14.0-18.0) g/dL Hct 43.8 (42-52) % Plt Count 289 (130-400) K/uL Neut # (Auto) 5.51 (1.4-6.5) K/uL Lymph # (Auto) 2.48 (1.2-3.4) K/uL [place] # (Auto) 1.00 H (0.11-0.59) K/uL Eos # (Auto) 0.30 (0-0.5) K/uL Baso # (Auto) 0.03 (0-0.2) K/uL Comprehensive Metabolic Panel 02/07/21 Range/Units 00:11 Sodium 140 (136-145) mmol/L Potassium 3.5 (3.5-5.1) mmol/L Chloride 107 (98-107) mmol/L Carbon Dioxide 26 (21-32) mmol/L BUN 15 (7-18) mg/dl Creatinine 0.93 (0.6-1.4) mg/dl Glucose 104 H (70-99) mg/dl Calcium 8.7 (8.5-10.1) mg/dl AST 14 L (15-37) U/L ALT 39 (12-78) U/L Alkaline Phosphatase 50 (45-117) U/L Total Protein 6.7 (6.4-8.2) gm/dl Albumin 3.5 (3.4-5.0) gm/dl Intake and Output 02/06/21 02/07/21 02/07/21 22:59 06:59 14:59 Intake Total 120 / 120 141.667 / 141.667 Balance 120 / 120 141.667 / 141.667 Intake: IV 141.667 / 141.667 Heparin Sodium/Dextrose 25,000 141.667 / 141.667 units In 500 ml @ 1,000 UNITS/ HR 20 mls/hr IV .Q24H [facility] Rx#: [id number] Oral 120 / 120 Other: Weight 10.71 kg 106.3 kg Weight Measurement Method Chair Scale Standing Scale Diagnostic Findings EKG performed 02/06/2021 revealed sinus rhythm with atrial sensing, ventricular pacing at 86 bpm with frequent PVCs. Summary of report of recent outpatient echocardiogram: Moderate left ventricular chamber dilatation, severe left ventricular systolic dysfunction, with global left ventricular hypokinesis, LVEF 30-35%, mild right ventricular chamber dilatation with normal RV systolic function, mild left atrial dilatation, mild much regurgitation. Compared to August, and November,, and interval decline in the LVEF noted. Device interrogation performed overnight last night, reviewed independently, and results also reviewed with Dr. Martinez of EP, device discharges for atrial fibrillation with very rapid ventricular response as noted above, occasional brief episodes of nonsustained VT also noted, but the device therapy was not due to sustained ventricular tachycardia. The patient is programmed in DDDR mode, basal rate of 70 bpm, with ventricular pacing 90% the time. Longest recent atrial fibrillation episode 38 minutes. -Generator longevity estimated to be 5 months.
--- NOTE | 2021-02-07 15:09 | Electrocardiogram Report ---
Test Reason : Blood Pressure : / mmHG Vent. Rate : 086 BPM Atrial Rate : 086 BPM P-R Int : 162 ms QRS Dur : 154 ms QT Int : 412 ms P-R-T Axes : 034 009 -39 degrees QTc Int : 493 ms Poor data quality, interpretation may be adversely affected Atrial-sensed ventricular-paced rhythm with occasional Premature ventricular complexes Abnormal ECG When compared with ECG of 07-MAR-2019 06:41, Vent. rate has increased BY 7 BPM Confirmed by Alfredo Schwab ([id number]) on 02/07/2021 3:08:49 PM Referred By: REFERRED SELF Confirmed By:Jon Schwab
[2021-02-07 16:04] LABS: Partial Thromboplastin Ratio 1.7; Partial Thromboplastin Time 44.1 Seconds (21.0-31.0)
[2021-02-07 22:52] LABS: Partial Thromboplastin Ratio 1.5; Partial Thromboplastin Time 39.1 Seconds (21.0-31.0)
[2021-02-08] MEDS ORDERED: SACUBITRIL-VALSARTAN 24-26 MG TAB PO SCH
[2021-02-08 08:14] LABS: Basophils # (auto) 0.03 K/uL (0-0.2); Basophils % (auto) 0.4 %; Eosinophils % (auto) 4.9 %; Hematocrit (blood only) 44.1 % (42-52); Hemoglobin 14.5 g/dL (14.0-18.0); Immature Granulocytes # (auto) 0.04 K/uL (0.00-0.02); Immature Granulocytes % (auto) 0.5 %; Lymphocytes # (auto) 2.02 K/uL (1.2-3.4); Lymphocytes % (auto) 24.5 %; Mean Corpuscular Hemoglobin 29.4 pg (25-34); Mean Corpuscular Hgb Conc 32.9 g/dL (32-36); Mean Corpuscular Volume 89.3 fL (80-100); Mean Platelet Volume 9.2 fL (7.4-10.4); Monocytes # (auto) 0.86 K/uL (0.11-0.59); Monocytes % (auto) 10.4 %; Neutrophils # (auto) 4.89 K/uL (1.4-6.5); Neutrophils % (auto) 59.3 %; Platelet Count 260 K/uL (130-400); RDW Coefficient of Variation 13.9 % (11.5-14.5); RDW Standard Deviation 45.7 fL (36.4-46.3); Red Blood Count 4.94 M/uL (4.7-6.1); White Blood Count 8.24 K/uL (4.8-10.8)
[2021-02-08 08:33] LABS: Partial Thromboplastin Time 52.1 Seconds (21.0-31.0)
[2021-02-08 08:49] LABS: BUN Creatinine Ratio 18.3 (10-20); Calcium 9.1 mg/dl (8.5-10.1); Creatinine Clr Calc Pharmacy 101.6 ml/min; Est GFR (African American) 92.2 ml/min; Est GFR (Non-African American) 79.5 ml/min; Potassium 4.5 mmol/L (3.5-5.1)
[2021-02-08] MEDS ORDERED: APIXABAN 5 MG TABLET PO SCH (09:15)
[2021-02-08] MEDS: AMIODARONE 200 MG TAB PO SCH (09:17)
[2021-02-08] MEDS: SPIRONOLACTONE 25 MG TAB PO SCH (09:18)
[2021-02-08] MEDS: carvediloL 12.5 MG TAB PO SCH (09:18)
--- NOTE | 2021-02-08 09:24 | Cardiology Progress Note ---
Date of Service February 08, 2021 Assessment & Plan (1) AICD discharge: (2) PAF (paroxysmal atrial fibrillation): (3) Idiopathic cardiomyopathy: (4) Elevated troponin: 55-year-old male with longstanding history of nonischemic cardiomyopathy, chronic systolic heart failure, left bundle branch block, angiographically normal coronary arteries by cardiac catheterization in 2007, nonischemic nuclear stress test 2019. Patient has a history of episodes of nonsustained ventricular tachycardia as well as paroxysmal atrial fibrillation. He had previously been on anticoagulation but discontinued this per his own preference several years ago due to concerns of gastrointestinal bleeding. His hemoglobin is stable, and colonoscopy performed January, revealed mild hemorrhoids and diverticular disease without source of bleeding. AICD discharge due to atrial fibrillation, very rapid ventricular rate: Question patient's medication adherence. I spoke to his spouse who agrees he has not been adherent to his medication regimen recently. He at least describes that he had missed several doses of carvedilol leading up to the event. AICD discharge and rapid AF rate likely explained mild troponin elevation. -Importance of adherence discussed. Continue current dose of carvedilol 37.5 mg twice daily. -Patient is agreeable to resuming anticoagulation with Eliquis 5 mg twice daily. Chronic systolic heart failure, recent worsening LVEF: Once again question medication adherence. Patient has seen multiple providers, and a common theme described in the notes is his recurrent express preference to be off of medications due to concerns that they cause some fatigue. Continue Coreg and spironolactone. Volume status is stable at present without loop diuretic. Losartan on hold for washout, and prior authorization for Entresto 24/ BID pending. Per most recent treatment guidelines use of Entresto is certainly indicated. Had angiographically normal coronary arteries in 2008. Report obtained and reviewed in the previous version of [employer]. Had nonischemic myocardial perfusion imaging study as an outpatient in 2019. Denies symptoms suggestive angina. AICD discharge and rapid AF rate likely explained mild troponin elevation. At present, clinical presentation is consistent with progression of the previously noted nonischemic cardiomyopathy in the setting of left bundle branch block, would recommend optimization of medications, repeat echo at a 3- month interval rather than further ischemic work-up at present. Nonsustained ventricular tachycardia: Previously noted, so this is not a new diagnosis. Continue carvedilol, amiodarone. Amiodarone level sent with regards to check if he is on an appropriate dose, and to see if he has been adherent. 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 AICD generator longevity approached the recommended replacement interval: 5 months of longevity noted. Discussed with Dr Martinez who will help arrange EP follow up in 3 months. Disposition: Perhaps discharge later today.If Entresto improved, could start in am 02/09/21 having completed a minimum of 36 hours of washout therapy. -Follow up with Miguel Zurita, 02/22/21 patient arrival 10:15 am. Admission and Anticipated Discharge Date Admission Date: February 07, 2021 Subjective Patient seen in cardiology follow-up. He feels well. Telemetry reveals ongoing sinus rhythm with ventricular paced QRS complexes and occasional PVCs. No recurrent atrial fibrillation, no recurrent nonsustained ventricular tachycardia. Review of Systems Review of Systems: All systems reviewed & are unremarkable except as noted in HPI & below Physical Exam Physical Exam: Temp Pulse Resp BP Pulse Ox 36.5 C 71 18 105/70 94 02/08/21 08:01 02/08/21 08:01 02/08/21 08:01 02/08/21 08:01 02/08/21 08:01 Constitutional: WD/WN, vitals as above Respiratory: normal respiratory effort, lungs clear to auscultation Cardiovascular: RRR, no murmur, no edema Gastrointestinal (Abdomen): normal bowel sounds, soft, nontender, no hepatosplenomegaly Neurologic: PERRL, EOMI, accommodation nl, no face palsy, no dysarthria Results & Data ([facility]) Vital Signs (Past 12 Hours) Vital Signs Temp Pulse Pulse Resp BP BP Pulse Ox 02/08/21 08:01 36.5 C 71 18 105/70 94 02/08/21 03:20 36.5 C 72 17 94/61 L 93 02/08/21 01:43 74 02/07/21 23:08 36.8 C 74 17 106/70 93 Laboratory Results Coagulation 02/07/21 02/07/21 02/08/21 Range/Units 15:39 22:28 07:45 APTT 44.1 H 39.1 H 52.1 H* (21.0-31.0) Seconds CBC 02/08/21 Range/Units 07:45 WBC 8.24 (4.8-10.8) K/uL RBC 4.94 (4.7-6.1) M/uL Hgb 14.5 (14.0-18.0) g/dL Hct 44.1 (42-52) % Plt Count 260 (130-400) K/uL Neut # (Auto) 4.89 (1.4-6.5) K/uL Lymph # (Auto) 2.02 (1.2-3.4) K/uL [place] # (Auto) 0.86 H (0.11-0.59) K/uL Eos # (Auto) 0.40 (0-0.5) K/uL Baso # (Auto) 0.03 (0-0.2) K/uL Comprehensive Metabolic Panel 02/08/21 Range/Units 07:45 Sodium 138 (136-145) mmol/L Potassium 4.5 D (3.5-5.1) mmol/L Chloride 107 (98-107) mmol/L Carbon Dioxide 29 (21-32) mmol/L BUN 19 H (7-18) mg/dl Creatinine 1.05 (0.6-1.4) mg/dl Glucose 98 (70-99) mg/dl Calcium 9.1 (8.5-10.1) mg/dl Intake and Output 02/07/21 02/08/21 02/08/21 22:59 06:59 14:59 Intake Total 575.3 / 1331.967 240 / 1331.967 Output Total 975 / 2600 425 / 2600 Balance -399.7 / -1268.033 -185 / -1268.033 Intake: IV 335.3 / 476.967 Heparin Sodium/Dextrose 25,000 335.3 / 476.967 units In 500 ml @ 1,400 UNITS/ HR 28 mls/hr IV .[id number] [facility] Rx #:[id number] Oral 240 / 855 240 / 855 Output: Urine 975 / 2600 425 / 2600 Other: Weight 106 kg Weight Measurement Method Built in [facility]
--- NOTE | 2021-02-08 12:17 | Communication Note ---
Date of Service: February 08, 2021 Update: Outpatient pharmacy believes it will be a few more days until we here if Entresto is approved. Concerned with regards to patient being able to transition successfully from losartan to Entresto as outpatient without in person guidance (based on my conversation with patient and his spouse, Adilia, by phone). Losartan had already been on hold. Plan: Give first dose of Entresto now. Observe for a few hours and as long as he feels well, discharge with home pack from inpatient pharmacy for 4 tablets, which patient can take Sat. , Sun. until med available next week.
[2021-02-08] MEDS ORDERED: SACUBITRIL-VALSARTAN 24-26 MG TAB PO ONE (12:45)
--- NOTE | 2021-02-08 14:19 | Hospitalist Progress Note ---
Date of Service February 08, 2021 Assessment & Plan (1) AICD discharge: Hx Non sustained ventricular tachycardia Due to atrial fibrillation, very rapid ventricular rate Troponin elevated to 0.47 on admission, trending down to 0.2 Cardiology on board IV heparin drip was transition to Eliquis 5mg BID Continue carvedilol 37.5 mg twice daily and amiodarone 100 mg daily. case discussed with Cardiology Ok from cardiology standpoint to discharge home if tolerates the Entresto Follow up with Dr Martinez of electrophysiology for reassessment of defibrillator battery in 3 months. Elevated troponin Due to AICD discharge EKG showed atrial paced with no ischemic changes Echo showed moderately dilated left ventricle with moderately to severely reduced systolic function with ejection fraction 30 to 35% Troponin trending down Chronic systolic HF No sign of fluid overload Continue Spironolactone 25mg daily Losartan was discontinued and Entresto was started (First dose given now in the hospital ) Will observe for a few hours and as long as he feels well, discharge with home pack from inpatient pharmacy for 4 tablets, which patient can take Sat. , Sun. until med available next week On Lasix PRN HTN Discontinued Losartan and started on Entresto Continue Spironolactone/entresto and carvedilol Check BMP with 1 week DVT prophylaxis. IV heparin drip discontinue- starting on Eliquis Full code Disposition Discharge home today Admission and Anticipated Discharge Date Admission Date: February 07, 2021 Subjective Pt was seen and examined for follow up of AICD discharge Lying in bed with no distress. Pt said that he feels ok Currently denies any chest pain, palpitation, dizziness and SOB Review of Systems Review of Systems: All systems reviewed & are unremarkable except as noted in Subjective Physical Exam Physical Exam: General- No acute distress Head- atraumatic Eyes- PERRL, EOMI, ENT- oropharynx clear Neck- supple, no JVD Lungs- clear to auscultation Heart- regular rhythm; no murmur Abdomen- normal bowel sounds, soft, nontender Extremities- no calf tenderness Neuro- alert, oriented x 3; PERRL, EOMI; no facial palsy; no dysarthria Skin- warm & dry Results & Data Results & Data ([facility]) Vital Signs (Past 12 Hours) Vital Signs Temp Pulse Pulse Resp BP BP Pulse Ox 02/08/21 12:35 36.7 C 78 18 125/86 94 06/18/21 08:01 36.5 C 71 18 105/70 94 02/08/21 08:00 68 02/08/21 03:20 36.5 C 72 17 94/61 L 93
--- NOTE | 2021-02-11 08:24 | Discharge Summary ---
Date of Service February 08, 2021 Admission HPI Per Admitting Provider History obtained from patient and records. Medical history significant for chronic systolic heart failure secondary to nonischemic cardiomyopathy status post ICD (EF 30 to 35%, 2020), PAF sp ablation not on anticoagulation as per patient preference due to history GI bleed as per records, paroxysmal VT as per records, hx CAD as per records, hx LBBB, hypothyroidism, mood disorder, past tobacco abuse. Last confinement November 2018 for chest pain, noncardiac as per Cardiology evaluation. Recent outpatient [facility] outpatient visit last month. ICD with stable electrical characteristics with adequate battery voltage although approaching replacement time. Occasional NSVT despite amiodarone with no ICD shocks as per documentation. Patient complaining of fatigue symptoms. Repeat 2D echo showed EF 30 to 35%. Consideration for switching Losartan to Entresto as per note. Patient was in [place] yesterday with a friend of his for work when he experienced ICD shocks lasting for a few seconds while peeing. Patient felt a cold sensation coming over him. No chest pain, no S OB, no unusual fluid retention as per patient. No unusual stress at home. Patient compliant with home medications. Second ICD shock lasting few seconds experienced by patient subsequently. 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 Admission Exam Per Admitting Provider GENERAL: Comfortable, obese, no respiratory distress SKIN: Normal color, warm HEENT: Bespectacled, pink palpebral conjunctivae, no ptosis, moist buccal mucosa NECK : Supple, no tenderness CHEST : CTA, no tenderness HEART : RRR, no obvious murmurs ABDOMEN: Some distention, nontender EXTREMITIES : No LE swelling/tenderness, no other conspicuous deformities noted NEUROLOGIC : Coherent, no facial asymmetry, no other gross focality Principal Diagnosis (1) AICD discharge: (2) PAF (paroxysmal atrial fibrillation): (3) Idiopathic cardiomyopathy: (4) Elevated troponin Discharge Exam General- No acute distress Head- atraumatic Eyes- PERRL, EOMI, ENT- oropharynx clear Neck- supple, no JVD Lungs- clear to auscultation Heart- regular rhythm; no murmur Abdomen- normal bowel sounds, soft, nontender Extremities- no calf tenderness Neuro- alert, oriented x 3; PERRL, EOMI; no facial palsy; no dysarthria Skin- warm & dry Discharge Data Allergies Allergy/AdvReac Type Severity Reaction Status Date / Time cefuroxime Allergy Intermediate Rash Verified 02/07/21 01:47 Consultations 02/07/21 01:34 ED Decision to Admit Stat 02/07/21 04:38 Consult Cardiology Routine Ordered Studies XR chest 1V portable CLINICAL HISTORY: Chest Pain COMPARISON STUDY: Chest radiograph March 07, 2019. FINDINGS: A left subclavian biventricular pacer/AICD is in place. Cardiomegaly is unchanged. There is no pneumothorax or pleural effusion. Apparent left basilar opacity is unchanged. There is no consolidation. Appearance of the chest is unchanged. Old right rib fractures are incidentally noted. IMPRESSION: No acute cardiopulmonary findings. No significant change in appearance of the chest. ACT 112: Negative or not required by law. Electronically signed by: Buster Porter M.D. 02/07/2021 8:25 AM Dictated: 02/07/21824Transcribed: 02/07/21824 Hospital Course (1) AICD discharge: Hx Non sustained ventricular tachycardia Due to atrial fibrillation, very rapid ventricular rate Troponin elevated to 0.47 on admission, trending down to 0.2 Cardiology on board IV heparin drip was transition to Eliquis 5mg BID Continue carvedilol 37.5 mg twice daily and amiodarone 100 mg daily. case discussed with Cardiology Ok from cardiology standpoint to discharge home if tolerates the Entresto Follow up with Dr Martinez of electrophysiology for reassessment of defibrillator battery in 3 months. Elevated troponin Due to AICD discharge EKG showed atrial paced with no ischemic changes Echo showed moderately dilated left ventricle with moderately to severely reduced systolic function with ejection fraction 30 to 35% Troponin trending down Chronic systolic HF No sign of fluid overload Continue Spironolactone 25mg daily Losartan was discontinued and Entresto was started (First dose given now in the hospital ) Will observe for a few hours and as long as he feels well, discharge with home pack from inpatient pharmacy for 4 tablets, which patient can take Sat. , Sun. until med available next week On Lasix PRN HTN Discontinued Losartan and started on Entresto Continue Spironolactone/entresto and carvedilol Check BMP with 1 week DVT prophylaxis. IV heparin drip discontinue- starting on Eliquis Full code Disposition Discharge home today Total Time Total Time Spent Total Time Spent (In Minutes): 35 minutes Total Time Includes: Examination of the Patient, Discharge Planning, Medication Reconciliation, Communication With Other Providers and Other Discharge Plan Discharge Items Patient Disposition: Home - Self-Care Reason For Visit: ICD SHOCK, TACHYARRHYTHMIA Discharge Diagnosis: (1) AICD discharge: (2) PAF (paroxysmal atrial fibrillation): (3) Idiopathic cardiomyopathy: (4) Elevated troponin Activity: Resume your previous activity Non-emergency contact: Primary Care Provider Call non-emergency contact if: you have any medication questions Follow-up/Referrals: Rafael Dwyer DO [Betting Agency Manager] - (Date & Time 02/22/2021 10:30 AM Provider Rafael Dwyer DO Department Cardiology, [facility] ) Amy Pelletier DO [Outside Practitioners] - (Date & Time 02/13/2021 11:00 AM Provider Amy Pelletier DO Department [facility] ) Diet: Heart Healthy Addtl Attending Provider Instructions: Follow up with your primary care provider Dr. Pelletier on 02/13/2021 @ 11:00 AM at the [facility] Cardiology follow up with Dr Dwyer at [facility], 02/22/21 patient arrival 10:15 am. Follow up with Dr Martinez of electrophysiology for reassessment of defibrillator battery in 3 months. Appointment pending. Check BMP to monitor your renal function and electrolytes while on Entresto Will discharge with home pack for Entresto with for 4 tablets, which patient can take Sat. , Sun. Fall precaution while on blood thinner Monitor for any abnormal bleeding (shch as blood in the urine and stool) Medication Instructions: Eliquis Your condition is typically treated with an anticoagulant. Anticoagulants will thin your blood to help prevent blot clots and stroke You should take her medication exactly as directed. Never skip a dose. Never take a double dose. If you miss a dose, take it as soon as you remember. Avoid NSAIDs (Motrin, Aleve, Naproxen, Ibuprofen, Advil, Meloxica m,..) due to risks of bleeding Call your Primary Care doctor if you experience any of the following: Swelling or Pain in your leg Sudden, continuous pain deep in a muscle Pain that worsens when you are active or when you stand still for a long time Chest Pain Sudden Shortness of Breath Rapid or pounding heart beat Fainting Dizziness Cough with blood or bloody sputum Sweating more than normal Bruises Heavy or uncontrolled bleeding Blood in your urine, stool or vomit Black or tarry stools Addtl Hand Decorator Provider Instructions: Follow up with your primary care provider Dr. Pelletier on 02/13/2021 @ 11:00 AM at the [facility] Cardiology follow up with Dr Dwyer at [facility], 02/22/21 patient arrival 10:15 am. Follow up with Dr Martinez of electrophysiology for reassessment of defibrillator battery in 3 months. Appointment pending. Pending Studies at Discharge: No Stand-Alone Forms: My [facility] [employer], Smoking Cessation Medications and DC Order Prescriptions: New Eliquis 5 mg Tablet 5 mg PO BID 30 Days Qty: 60 RF: 0 Entresto 24-26 mg Tablet 1 tab PO BID 30 Days Qty: 60 RF: 0 Continued carvedilol 25 mg tablet 37.5 mg PO BID Qty: 90 RF: 0 amiodarone 200 mg tablet 100 mg PO QAM Qty: 90 RF: 0 spironolactone 25 mg tablet 25 mg PO QAM Qty: 30 RF: 0 furosemide 40 mg tablet 40 mg PO DAILY PRN (Reason: weight gain) Qty: 30 RF: 0 potassium chloride 20 mEq tablet extended release 20 meq PO DAILY PRN (Reason: with lasix ) Qty: 30 RF: 0 Discontinued losartan 50 mg tablet 50 mg PO BID Qty: 60 RF: 0 Discharge Orders: Discharge Order (Routine); Ordered 02/08/21 Ordered By: Keyana Mercado Admission Data Admit Date/Time: 02/07/21 02:55 Attending Provider: Keyana Mercado Admit Provider: Justin Rvias Primary Care Provider: PCP,NO Other Providers: Justin Rivas ; Jonathan Yañez ; Rafael Dwyer ; Ken Do ; Scott Newsome ; Miah Ley ; Marcial El ; Elena Amaya ; Maura Dunaway ; Kitty Cordon ; Monico Morales Other Interventions: Discharge Summary Assessment (RN) Last Done: 02/08/21 17:12
== END 2021-02-08 18:05 | disposition home or self-care (01) | DRG 309 ==
LOC: ED 22:45 → 2S 02-07 02:55 → SUATTDRO 02-07 02:55 → 2S 02-07 04:14

== ENCOUNTER 2021-07-24 08:09 | Inpatient (IN) ==
[2021-07-24] MEDS ORDERED: BENZONATATE 100 MG CAPSULE PO ONE (08:25)
[2021-07-24] MEDS ORDERED: SODIUM CHLORIDE 0.9% 1000ML 1,000 ML IV SCH (08:30)
--- NOTE | 2021-07-24 08:32 | Emergency Department Note ---
History of Present Illness General Chief complaint: Respiratory Problems Stated complaint: HARD BREATHING/LIGHTHEADED NEG FOR COVID Time Seen by Provider: 07/24/21 08:15 History of Present Illness This 56-year-old male patient with significant past medical history of cardiomyopathy presents to the emergency department today for evaluation of cough, difficulty breathing. The patient states symptoms began on Thursday. He denies any associated fever, but does report chills. He states the cough is nonproductive. He notes "I feel like I am dehydrated because I have not coughed anything up and I drink Gatorade and my mouth is still dry". The patient denies any abdominal pain or chest pain. He states his left leg has been somewhat painful since the onset of his symptoms. He did not receive a COVID-19 vaccine. He states "I do not think it is Covid because it is all in my chest and I got a test a month ago which was negative". Patient denies any numbness or tingling. There was some diarrhea the day after the cough started. He denies any weakness, edema, history of DVT/PE. He does take ASA daily. Home Medications Medication Instructions Recorded Confirmed Type amiodarone 200 mg tablet 100 mg PO QAM #90 tab 05/11/19 07/24/21 History carvedilol 25 mg tablet 37.5 mg PO BID #90 tab 05/11/19 07/24/21 History potassium chloride 20 mEq 20 meq PO DAILY PRN #30 tab 05/11/19 07/24/21 History tablet,extended release spironolactone 25 mg tablet 25 mg PO QAM #30 tab 05/11/19 07/24/21 History aspirin 81 mg tablet,delayed 81 mg PO DAILY 07/24/21 07/24/21 History release (Aspirin Low Dose) sacubitril 24 mg-valsartan 26 mg 1 tab PO BID 07/24/21 07/24/21 History tablet (Entresto) Allergies Allergy/AdvReac Type Severity Reaction Status Date / Time cefuroxime Allergy Intermediate Rash Verified 05/06/21 16:02 Past Med/Surg History Medical History AICD discharge Amiodarone-induced hyperthyroidism Anxiety Change in bowel movement Diarrhea Diastolic dysfunction "echo 02/2017- grade II" Elevated troponin HTN (hypertension) Hyperlipidemia Idiopathic cardiomyopathy Had nuclear stress test/echo 08/2018 EF 45%, negative for inducible ischemia Osteoarthritis PAF (paroxysmal atrial fibrillation) Thyroid disorder Surgical History (Updated 07/24/21 @ 13:21 by Charisma Alvarado PA-C) History of cardiac cath > 10 years ago - no stents History of cardiac radiofrequency ablation History of colonoscopy Presence of combination internal cardiac defibrillator (ICD) and pacemaker 2003 - cardiomyopathy - follows w/ Dr. Dwyer - medtronic - S/P cholecystectomy Family History Uncle Stroke Mother , 38 Cervical cancer Other Adopted No family history of adverse response to anesthesia Social History Smoking Status: Never smoker Tobacco Type: Smokeless Tobacco (Dip or Chew) Second Hand Exposure: Yes ( smokes); Do You Dip or Chew Tobacco: Yes; Hx Alcohol Use: Yes Alcohol type: beer and hard liquor Alcohol Intake Frequency: 2-4 x/Month Hx Substance Use: No Preferred Language: Ug[place]an Communication Ability: Effective Tread Booker Required: No Beliefs That Will Affect Care: None marital status: Current Living Situation: Spouse and Family current occupational status: employed Feels Safe at Home: Yes Assistive Devices: Glasses Review of Systems A total of 10 systems reviewed and were otherwise negative Physical Exam Vital Signs Vital Signs - 24 hr 07/24/21 08:09 07/24/21 08:55 07/24/21 09:10 Temperature 37.6 C H Temperature Source Temporal Artery Scan Pulse Rate 89 89 Pulse Rate from SpO2 Sensor Pulse Rhythm Regular Respiratory Rate 18 18 Blood Pressure 101/61 Blood Pressure Mean 74 Blood Pressure Position Sitting Pulse Oximetry 90 90 Oxygen Delivery Method Room Air Room Air Room Air Sepsis Recent Fever Within 48 Hours No Sepsis New/Unexplained Change in Mental Status No Sepsis Action Taken by Nursing No Action Required 07/24/21 09:15 07/24/21 09:30 07/24/21 10:00 Temperature Temperature Source Pulse Rate 83 81 85 Pulse Rate from SpO2 Sensor 83 81 Pulse Rhythm Respiratory Rate 20 20 21 Blood Pressure 114/68 127/77 137/78 Blood Pressure Mean 83 93 97 Blood Pressure Position Pulse Oximetry 92 91 93 Oxygen Delivery Method Sepsis Recent Fever Within 48 Hours Sepsis New/Unexplained Change in Mental Status Sepsis Action Taken by Nursing 07/24/21 10:30 07/24/21 11:00 07/24/21 11:30 Temperature Temperature Source Pulse Rate 82 80 78 Pulse Rate from SpO2 Sensor 81 79 79 Pulse Rhythm Respiratory Rate 22 22 25 H Blood Pressure 112/63 123/65 130/62 Blood Pressure Mean 79 84 84 Blood Pressure Position Pulse Oximetry 91 93 92 Oxygen Delivery Method Sepsis Recent Fever Within 48 Hours Sepsis New/Unexplained Change in Mental Status Sepsis Action Taken by Nursing 07/24/21 12:00 Temperature Temperature Source Pulse Rate 81 Pulse Rate from SpO2 Sensor 80 Pulse Rhythm Respiratory Rate 19 Blood Pressure Blood Pressure Mean Blood Pressure Position Pulse Oximetry 92 Oxygen Delivery Method Sepsis Recent Fever Within 48 Hours Sepsis New/Unexplained Change in Mental Status Sepsis Action Taken by Nursing VITALS: Vitals are noted on the nurse's note and reviewed by myself. Vital sig ns stable. GENERAL: This is a 56-year-old white male in no acute distress, nondiaphoretic, well-developed well-nourished. SKIN: The skin was without rashes, erythema, edema, or bruising. There is no tenting of the skin. Capillary refill less than 2 seconds. HEAD: Normocephalic atraumatic. EYES: Conjunctivae without injection, sclerae without icterus. NECK: Supple without nuchal rigidity. No lymphadenopathy. Cervical spine is nontender. No JVD. HEART: Regular rate and rhythm without murmurs gallops or rubs. LUNGS: Clear to auscultation bilaterally without wheezes, rales or rhonchi. No retractions or accessory muscle use. ABDOMEN: Positive bowel sounds x 4. Soft, nontender, without masses or organomegaly. Zapata sign negative. No guarding or rebound tenderness. MUSCULOSKELETAL: No muscle atrophy, erythema, or edema noted. Full range of motion without joint tenderness in all extremities. No tenderness to palpation. Normal gait. Strength 5/5 throughout. NEURO: Patient was alert and oriented to person place and time. No focal neurological deficits. Course Course The patient was seen and evaluated as above. An order was placed for continuous cardiac monitoring. The monitor shows a normal sinus rhythm at a rate of 89 bpm. IV access obtained, labs drawn. Pt. medicated with IV fluids, benzonatate. Imaging performed and reviewed by myself and radiologist as noted. Labs reviewed by myself. I discussed the findings with the patient at bedside. CT imaging performed reviewed by myself and radiologist as noted. I discussed findings with the patient at bedside. He continues to complain of coughing. O2 saturation is 88% on room air while he is up and talking to me. Did recommend admission and the patient was agreeable. I discussed the case with Charisma Alvarado PA-C with [facility] hospitalist. She did agree to see and evaluate the patient for admission. Administered Medications Albuterol (Albuterol 0.083% Nebu Soln 3 Ml Vial) 2.5 mg NEB Q6R RED Stop: 08/23/21 14:37 Last Admin: 07/24/21 15:01 Dose: 2.5 mg Documented by: [id number] Benzonatate (Benzonatate 100 Mg Capsule) 100 mg PO TID RED Stop: 08/23/21 14:37 Last Admin: 07/24/21 16:08 Dose: 100 mg Documented by: [id number] Discontinued Medications Albuterol (Albut/Ipratrop 3mg/0.5mg Neb 3 Ml Vial) Confirm Administered Dose 3 ml .ROUTE .STK-MED ONE Stop: 07/24/21 14:56 Last Admin: 07/24/21 16:04 Dose: Not Given Documented by: [id number] Albuterol (Albuterol 0.083% Nebu Soln 3 Ml Vial) Confirm Administered Dose 2.5 mg .ROUTE .STK-MED ONE Stop: 07/24/21 15:00 Last Admin: 07/24/21 16:01 Dose: Not Given Documented by: [id number] Benzonatate (Benzonatate 100 Mg Capsule) 200 mg PO NOW ONE Stop: 07/24/21 08:26 Last Admin: 07/24/21 09:10 Dose: 200 mg Documented by: [id number] Sodium Chloride (Nss 1000ml) 1,000 mls @ 999 mls/hr IV .Q1H1M RED Stop: 07/24/21 09:30 Last Infusion: 07/24/21 10:20 Dose: 0 mls/hr Documented by: [id number] Admin: 07/24/21 09:09 Dose: 999 mls/hr Documented by: [id number] Remdesivir 200 mg/ Sodium (Chloride) 250 mls @ 125 mls/hr IV ONE STA; Protocol Stop: 07/24/21 15:02 Last Admin: 07/24/21 14:57 Dose: 125 mls/hr Documented by: [id number] Dexamethasone 6 mg/ Syringe 1.5 mls @ 1 mls/min IV ONE ONE Stop: 07/24/21 13:16 Last Admin: 07/24/21 16:08 Dose: 1 mls/min Documented by: [id number] Ioversol (Optiray 320 125ml) 120 ml IV ONCE ONE Stop: 07/24/21 10:14 Last Admin: 07/24/21 10:14 Dose: 120 ml Documented by: [id number] Potassium Chloride (Potassium Chloride Crtab 20 Meq Tabcr) 40 meq PO NOW STA Stop: 07/24/21 13:06 Last Admin: 07/24/21 13:36 Dose: 40 meq Documented by: [id number] Medical Decision Making Differential Diagnosis Covid-19, Reactive airway disease, pneumonia, pneumothorax, COPD, CHF, infections, cardiac ischemia, pulmonary embolism, musculoskeletal, gastrointestinal, as well as other pathologies. Medical Records Attestation: I reviewed the patient's medical records. Home Medications Current Medication List: was personally reviewed by me Laboratory Data Attestation: I reviewed the patient's lab results. No leukocytosis, significant anemia, thrombocytopenia. Renal, hepatic function and electrolytes without significant abnormality. Troponin negative. BNP 140. D-dimer 770. Urinalysis negative for blood or evidence of infection. Influenza testing negative. COVID-19 testing positive. Result diagrams: 07/24/21 09:09 07/24/21 09:09 Lab Results 07/24/21 07/24/21 07/24/21 Range/Units 09:09 09:09 09:09 WBC 7.50 (4.8-10.8) K/uL RBC 4.56 L (4.7-6.1) M/uL Hgb 13.2 L (14.0-18.0) g/dL Hct 39.7 L (42-52) % MCV 87.1 (80-100) fL MCH 28.9 (25-34) pg MCHC 33.2 (32-36) g/dL RDW Std Deviation 43.1 (36.4-46.3) fL RDW Coeff of Yousuf 13.5 (11.5-14.5) % Plt Count 206 (130-400) K/uL MPV 9.2 (7.4-10.4) fL Immature Gran % (Auto) 0.3 % Neut % (Auto) 81.0 % Lymph % (Auto) 9.9 % [place] % (Auto) 8.7 % Eos % (Auto) 0.0 % Baso % (Auto) 0.1 % Neut # (Auto) 6.08 (1.4-6.5) K/uL Lymph # (Auto) 0.74 L (1.2-3.4) K/uL [place] # (Auto) 0.65 H (0.11-0.59) K/uL Eos # (Auto) 0.00 (0-0.5) K/uL Baso # (Auto) 0.01 (0-0.2) K/uL Immature Gran # (Auto) 0.02 (0.00-0.02) K/uL D-Dimer 770 H* (0-500) ug/L FEU Sodium 132 L (136-145) mmol/L Potassium 3.4 L (3.5-5.1) mmol/L Chloride 99 (98-107) mmol/L Carbon Dioxide 25 (21-32) mmol/L Anion Gap 8.0 (3-11) BUN 10 (7-18) mg/dl Creatinine 0.94 (0.6-1.4) mg/dl Est Cr Clr Drug Dosing 107.3 ml/min Est GFR ( Amer) 104.6 ml/min Est GFR (Non-Af Amer) 90.3 ml/min BUN/Creatinine Ratio 10.4 (10-20) Glucose 117 H (70-99) mg/dl Calcium 8.1 L (8.5-10.1) mg/dl Magnesium 2.1 (1.8-2.4) mg/dl Total Bilirubin 0.5 (0.2-1) mg/dl AST 31 (15-37) U/L ALT 29 (12-78) U/L Alkaline Phosphatase 41 L (45-117) U/L Troponin I < 0.015 (0-0.045) ng/ml NT-Pro-B Natriuret Pep 140 (0-900) pg/ml Total Protein 6.9 (6.4-8.2) gm/dl Albumin 2.9 L (3.4-5.0) gm/dl Globulin 4.0 (2.5-4.0) gm/dl Albumin/Globulin Ratio 0.7 L (0.9-2) Urine Color Urine Appearance (Clear) Urine pH (4.5-7.5) Ur Specific [place] (1.000-1.030) Urine Protein (Negative) Urine Glucose (UA) (Negative) Urine Ketones (Negative) Urine Blood (Negative) Urine Nitrite (Negative) Urine Bilirubin (Negative) Urine Urobilinogen (Negative) Ur Leukocyte Esterase (Negative) Urine WBC (Auto) (0-5) /hpf Urine RBC (Auto) (0-4) /hpf U Hyaline Cast (Auto) (0-5) /lpf U Epithel Cells (Auto) (0-5) /lpf Urine Bacteria (Auto) (Negative) Influ A Molecular Assay (Negative) Influ B Molecular Assay (Negative) SARS-CoV-2, RNA, NAAT (NEGATIVE) 07/24/21 07/24/21 07/24/21 Range/Units 09:09 09:09 10:35 WBC (4.8-10.8) K/uL RBC (4.7-6.1) M/uL Hgb (14.0-18.0) g/dL Hct (42-52) % MCV (80-100) fL MCH (25-34) pg MCHC (32-36) g/dL RDW Std Deviation (36.4-46.3) fL RDW Coeff of Yousuf (11.5-14.5) % Plt Count (130-400) K/uL MPV (7.4-10.4) fL Immature Gran % (Auto) % Neut % (Auto) % Lymph % (Auto) % [place] % (Auto) % Eos % (Auto) % Baso % (Auto) % Neut # (Auto) (1.4-6.5) K/uL Lymph # (Auto) (1.2-3.4) K/uL [place] # (Auto) (0.11-0.59) K/uL Eos # (Auto) (0-0.5) K/uL Baso # (Auto) (0-0.2) K/uL Immature Gran # (Auto) (0.00-0.02) K/uL D-Dimer (0-500) ug/L FEU Sodium (136-145) mmol/L Potassium (3.5-5.1) mmol/L Chloride (98-107) mmol/L Carbon Dioxide (21-32) mmol/L Anion Gap (3-11) BUN (7-18) mg/dl Creatinine (0.6-1.4) mg/dl Est Cr Clr Drug Dosing ml/min Est GFR ( Amer) ml/min Est GFR (Non-Af Amer) ml/min BUN/Creatinine Ratio (10-20) Glucose (70-99) mg/dl Calcium (8.5-10.1) mg/dl Magnesium (1.8-2.4) mg/dl Total Bilirubin (0.2-1) mg/dl AST (15-37) U/L ALT (12-78) U/L Alkaline Phosphatase (45-117) U/L Troponin I (0-0.045) ng/ml NT-Pro-B Natriuret Pep (0-900) pg/ml Total Protein (6.4-8.2) gm/dl Albumin (3.4-5.0) gm/dl Globulin (2.5-4.0) gm/dl Albumin/Globulin Ratio (0.9-2) Urine Color Yellow Urine Appearance Clear (Clear) Urine pH 6.0 (4.5-7.5) Ur Specific [place] 1.006 (1.000-1.030) Urine Protein Trace H (Negative) Urine Glucose (UA) Negative (Negative) Urine Ketones Negative (Negative) Urine Blood Negative (Negative) Urine Nitrite Negative (Negative) Urine Bilirubin Negative (Negative) Urine Urobilinogen Negative (Negative) Ur Leukocyte Esterase Negative (Negative) Urine WBC (Auto) 1-5 (0-5) /hpf Urine RBC (Auto) 0-4 (0-4) /hpf U Hyaline Cast (Auto) 0 (0-5) /lpf U Epithel Cells (Auto) 10-20 H (0-5) /lpf Urine Bacteria (Auto) Negative (Negative) Influ A Molecular Assay Negative (Negative) Influ B Molecular Assay Negative (Negative) SARS-CoV-2, RNA, NAAT POSITIVE A* (NEGATIVE) Imaging Data Attestation: I personally reviewed and interpreted this imaging study as follows: Radiologist's Impression: Chest X-Ray 07/24/21 08:25 XR chest 1V portable HISTORY: Dyspnea COMPARISON: Chest 02/07/2021 FINDINGS: No pneumothorax. No pleural effusions. The heart remains mildly enlarged. Is left-sided pacemaker/defibrillator. There are patchy bilateral airspace opacities within the mid to lower lung zones, right greater than left. This is new from the prior study and favors a viral pneumonia. IMPRESSION: Interval development of patchy bilateral airspace opacities likely representing a viral pneumonia. ACT 112: Negative or not required by law. Electronically signed by: Tomas Canales M.D. 07/24/2021 9:26 AM Chest CTA 07/24/21 09:53 CHEST CTA for PULMONARY ARTERIES CT DOSE: 563.90 mGycm HISTORY: dyspnea, left leg pain, +dimer TECHNIQUE: Multiaxial CT images of the chest were performed following the intrav enous administration of contrast to evaluate the pulmonary arteries. Maximal intensity projection images were also obtained. A dose lowering technique was utilized adhering to the principles of ALARA. COMPARISON STUDY: Chest CT 02/08/2018. FINDINGS: Limited views of the upper abdomen demonstrate normal liver, spleen, and adrenal glands. The heart remains mildly enlarged. No pleural or pericardial effusions. Normal esophagus. The thyroid gland enhances normally. There is a left-sided pacemaker. Mild bilateral gynecomastia. 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 A few prominent bilateral hilar lymph nodes which are likely reactive. No mediastinal lymphadenopathy. No fractures within the visualized osseous structures. No pneumothorax. The central airways are patent. Multifocal scattered peripheral groundglass airspace opacities seen throughout the lungs consistent with a mild to moderate viral p neumonia. Normal caliber thoracic aorta with no evidence for dissection. The main pulmonary artery is mildly dilated up to 3.6 cm. This is consistent with pulmonary arterial hypertension. No filling defects within the pulmonary arteries to suggest a pulmonary embolus. IMPRESSION: 1. No evidence for pulmonary embolus. 2. Multifocal groundglass airspace opacities seen throughout the lungs consistent with a viral pneumonia. 3. Mild pulmonary arterial hypertension. 4. Stable mild cardiomegaly. 5. 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 ACT 112: Negative or not required by law. Electronically signed by: Tomas Canales M.D. 07/24/2021 10:26 AM ECG Data Attestation: I personally reviewed and interpreted this ECG as follows: Indication: + SOB/dyspnea Rate (beats per minute): 84 Rhythm: + other (atrial sensed ventricular-paced rhythm) ECG ST segments: no ST depression, no ST elevation or no T-wave inversions Comparison ECG Date: from (02/06/2021) Change: the following changes noted (morphology change in paced beats, PVC no longer present) Blood Pressure Blood Pressure Findings: Normal blood pressure MDM Narrative This 56-year-old male patient presents to the emergency department today for evaluation of dyspnea and cough. Symptoms been ongoing since Thursday of last week. The patient was found to have COVID-19 with a positive test. He was hypoxic with an O2 saturation of 88% on room air. Work-up here in the emergency department to include labs and imaging consistent with COVID-19 and COVID-19 pneumonia. The patient was complaining of some left leg pain, no edema, and did have a positive D-dimer, so CT imaging was performed to evaluate for PE. This was negative. Given the patient's hypoxia in the setting of COVID-19, he will be admitted to the [facility]ist service for further management of his illness. Please see hospitalist dictation regarding ongoing management and care of this patient. The chart was completed utilizing [employer] Speech voice recognition software. Grammatical errors, random word insertions, pronoun errors, and incomplete sentences are an occasional consequence of this system due to software limitations, ambient noise, and hardware issues. Any formal questions or conc erns about the content, text, or information contained within the body of this dictation should be directly addressed to the provider for clarification. Impression & Plan Pneumonia due to COVID-19 virus, Hypoxia, Hypokalemia Discharge Plan Visit Data Chief Complaint: Respiratory Problems Stated Complaint: HARD BREATHING/LIGHTHEADED NEG FOR COVID ED Provider: Keyon Saucedo ED Midlevel Provider: Georgia Vora Discharge Problem: Pneumonia due to COVID-19 virus, Hypoxia, Hypokalemia Patient Disposition: Admitted As Inpatient Discharge Instructions Interventions: ED Discharge Assessment Last Done: 07/24/21 14:45
[2021-07-24 09:26] LABS: Basophils # (auto) 0.01 K/uL (0-0.2); Basophils % (auto) 0.1 %; Hematocrit (blood only) 39.7 % (42-52); Hemoglobin 13.2 g/dL (14.0-18.0); Immature Granulocytes # (auto) 0.02 K/uL (0.00-0.02); Immature Granulocytes % (auto) 0.3 %; Lymphocytes # (auto) 0.74 K/uL (1.2-3.4); Lymphocytes % (auto) 9.9 %; Mean Corpuscular Hemoglobin 28.9 pg (25-34); Mean Corpuscular Hgb Conc 33.2 g/dL (32-36); Mean Corpuscular Volume 87.1 fL (80-100); Mean Platelet Volume 9.2 fL (7.4-10.4); Monocytes # (auto) 0.65 K/uL (0.11-0.59); Monocytes % (auto) 8.7 %; Neutrophils # (auto) 6.08 K/uL (1.4-6.5); Platelet Count 206 K/uL (130-400); RDW Coefficient of Variation 13.5 % (11.5-14.5); RDW Standard Deviation 43.1 fL (36.4-46.3); Red Blood Count 4.56 M/uL (4.7-6.1)
--- NOTE | 2021-07-24 09:27 | XRay Report ---
XR chest 1V portable HISTORY: Dyspnea COMPARISON: Chest 02/07/2021 FINDINGS: No pneumothorax. No pleural effusions. The heart remains mildly enlarged. Is left-sided pac emaker/defibrillator. There are patchy bilateral airspace opacities within the mid to lower lung zone s, right greater than left. This is new from the prior study and favors a viral pneumonia. IMPRESSION: Interval development of patchy bilateral airspace opacities likely representing a viral pneumonia. ACT 112: Negative or not required by law. Electronically signed by: Tomas Canales M.D. 07/24/2021 9:26 AM
[2021-07-24 09:44] LABS: Influenza A virus by PCR Negative (Negative); Influenza B virus by PCR Negative (Negative)
[2021-07-24 09:47] LABS: D Dimer 770 ug/L FEU (0-500)
[2021-07-24 09:54] LABS: Alanine Aminotransferase 29 U/L (12-78); Albumin Level 2.9 gm/dl (3.4-5.0); Aspartate Aminotransferase 31 U/L (15-37); BUN Creatinine Ratio 10.4 (10-20); Blood Urea Nitrogen 10 mg/dl (7-18); Calcium 8.1 mg/dl (8.5-10.1); Carbon Dioxide 25 mmol/L (21-32); Chloride 99 mmol/L (98-107); Creatinine Clr Calc Pharmacy 107.3 ml/min; Est GFR (African American) 104.6 ml/min; Est GFR (Non-African American) 90.3 ml/min; Glucose 117 mg/dl (70-99); Magnesium 2.1 mg/dl (1.8-2.4); Potassium 3.4 mmol/L (3.5-5.1); Sodium 132 mmol/L (136-145)
[2021-07-24 09:59] LABS: Albumin Globulin Ratio 0.7 (0.9-2); Alkaline Phosphatase 41 U/L (45-117); Bilirubin,Total 0.5 mg/dl (0.2-1); NT Pro B Type Natriuretic Pept 140 pg/ml (0-900); Total Protein 6.9 gm/dl (6.4-8.2); Troponin I < 0.015 ng/ml (0-0.045)
[2021-07-24] MEDS ORDERED: OPTIRAY 320 125ml IV ONE (10:13)
--- NOTE | 2021-07-24 10:27 | CT Scan Report ---
CHEST CTA for PULMONARY ARTERIES CT DOSE: 563.90 mGycm HISTORY: dyspnea, left leg pain, +dimer TECHNIQUE: Multiaxial CT images of the chest were performed following the intravenous administration of contrast to evaluate the pulmonary arteries. Maximal intensity projection images were also obtaine d. A dose lowering technique was utilized adhering to the principles of ALARA. COMPARISON STUDY: Chest CT 02/08/2018. FINDINGS: Limited views of the upper abdomen demonstrate normal liver, spleen, and adrenal glands. Th e heart remains mildly enlarged. No pleural or pericardial effusions. Normal esophagus. The thyroid g land enhances normally. There is a left-sided pacemaker. Mild bilateral gynecomastia. 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 A few prominent bilateral hilar ly mph nodes which are likely reactive. No mediastinal lymphadenopathy. No fractures within the visualiz ed osseous structures. No pneumothorax. The central airways are patent. Multifocal scattered peripher al groundglass airspace opacities seen throughout the lungs consistent with a mild to moderate viral pneumonia. Normal caliber thoracic aorta with no evidence for dissection. The main pulmonary artery i s mildly dilated up to 3.6 cm. This is consistent with pulmonary arterial hypertension. No filling de fects within the pulmonary arteries to suggest a pulmonary embolus. IMPRESSION: 1. No evidence for pulmonary embolus. 2. Multifocal groundglass airspace opacities seen throughout the lungs consistent with a viral pneumo mehul. 3. Mild pulmonary arterial hypertension. 4. Stable mild cardiomegaly. 5. 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 ACT 112: Negative or not required by law. Electronically signed by: Tomas Canales M.D. 07/24/2021 10:26 AM
[2021-07-24 10:50] LABS: Appearance Urine Clear (Clear); Bacteria Urine Automated Negative (Negative); Bilirubin Urine Negative (Negative); Blood Urine Negative (Negative); Cast Urine Automated 0 /lpf (0-5); Color Urine Yellow; Glucose Urine UA Negative (Negative); Ketones Urine Negative (Negative); Leukocyte Esterase Urine Negative (Negative); Nitrite Urine Negative (Negative); Protein Urine Trace (Negative); RBC Urine Automated 0-4 /hpf (0-4); Specific Gravity Urine 1.006 (1.000-1.030); Urobilinogen Urine Negative (Negative)
[2021-07-24] MEDS ORDERED: REMDESIVIR 200 MG in SODIUM CHLORIDE 0.9% 210 ML IV STA (13:03)
[2021-07-24] MEDS ORDERED: POTASSIUM CHLORIDE CRTAB 20 MEQ TABCR PO STA (13:05)
[2021-07-24] MEDS ORDERED: dexAMETHasone 6 MG in SYRINGE 0 ML IV ONE (13:15)
--- NOTE | 2021-07-24 13:21 | History & Physical Report ---
Date of Service July 24, 2021 Assessment & Plan (1) Pneumonia due to COVID-19 virus: (2) Hypoxia: (3) Hypokalemia: (4) Cardiomyopathy: (5) ICD (implantable cardioverter-defibrillator), biventricular, in situ: Plan: This is a 56-year-old male who has a significant past medical history of nonischemic cardiomyopathy with chronic HFrEF, AICD in place, history of PAF off anticoagulation due to personal preference and history of GI bleed, history of Lyme disease, depression, thyroid disease off medication who presents to ED secondary to ill feeling short of breath x6 days. Pneumonia due to COVID-19 virus Hypoxia Admit to telemetry IV dexamethasone 6 mg daily IV remdesivir per protocol Monitor LFTs, creatinine Albuterol QID Pulmonary toilet with incentive spirometry, flutter valve, self proning Tessalon Perle 3 times daily, guaifenesin with codeine as needed supplemental O2 as needed Hypokalemia Replace with 40 M EQ KCl Monitor Nonischemic cardiomyopathy Chronic HFrEF Biventricular AICD, in situ follows Dr. Dwyer Last echo 01/14/2021 revealed LVEF 40 to 45% Continue Entresto, Aldactone, Coreg Currently euvolemic Daily weight, strict I's and O's Elevated d-dimer CTA negative for PE pt is w/o signs of sx of lower ext dvt, US not warranted DVT prophylaxis: Lovenox twice daily Dispo: PCU PCP: Prabhu Full Code Pt was seen and examined in collaboration with Dr. Mercado The chart was completed utilizing [employer] Speech voice recognition software. Grammatical errors, random word insertions, pronoun errors, and incomplete sentences are an occasional consequence of this system due to software limitations, ambient noise, and hardware issues. Any formal questions or concerns about the content, text, or information contained within the body of this dictation should be directly addressed to the provider for clarification. History of Present Illness Chief Complaint: ill feeling and SOB x 6 days. Primary Care Provider: Rafael Dwyer, This is a 56-year-old male who has a significant past medical history of nonischemic cardiomyopathy with chronic HFrEF, AICD in place, history of PAF off anticoagulation due to personal preference and history of GI bleed, history of Lyme disease, depression, thyroid disease off medication who presents to ED secondary to ill feeling short of breath x6 days. His symptoms initially started last Thursday with a productive cough of white sputum, malaise, myalgias, arthralgias, chills and decreased appetite. He states, "I have not eaten anything since Thursday." He denies loss of taste or smell. His symptoms have worsened over the last few days with worsening cough and increasing shortness of breath with exertion. Initially he did not feel he had Covid as he had a negative test 1 month ago. He has known sick contacts with his granddaughter who also had a cough. He denies documented fever, lightheadedness, dizziness, chest pain, shortness breath at rest, hemoptysis, nausea, vomiting, abdominal pain, change in urination. He is more constipated side due to not eating. He is not vaccinated. In ED patient was hypoxic at 8889% on room air. He did require supplemental oxygen. Chest x-ray and chest CT consistent with multifocal groundglass opacities and viral pneumonia. His SARS-CoV-2 was positive. His CTA was negative for PE. Allergies Allergy/AdvReac Type Severity Reaction Status Date / Time cefuroxime Allergy Intermediate Rash Verified 05/06/21 16:02 Home Medications Medication Instructions Recorded Confirmed Type amiodarone 200 mg tablet 100 mg PO QAM #90 tab 05/11/19 07/24/21 History carvedilol 25 mg tablet 37.5 mg PO BID #90 tab 05/11/19 07/24/21 History potassium chloride 20 mEq 20 meq PO DAILY PRN #30 tab 05/11/19 07/24/21 History tablet,extended release spironolactone 25 mg tablet 25 mg PO QAM #30 tab 05/11/19 07/24/21 History aspirin 81 mg tablet,delayed 81 mg PO DAILY 07/24/21 07/24/21 History release (Aspirin Low Dose) sacubitril 24 mg-valsartan 26 mg 1 tab PO BID 07/24/21 07/24/21 History tablet (Entresto) Past Med/Surg History Medical History (Updated 07/24/21 @ 13:15 by Charisma Alvarado PA-C) AICD discharge Amiodarone-induced hyperthyroidism Anxiety Change in bowel movement Diarrhea Diastolic dysfunction "echo 02/2017- grade II" Elevated troponin HTN (hypertension) Hyperlipidemia Idiopathic cardiomyopathy Had nuclear stress test/echo 08/2018 EF 45%, negative for inducible ischemia Osteoarthritis PAF (paroxysmal atrial fibrillation) Thyroid disorder Surgical History (Updated 07/24/21 @ 13:21 by Charisma Alvarado PA-C) History of cardiac cath > 10 years ago - no stents History of cardiac radiofrequency ablation History of colonoscopy Presence of combination internal cardiac defibrillator (ICD) and pacemaker 2003 - cardiomyopathy - follows w/ Dr. Dwyer - medtronic - S/P cholecystectomy Family History Uncle Stroke Mother , 38 Cervical cancer Other Adopted No family history of adverse response to anesthesia Social History (Updated 07/24/21 @ 13:12 by Charisma Alvarado PA-C) Smoking Status: Never smoker Tobacco Type: Smokeless Tobacco (Dip or Chew) Second Hand Exposure: Yes ( smokes); Do You Dip or Chew Tobacco: Yes; Hx Alcohol Use: Yes Alcohol type: beer and hard liquor Alcohol Intake Frequency: 2-4 x/Month Hx Substance Use: No Preferred Language: Croatian Communication Ability: Effective Bearing Maker Required: No Beliefs That Will Affect Care: None marital status: Current Living Situation: Spouse and Family current occupational status: employed Feels Safe at Home: Yes Assistive Devices: Glasses Review of Systems Review of Systems: All systems reviewed & are unremarkable except as noted in HPI & below Physical Exam Physical Exam: Constitutional: WD/WN, ill feeling, vitals as above, NAD, sitting up in bed, pleasant, conversing easily Head: Normocephalic, Atraumatic Eyes: PERRL, conjunctivae normal, anicteric sclerae ENMT: external ear and nose normal, oropharynx normal Neck: trachea midline, no thyromegaly normal visual inspection Respiratory: on 2L of O2 via NC, normal respiratory effort, lungs clear to auscultation, no wheeze, rales, rhonchi. Normal insp/exp effort, no accessory muscle use Cardiovascular: RRR, no murmur, no edema Vessels: no JVD or carotid bruit Chest: normal inspection of chest Abdomen: normal bowel sounds, soft, nontender, no hepatosplenomegaly Musculoskeletal: no cyanosis or clubbing, extremities motor strength 5/5 Skin: no rashes, warm and dry normal turgor Neurologic: PERRL, EOMI, accommodation nl, no face palsy, no dysarthria CN's II-XI intact bilaterally and moves all extremities Psychiatric: A+Ox3, euthymic affect Lymphatic: no cervical or axillary lymphadenopathy : deferred Results & Data Results & [facility] ([facility]) Vital Signs (Past 12 Hours) Vital Signs Temp Pulse Pulse Resp Resp BP Pulse Ox 07/24/21 12:39 80 28 H 07/24/21 11:30 78 25 H 130/62 92 07/24/21 11:00 80 22 123/65 93 07/24/21 10:30 82 22 112/63 91 07/24/21 10:00 85 21 137/78 93 07/24/21 09:30 81 20 127/77 91 07/24/21 09:15 83 20 114/68 92 07/24/21 08:55 89 18 90 07/24/21 08:09 37.6 C H 89 18 101/61 90 Pulse Ox 07/24/21 12:39 89 L 07/24/21 11:30 07/24/21 11:00 07/24/21 10:30 07/24/21 10:00 07/24/21 09:30 07/24/21 09:15 07/24/21 08:55 07/24/21 08:09 Diagnostic Findings Chest X-Ray 07/24/21 08:25 XR chest 1V portable HISTORY: Dyspnea COMPARISON: Chest 02/07/2021 FINDINGS: No pneumothorax. No pleural effusions. The heart remains mildly enlarged. Is left-sided pacemaker/defibrillator. There are patchy bilateral airspace opacities within the mid to lower lung zones, right greater than left. This is new from the prior study and favors a viral pneumonia. IMPRESSION: Interval development of patchy bilateral airspace opacities likely representing a viral pneumonia. ACT 112: Negative or not required by law. Electronically signed by: Tomas Canales M.D. 07/24/2021 9:26 AM Chest CTA 07/24/21 09:53 CHEST CTA for PULMONARY ARTERIES CT DOSE: 563.90 mGycm HISTORY: dyspnea, left leg pain, +dimer TECHNIQUE: Multiaxial CT images of the chest were performed following the intravenous administration of contrast to evaluate the pulmonary arteries. Maximal intensity projection images were also obtained. A dose lowering technique was utilized adhering to the principles of ALARA. COMPARISON STUDY: Chest CT 02/08/2018. FINDINGS: Limited views of the upper abdomen demonstrate normal liver, spleen, and adrenal glands. The heart remains mildly enlarged. No pleural or pericardial effusions. Normal esophagus. The thyroid gland enhances normally. There is a left-sided pacemaker. Mild bilateral gynecomastia. 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 A few prominent bilateral hilar lymph nodes which are likely reactive. No mediastinal lymphadenopathy. No fractures within the visualized osseous structures. No pneumothorax. The central airways are patent. Multifocal scattered peripheral groundglass airspace opacities seen throughout the lungs consistent with a mild to moderate viral pneumonia. Normal caliber thoracic aorta with no evidence for dissection. The main pulmonary artery is mildly dilated up to 3.6 cm. This is consistent with pulmonary arterial hypertension. No filling defects within the pulmonary arteries to suggest a pulmonary embolus. IMPRESSION: 1. No evidence for pulmonary embolus. 2. Multifocal groundglass airspace opacities seen throughout the lungs consistent with a viral pneumonia. 3. Mild pulmonary arterial hypertension. 4. Stable mild cardiomegaly. 5. 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 ACT 112: Negative or not required by law. Electronically signed by: Tomas Canales M.D. 07/24/2021 10:26 AM Medications Administered Medication List Discontinued Medications Benzonatate (Benzonatate 100 Mg Capsule) 200 mg PO NOW ONE Stop: 07/24/21 08:26 Last Admin: 07/24/21 09:10 Dose: 200 mg Documented by: [id number] Sodium Chloride (Nss 1000ml) 1,000 mls @ 999 mls/hr IV .Q1H1M RED Stop: 07/24/21 09:30 Last Infusion: 07/24/21 10:20 Dose: 0 mls/hr Documented by: [id number] Admin: 07/24/21 09:09 Dose: 999 mls/hr Documented by: [id number] Ioversol (Optiray 320 125ml) 120 ml IV ONCE ONE Stop: 07/24/21 10:14 Last Admin: 07/24/21 10:14 Dose: 120 ml Documented by: [id number] ECG Rate (beats per minute): 84 Rhythm: normal sinus Additional Comments: qtc 463ms COVID-19 Results Results COVID-19 Adm Lab Results: RBC 4.56 M/uL (4.7-6.1) L 07/24/21 WBC 7.50 K/uL (4.8-10.8) 07/24/21 Hgb 13.2 g/dL (14.0-18.0) L 07/24/21 Hct 39.7 % (42-52) L 07/24/21 Plt Count 206 K/uL (130-400) 07/24/21 Neutrophils (%) (Auto) 81.0 % 07/24/21 Lymphocytes (%) (Auto) 9.9 % 07/24/21 Monocytes # (Auto) 0.65 K/uL (0.11-0.59) H 07/24/21 Eosinophils # (Auto) 0.00 K/uL (0-0.5) 07/24/21 Immature Granulocyte % (Auto) 0.3 % 07/24/21 Neutrophils # (Auto) 6.08 K/uL (1.4-6.5) 07/24/21 Lymphocytes # (Auto) 0.74 K/uL (1.2-3.4) L 07/24/21 Monocytes # (Auto) 0.65 K/uL (0.11-0.59) H 07/24/21 Eosinophils # (Auto) 0.00 K/uL (0-0.5) 07/24/21 Basophils # (Auto) 0.01 K/uL (0-0.2) 07/24/21 Immature Granulocyte # (Auto) 0.02 K/uL (0.00-0.02) 07/24/21 Na 132 mmol/L (136-145) L 07/24/21 K 3.4 mmol/L (3.5-5.1) L 07/24/21 Cl 99 mmol/L (98-107) 07/24/21 CO2 25 mmol/L (21-32) 07/24/21 Anion Gap 8.0 (3-11) 07/24/21 BUN 10 mg/dl (7-18) 07/24/21 Creatinine 0.94 mg/dl (0.6-1.4) 07/24/21 BUN/Creatinine Ratio 10.4 (10-20) 07/24/21 Glucose Level 117 mg/dl (70-99) H 07/24/21 Ca 8.1 mg/dl (8.5-10.1) L 07/24/21 Total Bilirubin 0.5 mg/dl (0.2-1) 07/24/21 AST/SGOT 31 U/L (15-37) 07/24/21 ALT/SGPT 29 U/L (12-78) 07/24/21 Alkaline Phosphatase 41 U/L (45-117) L 07/24/21 Total Protein 6.9 gm/dl (6.4-8.2) 07/24/21 Albumin 2.9 gm/dl (3.4-5.0) L 07/24/21 Globulin 4.0 gm/dl (2.5-4.0) 07/24/21 Albumin/Globulin Ratio 0.7 (0.9-2) L 07/24/21 Troponin I < 0.015 ng/ml (0-0.045) 07/24/21 NT-Tsk-Z-Type Natriuretic Pep 140 pg/ml (0-900) 07/24/21 D-Dimer 770 ug/L FEU (0-500) H* 07/24/21 SARS-CoV-2, RNA, NAAT POSITIVE (NEGATIVE) A* 07/24/21 Chest X-Ray 07/24/21 Code Status & VTE Plan Code Status FULL CODE VTE Prophylaxis Plan VTE Prophylaxis will be ordered: Yes (1) Cardiomyopathy Cardiomyopathy type: dilated Qualified Code(s): I42.0 - Dilated cardiomyopathy
--- NOTE | 2021-07-24 14:11 | Electrocardiogram Report ---
Test Reason : Blood Pressure : / mmHG Vent. Rate : 084 BPM Atrial Rate : 084 BPM P-R Int : 158 ms QRS Dur : 150 ms QT Int : 392 ms P-R-T Axes : 055 003 -32 degrees QTc Int : 463 ms Atrial-sensed ventricular-paced rhythm Morphology change in paced beats Abnormal ECG When compared with ECG of 06-FEB-2021 22:55, Premature ventricular complexes are no longer Present Vent. rate has decreased BY 2 BPM Confirmed by Alfredo Schwab ([id number]) on 07/24/2021 2:10:55 PM Referred By: ER Confirmed By:Jon Schwab
[2021-07-24] MEDS ORDERED: ALUMINUM/MAGNESIUM SUSP 30 ML UDC PO PRN (14:38)
[2021-07-24] MEDS ORDERED: ONDANSETRON INJ 2 MG/ML 2 ML VIAL IV PRN (14:38)
[2021-07-24] MEDS ORDERED: POLYETHYLENE (MIRALAX) 17 GM PACK PO PRN (14:38)
[2021-07-24] MEDS ORDERED: ACETAMINOPHEN 325 MG TAB PO PRN (14:38)
[2021-07-24] MEDS ORDERED: MAGNESIUM HYDROXIDE SUSP 30 ML UDC PO PRN (14:38)
[2021-07-24] MEDS ORDERED: ALBUT/IPRATROP 3MG/0.5MG NEB 3 ML VIAL ONE (14:55)
[2021-07-24] MEDS ORDERED: ALBUTEROL 0.083% NEBU SOLN 3 ML VIAL ONE (14:59)
[2021-07-24] MEDS: ALBUTEROL 0.083% NEBU SOLN 3 ML VIAL NEB SCH ×2 (15:01→18:28)
[2021-07-24] MEDS: BENZONATATE 100 MG CAPSULE PO SCH ×2 (16:08→23:24)
[2021-07-24] MEDS: VALSARTAN/SACUBITRIL 26/24MG TAB PO SCH (21:35)
[2021-07-24] MEDS: ENOXAPARIN INJ 40 MG/0.4 ML SYR SQ SCH (23:23)
[2021-07-24] MEDS: carvediloL 12.5 MG TAB PO SCH (23:24)
[2021-07-25] MEDS: ALBUTEROL 0.083% NEBU SOLN 3 ML VIAL NEB SCH ×2 (00:28→07:30)
[2021-07-25] MEDS ORDERED: ALBUTEROL 0.083% NEBU SOLN 3 ML VIAL NEB PRN (08:23)
[2021-07-25 09:16] LABS: Hematocrit (blood only) 43.1 % (42-52); Hemoglobin 14.2 g/dL (14.0-18.0); Mean Corpuscular Hemoglobin 29.3 pg (25-34); Mean Corpuscular Hgb Conc 32.9 g/dL (32-36); Mean Corpuscular Volume 88.9 fL (80-100); Mean Platelet Volume 9.9 fL (7.4-10.4); Platelet Count 243 K/uL (130-400); RDW Coefficient of Variation 13.5 % (11.5-14.5); RDW Standard Deviation 44.4 fL (36.4-46.3); Red Blood Count 4.85 M/uL (4.7-6.1); White Blood Count 5.89 K/uL (4.8-10.8)
[2021-07-25] MEDS: ENOXAPARIN INJ 40 MG/0.4 ML SYR SQ SCH ×2 (09:42→21:24)
[2021-07-25 09:43] LABS: Albumin Globulin Ratio 0.7 (0.9-2); Albumin Level 2.8 gm/dl (3.4-5.0); BUN Creatinine Ratio 22.5 (10-20); Bilirubin,Total 0.4 mg/dl (0.2-1); Calcium 8.6 mg/dl (8.5-10.1); Creatinine Clr Calc Pharmacy 148.3 ml/min; Est GFR (African American) 123.7 ml/min; Est GFR (Non-African American) 106.8 ml/min; Globulin 4.1 gm/dl (2.5-4.0); Magnesium 2.6 mg/dl (1.8-2.4); Total Protein 6.9 gm/dl (6.4-8.2)
[2021-07-25] MEDS: carvediloL 12.5 MG TAB PO SCH ×2 (09:43→21:24)
[2021-07-25] MEDS: AMIODARONE 200 MG TAB PO SCH (09:43)
[2021-07-25] MEDS: dexAMETHasone 6 MG in SYRINGE 0 ML IV SCH (09:43)
[2021-07-25] MEDS: ASPIRIN 81 MG ECTAB PO SCH (09:43)
[2021-07-25] MEDS: BENZONATATE 100 MG CAPSULE PO SCH ×3 (09:44→21:24)
[2021-07-25] MEDS: VALSARTAN/SACUBITRIL 26/24MG TAB PO SCH ×2 (09:44→21:25)
[2021-07-25] MEDS: SPIRONOLACTONE 25 MG TAB PO SCH (09:44)
[2021-07-25 09:50] LABS: C Reactive Protein 9.36 mg/dl (0-0.29); Ferritin 1648.4 ng/ml (8-388)
[2021-07-25 09:55] LABS: Estimated Average Glucose 123 mg/dl; Hemoglobin A1C 5.9 % (4.5-5.6)
[2021-07-25] MEDS: REMDESIVIR 100 MG in SODIUM CHLORIDE 0.9% 230 ML IV SCH (11:44)
[2021-07-25] MEDS: SODIUM CHLORIDE 0.9% 10ML FLUSH IV SCH (12:51)
--- NOTE | 2021-07-25 23:06 | Hospitalist Progress Note ---
Date of Service July 25, 2021 Assessment & Plan (1) Pneumonia due to COVID-19 virus: (2) Hypoxia: (3) Hypokalemia: (4) Cardiomyopathy: (5) ICD (implantable cardioverter-defibrillator), biventricular, in situ: Plan: Pneumonia due to COVID-19 virus Hypoxia Present on admission with worsening SOB and hypoxia CXR showed multifocal groundglass airspace opacities seen throughout the lungs consistent with a viral pneumonia. Mild pulmonary arterial hypertension. CXR showed Interval development of patchy bilateral airspace opacities likely representing a viral pneumonia. Continue IV Dexamethasone and Remdesivir p Continue monitor Liver enzymes while on Remdesivir Will check monitor inflammatory marker such as CRP/Ferritin/ESR Continue Pulmonary toilet with incentive spirometry, flutter valve, self proning Continue oxygen supplement Hypokalemia K stable Continue monitor eletrolytes Nonischemic cardiomyopathy Chronic HFrEF Biventricular AICD, in situ follows Dr. Dwyer Last echo 01/14/2021 revealed LVEF 40 to 45% Continue Entresto, Aldactone, Coreg Currently euvolemic Daily weight, strict I's and O's Elevated d-dimer Due to COVID 19 CTA negative for PE DVT prophylaxis: Lovenox twice daily Dispo: PCU PCP: Prabhu Full Code Admission and Anticipated Discharge Date Admission Date: July 24, 2021 Subjective Pt was seen and examined for SOB due to COVID 19 Lying in bed with no acute distress Pt said that her breathing slightly improves today Currently on 1L NC Denies any chest pain, palpitation, dizziness and fever Review of Systems Review of Systems: All systems reviewed & are unremarkable except as noted in Subjective Physical Exam Physical Exam: General- No acute distress Head- atraumatic Eyes- PERRL, EOMI, ENT- oropharynx clear Neck- supple, no JVD Lungs- +diminished BS Heart- regular rhythm; no murmur Abdomen- normal bowel sounds, soft, nontender Extremities- no calf tenderness Neuro- alert, oriented x 3; PERRL, EOMI; no facial palsy; no dysarthria Skin- warm & dry Results & Data Results & Data ([facility]) Vital Signs (Past 12 Hours) Vital Signs Pulse Pulse Resp BP BP Pulse Ox Pulse Ox 07/25/21 21:22 71 16 118/84 93 07/25/21 18:30 73 17 93 07/25/21 18:00 70 15 93 94 12/02/21 17:30 138/94 07/25/21 17:00 70 20 138/90 93 07/25/21 16:30 72 17 139/75 92 07/25/21 16:00 70 14 118/77 93 07/25/21 15:30 82 13 125/83 94 07/25/21 14:00 71 18 118/72 93 07/25/21 13:00 67 18 120/82 94 07/25/21 12:30 78 16 122/78 95 07/25/21 12:00 71 15 121/78 94 07/25/21 11:51 76 20 103/58 L 95 07/25/21 11:30 71 15 122/79 94 (1) Cardiomyopathy Cardiomyopathy type: dilated Qualified Code(s): I42.0 - Dilated cardiomyopathy
[2021-07-26] MEDS: dexAMETHasone 6 MG in SYRINGE 0 ML IV SCH (08:55)
[2021-07-26] MEDS: AMIODARONE 200 MG TAB PO SCH (08:56)
[2021-07-26] MEDS: VALSARTAN/SACUBITRIL 26/24MG TAB PO SCH ×2 (08:56→19:55)
[2021-07-26] MEDS: SPIRONOLACTONE 25 MG TAB PO SCH (08:56)
[2021-07-26 09:14] LABS: Creatinine Clr Calc Pharmacy 112.1 ml/min; Est GFR (African American) 110.3 ml/min; Est GFR (Non-African American) 95.1 ml/min
[2021-07-26] MEDS ORDERED: FUROSEMIDE INJ 20 MG/2 ML VIAL IV ONE (09:54)
[2021-07-26] MEDS: carvediloL 12.5 MG TAB PO SCH ×2 (10:40→19:56)
[2021-07-26] MEDS: ENOXAPARIN INJ 40 MG/0.4 ML SYR SQ SCH ×2 (10:41→19:54)
[2021-07-26] MEDS: ASPIRIN 81 MG ECTAB PO SCH (10:41)
[2021-07-26] MEDS: BENZONATATE 100 MG CAPSULE PO SCH ×3 (10:41→19:54)
[2021-07-26] MEDS: REMDESIVIR 100 MG in SODIUM CHLORIDE 0.9% 230 ML IV SCH (12:06)
[2021-07-26] MEDS: SODIUM CHLORIDE 0.9% 10ML FLUSH IV SCH (13:13)
--- NOTE | 2021-07-26 21:39 | Communication Note ---
Date of Service: July 26, 2021 Patient is short of breath on room air at rest, oxygen saturation is 86%. Patient is positive for Covid-19 and will requires O2 for now.
--- NOTE | 2021-07-26 21:52 | Discharge Summary ---
Date of Service July 27, 2021 Admission HPI Per Admitting Provider This is a 56-year-old male who has a significant past medical history of nonischemic cardiomyopathy with chronic HFrEF, AICD in place, history of PAF off anticoagulation due to personal preference and history of GI bleed, history of Lyme disease, depression, thyroid disease off medication who presents to ED secondary to ill feeling short of breath x6 days. His symptoms initially started last Thursday with a productive cough of white sputum, malaise, myalgias, arthralgias, chills and decreased appetite. He states, "I have not eaten anything since Thursday." He denies loss of taste or smell. His symptoms have worsened over the last few days with worsening cough and increasing shortness of breath with exertion. Initially he did not feel he had Covid as he had a negative test 1 month ago. He has known sick contacts with his granddaughter who also had a cough. He denies documented fever, lightheadedness, dizziness, chest pain, shortness breath at rest, hemoptysis, nausea, vomiting, abdominal pain, change in urination. He is more constipated side due to not eating. He is not vaccinated. In ED patient was hypoxic at 8889% on room air. He did require supplemental oxygen. Chest x-ray and chest CT consistent with multifocal groundglass opacities and viral pneumonia. His SARS-CoV-2 was positive. His CTA was negative for PE. Admission Exam Per Admitting Provider Constitutional: WD/WN, ill feeling, vitals as above, NAD, sitting up in bed, pleasant, conversing easily Head: Normocephalic, Atraumatic Eyes: PERRL, conjunctivae normal, anicteric sclerae ENMT: external ear and nose normal, oropharynx normal Neck: trachea midline, no thyromegaly normal visual inspection Respiratory: on 2L of O2 via NC, normal respiratory effort, lungs clear to auscultation, no wheeze, rales, rhonchi. Normal insp/exp effort, no accessory muscle use Cardiovascular: RRR, no murmur, no edema Vessels: no JVD or carotid bruit Chest: normal inspection of chest Abdomen: normal bowel sounds, soft, nontender, no hepatosplenomegaly Musculoskeletal: no cyanosis or clubbing, extremities motor strength 5/5 Skin: no rashes, warm and dry normal turgor Neurologic: PERRL, EOMI, accommodation nl, no face palsy, no dysarthria CN's II-XI intact bilaterally and moves all extremities Psychiatric: A+Ox3, euthymic affect Lymphatic: no cervical or axillary lymphadenopathy : deferred Principal Diagnosis (1) Pneumonia due to COVID-19 virus: (2) Hypoxia: (3) Hypokalemia: (4) Cardiomyopathy: (5) ICD (implantable cardioverter-defibrillator), biventricular, in situ: Discharge Exam General- No acute distress Head- atraumatic Eyes- PERRL, EOMI, ENT- oropharynx clear Neck- supple, no JVD Lungs- +diminished BS Heart- regular rhythm; no murmur Abdomen- normal bowel sounds, soft, nontender Extremities- no calf tenderness Neuro- alert, oriented x 3; PERRL, EOMI; no facial palsy; no dysarthria Skin- warm & dry Discharge Data Allergies Allergy/AdvReac Type Severity Reaction Status Date / Time cefuroxime Allergy Intermediate Rash Verified 05/06/21 16:02 Consultations 07/24/21 12:18 ED Decision to Admit Stat Ordered Studies 07/24/21 09:53 CT angio chest PE protocol Stat CHEST CTA for PULMONARY ARTERIES CT DOSE: 563.90 mGycm HISTORY: dyspnea, left leg pain, +dimer TECHNIQUE: Multiaxial CT images of the chest were performed following the intravenous administration of contrast to evaluate the pulmonary arteries. Maximal intensity projection images were also obtained. A dose lowering technique was utilized adhering to the principles of ALARA. COMPARISON STUDY: Chest CT 02/08/2018. FINDINGS: Limited views of the upper abdomen demonstrate normal liver, spleen, and adrenal glands. The heart remains mildly enlarged. No pleural or pericardial effusions. Normal esophagus. The thyroid gland enhances normally. There is a left-sided pacemaker. Mild bilateral gynecomastia. 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 A few prominent bilateral hilar lymph nodes which are likely reactive. No mediastinal lymphadenopathy. No fractures within the visualized osseous structures. No pneumothorax. The central airways are patent. Multifocal scattered peripheral groundglass airspace opacities seen throughout the lungs consistent with a mild to moderate viral pneumonia. Normal caliber thoracic aorta with no evidence for dissection. The main pulmonary artery is mildly dilated up to 3.6 cm. This is consistent with pulmonary arterial hypertension. No filling defects within the pulmonary arteries to suggest a pulmonary embolus. IMPRESSION: 1. No evidence for pulmonary embolus. 2. Multifocal groundglass airspace opacities seen throughout the lungs consistent with a viral pneumonia. 3. Mild pulmonary arterial hypertension. 4. Stable mild cardiomegaly. 5. 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 ACT 112: Negative or not required by law. Electronically signed by: Tomas Canales M.D. 07/24/2021 10:26 AM Dictated:07/24/21 1019 Transcribed: 07/24/21 101 XR chest 1V portable HISTORY: Dyspnea COMPARISON: Chest 02/07/2021 FINDINGS: No pneumothorax. No pleural effusions. The heart remains mildly enlarged. Is left-sided pacemaker/defibrillator. There are patchy bilateral airspace opacities within the mid to lower lung zones, right greater than left. This is new from the prior study and favors a viral pneumonia. IMPRESSION: Interval development of patchy bilateral airspace opacities likely representing a viral pneumonia. ACT 112: Negative or not required by law. Electronically signed by: Tomas Canales M.D. 07/24/2021 9:26 AM Dictated:07/24/21924 Transcribed: 07/24/21924 Hospital Course (1) Pneumonia due to COVID-19 virus: (2) Hypoxia: (3) Hypokalemia: (4) Cardiomyopathy: (5) ICD (implantable cardioverter-defibrillator), biventricular, in situ: Pneumonia due to COVID-19 virus Hypoxia Present on admission with worsening SOB and hypoxia CXR showed multifocal groundglass airspace opacities seen throughout the lungs consistent with a viral pneumonia. Mild pulmonary arterial hypertension. CXR showed Interval development of patchy bilateral airspace opacities likely representing a viral pneumonia. Continue IV Dexamethasone and Remdesivir p Continue monitor Liver enzymes while on Remdesivir Will check monitor inflammatory marker such as CRP/Ferritin/ESR Continue Pulmonary toilet with incentive spirometry, flutter valve, self proning Continue oxygen supplement Hypokalemia K stable Continue monitor eletrolytes Nonischemic cardiomyopathy Chronic HFrEF Biventricular AICD, in situ follows Dr. Dwyer Last echo 01/14/2021 revealed LVEF 40 to 45% Continue Entresto, Aldactone, Coreg Currently euvolemic Daily weight, strict I's and O's Elevated d-dimer Due to COVID 19 CTA negative for PE DVT prophylaxis: Lovenox twice daily Dispo: PCU PCP: Prabhu Full Code Total Time Total Time Spent Total Time Spent (In Minutes): 35 minutes Discharge Plan Discharge Items Patient Disposition: Home - Self-Care Reason For Visit: COVID PNA Discharge Diagnosis: (1) Pneumonia due to COVID-19 virus: (2) Hypoxia: (3) Hypokalemia: (4) Cardiomyopathy: (5) ICD (implantable cardioverter-defibrillator), biventricular, in situ: Activity: Resume your previous activity Non-emergency contact: Primary Care Provider Call non-emergency contact if: you have any medication questions and your symptoms worsen Follow-up/Referrals: Amy Pelletier DO [Primary Care Provider] - (Date & Time 08/05/2021 11:00 AM Provider Amy Pelletier DO Department [facility] ) Diet: Heart Healthy Addtl Attending Provider Instructions: Follow up with your primary care provider Dr. Pelletier on 08/05/2021 @ 11:00 AM at the [facility] Continue 2 liter nasal canula with ambulation/exertion Continue incentive spirometry and flutter valve Continue wearing mask and practicing social distance Seek medical attention if shortness worsening Home Isolation COVID-19 Instructions The following information about Home Isolation is from the CDC Website: https://www.cdc.gov/coronavirus/2019-ncov/hcp/oebqyzhi-dmkuutj-rihysd.html Stay home except to get medical care People who are mildly ill with COVID-19 are able to isolate at home during their illness. You should restrict activities outside your home, except for getting medical care. Do not go to work, school, or public areas. Avoid using public transportation, ride-sharing, or taxis. Separate yourself from other people and animals in your home People: As much as possible, you should stay in a specific room and away from other people in your home. Also, you should use a separate bathroom, if available. Animals: You should restrict contact with pets and other animals while you are sick with COVID-19, just like you would around other people. Although there have not been reports of pets or other animals becoming sick with COVID-19, it is still recommended that people sick with COVID-19 limit contact with animals until more information is known about the virus. When possible, have another member of your household care for your animals while you are sick. If you are sick with COVID-19, avoid contact with your pet, including petting, snuggling, being kissed or licked, and sharing food. If you must care for your pet or be around animals while you are sick, wash your hands before and after you interact with pets and wear a face mask. Call ahead before visiting your doctor If you have a medical appointment, call the healthcare provider and tell them that you have or may have COVID-19. This will help the healthcare providers office take steps to keep other people from getting infected or exposed. Wear a face mask You should wear a face mask when you are around other people (e.g., sharing a room or vehicle) or pets and before you enter a healthcare providers office. If you are not able to wear a face mask (for example, because it causes trouble breathing), then people who live with you should not stay in the same room with you, or they should wear a face mask if they enter your room. Cover your coughs and sneezes Cover your mouth and nose with a tissue when you cough or sneeze. Throw used tissues in a lined trash can. Immediately wash your hands with soap and water for at least 20 seconds or, if soap and water are not available, clean your hands with an alcohol-based hand squad leader that contains at least 60% alcohol. Clean your hands often Wash your hands often with soap and water for at least 20 seconds, especially after blowing your nose, coughing, or sneezing; going to the bathroom; and before eating or preparing food. If soap and water are not readily available, use an alcohol-based hand squad leader with at least 60% alcohol, covering all surfaces of your hands and rubbing them together until they feel dry. Soap and water are the best option if hands are visibly dirty. Avoid touching your eyes, nose, and mouth with unwashed hands. Avoid sharing personal household items You should not share dishes, drinking glasses, cups, eating utensils, towels, or bedding with other people or pets in your home. After using these items, they should be washed thoroughly with soap and water. Clean all high-touch surfaces everyday High touch surfaces include counters, tabletops, doorknobs, bathroom fixtures, toilets, phones, keyboards, tablets, and bedside tables. Also, clean any surfaces that may have blood, stool, or body fluids on them. Use a household cleaning spray or wipe, according to the label instructions. Labels contain instructions for safe and effective use of the cleaning product including precautions you should take when applying the product, such as wearing gloves and making sure you have good ventilation during use of the product. Monitor your symptoms Seek prompt medical attention if your illness is worsening (e.g., difficulty breathing).Beforeseeking care, call your healthcare provider and tell them that you have, or are being evaluated for, COVID-19. Put on a face mask before you enter the facility. These steps will help the healthcare providers office to keep other people in the office or waiting room from getting infected or exposed. Ask your healthcare provider to call the local or state health department. Persons who are placed under active monitoring or facilitated self- monitoring should follow instructions provided by their local health department or occupational health professionals, as appropriate. When working with your local health department check their available hours. If you have a medical emergency and need to call 911, notify the dispatch personnel that you have, or are being evaluated for COVID-19. If possible, put on a face mask before emergency medical services arrive. Discontinuing home isolation Patients with confirmed COVID-19 should remain under home isolation precautions until the risk of secondary transmission to others is thought to be low. The decision to discontinue home isolation precautions should be made on a zuhr-co-ntrl basis, in consultation with healthcare providers and state and local health departments. Coronavirus disease 2019 (COVID-19) is a virus that causes a respiratory illness. It is caused by a coronavirus called 2019 novel coronavirus (2019- nCoV). There are many types of coronavirus. Coronaviruses are a very common cause of bronchitis. They may sometimes cause lung infection(pneumonia). Symptoms can range from mild to severe respiratory illness. These viruses are also foundin some animals. COVID-19 was first found in people in [facility], in late 2018. In 2020, several cases of COVID-19 have been confirmed in the [place] Public health officials are working to find the source. How the virus spreads is not yet fully known. It may be spread through droplets of fluid that a person coughs or sneezes into the air. It may be spread if you touch a surface with virus on it, such as a handle or object, and then touch your mouth. What are the symptoms of COVID-19? Some people have no symptoms or mild symptoms. Symptoms may appear 2 to 14 days after contact with the virus. Symptoms can include: Fever Coughing Trouble breathing What are possible complications from COVID-19? In many cases, this virus can cause infection (pneumonia) in both lungs. In some cases, this can cause . How is COVID-19 diagnosed? Your healthcare provider will ask about your symptoms. He or she will also ask about your recent travel and contact with sick people. Testing for the virus is only done through the [facility]. If yourhealthcare provider thinks you may have COVID- 19, he or she will work with your local health department and the CDC on testing. Follow all instructions from your healthcare provider. COVID-19 is diagnosed by: Nasal and throat swab. A cotton-tipped swab is wiped inside your nose or throat. This is done to check for viruses in your nasal mucus. Sputum culture. A small sample of mucus coughed from your lungs (sputum) is collected if you have a cough. It is checked for the virus. How is COVID-19 treated? There is currently no medicine to treat the virus. Treatment is done to help your body while it fights the virus. This is known as supportive care. Supportive care may include: Pain medicine. These include acetaminophen and ibuprofen. They are used to help ease pain and reduce fever. Bed rest. This helps your body fight the illness. For severe illness, you may need to stay in the hospital. Care during severe illness may include: IV (intravenous) fluids.These are given through a vein to help keep your body hydrated. Oxygen. Supplemental oxygen or ventilation with a breathing machine (ventilator) may be given. This is done to keep enough oxygen in your body. Are you at risk for COVID-19? If youve been to a place where people have been sick with this virus, you are at risk for infection. You are at risk if you: Recently traveled to an affected area Had contact with a sick person who recently traveled to this area Had contact with a person who was diagnosed with COVID-19 How can COVID-19 be prevented? There is no vaccine yet. The best prevention is to not have contact with the virus. The CDC advises that people should not travel to areas where there are COVID-19 outbreaks right now for any reason that is not urgent. To help prevent spreading the infection, wash your hands often, or use an alcohol-basedhand squad leader. If you are in an area with COVID-19: Wash your hands often. Or use an alcohol-based hand squad leader often. Only touch your eyes, nose, or mouth with clean hands. Dont have contact with people who are sick. Follow local instructions about being in public. For example, you may be told to not use public transport for a period of time. Stay away from markets that have live or animals. Wash your hands after touching any animals. Don't touch animals that may be sick. Dont share eating or drinking tools with sick people. Dont kiss someone who is sick. Clean surfaces often with disinfectant. If you were in an area with COVID-19 in the last 14 days: Call your healthcare provider. He or she can talk with local health staff to see what action may be needed. Follow all instructions from your provider. Take your temperature every morning and evening for at least 14 days. This is to check for fever. Keep a record of the readings. Keep watch for symptoms of the virus. Tell your provider right away if you have symptoms. If you were in an area with COVID-19 and have a fever or other symptoms: Dont panic. Keep in mind that other illnesses can cause similar symptoms. Stay away from work, school, and public places. Limit physical contact with family members. Don't kiss anyone or share eating or drinking utensils. Clean surfaces you touch with disinfectant. This is to help prevent the virus from spreading. Call your healthcare provider. Explain that you have been exposed to COVID-19 and have symptoms. Do this before going to any hospital. Wait for instructions. Keep in mind that healthcare staff may wear protective equipment such as masks, gowns, gloves, and eye protection. You may be put in a separate room. This is to prevent the possible virus from spreading. Tell the healthcare staff about recent travel. This includes local travel on p ublic transport. Staff may need to find other people you have been in contact with. Follow all instructions the healthcare staff give you. If you have been diagnosed with COVID-19 Follow all instructions from your healthcare provider. Dont leave your home, except to get medical care. Call your healthcare providers office before going. They can prepare and give you instructions. This will help prevent the virus from spreading. Dont go to work, school, or public areas. Dont use public transport or taxis. Stay away from other people in your home. Have them wear face masks around you. Dont share household items or food. Wear a face mask if you can. This includes at home or in a medical facility. Cover your face with a tissue when you cough or sneeze. Throw the tissue away. Wash your hands. Wash your hands often. Caregivers should: Follow all instructions from healthcare staff. Wear a face mask and protective clothing as advised. Wash hands often. Keep track of the sick persons symptoms. Clean surfaces, fabrics, and laundry thoroughly. Keep other people away from the sick person. When to call your healthcare provider Call your healthcare provider: If youve recently traveled and have symptoms If you have been diagnosed with COVID-19 and your symptoms are worse To learn more To find out more about COVID-19, visit the CDC website at www.cdc.gov/coronavirus/2019-ncov/index.html. [employer]. [address] [place] [address]. All rights reserved. This information is not intended as a substitute for professional medical care. Always follow your healthcare professional's instructions. This information has been adapted from [employer] Pending Studies at Discharge: No Stand-Alone Forms: My [facility] [employer], Smoking Cessation Medications and DC Order Prescriptions: New guaifenesin 200 mg tablet 200 mg PO TID PRN (Reason: congestion) Qty: 15 RF: 0 Continued carvedilol 25 mg tablet 37.5 mg PO BID Qty: 90 RF: 0 amiodarone 200 mg tablet 100 mg PO QAM Qty: 90 RF: 0 spironolactone 25 mg tablet 25 mg PO QAM Qty: 30 RF: 0 potassium chloride 20 mEq tablet extended release 20 meq PO DAILY PRN (Reason: with lasix ) Qty: 30 RF: 0 aspirin [Aspirin Low Dose] 81 mg Tablet,Delayed Release (Dr/Ec) 81 mg PO DAILY RF: 0 Entresto 24-26 mg tablet 1 tab PO BID RF: 0 Discharge Orders: Discharge Order (Routine); Ordered 07/26/21 Ordered By: Keyana Mercado Admission Data Admit Date/Time: 07/24/21 12:26 Attending Provider: Keyana Mercado Admit Provider: Keyana Mercado Primary Care Provider: Amy Pelletier Other Interventions: Discharge Summary Assessment (RN) Last Done: 07/27/21 09:56
[2021-07-27] MEDS ORDERED: guaiFENesin/CODEINE 100MG/10MG 5ML UDC PO SCH
--- NOTE | 2021-07-27 07:54 | Hospitalist Progress Note ---
Date of Service July 26, 2021 Assessment & Plan (1) Pneumonia due to COVID-19 virus: (2) Hypoxia: (3) Hypokalemia: (4) Cardiomyopathy: (5) ICD (implantable cardioverter-defibrillator), biventricular, in situ: Plan: Pneumonia due to COVID-19 virus Hypoxia Present on admission with worsening SOB and hypoxia CXR showed multifocal groundglass airspace opacities seen throughout the lungs consistent with a viral pneumonia. Mild pulmonary arterial hypertension. CXR showed Interval development of patchy bilateral airspace opacities likely representing a viral pneumonia. Continue IV Dexamethasone and Remdesivir p Continue monitor Liver enzymes while on Remdesivir Will check monitor inflammatory marker such as CRP/Ferritin/ESR Continue Pulmonary toilet with incentive spirometry, flutter valve, self proning Saturated above 90 % on RA 2 step done that required 2 L nasal canula with ambulation Pt is very anxious to go home tonight If able to arrange for oxygen, will plan to discharge tonight Hypokalemia K stable Continue monitor electrolytes Nonischemic cardiomyopathy Chronic HFrEF Biventricular AICD, in situ follows Dr. Dwyer Last echo 01/14/2021 revealed LVEF 40 to 45% Continue Entresto, Aldactone, Coreg Currently euvolemic Daily weight, strict I's and O's Elevated d-dimer Due to COVID 19 CTA negative for PE DVT prophylaxis: Lovenox twice daily Dispo: PCU PCP: Prabhu Full Code Admission and Anticipated Discharge Date Admission Date: July 24, 2021 Subjective Pt was seen and examined for SOB due to COVID 19 Lying in bed with no acute distress Pt said that he feels much better He was saturated above 90% on RA We are planning to get a 2 step for him Denies any chest pain, palpitation, dizziness and fever Review of Systems Review of Systems: All systems reviewed & are unremarkable except as noted in Subjective Physical Exam Physical Exam: General- No acute distress Head- atraumatic Eyes- PERRL, EOMI, ENT- oropharynx clear Neck- supple, no JVD Lungs- +diminished BS Heart- regular rhythm; no murmur Abdomen- normal bowel sounds, soft, nontender Extremities- no calf tenderness Neuro- alert, oriented x 3; PERRL, EOMI; no facial palsy; no dysarthria Skin- warm & dry Results & Data Results & Data ([facility]) Vital Signs (Past 12 Hours) Vital Signs Temp Pulse Pulse BP Pulse Ox 07/27/21 04:30 69 92 07/27/21 02:19 70 07/26/21 19:50 36.6 C 69 132/86 91 (1) Cardiomyopathy Cardiomyopathy type: dilated Qualified Code(s): I42.0 - Dilated cardiomyopathy
[2021-07-27] MEDS: AMIODARONE 200 MG TAB PO SCH (08:01)
[2021-07-27] MEDS: ASPIRIN 81 MG ECTAB PO SCH (08:01)
[2021-07-27] MEDS: carvediloL 12.5 MG TAB PO SCH (08:02)
[2021-07-27] MEDS: SPIRONOLACTONE 25 MG TAB PO SCH (08:02)
[2021-07-27] MEDS: VALSARTAN/SACUBITRIL 26/24MG TAB PO SCH (08:03)
[2021-07-27] MEDS: ENOXAPARIN INJ 40 MG/0.4 ML SYR SQ SCH (09:12)
[2021-07-27 09:14] LABS: Creatinine Clr Calc Pharmacy 112.1 ml/min; Est GFR (African American) 110.3 ml/min; Est GFR (Non-African American) 95.1 ml/min
[2021-07-27] MEDS ORDERED: guaiFENesin/CODEINE 100MG/10MG 5ML UDC PO ONE (09:34)
[2021-07-27] MEDS: dexAMETHasone 6 MG in SYRINGE 0 ML IV SCH (10:05)
[2021-07-27] MEDS: BENZONATATE 100 MG CAPSULE PO SCH (10:05)
== END 2021-07-27 11:21 | disposition home or self-care (01) | DRG 177 ==
LOC: ED 08:09 → EDINP 12:26 → 2S 14:45
DX: Z95.810 Presence of automatic (implantable) cardiac defibrillator; Z79.82 Long term (current) use of aspirin; R09.02 Hypoxemia; E87.6 Hypokalemia; U07.1 COVID-19; J12.82 Pneumonia due to coronavirus disease 2019; I42.0 Dilated cardiomyopathy; I50.22 Chronic systolic (congestive) heart failure

== ENCOUNTER 2024-11-13 17:39 | Inpatient (IN) ==
--- OUTSIDE RECORDS SUMMARY | 2024-11-13 17:45 | External Medical Summary | Summary of Care ---
Author Name Unknown Organization [facility] Address [address] [facility] [address] Phone [phone] Care Team Providers Care Pharmacist Intern Name Role Phone Chandlre Castillo MD Primary Care Provider [phone] Encounter Details Date Type Department Care Team (Late st Contact Info) Description 08/02/2024 Orders Only PATIENT PORTAL DO NOT DELETE THIS DEPT USED BY [facility] [id number] Allergies Active Allergy Reactions Criticality Noted Date Comments Cefuroxime High 03/26/2017 Other reaction(s): Rash documented as of this encounter (statuses as of 08/02/2024) Medications Albuterol Sulfate (PROAIR HFA) 108 (90 Base) MCG/ACT AERSIndications:Acu te bronchitis, antibiotics not indicated Inhale 2 Puffs by mouth 4 times a day. 1 Inhaler 1 0 Active Furosemide 40 MG Oral Tablet (Lasix)Indications: Idiopathic cardiomyopathy (HCC) Take 1 Tablet by mouth daily as needed (edema). 1 Active Loratadine 10 MG Oral Tablet (Claritin)Indicatio ns:Watery eyes Take 1 Tab by mouth daily. 30 Tab 11 1 Active Potassium Chloride ER 20 MEQ Oral Tablet Extended ReleaseIndications: Idiopathic cardiomyopathy (HCC) Take 1 Tab by mouth daily as needed for Other (When taking Lasix). 30 Tab 5 1 Active Escitalopram Oxalate 10 MG Oral Tablet (Lexapro)Indication s:Moderate episode of recurrent major depressive disorder (HCC) Take 1 Tablet by mouth in the morning. 90 Tablet 3 4 Active Spironolactone 25 MG Oral Tablet (Aldactone)Indicati ons:Idiopathic cardiomyopathy (HCC) TAKE ONE-HALF TABLET BY MOUTH IN THE MORNING 45 Tablet 3 4 Active Carvedilol 25 MG Oral Tablet (Coreg)Indications: Idiopathic cardiomyopathy (HCC) TAKE ONE AND A HALF TABETS BY MOUTH TWO TIMES PER DAY 270 Tablet 3 4 Active Entresto 24-26 MG Oral Tablet (sacubitril-valsart an 24-26 mg per tab)Indications:Idi opathic cardiomyopathy (HCC),Left ventricular systolic dysfunction,Chronic HFrEF (heart failure with reduced ejection fraction) (HCC) TAKE 1 TABLET BY MOUTH TWICE A DAY 180 Tablet 3 4 Active Eliquis 5 MG Oral Tablet (Apixaban)Indicatio ns:Need for prophylactic vaccination and inoculation against influenza,PAF (paroxysmal atrial fibrillation) (HCC),Idiopathic cardiomyopathy (HCC),Chronic HFrEF (heart failure with reduced ejection fraction) (HCC),Presence of biventricular automatic cardioverter/defibr illator (AICD),LBBB (left bundle branch block) TAKE 1 TABLET (5 MG) BY MOUTH IN THE MORNING AND BEFORE BEDTIME 180 Tablet 3 4 Active Amiodarone HCl 200 MG Oral Tablet (Cordarone)Indicati ons:PAF (paroxysmal atrial fibrillation) (HCC),Idiopathic cardiomyopathy (HCC),Chronic HFrEF (heart failure with reduced ejection fraction) (HCC),Presence of biventricular automatic cardioverter/defibr illator (AICD),LBBB (left bundle branch block),Need for prophylactic vaccination and inoculation against influenza TAKE 1 TABLET BY MOUTH EVERY DAY IN THE MORNING 90 Tablet 4 Active Empagliflozin 10 MG Oral Tablet (Jardiance)Indicati ons:Chronic HFrEF (heart failure with reduced ejection fraction) (HCC) Take 1 Tablet by mouth in the morning. 90 Tablet 3 4 Active Rosuvastatin Calcium 20 MG Oral Tablet (Crestor)Indication s:Dyslipidemia, goal LDL below 70 Take 1 Tablet by mouth in the morning. 90 Tablet 3 4 Active documented as of this encounter (statuses as of 08/02/2024) Active Problems Problem Noted Date Diagnosed Date Food insecurity 08/31/2023 Overview: Per [facility] Protocol Chronic HFrEF (heart failure with reduced ejection fraction) 07/11/2022 Presence of biventricular au tomatic cardioverter/defibrillator (AICD) 03/08/2018 PAF (paroxysmal atrial fibrillation) 03/08/2018 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 LBBB (left bundle branch block) 08/10/2017 Hyperthyroidism 04/07/2017 Overview (04/07/2017): Possibly due to Amiodarone (that was stopped in early 2016 or before) Diastolic dysfunction, left ventricle 04/05/2017 Moderate episode of recurrent major depressive d isorder 03/17/2017 Idiopathic cardiomyopathy 03/17/2017 Overview (04/05/2017): LVEF 40-45%, 02/2017 Loss of weight 03/17/2017 Lyme disease 03/17/2017 documented as of this encounter (statuses as of 08/02/2024) Resolved Problems Problem Noted Date Diagnosed Date Resolved Date Acquired hypothyroidism 03/17/201707/24 Presence of combination inte rnal cardiac defibrillator (ICD) and pacemaker 2017 documented as of this encounter (statuses as of 08/02/2024) Immunizations Name Administration Dates Next Due PPD 08/11/2023 Pneumococcal Conjugate Vaccine, 20-valent (Prevn ar20) 01/25/2024 Pneumococcal Polysaccharide PPV23 (Pneumovax) Seasonal Influenza, PF, 6 M & above, IM , (FluLaval or Fluzone) 07/11/2022 Seasonal Influenza, Quadrivalent, No Preserve, I M 07/05/2012 TDAP (age 10 and older)(Boostrix) 04/30/2015 Tetanus Toxid Adsorbed 09/17/2009 Zoster Vaccine Recombinant (Shingrix) 01/25/2024 documented as of this encounter Social History Tobacco Use Types Packs/Day Years Used Date Smoking Tobacco: Former Smokeless Tobacco: Former Snuff Alcohol Use Standard Drinks/Week Comments Yes 0 (1 standard drink = 0.6 oz pur e alcohol) rare beer PHQ-2 Answer Date Recorded PHQ Adult Total Score 0 08/11/2023 Hunger Vital Sign Answer Date Recorded Within the past 12 months, y ou worried that your food would run out before you got the money to buy more. Never true Within the past 12 months, t he food you bought just didn't last and you didn't have money to get more. Sometimes true Childcare Answer Date Recorded Do you feel overwhelmed with taking care of a child, family member or friend? No 08/11/2023 Does your family need help f inding childcare? (Household - for ages 0-17 years) Not on file 08/11/2023 Clothing Answer Date Recorded Have you been unable to get clothing when it was really needed? No 08/11/2023 Is your family able to get c lothes or diapers when needed? (Household - for ages 0-17 years) Not on file 08/11/2023 Personal Safety Answer Date Recorded Do you feel unsafe or have concerns for your saf ety? No 08/11/2023 Do you have concerns for you r family's safety? (Household - for ages 0-17 years) Not on file 08/11/2023 Utilities Answer Date Recorded Do you have trouble paying y our heating, water, or electric bill? No 08/11/2023 Is your family able to pay t he heat, water, or electric bill? (Household - for ages 0-17 years) Not on file 08/11/2023 Does your family have access to good internet? (Household - for ages 0-17 years) Not on file 08/11/2023 Employment Status Answer Date Recorded Are you unemployed or without regular income? No 08/11/2023 Does the household have a re gular source of income? (Household - for ages 0-17 years) Not on file 08/11/2023 Social Connections Answer Date Recorded How often do you feel lonely or isolated from th ose around you? Never 08/11/2023 Financial Resource Strain Answer Date R ecorded Do you have any trouble payi ng for your medications, or do you think you might in the future? No 08/11/2023 Does your family have troubl e paying for medicine? (Household - for ages 0-17 years) Not on file 08/11/2023 Transportation Needs Answer Date Record ed READ ONLY Do you have troubl e getting a ride to medical visits or work? Never True 08/11/2023 Does your family have a hard time getting a ride to doctors visits? (Household - for ages 0-17 years) Not on file 08/11/2023 Has lack of transportation k ept you from medical appointments, meetings, work, or from getting things needed for daily living? Check all that apply. (Adult - for ages 18 years and over) Not on file 08/11/2023 Do you (or your family) have trouble finding or paying for a ride (transportation)? (Household - for ages 0-17 years) Not on file 08/11/2023 Housing Stability Answer Date Recorded Do you currently live in a s helter or have no steady place to sleep at night? No 08/11/2023 READ ONLY Do you think you a re at risk of becoming homeless? No 08/11/2023 Does your family worry about paying for your home or becoming homeless? (Household - for ages 0-17 years) Not on file 1 10/12/2022 Are you homeless or worried that you might be in the future? (Adult - for ages 18 years and over) Not on file Are you (or your family) kali eless or worried that you might be in the future? (Household - for ages 0-17 years) Not on file Food Insecurity Answer Date Recorded Do you need food for this week? No 08/11/2023 Are you able to get enough f ood for your family? (Household - for ages 0-17 years) Not on file 08/11/2023 Does your family need food t his week? (Household - for ages 0-17 years) Not on file 08/11/2023 Do you always have enough fo od for your family? 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 Not on file Not on file Not on file documented as of this encounter Plan of Treatment Upcoming Encounters Date Type Department Care Team (Late st Contact Info) Description 08/26/2024 2:40 PM EST Office Visit [facility], [facility]ace [address] [phone] DecemberChandler MD [address] [place] [id number] 12/02/2024 8:30 AM EDT Office Visit Cardiology, [facility] [address] [place] [address] Rafael Dwyer DO [address] [place] [address] 01/27/2025 1:40 PM EDT Office Visit [facility], Chace Lockhart [address] [place] [phone] DecemberChandler MD [address] [id number] Scheduled Procedures Name Priority Associated Diagnoses Date/Ti me COLONOSCOPY FLEXIBLE PROXIMA L DIAGNOSTIC Recall History of colonic polyps Health Maintenance Due Date Last Done Comments Hepatitis B Vaccine (1 of 3 - 19+ 3-dose series) 1984 Cologuard 2010 Fecal Occult Blood Test 2010 Sigmoidoscopy 2010 Zoster Vaccines (2 of 2) 03/21/2024 01/25/2024 COVID-19 Vaccine ( - season) 2024 Influenza Vaccine (FLU shot) (#1) 2024 07/11/2022, 07/05/2012, 07/05/2012 Depression Monitoring 08/11/2024 08/11/2023 Colonoscopy 02/19/2025 02/20/2020, 12/14/2009 Colorectal Cancer Screening 02/19/2025 DTap/Tdap Vaccines (2 - Td or Tdap) 04/30/2025 04/30/2015 Diabetes Screening 07/19/2027 07/19/2024, 0 08/26/2023, 06/06/2022, Additional history exists Lipid Panel 07/19/2029 07/19/2024, 010 10/2023, 03/22/2021, Additional history exists RETIRED - COLONOSCOPY-EVERY 5 YRS AGES 18-100 Discontinued 02/20/2020, 12/14/2009 Pneumococcal Vaccine: Pediatrics (0 to 5 Years) and At-Risk Patients (6 to 64 Years) Completed 01/25/2024, 07/05/2012 HPV (Gardasil) Vaccine Aged Out No lo nger eligible based on patient's age to complete this topic MENINGOCOCCAL (MENACTRA/MENVEO) Aged Out No longer eligible based on patient's age to complete this topic documented as of this encounter Medical Devices Not on filedocumented as of this encounter Care Teams Pharmacist Intern Relationship Specialty Start Date End Date December, Chandler Castillo MD [address] [place] [address] PCP - General Family Medicine 01/21/24 documented as of this encounter
--- OUTSIDE RECORDS SUMMARY | 2024-11-13 17:45 | External Medical Summary | Summary of Care ---
Author Name Unknown Organization [facility] Address [address] [place] [address] Phone [phone] Care Team Providers Care Sales Support Administrator Name Role Phone Chandler Castillo MD Primary Care Provider [phone] Reason for Visit * Reason Comments Follow Up Patient is here for a 6 month follow up.Patient states he has been having pain in his R shoulder now and then that can radiate to his elbow. Encounter Details Date Type Department Care Team (Late st Contact Info) Description 07/29/2024 2:40 PM EST Office Visit [facility] [address] [place] [address] Chandler Castillo MD [address] [place] [address] Dyslipidemia, goal LDL below 70*; Chronic HFrEF (heart failure with reduced ejection fraction) ([facility]); Idiopathic cardiomyopathy (HCC); PAF (paroxysmal atrial fibrillation) ([facility]); LBBB (left bundle branch block); Presence of biventricular automatic cardioverter/defibrilla tor (AICD); Moderate episode of recurrent major depressive disorder ([facility]); Impingement syndrome of right shoulder Allergies Active Allergy Reactions Criticality Noted Date Comments Cefuroxime High 03/26/2017 Other reaction(s): Rash documented as of this encounter (statuses as of 07/29/2024) Medications Albuterol Sulfate (PROAIR HFA) 108 (90 [...] as of this encounter (statuses as of 07/29/2024) Active Problems Problem Noted Date Diagnosed Date [...] as of this encounter (statuses as of 07/29/2024) Resolved Problems Problem Noted Date Diagnosed Date Resolved Date Acquired hypothyroidism 03/17/201707/24 Presence of combination inte rnal cardiac defibrillator (ICD) and pacemaker 2017 documented as of this encounter (statuses as of 07/29/2024) Immunizations Name Administration Dates Next Due PPD [...] 18 years and over) Not on file 3 Are you (or your family) kali eless [...] Date Job End Date 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 Not on file Not on file documented as of this encounter Last Filed Vital Signs Vital Sign Reading Time Taken Comments Blood Pressure 122/86 07/29/2024 2:51 PM EST Pulse 75 07/29/2024 2:51 PM EST Temperature 36.8 C (98.2 F) 07/29/2024 2:51 PM ES T Respiratory Rate 17 07/29/2024 2:51 PM EST Oxygen Saturation 96% 07/29/2024 2:51 PM EST Inhaled Oxygen Concentration - - Weight 106.7 kg (235 lb 3.2 oz) 07/29/2024 2:51 PM EST Height - - Body Mass Index 31.9 01/25/2024 10:54 AM EDT documented in this encounter Progress Notes * Chandler Castillo MD - 07/29/2024 2:59 PM EST Images from the original note were not included. Assessment and Plan 1. Dyslipidemia, goal LDL below 70 (Primary) ASCVD risk score of 10%. Start rosuvastatin 20 mg daily. Repeat lipid panel prior to next appointment. - Rosuvastatin Calcium 20 MG Oral Tablet (Crestor); Take 1 Tablet by mouth in the morning. Dispense: 90 Tablet; Refill: 3 - LIPID PANEL WITH DIRECT LDL IF TG IS HIGH; Future 2. Chronic HFrEF (heart failure with reduced ejection fraction) (HCC) Chronic heart failure with reduced ejection fraction with most recent ejection fraction 45% up to 30% prior. He was appropriately on goal-directed medical therapy with spironolactone, Coreg, Entresto. He should be started on Jardiance to round out goal-directed medical therapy. He was in agreement today. Lab work as below prior to next appointment. - Empagliflozin 10 MG Oral Tablet (Jardiance); Take 1 Tablet by mouth in the morning. Dispense: 90 Tablet; Refill: 3 - COMPREHENSIVE METABOLIC PANEL; Future - HEMOGLOBIN A1C; Future 3. Idiopathic cardiomyopathy (HCC) Initially diagnosed in 2007. 4. PAF (paroxysmal atrial fibrillation) (HCC) Anticoagulated on Eliquis. Rate control with Coreg. Rhythm control and PVC control with amiodarone. 5. LBBB (left bundle branch block) 6. Presence of biventricular automatic cardioverter/defibrillator (AICD) 7. Moderate episode of recurrent major depressive disorder (HCC) Stable on Lexapro. 8. Impingement syndrome of right shoulder Return for right subacromial bursa injection at patient's convenience. Wrap-Up Follow up in 6 months. History of Present Illness The patient is a 59-year-old male with past medical history of hypothyroidism, paroxysmal atrial fibrillation, heart failure with reduced ejection fraction, depression who presents for routine followup. 59-year-old male presents for routine six-month follow up. He has a history of chronic heart failure with reduced ejection fraction with an EF of 45% in 2022. Previously this was a 25-30%. He was a chronic left bundle-branch block in his status post biventricular pacemaker defibrillator implantation 2020. He was has a history of paroxysmal atrial fibrillation anticoagulated on Eliquis and taking amiodarone. He was follow up with Cardiology routinely in his due for follow up in September 12, 2024.He was on Entresto, carvedilol, spironolactone for goal- directed medical therapy for heart failure with reduced ejection fraction. He was not on SGLT2 inhibitor. He takes Lasix as needed for swelling. Appears largely euvolemic on exam today. Reviewed most recent lab work. This showed dyslipidemia with LDL of 138. Total cholesterol of 216. Stable renal function. Normal thyroid function. ASCVD risk score of 10-1/2% in the next 10 years. Patient has a history right shoulder impingement. He reports over the last number of weeks to months he was had pain at the right shoulder that radiates down towards the elbow. Does not limit him significantly on a daily basis but does note intermittent pain. Has previously received a corticosteroid injection through Orthopedics. Physical Exam Vitals: 07/29/24 1451 Temp: 98.2 F (36.8 C) Pulse: 75 Resp: 17 SpO2: 96% BP: 122/86 Physical Exam Physical Exam Vitals reviewed. Constitutional: General: He is not in acute distress. Cardiovascular: Rate and Rhythm: Normal rate and regular rhythm. Heart sounds: No murmur heard. Pulmonary: Effort: Pulmonary effort is normal. No respiratory distress. Breath sounds: Normal breath sounds. Musculoskeletal: Right lower leg: No edema. Left lower leg: No edema. Comments: Positive empty can on the right. Neurological: Mental Status: He is alert. This note has been completed in part utilizing [employer] Speech Voice Recognition Software. Due to technical limitations of the software, grammatical errors, random word insertions, prounoun errors, and incomplete sentences may occur. Any formal questions or concerns about the content, text, or information contained within the body of this dictation should be directly addressed to the provider for clarification. documented in this encounter Nursing Notes * Anastacia Mendez LPN - 07/29/2024 2:50 PM EST The patient has been properly identified by confirmation of name and date of . Chief Complaint Patient presents with Follow Up Patient is here for a 6 month follow up. Patient states he has been having pain in his R shoulder now and then that can radiate to his elbow. documented in this encounter Plan of Treatment Upcoming Encounters Date Type Department Care Team (Late st Contact Info) Description 08/26/2024 2:40 PM EST Office Visit [facility] [facility] [address] [place] [phone] Chandler Castillo MD [address] [place] [id number] 12/02/2024 8:30 AM EDT Office Visit Cardiology, [facility] [address] [place] [address] Rafael Dwyer, DO [address] [place] [address] 01/27/2025 1:40 PM EDT [facility] [address] [place] [phone] December, Chandler Castillo MD [address] [facility] [place] [id number] Scheduled Orders Name Type Priority Associated Diagnoses Orde r Schedule LIPID PANEL WITH DIRECT LDL IF TG IS HIGH Lab Routine Dyslipidemia, goal LDL below 70 Expected: 07/29/2024, Expires: 07/29/2025 COMPREHENSIVE METABOLIC PANEL Lab Routine Chronic HFrEF (heart failure with reduced ejection fraction) (HCC) Expected: 07/29/2024 (Approximate), Expires: 07/29/2025 HEMOGLOBIN A1C Lab Routine Chronic HFrEF (heart failure with reduced ejection fraction) (HCC) Expected: 07/29/2024 (Approximate), Expires: 07/29/2025 Scheduled Procedures Name Priority Associated Diagnoses Date/Ti me COLONOSCOPY FLEXIBLE PROXIMA L DIAGNOSTIC Recall History of colonic polyps Health Maintenance Due Date Last Done Comments Hepatitis B Vaccine (1 of 3 - 19+ 3-dose series) 1984 Cologuard 2010 Fecal Occult Blood Test 2010 Sigmoidoscopy 2010 Zoster Vaccines (2 of 2) 03/21/2024 01/25/2024 COVID-19 Vaccine ( season) 2024 Influenza Vaccine (FLU shot) (#1) 2024 07/11/2022, 07/05/2012, 07/05/2012 Depression Monitoring 08/11/2024 08/11/2023 Colonoscopy 02/19/2025 02/20/2020, 12/14/2009 Colorectal Cancer Screening 02/19/2025 DTap/Tdap Vaccines (2 - Td or Tdap) 04/30/2025 04/30/2015 Diabetes Screening 07/19/2027 07/19/2024, 0 08/26/2023, 06/06/2022, Additional history exists Lipid Panel 07/19/2029 07/19/2024, 10/2023, 03/22/2021, Additional history exists RETIRED - [...] Not on filedocumented as of this encounter Visit Diagnoses Diagnosis Dyslipidemia, goal LDL below 70- Primary Other and unspecified hyperlipidemia Chronic HFrEF (heart failure with reduced ejection fraction) (HCC) Idiopathic cardiomyopathy (HCC) Other primary cardiomyopathies PAF (paroxysmal atrial fibrillation) (HCC) Atrial fibrillation LBBB (left bundle branch block) Other left bundle branch block Presence of biventricular automatic cardioverter/defibrillator (AICD) Automatic implantable cardiac defibrillator in situ Moderate episode of recurrent major depressive disorder (HCC) Impingement syndrome of right shoulder Other affections of shoulder region, not elsewhere classified documented in this encounter Care Teams Sales Support Administrator Relationship Specialty Start Date End Date December, Chandler Castillo MD [address] [place] [address] PCP - General Family Medicine 01/21/24 documented as of this encounter
--- OUTSIDE RECORDS SUMMARY | 2024-11-13 17:45 | External Medical Summary | Summary of Care ---
Author Name Unknown Organization [facility] Address [address] [place] [address] Phone [phone] Care Team Providers Care Block Feeder Name Role Phone Chandler Castillo MD Primary Care Provider [phone] Reason for Visit * Reason Onset Date Comments Pacemaker Clinic 06/17/2024 Disconnected mo nitor Encounter Details Date Type Department Care Team (Late st Contact Info) Description 06/17/2024 Telephone Cardiology, [facility] [address] [place] [address] [place], Pac[facility] Clinic [facility] [address] [place] [address] Pacemaker Clinic (Disconnected monitor ) Allergies Active Allergy Reactions Criticality Noted Date Comments Cefuroxime High 03/26/2017 Other reaction(s): Rash documented as of this encounter (statuses as of 06/17/2024) Medications Medication Sig Dispensed Refills Start Date End Date Status Albuterol Sulfate (PROAIR HFA) 108 (90 Base) MCG/ACT AERSIndications:Acute bronchitis, antibiotics not indicated Inhale 2 Puffs by mouth 4 times a day. 1 Inhaler 1 10/15/2019 Active Furosemide 40 MG Oral Tablet (Lasix)Indications:Idi opathic cardiomyopathy (HCC) Take 1 Tablet by mouth daily as needed (edema). 02/14/2021 Active Loratadine 10 MG Oral Tablet (Claritin)Indications: Watery eyes Take 1 Tab by mouth daily. 30 Tab 11 03/22/2021 Active Potassium Chloride ER 20 MEQ Oral Tablet Extended ReleaseIndications:Idi opathic cardiomyopathy (HCC) Take 1 Tab by mouth daily as needed for Other (When taking Lasix). 30 Tab 5 03/29/2021 Active Amiodarone HCl 200 MG Oral Tablet (Cordarone)Indications :PAF (paroxysmal atrial fibrillation) (HCC),Idiopathic cardiomyopathy (HCC),Chronic HFrEF (heart failure with reduced ejection fraction) (HCC),Presence of biventricular automatic cardioverter/defibrill ator (AICD),LBBB (left bundle branch block),Need for prophylactic vaccination and inoculation against influenza TAKE 1 TABLET BY MOUTH IN THE MORNING 90 Tablet 3 07/24/2023 Active Escitalopram Oxalate 10 MG Oral Tablet (Lexapro)Indications:M oderate episode of recurrent major depressive disorder (HCC) Take 1 Tablet by mouth in the morning. 90 Tablet 3 10/23/2023 Active Spironolactone 25 MG Oral Tablet (Aldactone)Indications :Idiopathic cardiomyopathy (HCC) TAKE ONE-HALF TABLET BY MOUTH IN THE MORNING 45 Tablet 3 12/14/2023 Active Carvedilol 25 MG Oral Tablet (Coreg)Indications:Idi opathic cardiomyopathy (HCC) TAKE ONE AND A HALF TABETS BY MOUTH TWO TIMES PER DAY 270 Tablet 3 03/21/2024 Active Entresto 24-26 MG Oral Tablet (sacubitril-valsartan 24-26 mg per tab)Indications:Idiopa thic cardiomyopathy (HCC),Left ventricular systolic dysfunction,Chronic HFrEF (heart failure with reduced ejection fraction) (HCC) TAKE 1 TABLET BY MOUTH TWICE A DAY 180 Tablet 3 04/26/2024 Active Eliquis 5 MG Oral Tablet (Apixaban)Indications: Need for prophylactic vaccination and inoculation against influenza,PAF (paroxysmal atrial fibrillation) (HCC),Idiopathic cardiomyopathy (HCC),Chronic HFrEF (heart failure with reduced ejection fraction) (HCC),Presence of biventricular automatic cardioverter/defibrill ator (AICD),LBBB (left bundle branch block) TAKE 1 TABLET (5 MG) BY MOUTH IN THE MORNING AND BEFORE BEDTIME 180 Tablet 3 05/04/2024 Active documented as of this encounter (statuses as of 06/17/2024) Active Problems Problem Noted Date Diagnosed Date Food insecurity 08/31/2023 Overview: Per [facility] Protocol Chronic HFrEF (heart failure with reduced ejection fraction) 07/11/2022 Presence of biventricular au tomatic cardioverter/defibrillator (AICD) 03/08/2018 PAF (paroxysmal atrial fibrillation) 03/08/2018 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 LBBB (left bundle branch block) 08/10/2017 Hyperthyroidism 04/07/2017 Overview: Possibly due to Amiodarone (that was stopped in early 2016 or before) Diastolic dysfunction, left ventricle 04/05/2017 Moderate episode of recurrent major depressive d isorder 03/17/2017 Idiopathic cardiomyopathy 03/17/2017 Overview: LVEF 40-45%, 02/2017 Loss of weight 03/17/2017 Lyme disease 03/17/2017 documented as of this encounter (statuses as of 06/17/2024) Resolved Problems Problem Noted Date Diagnosed Date Resolved Date Acquired hypothyroidism 03/17/201707/24 Presence of combination inte rnal cardiac defibrillator (ICD) and pacemaker 2017 documented as of this encounter (statuses as of 06/17/2024) Immunizations Name Administration Dates Next Due PPD [...] Recorded Sex Assigned at Not on file Gender Identity Not on file Sexual Orientation Straight 08/05/2021 11 :00 AM EST Job Start Date Occupation Industry Not on file Not on file Not on file documented as of this encounter Miscellaneous Notes * Telephone Encounter - Fabienne Jaimes LPN - 06/17/2024 1:51 PM EDT MyG message sent to patient regarding disconnected home monitor documented in this encounter Plan of Treatment Upcoming Encounters Date Type Department Care Team (Late st Contact Info) Description 07/19/2024 7:40 AM EST Laboratory Laboratory, [place] [address] [place] [facility] [place] [phone] [facility] [address] [place] [facility] [place] [address] 07/26/2024 11:00 AM EST Office Visit Family [facility], [place] [address] [place] [place] [address] December, Chandler Castillo MD [address] [place] [address] Scheduled Procedures Name Priority Associated Diagnoses Date/Ti [...] Td or Tdap) 04/30/2025 04/30/2015 Diabetes Screening 08/26/2026 08/26/2023, 1 , 06/02/2022, Additional history exists Lipid Panel 08/26/2028 08/26/2023, 02/23, 03/26/2017 RETIRED - COLONOSCOPY-EVERY 5 YRS AGES 18-100 [...] filedocumented as of this encounter Care Teams Block Feeder Relationship Specialty Start Date End Date December, Chandler Castillo MD [address] [place] [facility] [place] [address] PCP - General Family Medicine 01/21/24 documented as of this encounter
--- OUTSIDE RECORDS SUMMARY | 2024-11-13 17:45 | External Medical Summary | Summary of Care ---
Author Name Unknown Organization [facility] Address [address] [place] [address] Phone [phone] Care Team Providers Care Electric Power Superintendent Name Role Phone Chandler Castillo MD Primary Care Provider [phone] Reason for Visit * Reason Comments Outpatient Testing Encounter Details Date Type Department Care Team (Late st Contact Info) Description 07/19/2024 7:40 AM EST Laboratory Laboratory, [facility] [address] [phone] [place], Laboratory [address] [place] [address] Encounter for monitoring amiodarone therapy; Hyperthyroidism; Chronic HFrEF (heart failure with reduced ejection fraction) (HCC) Allergies Active Allergy Reactions Criticality Noted Date Comments Cefuroxime High 03/26/2017 Other reaction(s): Rash documented as of this encounter (statuses as of 07/19/2024) Medications Albuterol Sulfate (PROAIR HFA) 108 (90 [...] taking Lasix). 30 Tab 5 1 Active Amiodarone HCl 200 MG Oral Tablet (Cordarone)Indicati ons:PAF (paroxysmal atrial fibrillation) (HCC),Idiopathic cardiomyopathy (HCC),Chronic HFrEF (heart failure with reduced ejection fraction) (HCC),Presence of biventricular automatic cardioverter/defibr illator (AICD),LBBB (left bundle branch block),Need for prophylactic vaccination and inoculation against influenza TAKE 1 TABLET BY MOUTH IN THE MORNING 90 Tablet 3 3 Active Escitalopram Oxalate 10 MG Oral Tablet [...] BEFORE BEDTIME 180 Tablet 3 4 Active documented as of this encounter (statuses as of 07/19/2024) Active Problems Problem Noted Date Diagnosed Date [...] as of this encounter (statuses as of 07/19/2024) Resolved Problems Problem Noted Date Diagnosed Date Resolved Date Acquired hypothyroidism 03/17/201707/24 Presence of combination inte rnal cardiac defibrillator (ICD) and pacemaker 2017 documented as of this encounter (statuses as of 07/19/2024) Immunizations Name Administration Dates Next Due PPD [...] 08/11/2023 Does the household have a re lar source of income? 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 Not on file Not on file documented as of this encounter Plan of Treatment Upcoming Encounters Date Type Department Care Team (Late st Contact Info) Description 07/26/2024 11:00 AM EST Office Visit Family Practice, [facility] [address] [phone] Chandler Castillo MD [address] [phone] Pending Results Name Type Priority Associated Diagnoses Date /Time TSH WITH FREE T4 IF INDICATED Lab Routine Encounter for monitoring amiodarone therapy 07/19/2024 7:45 AM EST COMPREHENSIVE METABOLIC PANEL Lab Routine Chronic HFrEF (heart failure with reduced ejection fraction) (HCC) 07/19/2024 7:45 AM EST LIPID PANEL WITH DIRECT LDL IF TG IS HIGH Lab Routine Chronic HFrEF (heart failure with reduced ejection fraction) (HCC) 07/19/2024 7:45 AM EST Scheduled Procedures Name Priority Associated Diagnoses Date/Ti me COLONOSCOPY FLEXIBLE PROXIMA L DIAGNOSTIC Recall History of colonic polyps Health Maintenance Due Date Last Done Comments Hepatitis B Vaccine (1 of 3 - 19+ 3-dose series) 1984 Cologuard 2010 Fecal Occult Blood Test 2010 Sigmoidoscopy 2010 Zoster Vaccines (2 of 2) 03/21/2024 01/25/2024 COVID-19 Vaccine (1 - season) 2024 Influenza Vaccine (FLU shot) [...] as of this encounter Visit Diagnoses Diagnosis Encounter for monitoring amiodarone therapy Encounter for therapeutic drug monitoring Hyperthyroidism Thyrotoxicosis without mention of goiter or other cause, without mention of thyrotoxic crisis or storm Chronic HFrEF (heart failure with reduced ejection fraction) (HCC) documented in this encounter Care Teams Electric Power Superintendent Relationship Specialty Start Date End Date December, Chandler Castillo MD [address] [place] [address] PCP - General Family Medicine 01/21/24 documented as of this encounter
--- OUTSIDE RECORDS SUMMARY | 2024-11-13 17:45 | External Medical Summary | Summary of Care ---
Author Name Unknown Organization [facility] Address [address] [place] [address] Phone [phone] Care Team Providers Care Boiler Tender Name Role Phone Chandler Castillo MD Primary Care Provider [phone] Reason for Visit * Reason Onset Date Comments MyCode Nonconsent - Not interested at this time 08/12/2024 Encounter Details Date Type Department Care Team (Late st Contact Info) Description 07/29/2024 Orders Only Outcomes Research Department [address] [place] [address] Jonelle Cervantes CHRA MyCode Nonconsent Documentation Allergies Active Allergy Reactions Criticality Noted Date Comments Cefuroxime High 03/26/2017 Other reaction(s): Rash documented as of this encounter (statuses as of 08/12/2024) Medications Albuterol Sulfate (PROAIR HFA) 108 (90 [...] as of this encounter (statuses as of 08/12/2024) Active Problems Problem Noted Date Diagnosed Date [...] as of this encounter (statuses as of 08/12/2024) Resolved Problems Problem Noted Date Diagnosed Date Resolved Date Acquired hypothyroidism 03/17/201707/24 Presence of combination inte rnal cardiac defibrillator (ICD) and pacemaker 2017 documented as of this encounter (statuses as of 08/12/2024) Immunizations Name Administration Dates Next Due PPD [...] Date Job End Date 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 documented in this encounter Plan of Treatment Upcoming Encounters Date Type Department Care Team (Late st Contact Info) Description 08/26/2024 2:40 PM EST [facility] [address] [phone] DecemberChandler MD [address] [place] [id number] 12/02/2024 8:30 AM EDT Office Visit Cardiology, [facility] [address] [place] [address] Rafael Dwyer, [address] [place] [address] 01/27/2025 1:40 PM EDT [facility] [address] [facility] [address] [place] [phone] DecemberChandler MD [address] [phone] Scheduled Procedures Name Priority Associated Diagnoses Date/Ti me COLONOSCOPY FLEXIBLE PROXIMA L DIAGNOSTIC Recall History of colonic polyps Health Maintenance Due Date Last Done Comments Hepatitis B Vaccine (1 of 3 - 19+ 3-dose series) 1984 Cologuard 2010 Fecal Occult Blood Test 2010 Sigmoidoscopy 2010 Zoster Vaccines (2 of 2) 03/21/2024 01/25/2024 COVID-19 Vaccine ( - 2023- season) 2024 Influenza Vaccine (FLU shot) (#1) 2024 07/11/2022, 07/05/2012, 07/05/2012 Depression Monitoring 08/11/2024 08/11/2023 Colonoscopy 02/19/2025 02/20/2020, 12/14/2009 Colorectal Cancer Screening 02/19/2025 DTap/Tdap Vaccines (2 - Td or Tdap) 04/30/2025 04/30/2015 Diabetes Screening 07/19/2027 07/19/2024, 0 08/26/2023, 06/06/2022, Additional history exists Lipid Panel 07/19/2029 07/19/2024, 01/0 10/2023, 03/22/2021, Additional history exists RETIRED - [...] filedocumented as of this encounter Care Teams Boiler Tender Relationship Specialty Start Date End Date December, Chandler Castillo MD PCP - General Family Medicine 01/21/24 documented as of this encounter
--- OUTSIDE RECORDS SUMMARY | 2024-11-13 17:45 | External Medical Summary | Summary of Care ---
Author Name Unknown Organization [facility] Address [address] [place] [address] Phone [phone] Care Team Providers Care Thermoforming Machine Operator Name Role Phone Chandler Castillo MD Primary Care Provider Reason for Visit * Reason Comments eRx-Medication Refill Encounter Details Date Type Department Care Team (Late st Contact Info) Description 07/28/2024 Refill Cardiology, [facility] [address] [facility] [place] [place] [address] Marcila El PA-C [address] [place] [address] PAF (paroxysmal atrial fibrillation) ([facility]); Idiopathic cardiomyopathy (HCC); Chronic HFrEF (heart failure with reduced ejection fraction) ([facility]); Presence of biventricular automatic cardioverter/defibrillator (AICD); LBBB (left bundle branch block); Need for prophylactic vaccination and inoculation against influenza Allergies Active Allergy Reactions Criticality Noted Date Comments Cefuroxime High 03/26/2017 Other reaction(s): Rash documented as of this encounter (statuses as of 07/28/2024) Medications Albuterol Sulfate (PROAIR HFA) 108 (90 Base) MCG/ACT AERSIndications:Ac malik bronchitis, antibiotics not indicated Inhale 2 Puffs by mouth 4 times a day. 1 Inhaler 1 10/15/19 20 Active Furosemide 40 MG Oral Tablet (Lasix)Indications :Idiopathic cardiomyopathy (HCC) Take 1 Tablet by mouth daily as needed (edema). 02/15/20 21 Active Loratadine 10 MG Oral Tablet (Claritin)Indicati ons:Watery eyes Take 1 Tab by mouth daily. 30 Tab 11 03/22/20 21 Active Potassium Chloride ER 20 MEQ Oral Tablet Extended ReleaseIndications :Idiopathic cardiomyopathy (HCC) Take 1 Tab by mouth daily as needed for Other (When taking Lasix). 30 Tab 5 03/29/20 21 Active Escitalopram Oxalate 10 MG Oral Tablet (Lexapro)Indicatio ns:Moderate episode of recurrent major depressive disorder (HCC) Take 1 Tablet by mouth in the morning. 90 Tablet 3 10/23/19 24 Active Spironolactone 25 MG Oral Tablet (Aldactone)Indicat ions:Idiopathic cardiomyopathy (HCC) TAKE ONE-HALF TABLET BY MOUTH IN THE MORNING 45 Tablet 3 12/14/19 24 Active Carvedilol 25 MG Oral Tablet (Coreg)Indications :Idiopathic cardiomyopathy (HCC) TAKE ONE AND A HALF TABETS BY MOUTH TWO TIMES PER DAY 270 Tablet 3 03/21/20 24 Active Entresto 24-26 MG Oral Tablet (sacubitril-valsar doe 24-26 mg per tab)Indications:Id iopathic cardiomyopathy (HCC),Left ventricular systolic dysfunction,Chroni c HFrEF (heart failure with reduced ejection fraction) (HCC) TAKE 1 TABLET BY MOUTH TWICE A DAY 180 Tablet 3 04/26/20 24 Active Eliquis 5 MG Oral Tablet (Apixaban)Indicati ons:Need for prophylactic vaccination and inoculation against influenza,PAF (paroxysmal atrial fibrillation) (HCC),Idiopathic cardiomyopathy (HCC),Chronic HFrEF (heart failure with reduced ejection fraction) (HCC),Presence of biventricular automatic cardioverter/defib rillator (AICD),LBBB (left bundle branch block) TAKE 1 TABLET (5 MG) BY MOUTH IN THE MORNING AND BEFORE BEDTIME 180 Tablet 3 05/04/20 24 Active Amiodarone HCl 200 MG Oral Tablet (Cordarone)Indicat ions:PAF (paroxysmal atrial fibrillation) (HCC),Idiopathic cardiomyopathy (HCC),Chronic HFrEF (heart failure with reduced ejection fraction) (HCC),Presence of biventricular automatic cardioverter/defib rillator (AICD),LBBB (left bundle branch block),Need for prophylactic vaccination and inoculation against influenza TAKE 1 TABLET BY MOUTH EVERY DAY IN THE MORNING 90 Tablet 07/28/20 24 Active Amiodarone HCl 200 MG Oral Tablet (Cordarone)Indicat ions:PAF (paroxysmal atrial fibrillation) (HCC),Idiopathic cardiomyopathy (HCC),Chronic HFrEF (heart failure with reduced ejection fraction) (HCC),Presence of biventricular automatic cardioverter/defib rillator (AICD),LBBB (left bundle branch block),Need for prophylactic vaccination and inoculation against influenza TAKE 1 TABLET BY MOUTH IN THE MORNING 90 Tablet 3 07/24/20 23 024 Discontinued documented as of this encounter (statuses as of 07/28/2024) Active Problems Problem Noted Date Diagnosed Date [...] as of this encounter (statuses as of 07/28/2024) Resolved Problems Problem Noted Date Diagnosed Date Resolved Date Acquired hypothyroidism 03/17/201707/24 Presence of combination inte rnal cardiac defibrillator (ICD) and pacemaker 2017 documented as of this encounter (statuses as of 07/28/2024) Immunizations Name Administration Dates Next Due PPD [...] Date Job End Date 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 Please approve if appropriate. Rufus Quiroga, Pharm.D. Clinical Pharmacist [facility] ([facility]) 07/28/2024, 2:02 PM [phone] documented in this encounter Plan of Treatment Upcoming Encounters Date Type Department Care Team (Late st Contact Info) Description 07/29/2024 2:40 PM EST Office Visit [facility]vin [facility] [address] [phone] December, Chandler Castillo MD [address] [phone] Scheduled Procedures Name Priority Associated Diagnoses Date/Ti [...] Additional history exists Lipid Panel 07/19/2029 07/19/2024, 0110/2023, 03/22/2021, Additional history exists RETIRED - COLONOSCOPY-EVERY [...] as of this encounter Visit Diagnoses Diagnosis PAF (paroxysmal atrial fibrillation) (HCC) Atrial fibrillation Idiopathic cardiomyopathy (HCC) Other primary cardiomyopathies Chronic HFrEF (heart failure with reduced ejection fraction) (HCC) Presence of biventricular automatic cardioverter/defibrillator (AICD) Automatic implantable cardiac defibrillator in situ LBBB (left bundle branch block) Other left bundle branch block Need for prophylactic vaccination and inoculation against influenza documented in this encounter Care Teams Thermoforming Machine Operator Relationship Specialty Start Date End Date December, Chandler Castillo MD [address] [facility] [place] [address] PCP - General Family Medicine 01/21/24 documented as of this encounter
--- OUTSIDE RECORDS SUMMARY | 2024-11-13 17:45 | External Medical Summary ---
Author Name Unknown Address Unknown Organization [id number]:[facility] - [address] [place] [address] Laboratory Report Ordering Provider Test Date Status 07/19/2024 07:45:14 Final Observation Date Value Abnormality Reference (Units ) Status BUN 07/19/2024 07:45:14 23 Above high normal 6-20 (mg/dL) Final Creatinine 07/19/2024 07:45:14 1.2 0.6-1.2 (mg/dL) Final Glomerular filtration rate/1.73 sq M.predicted [Volume Rate/Area] in Serum, Plasma or Blood by Creatinine-based formula (CKD-EPI) 07/19/2024 07:45:14 74 >=60 (mL/min) Final eGFR is calculated based on the CKD-EPI 2020 equation. Sodium 07/19/2024 07:45:14 144 135-146 (m mol/L) Final Potassium 07/19/2024 07:45:14 4.8 3.5-5.1 (m mol/L) Final Cl 07/19/2024 07:45:14 106 98-107 (mm ol/L) Final CO2 07/19/2024 07:45:14 25 22-32 (mmo l/L) Final Anion gap 07/19/2024 07:45:14 13 7-15 (mmol /L) Final Glucose 07/19/2024 07:45:14 91 70-120 (mg /dL) Final Albumin 07/19/2024 07:45:14 4.2 3.8-5.0 (g /dL) Final AST (Aspartate aminotransferase) 07/19/2024 07:45:14 18 10-50 (U/L) Final Alk Phos 07/19/2024 07:45:14 68 35-130 (U/ L) Final Bilirubin, Total 07/19/2024 07:45:14 0.4 <=1 .2 (mg/dL) Final Calcium 07/19/2024 07:45:14 9.0 8.4-10.2 ( mg/dL) Final Protein 07/19/2024 07:45:14 6.4 6.0-8.3 (g /dL) Final ALT (Alanine aminotransferase) 07/19/2024 07:45:14 19 10-50 (U/L) Final Performing Location [facility] - [address] [facility] [address]
--- OUTSIDE RECORDS SUMMARY | 2024-11-13 17:45 | External Medical Summary | Summary of Care ---
Author Name Unknown Organization [facility] Address [address] [place] [address] Phone [phone] Care Team Providers Care Feather Stitcher Name Role Phone Chandler Castillo MD Primary Care Provider [phone] Reason for Visit * Reason Comments eRx-Medication Refill Encounter Details Date Type Department Care Team (Late st Contact Info) Description 10/19/2024 Refill Cardiology, [facility] [address] [facility] [place] [address] Carol Dave PA-C [address] [place] [address] PAF (paroxysmal atrial fibrillation) ([facility]); Idiopathic cardiomyopathy (HCC); Chronic HFrEF (heart failure with reduced ejection fraction) ([facility]); Presence of biventricular automatic cardioverter/defibrillator (AICD); LBBB (left bundle branch block); Need for prophylactic vaccination and inoculation against influenza Allergies Active Allergy Reactions Criticality Noted Date Comments Cefuroxime High 03/26/2017 Other reaction(s): Rash documented as of this encounter (statuses as of 10/20/2024) Medications Albuterol Sulfate (PROAIR HFA) 108 (90 [...] BEDTIME 180 Tablet 3 05/04/20 24 Active Empagliflozin 10 MG Oral Tablet (Jardiance)Indicat ions:Chronic HFrEF (heart failure with reduced ejection fraction) (HCC) Take 1 Tablet by mouth in the morning. 90 Tablet 3 07/29/20 24 Active Rosuvastatin Calcium 20 MG Oral Tablet (Crestor)Indicatio ns:Dyslipidemia, goal LDL below 70 Take 1 Tablet by mouth in the morning. 90 Tablet 3 07/29/20 24 Active Amiodarone HCl 200 MG Oral Tablet (Cordarone)Indicat ions:PAF (paroxysmal atrial fibrillation) (HCC),Idiopathic cardiomyopathy (HCC),Chronic HFrEF (heart failure with reduced ejection fraction) (HCC),Presence of biventricular automatic cardioverter/defib rillator (AICD),LBBB (left bundle branch block),Need for prophylactic vaccination and inoculation against influenza TAKE 1 TABLET BY MOUTH EVERY DAY IN THE MORNING 90 Tablet 10/19/19 25 Active Amiodarone HCl 200 MG Oral Tablet (Cordarone)Indicat ions:PAF (paroxysmal atrial fibrillation) (HCC),Idiopathic cardiomyopathy (HCC),Chronic HFrEF (heart failure with reduced ejection fraction) (HCC),Presence of biventricular automatic cardioverter/defib rillator (AICD),LBBB (left bundle branch block),Need for prophylactic vaccination and inoculation against influenza TAKE 1 TABLET BY MOUTH EVERY DAY IN THE MORNING 90 Tablet 07/28/20 24 025 Discontinued documented as of this encounter (statuses as of 10/20/2024) Active Problems Problem Noted Date Diagnosed Date [...] as of this encounter (statuses as of 10/20/2024) Resolved Problems Problem Noted Date Diagnosed Date Resolved Date Acquired hypothyroidism 03/17/201707/24 Presence of combination inte rnal cardiac defibrillator (ICD) and pacemaker 2017 documented as of this encounter (statuses as of 10/20/2024) Immunizations Name Administration Dates Next Due PPD [...] Date Job End 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 Not on file Not on file documented as of this encounter Miscellaneous Notes * Telephone Encounter - Carol Dave PA-C - 10/19/2024 5:09 PM ESTSigned Prescriptions: Disp Refills Amiodarone HCl 200 MG Oral Tablet (Cordaro*90 Tab*0 Sig: TAKE 1 TABLET BY MOUTH EVERY DAY IN THE MORNING Authorizing Provider: CAROL DAVE * Telephone Encounter - Keyon Marlow LPN - 10/19/2024 4:50 PM ESTPending Prescriptions: Disp Refills Amiodarone HCl 200 MG Oral Tablet (Cordaro*90 Tab*0 Sig: TAKE 1 TABLET BY MOUTH EVERY DAY IN THE MORNING * Telephone Encounter - Lisa Thompson - 10/19/2024 4:49 PM ESTPending Prescriptions: Disp Refills Amiodarone HCl 200 MG Oral Tablet [Pharmac*30 Tab*2 Sig: TAKE 1 TABLET BY MOUTH EVERY DAY IN THE MORNING * Telephone Encounter - Lisa Thompson - 10/19/2024 4:47 PM EST Did you pend patient's preferred pharmacy and medication before forwarding?yes Pharmacy: [id number] [address] [facility] Pending Prescriptions: Disp Refills Amiodarone HCl 200 MG Oral Tablet (Cordar*30 Tab*2 Sig: TAKE 1 TABLET BY MOUTH EVERY DAY IN THE MORNING Last Visit: 08/26/2023 (in office), 03/29/2021 (telemedicine) Next Visit: 12/02/2024 If no future appointments scheduled, and last appointment is greater than a year ago, please schedule patient for a follow-up appointment Last date the medication was ordered: 07/28/2024 Is this request for a controlled substance?No Urine Drug Screen:No results found for this or any previous visit. Patient Phone Numbers Labs: Lab Results Component Value Date/Time CREAT 1.2 07/19/2024 07:45 AM CREAT 1.0 10/11/2019 12:36 PM POTASSIUM 4.8 07/19/2024 07:45 AM POTASSIUM 4.4 10/11/2019 12:36 PM TSH 3.63 07/19/2024 07:45 AM TSH 2.71 10/11/2019 12:36 PM LDL 138 (H) 07/19/2024 07:45 AM LDL 83 03/26/2017 12:03 PM LDL NOT APPLICABLE 03/26/2017 12:03 PM ALT 19 07/19/2024 07:45 AM ALT 40 10/11/2019 12:36 PM HGBA1C 5.7 (H) 03/22/2021 09:32 AM documented in this encounter Plan of Treatment Upcoming Encounters Date Type Department Care Team (Late st Contact Info) Description 12/02/2024 8:30 AM EDT Office Visit Cardiology, [facility] [address] [place] [address] Rafael Dwyer DO [address] [place] [address] 12/02/2024 8:30 AM EDT Cardiac Studies Cardiology, [facility] [address] [place] [address] [place], Pacer Clinic [facility] [address] [place] [address] 01/27/2025 1:40 PM EDT Office Visit [facility] [address] [facility] [place] [phone] DecemberChandler MD [address] [facility] [place] [address] Scheduled Procedures Name Priority Associated Diagnoses Date/Ti [...] AGES 18-100 Discontinued 02/20/2020, 12/14/2009 Pneumococcal Vaccine: 50+ Years Completed 01/25/2024, 07/05/2012 HPV (Gardasil) Vaccine Aged Out No lo nger eligible based on patient's age to complete this topic MENINGOCOCCAL (MENACTRA/MENVEO) Aged Out No longer eligible based on patient's age to complete this topic Meningitis B Vaccine (Bexsero/Trumemba) Aged Out No longer eligible based on [...] influenza documented in this encounter Care Teams Feather Stitcher Relationship Specialty Start Date End Date December, Chandler Castillo MD PCP - General Family Medicine 01/21/24 documented as of this encounter
--- OUTSIDE RECORDS SUMMARY | 2024-11-13 17:45 | External Medical Summary | Summary of Care ---
Author Name Unknown Organization [facility] Address [address] [facility] [place] [address] Phone [phone] Care Team Providers Care Large Engine Assembler Name Role Phone Chandler Castillo MD Primary Care Provider [phone] Reason for Visit * Reason Onset Date Comments Test Results 07/22/2024 Encounter Details Date Type Department Care Team (Late st Contact Info) Description 07/22/2024 Telephone Cardiology, [place] [address] [facility] [place] [id number] [place], PABhavani [address] [place] [address] Test Results Allergies Active Allergy Reactions Criticality Noted Date Comments Cefuroxime High 03/26/2017 Other reaction(s): Rash documented as of this encounter (statuses as of 07/22/2024) Medications Albuterol Sulfate (PROAIR HFA) 108 (90 [...] as of this encounter (statuses as of 07/22/2024) Active Problems Problem Noted Date Diagnosed Date [...] as of this encounter (statuses as of 07/22/2024) Resolved Problems Problem Noted Date Diagnosed Date Resolved Date Acquired hypothyroidism 03/17/201707/24 Presence of combination inte rnal cardiac defibrillator (ICD) and pacemaker 2017 documented as of this encounter (statuses as of 07/22/2024) Immunizations Name Administration Dates Next Due PPD [...] Date 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 Ruth Yousif LPN * Telephone Encounter - Ruth Yousif LPN - 07/22/2024 8:45 AM EST ----- Message from Marcial El sent at 07/19/2024 5:10 PM EST ----- TSH OK. documented in this encounter Plan of Treatment Upcoming Encounters Date Type Department Care Team (Late st Contact Info) Description 07/29/2024 2:40 PM EST Office [facility] [address] [facility] [place] [phone] December, Chandler Castillo MD [address] [facility] [address] Scheduled Procedures Name Priority Associated [...] filedocumented as of this encounter Care Teams Large Engine Assembler Relationship Specialty Start Date End Date December, Chandler Castillo MD [address] [place] [address] PCP - General Family Medicine 01/21/24 documented as of this encounter
--- OUTSIDE RECORDS SUMMARY | 2024-11-13 17:45 | External Medical Summary | Summary of Care ---
Author Name Unknown Organization [facility] Address [address] [place] [address] Phone [phone] Care Team Providers Care Riveting Machine Operator Name Role Phone Chandler Castillo MD Primary Care Provider [phone] Reason for Visit * Reason Onset Date Comments Pacemaker Clinic 09/07/2024 Advisory/Missed transmission Encounter Details Date Type Department Care Team (Late st Contact Info) Description 09/07/2024 Telephone Cardiology, [facility] [address] [place], [facility] [address] [place] [address] Pacemaker Clinic (Advisory/Missed transmis... Allergies Active Allergy Reactions Criticality Noted Date Comments Cefuroxime High 03/26/2017 Other reaction(s): Rash documented as of this encounter (statuses as of 09/07/2024) Medications Albuterol Sulfate (PROAIR HFA) 108 (90 [...] as of this encounter (statuses as of 09/07/2024) Active Problems Problem Noted Date Diagnosed Date [...] as of this encounter (statuses as of 09/07/2024) Resolved Problems Problem Noted Date Diagnosed Date Resolved Date Acquired hypothyroidism 03/17/201707/24 Presence of combination inte rnal cardiac defibrillator (ICD) and pacemaker 2017 documented as of this encounter (statuses as of 09/07/2024) Immunizations Name Administration Dates Next Due PPD [...] Date Job End Date 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 Not on file Not on file documented as of this encounter Miscellaneous Notes * Telephone Encounter - Fabienne Jaimes LPN - 09/07/2024 8:41 AM EST MyG message and letter sent to patient regarding missed transmission, disconnected monitor and [employer] advisory documented in this encounter Plan of Treatment Upcoming Encounters Date Type Department Care Team (Late st Contact Info) Description 12/02/2024 8:30 AM EDT Office Visit Cardiology, [facility] [address] [place] [address] Rafael Dwyer, [address] [place] [address] 01/27/2025 1:40 PM EDT Office Visit [facility] [place] [phone] DecemberChandler MD [address] [facility] [place] [address] Scheduled Procedures Name Priority Associated Diagnoses Date/Ti [...] filedocumented as of this encounter Care Teams Riveting Machine Operator Relationship Specialty Start Date End Date December, Chandler Castillo MD PCP - General Family Medicine 01/21/24 documented as of this encounter
--- OUTSIDE RECORDS SUMMARY | 2024-11-13 17:45 | External Medical Summary ---
Author Name Unknown Address Unknown Organization K01:[facility] - [address] [place] [address] Laboratory Report Ordering Provider Test Date Status JOLIE MEDINA 07/19/2024 07:45:14 Final Observation Date Value Abnormality Reference (Units ) Status TSH 07/19/2024 07:45:14 3.63 0.27-4.20 (uIU/mL) Final Performing Location [facility] - [address] [place] [address]
--- OUTSIDE RECORDS SUMMARY | 2024-11-13 17:45 | External Medical Summary ---
Author Name Unknown Address Unknown Organization [facility] [address] [facility] [place] [address] Laboratory Report Ordering Provider Test Date Status 07/19/2024 07:45:14 Final Observation Date Value Abnormality Reference (Units ) Status Triglyceride 07/19/2024 07:45:14 168 <=174 ( mg/dL) Final Triglyceride Reference Range s (mg/dL):
<150 Acceptable
150-174 Borderline high
175-499 High
>=500 Very high Cholesterol 07/19/2024 07:45:14 216 Above high normal <200 (mg/dL) Final Total Cholesterol Reference Ranges (mg/dL):
<200 Desirable
200-239 Borderline high
>=240 High HDL 07/19/2024 07:45:14 44 >39 (mg/dL ) Final HDL Cholesterol Reference Ra nges (mg/dL):
>=60 High (Desirable)
<50 Low (Undesirable) For Females
<40 Low (Undesirable) For Males NON-HDL CHOLESTEROL 07/19/2024 07:45:14 172 Above high normal <=159 (mg/dL) Final Non-HDL Cholesterol Referenc e Range (mg/dL):
<100 Target level for high risk ASCVD patient
<130 Optimal for general population
130-159 Near optimal for general population
160-189 Borderline High
190-219 High
>=220 Very High LDL, (calculated) 07/19/2024 07:45:14 138 Above high n ormal <=129 (mg/dL) Final LDL Cholesterol Reference Ra nges (mg/dL):
<70 Target level for high risk ASCVD patient
<100 Optimal for general population
100-129 Near optimal for general population
130-159 Borderline high
160-189 High
>=190 Very high Performing Location LABORATORY [facility] - [address] [facility] [address]
--- OUTSIDE RECORDS SUMMARY | 2024-11-13 17:45 | External Medical Summary | Summary of Care ---
Author Name Unknown Organization [facility] Address [address] [place] [place] [place] [address] Phone [phone] Care Team Providers Care Silverware Supervisor Name Role Phone Chandler Castillo MD Primary Care Provider [phone] Reason for Visit * Reason Onset Date Comments Pacemaker Clinic 11/11/2024 [facility] appointmen t/advisory change Encounter Details Date Type Department Care Team (Late st Contact Info) Description 11/11/2024 Telephone Cardiology, [facility] [address] [place], [facility] [address] [place] [address] Pacemaker Clinic ([facility] appointment/advisor... Allergies Active Allergy Reactions Criticality Noted Date Comments Cefuroxime High 03/26/2017 Other reaction(s): Rash documented as of this encounter (statuses as of 11/11/2024) Medications Albuterol Sulfate (PROAIR HFA) 108 (90 [...] taking Lasix). 30 Tab 5 1 Active Spironolactone 25 MG Oral Tablet (Aldactone)Indicati [...] BEFORE BEDTIME 180 Tablet 3 4 Active Empagliflozin 10 MG Oral Tablet (Jardiance)Indicati ons:Chronic HFrEF (heart failure with reduced ejection fraction) (HCC) Take 1 Tablet by mouth in the morning. 90 Tablet 3 4 Active Rosuvastatin Calcium 20 MG Oral Tablet (Crestor)Indication s:Dyslipidemia, goal LDL below 70 Take 1 Tablet by mouth in the morning. 90 Tablet 3 4 Active Escitalopram Oxalate 10 MG Oral Tablet (Lexapro)Indication s:Moderate episode of recurrent major depressive disorder (HCC) TAKE 1 TABLET BY MOUTH EVERY DAY IN THE MORNING 30 Tablet 11 5 Active Amiodarone HCl 200 MG Oral Tablet (Cordarone)Indicati ons:PAF (paroxysmal atrial fibrillation) (HCC),Idiopathic cardiomyopathy (HCC),Chronic HFrEF (heart failure with reduced ejection fraction) (HCC),Presence of biventricular automatic cardioverter/defibr illator (AICD),LBBB (left bundle branch block),Need for prophylactic vaccination and inoculation against influenza TAKE 1 TABLET BY MOUTH EVERY DAY IN THE MORNING 90 Tablet 5 Active documented as of this encounter (statuses as of 11/11/2024) Active Problems Problem Noted Date Diagnosed Date [...] as of this encounter (statuses as of 11/11/2024) Resolved Problems Problem Noted Date Diagnosed Date Resolved Date Acquired hypothyroidism 03/17/201707/24 Presence of combination inte rnal cardiac defibrillator (ICD) and pacemaker 2017 documented as of this encounter (statuses as of 11/11/2024) Immunizations Name Administration Dates Next Due PPD [...] Date Job End Date 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 on 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 Not on file Not on file documented as of this encounter Miscellaneous Notes * Telephone Encounter - Fabienne Jaimes LPN - 11/11/2024 11:18 AM EDT MyG message sent to patient regarding rescheduling of [facility] appointment documented in this encounter Plan of Treatment Upcoming Encounters Date Type Department Care Team (Late st Contact Info) Description 11/29/2024 9:00 AM EDT Cardiac Studies Cardiology, [facility] [address] [place] [phone] [facility] [address] [place] [address] 12/02/2024 8:30 AM EDT Office Visit Cardiology, [facility] [address] [place] [phone] Rafael Dwyer DO [address] [place] [address] 01/27/2025 1:40 PM EDT [facility] [address] [place] [phone] December, Chandler Castillo MD [address] [place] [address] Scheduled Procedures Name Priority Associated Diagnoses Date/Ti [...] filedocumented as of this encounter Care Teams Silverware Supervisor Relationship Specialty Start Date End Date December, Chandler Castillo MD PCP - General Family Medicine 01/21/24 documented as of this encounter
--- OUTSIDE RECORDS SUMMARY | 2024-11-13 17:45 | External Medical Summary | Summary of Care ---
Author Name Unknown Organization [facility] Address [address] [place] [address] Phone [phone] Care Team Providers Care Auger Operator Name Role Phone Chandler Castillo MD Primary Care Provider [phone] Reason for Referral * Precert (Within 10 days (routine)) - Authorized Specialty Diagnoses / Procedures Referred By Contac t Referred To Contact Pain Medicine Diagnoses Impingement syndrome of right shoulder Procedures ARTHROCENT ASP &/OR INJ MAJOR JX/BURSA W/O US Chandler Castillo MD [address] [address] Phone: tel: fax: Referral ID Status Reason Start Date Expiration Date V isits Requested Visits Authorized [id number] Authorized 08/26/2024 999 [id number] Reason for Visit * Reason Comments Medication Administration Patient is her e today for R shoulder injection. Encounter Details Date Type Department Care Team (Late st Contact Info) Description 08/26/2024 2:40 PM EST [facility] [address] [place] [phone] Chandler Castillo MD [address] [id number] Impingement syndrome of right shoulder* Allergies Active Allergy Reactions Criticality Noted Date Comments Cefuroxime High 03/26/2017 Other reaction(s): Rash documented as of this encounter (statuses as of 08/26/2024) Medications Albuterol Sulfate (PROAIR HFA) 108 (90 [...] with reduced ejection fraction) ([facility]) Take 1 Tablet by mouth in the morning. 90 Tablet 3 4 Active Rosuvastatin Calcium 20 MG Oral Tablet (Crestor)Indication s:Dyslipidemia, goal LDL below 70 Take 1 Tablet by mouth in the morning. 90 Tablet 3 4 Active Hospital, Clinic, or Other Facility Administered Medication Ordered Dose Route Frequency Start Date End Date Status Triamcinolone Acetonide (Kenalog) 40 MG/ML inj 40 mgIndications:Impinge ment syndrome of right shoulder 40 mg INTRABURSAL ONCE 08/26/2024 08/26/2024 Ended lidocaine 1 % inj 20 mgIndications:Impinge ment syndrome of right shoulder 20 mg INTRABURSAL ONCE 08/26/2024 08/26/2024 Ended documented as of this encounter (statuses as of 08/26/2024) Active Problems Problem Noted Date Diagnosed Date [...] as of this encounter (statuses as of 08/26/2024) Resolved Problems Problem Noted Date Diagnosed Date Resolved Date Acquired hypothyroidism 03/17/201707/24 Presence of combination inte rnal cardiac defibrillator (ICD) and pacemaker 2017 documented as of this encounter (statuses as of 08/26/2024) Immunizations Name Administration Dates Next Due PPD [...] Date Job End Date 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 Not on file Not on file documented as of this encounter Last Filed Vital Signs Vital Sign Reading Time Taken Comments Blood Pressure 86/56 08/26/2024 2:41 PM EST Pulse 75 08/26/2024 2:41 PM EST Temperature 37 C (98.6 F) 08/26/2024 2:41 PM EST Respiratory Rate 16 08/26/2024 2:41 PM EST Oxygen Saturation 96% 08/26/2024 2:41 PM EST Inhaled Oxygen Concentration - - Weight 103.6 kg (228 lb 6.4 oz) 08/26/2024 2:41 PM EST Height - - Body Mass Index 30.98 01/25/2024 10:54 AM EDT documented in this encounter Progress Notes * Chandler Castillo MD - 08/26/2024 3:05 PM ESTAssociated Order(s): Arthrocentesis Post-Procedure Diagnose(s): Impingement syndrome of right shoulder Elsi Liang is a 59 year old male patient. ICD-10-CM 1. Impingement syndrome of right shoulder M75.41 Past Medical History: Diagnosis Date Broken ribs 2007 Diastolic dysfunction, left ventricle 04/05/2017 Idiopathic cardiomyopathy (HCC) 03/17/2017 LVEF 40-45%, 02/2017 Moderate episode of recurrent major depressive disorder (HCC) 03/17/2017 Presence of combination internal cardiac defibrillator (ICD) and pacemaker Blood pressure 86/56, pulse 75, temperature 98.6 F (37 C), temperature source Temporal Artery, resp. rate 16, weight 228 lb 6.4 oz (103.6 kg), SpO2 96%. Arthrocentesis Date/Time: 08/26/2024 3:05 PM Performed by: Chandler Castillo MD Authorized by: Chandler Castillo MD Indications: pain Body area: shoulder Joint: right subacromial bursa Local anesthesia used: no Anesthesia: Local anesthesia used: no Sedation: Patient sedated: no Needle size: 25 G Ultrasound guidance: no Approach: posterior Triamcinolone amount: 40 mg Lidocaine 1% amount: 2 mL Patient tolerance: patient tolerated the procedure well with no immediate complications Chandler Castillo MD 08/26/2024 documented in this encounter Nursing Notes * Anastacia Mendez LPN - 08/26/2024 2:40 PM EST The patient has been properly identified by confirmation of name and date of . Chief Complaint Patient presents with Medication Administration Patient is here today for R shoulder injection. documented in this encounter Plan of Treatment Upcoming Encounters Date Type Department Care Team (Late st Contact Info) Description 12/02/2024 8:30 AM EDT Office Visit Cardiology, [facility] [address] [facility] [place] [place] [address] Rafael Dwyer, [address] [place] [address] 01/27/2025 1:40 PM EDT [facility] [place] [address] [phone] December, Chandler Castillo MD [address] [id number] Scheduled Orders Name Type Priority Associated Diagnoses Orde r Schedule ARTHROCENT ASP &/OR INJ MAJOR JX/BURSA W/O US Procedures Routine Impingement syndrome of right shoulder Ordered: 08/26/2024 Scheduled Procedures Name Priority Associated Diagnoses Date/Ti [...] Not on filedocumented as of this encounter Procedures Procedure Name Priority Date/Time Associated Diagnosis Comments CA ARTHROCENTESIS ASPIR&/INJ MAJOR JT/BURSA W/O US Routine 08/26/2024 3:05 PM EST Impingement syndrome of right shoulder documented in this encounter Results * CA ARTHROCENTESIS ASPIR&/INJ MAJOR JT/BURSA W/O US (08/26/2024 3:05 PM EST) Narrative Chandler Castillo MD - 08/26/2024 3:05 PM EST Chandler Castillo MD 08/26/2024 3:08 PM Arthrocentesis Date/Time: 08/26/2024 3:05 PM Performed by: Chandler Castillo MD Authorized by: Chandler Castillo MD Indications: pain Body area: shoulder Joint: right subacromial bursa Local anesthesia used: no Anesthesia: Local anesthesia used: no Sedation: Patient sedated: no Needle size: 25 G Ultrasound guidance: no Approach: posterior Triamcinolone amount: 40 mg Lidocaine 1% amount: 2 mL Patient tolerance: patient tolerated the procedure well with no immediate complications Chandler Castillo MD PROCDOC FORM Final Result documented in this encounter Visit Diagnoses Diagnosis Impingement syndrome of right shoulder- Primary Other affections of shoulder region, not elsewhere classified documented in this encounter Administered Medications Inactive Administered Medications - up to 3 most recent administrations Medication Order MAR Action Action Date Dose Rate Site lidocaine 1 % inj 20 mg 20 mg (2 mL), Intrabursal, ONCE, On Thu08/26/24 at 1545, For 1 doseIndications:Impingemen t syndrome of right shoulder Given 08/26/2024 3:06 PM EST 20 mg Shoul priscila Right Triamcinolone Acetonide (Kenalog) 40 MG/ML inj 40 mg 40 mg, Intrabursal, ONCE, On Thu08/26/24 at 1545, For 1 doseIndications:Impingemen t syndrome of right shoulder Given 08/26/2024 3:07 PM EST 40 mg Shoul priscila Right documented in this encounter Care Teams Auger Operator Relationship Specialty Start Date End Date Chandler Castillo MD PCP - General Family Medicine 01/21/24 documented as of this encounter
--- OUTSIDE RECORDS SUMMARY | 2024-11-13 17:45 | External Medical Summary | Summary of Care ---
Author Name Unknown Organization [facility] Address [address] [facility] [place] [address] Phone [phone] Care Team Providers Care Milk Vendor Name Role Phone DecemberTalita MD Primary Care Provider [phone] Reason for Visit * Reason Comments eRx-Medication Refill Encounter Details Date Type Department Care Team (Late st Contact Info) Description 10/19/2024 Refill [facility] Chace Lockhart [address] [phone] Talita Mejia MD [address] [place] [address] Moderate episode of recurrent major depressive disorder (HCC) Allergies Active Allergy Reactions Criticality Noted [...] Lasix). 30 Tab 5 03/29/20 21 Active Spironolactone 25 MG Oral Tablet (Aldactone)Indicat [...] morning. 90 Tablet 3 07/29/20 24 Active Escitalopram Oxalate 10 MG Oral Tablet (Lexapro)Indicatio ns:Moderate episode of recurrent major depressive disorder (HCC) TAKE 1 TABLET BY MOUTH EVERY DAY IN THE MORNING 30 Tablet 11 10/20/19 25 Active Amiodarone HCl 200 MG Oral Tablet (Cordarone)Indicat ions:PAF (paroxysmal atrial fibrillation) (HCC),Idiopathic cardiomyopathy (HCC),Chronic HFrEF (heart failure with reduced ejection fraction) (HCC),Presence of biventricular automatic cardioverter/defib rillator (AICD),LBBB (left bundle branch block),Need for prophylactic vaccination and inoculation against influenza TAKE 1 TABLET BY MOUTH EVERY DAY IN THE MORNING 90 Tablet 10/19/19 25 Active Escitalopram Oxalate 10 MG Oral Tablet (Lexapro)Indicatio ns:Moderate episode of recurrent major depressive disorder (HCC) Take 1 Tablet by mouth in the morning. 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 Not on file Not on file Not on file documented as of this encounter Miscellaneous Notes * Telephone Encounter - Milagro Boucher [facility] - 10/20/2024 11:26 AM ESTSigned Prescriptions: Disp Refills Escitalopram Oxalate 10 MG Oral Tablet (Le*30 Tab*11 Sig: TAKE 1TABLET BY MOUTH EVERY DAY IN THE MORNINGAuthorizing Provider: TALITA MEJIA User: MILAGRO BOUCHER documented in this encounter Plan of Treatment Upcoming Encounters Date Type Department Care Team (Late st Contact Info) Description 12/02/2024 8:30 AM EDT Office Visit Cardiology, [facility] [address] [facility] [address] [place] [address] Rafael Dwyer DO [address] [facility] [address] [place] [address] 12/02/2024 8:30 AM EDT Cardiac Studies Cardiology, [facility] [address] [facility] [address] [place] [address] [facility] [address] [facility] [place] [place] [address] 01/27/2025 1:40 PM EDT Office Visit [place] [address] [address] [place] [phone] December, Talita Castillo MD [address] [place] [phone] Scheduled Procedures Name Priority Associated Diagnoses Date/Ti [...] as of this encounter Visit Diagnoses Diagnosis Moderate episode of recurrent major depressive disorder (HCC) documented in this encounter Care Teams Milk Vendor Relationship Specialty Start Date End Date December, Talita Castillo MD PCP - General Family Medicine 01/21/24 documented as of this encounter
[2024-11-13] MEDS: ASPIRIN CHEW 324 MG PO STA (18:17)
--- NOTE | 2024-11-13 18:19 | Emergency Department Note ---
Impression & Plan Chest pain, exertional, ADRIAN (dyspnea on exertion) ED Provider Note NAME: WYATT RAWLS AGE: 59 SEX: M : 1965 ARRIVES VIA: Walk-In INFORMANT: Patient, ED PROVIDER(S): Jonathan Huang DO CHIEF COMPLAINT: Chest pain HPI: The patient is a 59-year-old male who presented to the emergency department for an evaluation of chest pain. The patient states that he has been having chest pain as well as his exertional dyspnea over the course of the last few weeks. The patient denies having any lower extremity swelling or pain. The patient states that he notices discomfort as well as dyspnea on exertion. He is also noticed some degree of shortness of breath upon laying flat. He does take oral anticoagulants. He has a history of atrial fibrillation as well as an ICD placement because of cardiomyopathy. ROS: See above HPI for pertinent positives & negatives. A total of 10 systems reviewed and were otherwise negative. PAST MEDICAL HISTORY: See Below PAST SURGICAL HISTORY: See Below FAMILY HISTORY: See Below SOCIAL HISTORY: See Below HOME MEDICATIONS: See Below ALLERGIES: See Below VITALS: See Below PHYSICAL EXAMINATION: GENERAL: Patient is awake alert in no acute distress patient is resting comfortably and showing no signs of anxiety EYES: The conjunctivae are clear. The pupils are round and reactive. EARS, NOSE, MOUTH AND THROAT: The nose is without any evidence of any deformity. NECK: The neck is nontender and supple. RESPIRATORY: Normal respiratory effort is noted there is no evidence of wheezing rhonchi or rales CARDIOVASCULAR: Regular rate and rhythm noted there no murmurs rubs or gallops normal S1 normal S2. GASTROINTESTINAL: The abdomen is soft. Abdomen is nontender. MUSCULOSKELETAL/EXTREMITIES: There is no evidence of gross deformity full range of motion is noted in the hips and shoulders. SKIN: There is no obvious evidence of any rash. There are no petechiae, pallor or cyanosis noted. NEUROLOGIC: Patient is awake alert and oriented x3. MEDICAL DECISION MAKING: The patient is a 59-year-old male who presented to the emergency department for an evaluation of shortness of breath with exertion. He is also been experiencing some chest pain. The patient does have a history of cardiomyopathy. He has a pacemaker defibrillator implanted. He denies having any lower extremity swelling or pain. The patient did have a D-dimer that was 520 however I feel age adjustment makes this a negative D-dimer. The patient was having no symptoms at time of evaluation. He had serial troponins in the emergency department that were normal. I discussed the patient's laboratory and radiographic studies with him. I discussed the limitations of the emergency department workup for chest pain with him. Ultimately given his risk factors I do feel that he would be a better candidate for inpatient management. For this reason I discussed his condition with the on-call [facility] group. They have agreed to evaluate the patient in the emergency department for further management and disposition. Triage Nursing notes reviewed. Prior medical records reviewed Vital Signs: reviewed and remarkable for no significant abnormalities Differential diagnosis: Cardiac ischemia, aortic dissection, pulmonary embolism, pneumothorax, pneumonia, pericarditis, myocarditis, esophageal rupture, GERD, cholecystitis, pancreatitis, musculoskeletal, as well as other pathologies. ER treatment provided: See below Diagnostics interpreted by me: ECG: EKG was obtained in the emergency department. My interpretation is atrial sensed ventricular paced rhythm at 74 bpm. There were no PVCs noted. There were no [place] beats. This was compared to a tracing from August 28, 2023. No changes were noted. Cardiac Monitoring: An order was placed for continuous cardiac monitoring. The monitor shows a rate of 73 bpm with paced rhythm. Laboratory studies: As stated above and show below. Imaging studies: See below. Radiographic imaging was reviewed by myself Consultation(s): I discussed this case with Dr. Rivas who is on-call for the [facility] group. Past Med/Surg History Problem List ADRIAN (dyspnea on exertion) (Acute) Chest pain, exertional (Acute) Hamstring strain [place] lesion Knee contusion On amiodarone therapy Fatigue Chronic diarrhea Encounter for pre-operative examination Chest pain (Acute) Diaphoresis (Acute) DVT prophylaxis Thyroid disorder (Chronic) Diastolic dysfunction (Chronic) "echo 02/2017- grade II" Amiodarone-induced hyperthyroidism (Chronic) S/P cholecystectomy (Chronic) S/P ablation of atrial fibrillation (Chronic) S/P ICD (internal cardiac defibrillator) procedure (Chronic) Medical History Hypokalemia Hypoxia Pneumonia due to COVID-19 virus Elevated troponin AICD discharge ICD (implantable cardioverter-defibrillator), biventricular, in situ Osteoarthritis Anxiety Hyperlipidemia HTN (hypertension) Diarrhea Change in bowel movement PAF (paroxysmal atrial fibrillation) Cardiomyopathy Idiopathic cardiomyopathy Had nuclear stress test/echo 08/2018 EF 45%, negative for inducible ischemia Surgical History History of cardiac radiofrequency ablation History of cardiac cath > 10 years ago - no stents Presence of combination internal cardiac defibrillator (ICD) and pacemaker 2003 - cardiomyopathy - follows w/ Dr. Dwyer - medtronic - History of colonoscopy Family History Uncle Stroke Mother , 38 Cervical cancer Other Adopted No family history of adverse response to anesthesia Social History Smoking Status: Former smoker Tobacco Type: Cigarettes Second Hand Exposure: Yes ( smokes); Do You Dip or Chew Tobacco: Yes; Hx Alcohol Use: Yes Alcohol type: beer Alcohol Intake Frequency: 2-4 x/Month Hx Substance Use: No Preferred Language: Martiniquais Communication Ability: Effective Business Office Coordinator Required: No Beliefs That Will Affect Care: None marital status: Current Living Situation: Spouse current occupational status: employed Feels Safe at Home: Yes Assistive Devices: Glasses Allergies Allergies Allergy/AdvReac Type Severity Reaction Status Date / Time cefuroxime Allergy Intermediate Rash Verified 11/13/24 22:06 Home Meds Home Medications Medication Instructions Recorded Confirmed amiodarone 200 mg tablet 200 mg PO DAILY #90 tabs 05/11/19 11/13/24 carvedilol 25 mg tablet 37.5 mg PO BID #90 tabs 05/11/19 11/13/24 spironolactone 25 mg tablet 12.5 mg PO QAM #30 tabs 05/11/19 11/13/24 sacubitril 24 mg-valsartan 26 mg 1 tab PO BID 07/24/21 11/13/24 tablet (Entresto) albuterol sulfate 90 mcg/actuation 1 inh inhalation Q6H PRN Shortness 07/06/22 11/13/24 aerosol inhaler (ProAir HFA) Of Breath apixaban 5 mg tablet (Eliquis) 5 mg PO BID 07/06/22 11/13/24 furosemide 40 mg tablet 20 mg PO DAILY PRN Edema 07/06/22 11/13/24 Results & Data (ED) Vital Signs Vital Signs - 24 hr 11/13/24 17:44 11/13/24 18:09 11/13/24 18:11 Temperature 36.8 C Temperature Source Temporal Artery Scan Pulse Rate 88 71 Pulse Rate [Left Apical] 71 Pulse Rate from SpO2 Sensor Respiratory Rate 19 18 Respiratory Effort / Characteristics Non-Labored Spontaneous Non-Labored Spontaneous Respiratory Depth Normal Normal Respiratory Pattern Regular Blood Pressure 105/76 Blood Pressure [Right Arm] 102/71 Blood Pressure Mean 85 Blood Pressure Mean [Right Arm] 81 Blood Pressure Position Sitting Blood Pressure Position [Right Arm] Pulse Oximetry 94 92 Oxygen Delivery Method Room Air Room Air Sepsis Recent Fever Within 48 Hours No Sepsis New/Unexplained Change in Mental Status N/A Sepsis Action Taken by Nursing No Action Required 11/13/24 18:19 11/13/24 18:21 11/13/24 18:30 Temperature Temperature Source Pulse Rate 74 70 Pulse Rate [Left Apical] Pulse Rate from SpO2 Sensor Respiratory Rate 19 20 Respiratory Effort / Characteristics Respiratory Depth Respiratory Pattern Blood Pressure 102/69 Blood Pressure [Right Arm] Blood Pressure Mean 80 Blood Pressure Mean [Right Arm] Blood Pressure Position Blood Pressure Position [Right Arm] Pulse Oximetry 93 92 Oxygen Delivery Method Room Air Room Air Room Air Sepsis Recent Fever Within 48 Hours Sepsis New/Unexplained Change in Mental Status Sepsis Action Taken by Nursing 11/13/24 18:48 11/13/24 19:00 11/13/24 19:12 Temperature Temperature Source Pulse Rate 70 71 Pulse Rate [Left Apical] Pulse Rate from SpO2 Sensor Respiratory Rate 18 13 Respiratory Effort / Characteristics Respiratory Depth Respiratory Pattern Blood Pressure 114/72 Blood Pressure [Right Arm] Blood Pressure Mean 83 Blood Pressure Mean [Right Arm] Blood Pressure Position Blood Pressure Position [Right Arm] Pulse Oximetry 94 94 Oxygen Delivery Method Room Air Room Air Sepsis Recent Fever Within 48 Hours Sepsis New/Unexplained Change in Mental Status Sepsis Action Taken by Nursing 11/13/24 19:24 11/13/24 19:30 11/13/24 19:30 Temperature Temperature Source Pulse Rate 70 Pulse Rate [Left Apical] Pulse Rate from SpO2 Sensor Respiratory Rate 16 Respiratory Effort / Characteristics Respiratory Depth Respiratory Pattern Blood Pressure 124/79 124/79 Blood Pressure [Right Arm] Blood Pressure Mean 91 91 Blood Pressure Mean [Right Arm] Blood Pressure Position Blood Pressure Position [Right Arm] Pulse Oximetry 95 Oxygen Delivery Method Room Air Sepsis Recent Fever Within 48 Hours Sepsis New/Unexplained Change in Mental Status Sepsis Action Taken by Nursing 11/13/24 19:39 11/13/24 19:42 11/13/24 19:45 Temperature Temperature Source Pulse Rate 70 70 70 Pulse Rate [Left Apical] Pulse Rate from SpO2 Sensor Respiratory Rate 18 17 16 Respiratory Effort / Characteristics Respiratory Depth Respiratory Pattern Blood Pressure Blood Pressure [Right Arm] Blood Pressure Mean Blood Pressure Mean [Right Arm] Blood Pressure Position Blood Pressure Position [Right Arm] Pulse Oximetry 93 93 93 Oxygen Delivery Method Room Air Room Air Room Air Sepsis Recent Fever Within 48 Hours Sepsis New/Unexplained Change in Mental Status Sepsis Action Taken by Nursing 11/13/24 20:00 11/13/24 20:03 11/13/24 20:15 Temperature Temperature Source Pulse Rate 70 71 Pulse Rate [Left Apical] Pulse Rate from SpO2 Sensor Respiratory Rate 15 20 Respiratory Effort / Characteristics Respiratory Depth Respiratory Pattern Blood Pressure 108/77 Blood Pressure [Right Arm] Blood Pressure Mean 85 Blood Pressure Mean [Right Arm] Blood Pressure Position Blood Pressure Position [Right Arm] Pulse Oximetry 94 93 Oxygen Delivery Method Room Air Room Air Sepsis Recent Fever Within 48 Hours Sepsis New/Unexplained Change in Mental Status Sepsis Action Taken by Nursing 11/13/24 20:24 11/13/24 20:30 11/13/24 20:30 Temperature Temperature Source Pulse Rate 71 Pulse Rate [Left Apical] Pulse Rate from SpO2 Sensor Respiratory Rate 16 Respiratory Effort / Characteristics Respiratory Depth Respiratory Pattern Blood Pressure 114/77 114/77 Blood Pressure [Right Arm] Blood Pressure Mean 84 84 Blood Pressure Mean [Right Arm] Blood Pressure Position Blood Pressure Position [Right Arm] Pulse Oximetry 94 Oxygen Delivery Method Room Air Sepsis Recent Fever Within 48 Hours Sepsis New/Unexplained Change in Mental Status Sepsis Action Taken by Nursing 11/13/24 20:45 11/13/24 21:00 11/13/24 21:09 Temperature Temperature Source Pulse Rate 73 72 Pulse Rate [Left Apical] Pulse Rate from SpO2 Sensor Respiratory Rate 17 12 Respiratory Effort / Characteristics Respiratory Depth Respiratory Pattern Blood Pressure 111/80 Blood Pressure [Right Arm] Blood Pressure Mean 89 Blood Pressure Mean [Right Arm] Blood Pressure Position Blood Pressure Position [Right Arm] Pulse Oximetry 95 95 Oxygen Delivery Method Room Air Room Air Sepsis Recent Fever Within 48 Hours Sepsis New/Unexplained Change in Mental Status Sepsis Action Taken by Nursing 11/13/24 21:30 11/13/24 21:54 11/13/24 21:59 Temperature Temperature Source Pulse Rate 70 88 Pulse Rate [Left Apical] Pulse Rate from SpO2 Sensor 70 Respiratory Rate 19 Respiratory Effort / Characteristics Respiratory Depth Respiratory Pattern Blood Pressure 116/80 Blood Pressure [Right Arm] Blood Pressure Mean 88 Blood Pressure Mean [Right Arm] Blood Pressure Position Blood Pressure Position [Right Arm] Pulse Oximetry 95 Oxygen Delivery Method Room Air Sepsis Recent Fever Within 48 Hours Sepsis New/Unexplained Change in Mental Status Sepsis Action Taken by Nursing 11/13/24 22:03 11/13/24 22:04 Temperature Temperature Source Pulse Rate 73 Pulse Rate [Left Apical] 68 Pulse Rate from SpO2 Sensor Respiratory Rate Respiratory Effort / Characteristics Respiratory Depth Respiratory Pattern Blood Pressure Blood Pressure [Right Arm] 126/85 Blood Pressure Mean Blood Pressure Mean [Right Arm] 98 Blood Pressure Position Blood Pressure Position [Right Arm] Lying Pulse Oximetry 94 94 Oxygen Delivery Method Room Air Room Air Sepsis Recent Fever Within 48 Hours Sepsis New/Unexplained Change in Mental Status Sepsis Action Taken by [facility] Medications Current Medication List: was personally reviewed by me Laboratory Data Attestation: I reviewed the patient's lab results. 11/13/24 18:05 11/13/24 18:05 Lab Results 11/13/24 11/13/24 11/13/24 Range/Units 18:05 18:19 20:12 WBC 8.86 (4.8-10.8) K/ul RBC 5.25 (4.70-6.10) M/uL Hgb 14.9 (14.0-18.0) g/dl Hct 45.7 (42.0-52.0) % MCV 87.0 (80.0-100.0) fL MCH 28.4 (25.0-34.0) pg MCHC 32.6 (32.0-36.0) g/dL RDW Std Deviation 40.1 (36.4-46.3) fL RDW Coeff of Yousuf 12.6 (11.5-14.5) % Plt Count 260 (130-400) K/uL MPV 9.2 L (9.4-12.4) fL Immature Gran % (Auto) 0.3 % Neut % (Auto) 69.4 % Lymph % (Auto) 17.4 % [place] % (Auto) 10.5 % Eos % (Auto) 1.9 % Baso % (Auto) 0.5 % Neut # (Auto) 6.15 (1.40-6.50) K/uL Lymph # (Auto) 1.54 (1.20-3.40) K/uL [place] # (Auto) 0.93 H (0.11-0.59) K/uL Eos # (Auto) 0.17 (0.00-0.50) K/uL Baso # (Auto) 0.04 (0.00-0.20) K/uL Immature Gran # (Auto) 0.03 (0.01-0.20) K/uL PT 11.6 (9.0-12.0) Seconds INR 1.1 (0.9-1.1) APTT 26 (21-31) Seconds PTT Ratio 1.0 D-Dimer 520 H* (0-500) ug/L FEU Sodium 136 (136-145) mmol/L Potassium 4.4 (3.5-5.1) mmol/L Chloride 108 H (98-107) mmol/L Carbon Dioxide 23 (21-32) mmol/L Anion Gap 5 (3-11) BUN 35 H (6-23) mg/dl Creatinine 0.88 (0.6-1.4) mg/dl Est Cr Clr Drug Dosing 99.2 ml/min eGFR 99.05 BUN/Creatinine Ratio 39.8 H (10-20) Glucose 90 (70-99(Fasting)) mg/dl Calcium 9.4 (8.6-10.3) mg/dl Total Bilirubin 0.5 (0.2-1.0) mg/dl AST 18 (13-39) U/L ALT 30 (7-52) U/L Alkaline Phosphatase 65 (34-104) U/L Troponin I High Sens 5.6 3.6 (0-20) pg/ml B-Natriuretic Peptide 100 (0-100) pg/ml Total Protein 6.9 (6.0-8.3) gm/dl Albumin 4.2 (3.4-5.0) gm/dl Globulin 2.7 (2.5-4.0) gm/dl Albumin/Globulin Ratio 1.6 (0.9-2) Lipase 21 (11-82) U/L SARS-CoV-2 (PCR) NEGATIVE (Negative) Influenza Type A (PCR) Negative (Neg) Influenza Type B (PCR) Negative (Neg) RSV (RT-PCR) Negative (Neg) Administered Medications Discontinued Medications Aspirin (Aspirin Chew 324 Mg) 324 mg PO NOW STA Stop: 11/13/24 17:52 Last Admin: 11/13/24 18:17 Dose: 324 mg Documented By: [facility] Imaging Data Attestation: I personally reviewed and interpreted this imaging study as follows: My Impression: 1 view x-ray was obtained in the emergency department. My interpretation is no free air or definite infiltrate, final report below. Radiologist's Impression: Chest X-Ray 11/13/24 17:51 EXAM: Portable AP chest radiograph TECHNIQUE: AP portable radiograph of the chest was obtained. INDICATION: Shortness of breath Comparison: Chest radiograph August 28, 2023. FINDINGS: LINES and TUBES: Left-sided cardiac ICD with leads projecting over the right atrium, the right ventricle and the coronary sinus of the heart. CARDIOVASCULAR: Cardiac silhouette is stably enlarged in size. Mild pulmonary vascular congestion. LUNGS/PLEURA: No focal consolidation identified. No significant pleural fluid. No discernible pneumothorax. Mild asymmetric elevation of the left hemidiaphragm. OSSEOUS/OTHER: No displaced acute osseous process identified. IMPRESSION: Mild congestive changes of the cardiovascular system. Mild asymmetric elevation of the left hemidiaphragm. Electronically signed by Juan C Reynolds 11-13-2024 7:10 PM Discharge Plan Visit Data Chief Complaint: Shortness of Breath/Dyspnea Stated Complaint: TROUBLE BREATHING ED Provider: Jonathan Huang Discharge Problem: Chest pain, exertional, ADRIAN (dyspnea on exertion) Patient Disposition: Being Evaluated by Hospitalist Forms Stand Alone Forms: My [facility] Prescriptions Prescriptions: No Action carvedilol 25 mg tablet 37.5 mg PO BID Qty: 90 amiodarone 200 mg tablet 200 mg PO DAILY Qty: 90 spironolactone 25 mg tablet 12.5 mg PO QAM Qty: 30 furosemide 40 mg Tablet 20 mg PO DAILY PRN (Reason: Edema) Eliquis 5 mg tablet 5 mg PO BID albuterol sulfate [ProAir HFA] 90 mcg/actuation Hfa Aerosol Inhaler 1 inh INHALATION Q6H PRN (Reason: Shortness Of Breath) Entresto 24-26 mg tablet 1 tab PO BID Referrals Referrals: PCP,NO [Physician] -
[2024-11-13 18:20] LABS: Basophils # (auto) 0.04 K/uL (0.00-0.20); Basophils % (auto) 0.5 %; Eosinophils # (auto) 0.17 K/uL (0.00-0.50); Eosinophils % (auto) 1.9 %; Hematocrit (blood only) 45.7 % (42.0-52.0); Hemoglobin 14.9 g/dl (14.0-18.0); Immature Granulocytes # (auto) 0.03 K/uL (0.01-0.20); Immature Granulocytes % (auto) 0.3 %; Lymphocytes # (auto) 1.54 K/uL (1.20-3.40); Lymphocytes % (auto) 17.4 %; Mean Corpuscular Hemoglobin 28.4 pg (25.0-34.0); Mean Corpuscular Hgb Conc 32.6 g/dL (32.0-36.0); Mean Platelet Volume 9.2 fL (9.4-12.4); Monocytes # (auto) 0.93 K/uL (0.11-0.59); Monocytes % (auto) 10.5 %; Neutrophils # (auto) 6.15 K/uL (1.40-6.50); Neutrophils % (auto) 69.4 %; Platelet Count 260 K/uL (130-400); RDW Coefficient of Variation 12.6 % (11.5-14.5); RDW Standard Deviation 40.1 fL (36.4-46.3); Red Blood Count 5.25 M/uL (4.70-6.10); White Blood Count 8.86 K/ul (4.8-10.8)
[2024-11-13 18:40] LABS: Alanine Aminotransferase 30 U/L (7-52); Albumin Globulin Ratio 1.6 (0.9-2); Albumin Level 4.2 gm/dl (3.4-5.0); Alkaline Phosphatase 65 U/L (34-104); Anion Gap 5 (3-11); Aspartate Aminotransferase 18 U/L (13-39); BUN Creatinine Ratio 39.8 (10-20); Bilirubin,Total 0.5 mg/dl (0.2-1.0); Blood Urea Nitrogen 35 mg/dl (6-23); Calcium 9.4 mg/dl (8.6-10.3); Carbon Dioxide 23 mmol/L (21-32); Chloride 108 mmol/L (98-107); Creatinine Clr Calc Pharmacy 99.2 ml/min; Globulin 2.7 gm/dl (2.5-4.0); Glucose 90 mg/dl (70-99(Fasting)); Lipase 21 U/L (11-82); Potassium 4.4 mmol/L (3.5-5.1); Sodium 136 mmol/L (136-145); Total Protein 6.9 gm/dl (6.0-8.3)
[2024-11-13 18:45] LABS: Troponin I High Sensitivity 5.6 pg/ml (0-20)
[2024-11-13 18:55] LABS: INR 1.1 (0.9-1.1); Partial Thromboplastin Time 26 Seconds (21-31); Prothrombin Time 11.6 Seconds (9.0-12.0)
--- NOTE | 2024-11-13 19:10 | XRay Report ---
EXAM: Portable AP chest radiograph TECHNIQUE: AP portable radiograph of the chest was obtained. INDICATION: Shortness of breath Comparison: Chest radiograph August 28, 2023. FINDINGS: LINES and TUBES: Left-sided cardiac ICD with leads projecting over the right atrium, the right ventricle and the coronary sinus of the heart. CARDIOVASCULAR: Cardiac silhouette is stably enlarged in size. Mild pulmonary vascular congestion. LUNGS/PLEURA: No focal consolidation identified. No significant pleural fluid. No discernible pneumothorax. Mild asymmetric elevation of the left hemidiaphragm. OSSEOUS/OTHER: No displaced acute osseous process identified. IMPRESSION: Mild congestive changes of the cardiovascular system. Mild asymmetric elevation of the left hemidiaphragm. Electronically signed by Juan C Reynolds 11-13-2024 7:10 PM
[2024-11-13 19:21] LABS: D Dimer 520 ug/L FEU (0-500)
[2024-11-13 19:29] LABS: Influenza A virus by PCR Negative (Neg); Influenza B virus by PCR Negative (Neg); RSV by PCR Negative (Neg); SARS CoV2 RNA(COVID-19) Ceph NEGATIVE (Negative)
[2024-11-13] MEDS: FUROSEMIDE 40 MG/4 ML VIAL IV ONE (22:30)
--- NOTE | 2024-11-13 22:33 | History & Physical Report ---
Date of Service November 13, 2024 Assessment & Plan (1) CHF (congestive heart failure): Plan: Mild CHF History systolic dysfunction Nonischemic cardiomyopathy History biventricular pacemaker/ICD Intermittent chest pain rule out ACS valvular heart disease (mild MR/TR, TTE 2022) PAF on Eliquis paroxysmal VT as per records hx LBBB Hyperlipidemia on statin Rx amiodarone induced hyperthyroidism as per records mood disorder, stable past tobacco abuse OBS Admit to PCU Lasix 1 dose now Strict I/Os, daily weights, CHF education Decrease maintenance Coreg dose for now given borderline BP, hold other BP meds for now TTE, Cardiology consult : CHF, chest pain N.p.o. after midnight in anticipation of ischemic workup if recommended by cardiology Aspirin for CAD prevention until ACS ruled out Hold Eliquis until patient seen by cardiology, weight-based Lovenox 1 dose now DVT prophylaxis. Resume home Eliquis in a.m. if cardiology okay Full code Text document was generated using [employer] voice recognition software. It may contain grammatical or spelling errors. Kindly contact undersigned for clarification of any documentation item in question. History of Present Illness Chief Complaint: Chest pain, SOB Primary Care Provider: Chandler Castillo MD History obtained from patient and records. Medical history significant for chronic systolic heart failure secondary to nonischemic cardiomyopathy status post biventricular pacemaker/ICD (EF 45, 2022), valvular heart disease (mild MR/TR, TTE 2022), PAF on Eliquis, paroxysmal VT as per records, hx LBBB, hyperlipidemia, amiodarone induced hyperthyroidism, mood disorder, past tobacco abuse. Last confinement July 2021 for COVID-19 pneumonia. 1 month history of intermittent chest tightness with even at rest. Symptoms associated with shortness of breath worse on exertion. No response to outpatient antibiotic Rx for possible bronchitis. Denies fluid retention. Denies weight gain. Compliant with home medications. Symptoms worse tonight. Patient comfortable after aspirin administration at the ER. 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 Allergies Allergy/AdvReac Type Severity Reaction Status Date / Time cefuroxime Allergy Intermediate Rash Verified 11/13/24 22:06 Home Medications Medication Instructions Recorded Confirmed Type amiodarone 200 mg tablet 200 mg PO DAILY #90 tabs 05/11/19 11/13/24 History carvedilol 25 mg tablet 37.5 mg PO BID #90 tabs 05/11/19 11/13/24 History spironolactone 25 mg tablet 12.5 mg PO QAM #30 tabs 05/11/19 11/13/24 History sacubitril 24 mg-valsartan 26 mg 1 tab PO BID 07/24/21 11/13/24 History tablet (Entresto) albuterol sulfate 90 mcg/actuation 1 inh inhalation Q6H PRN Shortness 07/06/22 11/13/24 History aerosol inhaler (ProAir HFA) Of Breath apixaban 5 mg tablet (Eliquis) 5 mg PO BID 07/06/22 11/13/24 History furosemide 40 mg tablet 20 mg PO DAILY PRN Edema 07/06/22 11/13/24 History escitalopram oxalate 10 mg tablet 10 mg PO DAILY 11/14/24 11/14/24 History rosuvastatin 20 mg tablet 20 mg PO DAILY 11/14/24 11/14/24 History Past Med/Surg History Problem List CHF (congestive heart failure) ADRIAN (dyspnea on exertion) (Acute) Chest pain, exertional (Acute) Hamstring strain Owens Emmanuel lesion Knee contusion On amiodarone therapy Fatigue Chronic diarrhea Encounter for pre-operative examination Chest pain (Acute) Diaphoresis (Acute) DVT prophylaxis Thyroid disorder (Chronic) Diastolic dysfunction (Chronic) "echo 02/2017- grade II" Amiodarone-induced hyperthyroidism (Chronic) S/P cholecystectomy (Chronic) S/P ablation of atrial fibrillation (Chronic) S/P ICD (internal cardiac defibrillator) procedure (Chronic) Medical History Hypokalemia Hypoxia Pneumonia due to COVID-19 virus Elevated troponin AICD discharge ICD (implantable cardioverter-defibrillator), biventricular, in situ Osteoarthritis Anxiety Hyperlipidemia HTN (hypertension) Diarrhea Change in bowel movement PAF (paroxysmal atrial fibrillation) Cardiomyopathy Idiopathic cardiomyopathy Had nuclear stress test/echo 08/2018 EF 45%, negative for inducible ischemia Surgical History History of cardiac radiofrequency ablation History of cardiac cath > 10 years ago - no stents Presence of combination internal cardiac defibrillator (ICD) and pacemaker 2003 - cardiomyopathy - follows w/ Dr. Dwyer - medtronic - History of colonoscopy Family History Uncle Stroke Mother , 38 Cervical cancer Other Adopted No family history of adverse response to anesthesia Social History Smoking Status: Former smoker Tobacco Type: Cigarettes Second Hand Exposure: Yes ( smokes); Do You Dip or Chew Tobacco: Yes; Hx Alcohol Use: Yes Alcohol type: beer Alcohol Intake Frequency: 2-4 x/Month Hx Substance Use: No Preferred Language: [place] Island[place] Communication Ability: Effective Remote Sensing Advisor Required: No Beliefs That Will Affect Care: None marital status: Current Living Situation: Spouse current occupational status: employed Feels Safe at Home: Yes Assistive Devices: Glasses Review of Systems Review of Systems: As per HPI, all other systems reviewed and negative Physical Exam Physical Exam: GENERAL: Comfortable, pleasant, no respiratory distress SKIN: Normal color, warm HEENT: Bespectacled, pink palpebral conjunctivae, no ptosis, moist buccal mucosa NECK : Supple, no tenderness CHEST : CTA, no tenderness HEART : RRR, no obvious murmurs ABDOMEN: no distention, nontender EXTREMITIES : No LE swelling/tenderness, no other conspicuous deformities noted NEUROLOGIC : Coherent, no facial asymmetry, no other gross focality Results & Data Results & Data Vital Signs (Past 12 Hours) Vital Signs Temp Pulse Pulse Resp BP BP Pulse Ox 11/13/24 22:30 73 102/70 11/13/24 22:04 73 94 11/13/24 22:03 68 126/85 94 11/13/24 21:59 88 11/13/24 21:54 70 19 95 11/13/24 21:30 116/80 11/13/24 21:09 72 12 95 11/13/24 21:00 111/80 11/13/24 20:45 73 17 95 11/13/24 20:30 114/77 11/13/24 20:30 114/77 11/13/24 20:24 71 16 94 11/13/24 20:15 71 20 93 11/13/24 20:03 70 15 94 11/13/24 20:00 108/77 11/13/24 19:45 70 16 93 11/13/24 19:42 70 17 93 11/13/24 19:39 70 18 93 11/13/24 19:30 124/79 11/13/24 19:30 124/79 11/13/24 19:24 70 16 95 11/13/24 19:12 71 13 94 11/13/24 19:00 114/72 11/13/24 18:48 70 18 94 11/13/24 18:30 70 20 102/69 92 11/13/24 18:21 74 19 93 11/13/24 18:19 11/13/24 18:11 71 11/13/24 18:09 71 18 102/71 92 11/13/24 17:44 36.8 C 88 19 105/76 94 O2 Del Method 11/13/24 22:30 11/13/24 22:04 Room Air 11/13/24 22:03 Room Air 11/13/24 21:59 11/13/24 21:54 Room Air 11/13/24 21:30 11/13/24 21:09 Room Air 11/13/24 21:00 11/13/24 20:45 Room Air 11/13/24 20:30 11/13/24 20:30 11/13/24 20:24 Room Air 11/13/24 20:15 Room Air 11/13/24 20:03 Room Air 11/13/24 20:00 11/13/24 19:45 Room Air 11/13/24 19:42 Room Air 11/13/24 19:39 Room Air 11/13/24 19:30 11/13/24 19:30 11/13/24 19:24 Room Air 11/13/24 19:12 Room Air 11/13/24 19:00 11/13/24 18:48 Room Air 11/13/24 18:30 Room Air 11/13/24 18:21 Room Air 11/13/24 18:19 Room Air 11/13/24 18:11 11/13/24 18:09 Room Air 11/13/24 17:44 Room Air Laboratory Results Laboratory Results WBC 8.86 K/ul (4.8-10.8) 11/13/24 18:05 RBC 5.25 M/uL (4.70-6.10) 11/13/24 18:05 Hgb 14.9 g/dl (14.0-18.0) 11/13/24 18:05 Hct 45.7 % (42.0-52.0) 11/13/24 18:05 MCV 87.0 fL (80.0-100.0) 11/13/24 18:05 MCH 28.4 pg (25.0-34.0) 11/13/24 18:05 MCHC 32.6 g/dL (32.0-36.0) 11/13/24 18:05 RDW Std Deviation 40.1 fL (36.4-46.3) 11/13/24 18:05 RDW Coeff of Yousuf 12.6 % (11.5-14.5) 11/13/24 18:05 Plt Count 260 K/uL (130-400) 11/13/24 18:05 MPV 9.2 fL (9.4-12.4) L 11/13/24 18:05 Immature Gran % (Auto) 0.3 % 11/13/24 18:05 Neut % (Auto) 69.4 % 11/13/24 18:05 Lymph % (Auto) 17.4 % 11/13/24 18:05 [place] % (Auto) 10.5 % 11/13/24 18:05 Eos % (Auto) 1.9 % 11/13/24 18:05 Baso % (Auto) 0.5 % 11/13/24 18:05 Neut # (Auto) 6.15 K/uL (1.40-6.50) 11/13/24 18:05 Lymph # (Auto) 1.54 K/uL (1.20-3.40) 11/13/24 18:05 [place] # (Auto) 0.93 K/uL (0.11-0.59) H 11/13/24 18:05 Eos # (Auto) 0.17 K/uL (0.00-0.50) 11/13/24 18:05 Baso # (Auto) 0.04 K/uL (0.00-0.20) 11/13/24 18:05 Immature Gran # (Auto) 0.03 K/uL (0.01-0.20) 11/13/24 18:05 PT 11.6 Seconds (9.0-12.0) 11/13/24 18:05 INR 1.1 (0.9-1.1) 11/13/24 18:05 APTT 26 Seconds (21-31) 11/13/24 18:05 PTT Ratio 1.0 11/13/24 18:05 D-Dimer 520 ug/L FEU (0-500) H* 11/13/24 18:05 Sodium 136 mmol/L (136-145) 11/13/24 18:05 Potassium 4.4 mmol/L (3.5-5.1) 11/13/24 18:05 Chloride 108 mmol/L (98-107) H 11/13/24 18:05 Carbon Dioxide 23 mmol/L (21-32) 11/13/24 18:05 Anion Gap 5 (3-11) 11/13/24 18:05 BUN 35 mg/dl (6-23) H 11/13/24 18:05 Creatinine 0.88 mg/dl (0.6-1.4) 11/13/24 18:05 Est Cr Clr Drug Dosing 99.2 ml/min 11/13/24 18:05 eGFR 99.05 11/13/24 18:05 BUN/Creatinine Ratio 39.8 (10-20) H 11/13/24 18:05 Glucose 90 mg/dl (70-99(Fasting)) 11/13/24 18:05 Calcium 9.4 mg/dl (8.6-10.3) 11/13/24 18:05 Total Bilirubin 0.5 mg/dl (0.2-1.0) 11/13/24 18:05 AST 18 U/L (13-39) 11/13/24 18:05 ALT 30 U/L (7-52) 11/13/24 18:05 Alkaline Phosphatase 65 U/L (34-104) 11/13/24 18:05 Troponin I High Sens 3.6 pg/ml (0-20) 11/13/24 20:12 B-Natriuretic Peptide 100 pg/ml (0-100) 11/13/24 18:05 Total Protein 6.9 gm/dl (6.0-8.3) 11/13/24 18:05 Albumin 4.2 gm/dl (3.4-5.0) 11/13/24 18:05 Globulin 2.7 gm/dl (2.5-4.0) 11/13/24 18:05 Albumin/Globulin Ratio 1.6 (0.9-2) 11/13/24 18:05 Lipase 21 U/L (11-82) 11/13/24 18:05 SARS-CoV-2 (PCR) NEGATIVE (Negative) 11/13/24 18:19 Influenza Type A (PCR) Negative (Neg) 11/13/24 18:19 Influenza Type B (PCR) Negative (Neg) 11/13/24 18:19 RSV (RT-PCR) Negative (Neg) 11/13/24 18:19 Impressions Chest X-Ray 11/13/24 17:51 EXAM: Portable AP chest radiograph TECHNIQUE: AP portable radiograph of the chest was obtained. INDICATION: Shortness of breath Comparison: Chest radiograph August 28, 2023. FINDINGS: LINES and TUBES: Left-sided cardiac ICD with leads projecting over the right atrium, the right ventricle and the coronary sinus of the heart. CARDIOVASCULAR: Cardiac silhouette is stably enlarged in size. Mild pulmonary vascular congestion. LUNGS/PLEURA: No focal consolidation identified. No significant pleural fluid. No discernible pneumothorax. Mild asymmetric elevation of the left hemidiaphragm. OSSEOUS/OTHER: No displaced acute osseous process identified. IMPRESSION: Mild congestive changes of the cardiovascular system. Mild asymmetric elevation of the left hemidiaphragm. Electronically signed by Juan C Reynolds 11-13-2024 7:10 PM Diagnostic Findings EKG as per my interpretation :Rate 75, paced rhythm
[2024-11-13] MEDS ORDERED: LORazepam 0.5 MG TAB PO PRN (22:35)
[2024-11-13] MEDS ORDERED: NITROGLYCERIN SL 0.4 MG/TAB TAB SL PRN (22:35)
[2024-11-13] MEDS ORDERED: MoRPHine SULFATE 4 MG/ML 1 ML CARP\\VIAL IV PRN (22:35)
[2024-11-13] MEDS ORDERED: oxyCODONE HCL IR 5 MG TAB (IMMEDIATE RELEASE) PO PRN (22:35)
[2024-11-13] MEDS ORDERED: PROMETHAZINE 6.25 MG/50.25 ML BAG IV PRN (22:35)
[2024-11-13] MEDS: ALBUMIN 25% 12.5 GM/50 ML VIAL IV ONE (23:12)
[2024-11-13] MEDS: ENOXAPARIN 100 MG/1ML SYR SC STA (23:13)
[2024-11-14 00:51] LABS: Thyroid Stimulating Hormone < 0.010 uIu/ml (0.300-4.500)
[2024-11-14 01:24] LABS: T4 Free Thyroxine 3.08 ng/dl (0.61-1.60)
[2024-11-14 06:56] LABS: Basophils # (auto) 0.04 K/uL (0.00-0.20); Basophils % (auto) 0.5 %; Eosinophils # (auto) 0.23 K/uL (0.00-0.50); Eosinophils % (auto) 2.6 %; Hematocrit (blood only) 44.2 % (42.0-52.0); Hemoglobin 14.3 g/dl (14.0-18.0); Immature Granulocytes # (auto) 0.05 K/uL (0.01-0.20); Immature Granulocytes % (auto) 0.6 %; Lymphocytes % (auto) 21.7 %; Mean Corpuscular Hemoglobin 27.9 pg (25.0-34.0); Mean Corpuscular Hgb Conc 32.4 g/dL (32.0-36.0); Mean Corpuscular Volume 86.3 fL (80.0-100.0); Mean Platelet Volume 9.3 fL (9.4-12.4); Monocytes % (auto) 13.7 %; Neutrophils # (auto) 5.34 K/uL (1.40-6.50); Neutrophils % (auto) 60.9 %; Platelet Count 252 K/uL (130-400); RDW Coefficient of Variation 12.7 % (11.5-14.5); RDW Standard Deviation 39.9 fL (36.4-46.3); Red Blood Count 5.12 M/uL (4.70-6.10); White Blood Count 8.76 K/ul (4.8-10.8)
[2024-11-14 07:14] LABS: BUN Creatinine Ratio 37.4 (10-20); Calcium 9.5 mg/dl (8.6-10.3); Chol HDL Ratio 2.9 (0-5); Creatinine Clr Calc Pharmacy 98.8 ml/min; Partial Thromboplastin Ratio 1.2; Partial Thromboplastin Time 31 Seconds (21-31); Potassium 3.8 mmol/L (3.5-5.1)
[2024-11-14] MEDS: ROSUVASTATIN CALCIUM 20 MG TAB PO SCH (08:35)
[2024-11-14] MEDS: ESCITALOPRAM OXALATE 10 MG TAB PO SCH (08:35)
[2024-11-14] MEDS: carvediloL 12.5 MG TAB PO SCH (08:35)
[2024-11-14] MEDS: AMIODARONE 200 MG TAB PO SCH (08:35)
[2024-11-14] MEDS: ASPIRIN 81 MG ECTAB PO SCH (08:35)
[2024-11-14] MEDS ORDERED: INFLUENZA VACC TS2024-25(6m+)/PF (IIV3) 0.5mL Syr IM ONE (09:00)
--- NOTE | 2024-11-14 11:08 | Cardiology Consultation ---
Date of Consultation November 14, 2024 Assessment & Plan (1) Acute heart failure with mildly reduced ejection fraction (HFmrEF, 41-49%): * Feeling improved after furosemide 40 mg IV x 1 administered on presentation * Proceed with another dose of furosemide * LVEF 45-49% , mild global hypokinesis , unchanged compared to prior echocardiogram as outpatient in 2022 * HS troponin negative * advance diet * Add Jardiance to Coreg, Entresto, spironolactone * Consider lovenox for DVT prophylaxis * Supplement potassium. (2) Amiodarone-induced hyperthyroidism: * on amiodarone due to h/o frequent PVCs in effort to increase frequency of therapeutic biventricular pacing and due to h/o AF. * TSH was normal in 06/2024. * Noted AICD discharge in 2020 due to AF with RVR * Patient in SR * Stop amiodarone. If arrhythmia occurs , will reassess benefits versus risks of medication * Repeat TSH / T4 in 6 weeks as outpatient (3) S/P ablation of atrial fibrillation: * In SR. Has not been on AC. (4) S/P ICD (internal cardiac defibrillator) procedure: * Stable findings on most recent outpatient device check but this was a remote check in 02/2024, battery at 2.9 years longevity at that time. * Recently home monitor has not been connected. Will need to assist patient in trouble shooting this . I spent a total of 55 minutes on the date of service in preparation, delivery, and documentation of the care provided to this patient, excluding any time spent in the performance of separately billed services. History of Present Illness Attending Physician: Neftali Ordoñez MD History of Present Illness Mr Liang is a 59 year old male seen in cardiology consultation per the request of Dr Rivas for the Evaluation of shortness of breath with exertion and chest tightness. Patient describes progressive shortness of breath x 1 month. The symptoms culminated with an episode of chest tightness and heavy perspiration that occurred when performing housework including running the vacuum bobbin cleaner hand with his spouse yesterday. He received a dose of furosemide overnight last night with subjective improvement in his symptoms. Telemetry performed today reveals sinus rhythm with AV sequential pacing in the 70s with occasional isolated PVCs. No atrial fibrillation noted. During my assessment. Patient was comfortable lying supine. No additional chest discomfort. Notes he has been adherent to his medications. Past Cardiac History: 1.Nonischemic cardiomyopathy initially diagnosed in 2007 2.Cardiac catheterization with minimal nonobstructive coronary artery disease 3.NYHA Class III 4.LVEF previously 25-30%. 5.left bundle branch block 6.Status post biventricular pacemaker defibrillator implantation initially on March 2011, with generator exchange on March 15, 2015, October 08, 2021 a.Medtronic Claria MRI AUGER OPERATOR-D SureScan [id number], serial number [id number]. b.Right atrial lead, 5076-45 cm, serial number [id number], implanted 04/17/2011. c.Right ventricular lead, 6947-58, serial number [id number], implanted 04/17/2011. d.Left ventricular lead, 4194-78 cm, serial number [id number], implanted 04/17/2011 e.Device not likely MRI safe. 7.Amiodarone prescribed for (frequent) PVC suppression as well as for paroxysmal atrial fibrillation 8.Hyperthyroidism, diagnosed in August 2016, endocrinology recommending discontinuation of amiodarone at that time. Allergies Allergy/AdvReac Type Severity Reaction Status Date / Time cefuroxime Allergy Intermediate Rash Verified 11/13/24 22:06 Home Medications Medication Instructions Recorded Confirmed Type amiodarone 200 mg tablet 200 mg PO DAILY #90 tabs 05/11/19 11/13/24 History carvedilol 25 mg tablet 37.5 mg PO BID #90 tabs 05/11/19 11/13/24 History spironolactone 25 mg tablet 12.5 mg PO QAM #30 tabs 05/11/19 11/13/24 History sacubitril 24 mg-valsartan 26 mg 1 tab PO BID 07/24/21 11/13/24 History tablet (Entresto) albuterol sulfate 90 mcg/actuation 1 inh inhalation Q6H PRN Shortness 07/06/22 11/13/24 History aerosol inhaler (ProAir HFA) Of Breath apixaban 5 mg tablet (Eliquis) 5 mg PO BID 07/06/22 11/13/24 History furosemide 40 mg tablet 20 mg PO DAILY PRN Edema 07/06/22 11/13/24 History escitalopram oxalate 10 mg tablet 10 mg PO DAILY 11/14/24 11/14/24 History rosuvastatin 20 mg tablet 20 mg PO DAILY 11/14/24 11/14/24 History Patient History Medical History Hypokalemia Hypoxia Pneumonia due to COVID-19 virus Elevated troponin AICD discharge ICD (implantable cardioverter-defibrillator), biventricular, in situ Osteoarthritis Anxiety Hyperlipidemia HTN (hypertension) Diarrhea Change in bowel movement PAF (paroxysmal atrial fibrillation) Cardiomyopathy Idiopathic cardiomyopathy Had nuclear stress test/echo 08/2018 EF 45%, negative for inducible ischemia Surgical History History of cardiac radiofrequency ablation History of cardiac cath > 10 years ago - no stents Presence of combination internal cardiac defibrillator (ICD) and pacemaker 2003 - cardiomyopathy - follows w/ Dr. Dwyer - medtronic - History of colonoscopy Family History Uncle Stroke Mother , 38 Cervical cancer Other Adopted No family history of adverse response to anesthesia Social History Smoking Status: Former smoker Tobacco Type: Cigarettes and Smokeless Tobacco (Dip or Chew) Second Hand Exposure: Yes ( smokes); Do You Dip or Chew Tobacco: Yes; Hx Alcohol Use: Yes Alcohol type: beer Alcohol Intake Frequency: 2-4 x/Month Hx Substance Use: No Preferred Language: [place] Communication Ability: Effective Valet Runner Required: No Beliefs That Will Affect Care: None marital status: Current Living Situation: Spouse current occupational status: employed Feels Safe at Home: Yes Safety Concerns: Feels Safe At This Time Assistive Devices: Glasses Review of Systems Review of Systems: All systems reviewed & are unremarkable except as noted in HPI & below Physical Exam Physical Exam: He has not on a daily dose of loop diuretic. General: no acute distress and stated age Eyes: conjunctiva are pink and non-injected, sclera clear Neck: normal jugular venous pulse, no hepatojugular reflux Chest: normal shape and normal respiratory effort -Left infraclavicular device pocket elias n dry intact, no erythema Lungs: clear to auscultation and percussion Cardiac Exam: - regular heart sounds, no murmurs, rubs, or gallops, no jugular venous distention Abdomen: abdomen soft, non-tender, no abnormal masses and no hepatosplenomegaly Musculoskeletal: no gait disturbance, no weakness Extremities: no edema and no cyanosis Neuro:awake, conversant, follows commands, no focal motor deficits Psych: appropriate affect and insight. Results & Data Vital Signs (Past 12 Hours) Vital Signs Temp Pulse Pulse Resp BP Pulse Ox Pulse Ox 11/14/24 08:49 72 11/14/24 08:00 36.5 C 87 16 124/68 96 11/14/24 02:23 36.5 C 71 18 106/67 95 11/14/24 00:53 71 11/14/24 00:41 36.3 C L 72 18 127/82 93 11/14/24 00:25 36.3 C L 72 18 127/82 93 11/14/24 00:25 93 11/14/24 00:06 11/13/24 23:33 18 93 11/13/24 23:12 74 96 O2 Del Method O2 Del Method 11/14/24 08:49 11/14/24 08:00 Room Air 11/14/24 02:23 Room Air 11/14/24 00:53 11/14/24 00:41 Room Air 11/14/24 00:25 Room Air 11/14/24 00:25 Room Air 11/14/24 00:06 Room Air 11/13/24 23:33 Room Air 11/13/24 23:12 Room Air Laboratory Results Abnormal lab results 11/13/24 11/14/24 Range/Units 18:05 06:34 MPV 9.2 L 9.3 L (9.4-12.4) fL [place] # (Auto) 0.93 H 1.20 H (0.11-0.59) K/uL D-Dimer 520 H* (0-500) ug/L FEU Chloride 108 H (98-107) mmol/L BUN 35 H 34 H (6-23) mg/dl BUN/Creatinine Ratio 39.8 H 37.4 H (10-20) TSH < 0.010 L (0.300-4.500) uIu/ml Free T4 3.08 H (0.61-1.60) ng/dl Cardiac Enzymes 11/13/24 11/13/24 11/14/24 Range/Units 18:05 20:12 06:34 AST 18 (13-39) U/L Troponin I High Sens 5.6 3.6 2.8 (0-20) pg/ml B-Natriuretic Peptide 100 (0-100) pg/ml Coagulation 11/13/24 11/14/24 Range/Units 18:05 06:34 PT 11.6 (9.0-12.0) Seconds APTT 26 31 (21-31) Seconds B-Natriuretic Peptide 100 (0-100) pg/ml Lipids 11/14/24 Range/Units 06:34 Triglycerides 136 (0-150) mg/dl Cholesterol 122 (0-200) mg/dl HDL Cholesterol 42 mg/dl Cholesterol/HDL Ratio 2.9 (0-5) CBC 11/13/24 11/14/24 Range/Units 18:05 06:34 WBC 8.86 8.76 (4.8-10.8) K/ul RBC 5.25 5.12 (4.70-6.10) M/uL Hgb 14.9 14.3 (14.0-18.0) g/dl Hct 45.7 44.2 (42.0-52.0) % Plt Count 260 252 (130-400) K/uL Neut # (Auto) 6.15 5.34 (1.40-6.50) K/uL Lymph # (Auto) 1.54 1.90 (1.20-3.40) K/uL [place] # (Auto) 0.93 H 1.20 H (0.11-0.59) K/uL Eos # (Auto) 0.17 0.23 (0.00-0.50) K/uL Baso # (Auto) 0.04 0.04 (0.00-0.20) K/uL Comprehensive Metabolic Panel 11/13/24 11/14/24 Range/Units 18:05 06:34 Sodium 136 137 (136-145) mmol/L Potassium 4.4 3.8 (3.5-5.1) mmol/L Chloride 108 H 104 (98-107) mmol/L Carbon Dioxide 23 24 (21-32) mmol/L BUN 35 H 34 H (6-23) mg/dl Creatinine 0.88 0.91 (0.6-1.4) mg/dl Glucose 90 86 (70-99(Fasting)) mg/dl Calcium 9.4 9.5 (8.6-10.3) mg/dl AST 18 (13-39) U/L ALT 30 (7-52) U/L Alkaline Phosphatase 65 (34-104) U/L Total Protein 6.9 (6.0-8.3) gm/dl Albumin 4.2 (3.4-5.0) gm/dl Intake and Output 11/13/24 11/14/24 11/14/24 22:59 06:59 14:59 Intake Total 50 / 50 Output Total 250 / 250 Balance -200 / -200 Intake: IV 50 / 50 Albumin 25% 12.5 gm In 50 ml @ 50 / 50 50 mls/hr IV ONE ONE Rx#: [id number] Output: Urine 250 / 250 Other: Other Intake Source sips Weight 88.4 kg 86.3 kg Weight Measurement Method Chair Scale Standing Scale Diagnostic Findings Chest x-ray performed overnight last night 11/13/2024. Radiology report describes mild interstitial edema, no pleural effusion, right atrial, coronary sinus, right ventricular device leads in appropriate position
[2024-11-14] MEDS: FUROSEMIDE 40 MG/4 ML VIAL IV ONE (11:15)
[2024-11-14] MEDS: POTASSIUM CHLORIDE CRTAB 20 MEQ TABCR PO STA (11:15)
[2024-11-14] MEDS: EMPAGLIFLOZIN 10 MG TAB PO SCH (11:18)
--- NOTE | 2024-11-14 14:14 | Electrocardiogram Report ---
Test Reason : Blood Pressure : */* mmHG Vent. Rate : 74 BPM Atrial Rate : 74 BPM P-R Int : 164 ms QRS Dur : 154 ms QT Int : 452 ms P-R-T Axes : 53 72 13 degrees QTcB Int : 501 ms Atrial-sensed ventricular-paced rhythm Abnormal ECG When compared with ECG of 28-Aug-2023 14:03, Vent. rate has decreased by 4 bpm Confirmed by Jonathan Sosa ([id number]) on 11/14/2024 2:14:40 PM Referred By: Confirmed By: Jonathan Sosa
--- NOTE | 2024-11-14 18:00 | Hospitalist Progress Note ---
Date of Service November 14, 2024 Assessment & Plan (1) CHF (congestive heart failure): Plan: Acute heart failure with reduced ejection fraction, EF 41 to 49% Cardiology service consulted LVEF 45-49% , mild global hypokinesis , unchanged compared to prior echocardiogram as outpatient in 2022 Has received Lasix 40 mg IV x 2 doses so far Jardiance added to Coreg, Entresto and spironolactone Amiodarone induced hyperthyroidism Amiodarone discontinued per cardiology service Repeat TSH and T4 in 6 weeks Status post ablation of A-fib In sinus rhythm On apixaban Status post ICD Patient needs assistance with connecting home monitor DVT prophylaxis. On his usual apixaban Full code Disposition Lives at home Discharge when cleared by cardiology service Admission and Anticipated Discharge Date Admission Date: November 13, 2024 Subjective Follow-up for CHF, etc. Seen resting in bed, comfortable, not in distress On room air States he feels improved today compared to yesterday Breathing is better No cough or fever No other new symptoms Review of Systems Review of Systems: all noted and negative except for above Physical Exam Physical Exam: General- oriented x 3, not in distress, speaks in sentences with no effort or a ccessory muscle use Eyes- anicteric Neck- no JVD Lungs- clear breath sounds bilaterally, no rales/wheezes Heart- normal rate, regular rhythm; no murmurs Abdomen- normal bowel sounds, nondistended, soft, no tenderness Extremities- no pretibial edema, no calf tenderness Neuro- alert, oriented x 3; no gross focal neurologic deficits Skin- warm & dry Results & Data Results & Data Vital Signs (Past 12 Hours) Vital Signs Temp Pulse Pulse Resp BP Pulse Ox O2 Del Method 11/14/24 15:45 36.8 C 87 18 109/69 96 Room Air 11/14/24 15:34 70 11/14/24 11:00 36.6 C 90 18 118/70 98 Room Air 11/14/24 08:49 72 11/14/24 08:00 36.5 C 87 16 124/68 96 Room Air all noted and reviewed including below
[2024-11-14] MEDS: APIXABAN 5 MG TABLET PO SCH (21:25)
[2024-11-15 07:30] VITALS: O2SAT 91
[2024-11-15 07:38] LABS: Calcium 9.9 mg/dl (8.6-10.3); Creatinine Clr Calc Pharmacy 89.9 ml/min; Magnesium 2.3 mg/dl (1.7-2.4)
[2024-11-15] MEDS: FUROSEMIDE 40 MG/4 ML VIAL IV ONE (08:40)
[2024-11-15] MEDS: POTASSIUM CHLORIDE CRTAB 20 MEQ TABCR PO STA (11:19)
--- NOTE | 2024-11-15 11:22 | Cardiology Progress Note ---
Date of Service November 15, 2024 Assessment & Plan (1) Acute heart failure with mildly reduced ejection fraction (HFmrEF, 41-49%): Plan: * Furosemide 40 mg IV today 11/15/24 * LVEF 45-49% , mild global hypokinesis , unchanged compared to prior echocardiogram as outpatient in 2022 * HS troponin negative * advance diet * Continue Coreg, Entresto, spironolactone * After further discussion with patient, he has been taking Jardiance which had been started as an outpatient for about a month and this will be continued. * Supplement potassium. (2) Amiodarone-induced hyperthyroidism: Plan: * on amiodarone due to h/o frequent PVCs in effort to increase frequency of therapeutic biventricular pacing and due to h/o AF. * TSH was normal in 06/2024. * Noted AICD discharge in 2020 due to AF with RVR * Patient in SR * Stop amiodarone. If arrhythmia occurs , will reassess benefits versus risks of medication * Repeat TSH / T4 in 6 weeks as outpatient (3) S/P ablation of atrial fibrillation: Plan: * Discontinue amiodarone as noted above. * Outpatient dose of carvedilol, 37.5 mg twice daily had been reduced to 2.5 mg twice daily on admission due to concerns of relative low blood pressure. * I believe he will need the higher dose of beta-romy given his history of PVCs and A-fib. Increase carvedilol from 12.5 back to 25 mg twice daily, next dose this evening with his evening meal. * Eliquis reinitiated. (4) S/P ICD (internal cardiac defibrillator) procedure: Plan: * Generator longevity stable. Device to be reinterrogated with output [employer] representatives today, to change the ventricular arrhythmia factor protocol as per current recommendations for this device. Disposition: Can consider discharge if doing well after device interrogation, after lunch today. Patient was not taking furosemide regularly. Would recommend he takes furosemide 20 mg daily as an outpatient. Continue prior to hospital Jardiance dose. Plan to resume prior to hospital carvedilol dose 37.5 mg twice daily at time of discharge. Admission and Anticipated Discharge Date Admission Date: November 14, 2024 Subjective Patient seen in cardiology follow-up. Feeling improved having received a dose of IV furosemide on presentation to the emergency room 2 days ago, a dose yesterday, and dose this morning at 8:35 AM. Telemetry reveals sinus rhythm with AV sequential pacing. Physical Exam Physical Exam: Temp Pulse Resp BP Pulse Ox O2 Del Method 36.4 C L 70 19 128/81 91 Room Air 11/15/24 07:28 11/15/24 07:49 11/15/24 07:28 11/15/24 07:28 11/15/24 07:28 11/15/24 07:28 General: no acute distress and stated age Eyes: conjunctiva are pink and non-injected, sclera clear Neck: normal jugular venous pulse, no hepatojugular reflux Chest: normal shape and normal respiratory effort -Left infraclavicular device pocket elias n dry intact, no erythema Lungs: clear to auscultation and percussion Cardiac Exam: - regular heart sounds, no murmurs, rubs, or gallops, no jugular venous distention Abdomen: abdomen soft, non-tender, no abnormal masses and no hepatosplenomegaly Musculoskeletal: no gait disturbance, no weakness Extremities: no edema and no cyanosis Neuro:awake, conversant, follows commands, no focal motor deficits Psych: appropriate affect and insight. Results & Data Vital Signs (Past 12 Hours) Vital Signs Temp Pulse Pulse Resp BP Pulse Ox O2 Del Method 11/15/24 07:49 70 11/15/24 07:28 36.4 C L 70 19 128/81 91 Room Air 11/15/24 02:32 36.5 C 77 18 121/81 96 Room Air 11/14/24 23:18 70 11/14/24 23:14 Room Air
[2024-11-15 11:37] VITALS: RESP 20; TEMP 97.3
[2024-11-15 11:49] VITALS: BP 102/70; PULSE 73
[2024-11-15] MEDS ORDERED: carvediloL 25 MG TAB PO SCH (17:00)
--- NOTE | 2024-11-15 17:05 | Discharge Summary ---
Discharge Summary Date of Service November 15, 2024 Principal Dx & Hospital Course #1 = Principal Diagnosis (1) CHF (congestive heart failure): Acute heart failure with reduced ejection fraction, EF 41 to 49% -Cardiology service consulted -LVEF 45-49% , mild global hypokinesis , unchanged compared to prior echocardiogram as outpatient in 2022 -Jardiance added to Coreg, Entresto and spironolactone -discharge with furosemide PO Amiodarone induced hyperthyroidism -Amiodarone discontinued per cardiology service -Repeat TSH and T4 in 6 weeks Status post ablation of A-fib -In sinus rhythm -On apixaban Status post ICD -Patient needs assistance with connecting home monitor Notes For Next Care Provider 59 yo male with pmhx of chronic systolic heart failure secondary to nonischemic cardiomyopathy status post biventricular pacemaker/ICD (EF 45, 2022), valvular heart disease (mild MR/TR, TTE 2022), PAF on Eliquis, paroxysmal VT as per records, hx LBBB, hyperlipidemia, amiodarone induced hyperthyroidism, mood disorder, past tobacco abuse. On medicine, cardiology consulted, recommended diuresis and ICD/pacemaker interrogation. Patient on room air, per cardiology and medicine patient medically stable for discharge home. Follow up with PCP and cardiology outpatient, started daily PO lasix. Needs follow up TSH in 4-6 weeks. Medication Changes From Visit -lasix Admission HPI Per Admitting Provider History obtained from patient and records. Medical history significant for chronic systolic heart failure secondary to nonischemic cardiomyopathy status post biventricular pacemaker/ICD (EF 45, 2022), valvular heart disease (mild MR/TR, TTE 2022), PAF on Eliquis, paroxysmal VT as per records, hx LBBB, hyperlipidemia, amiodarone induced hyperthyroidism, mood disorder, past tobacco abuse. Last confinement July 2021 for COVID-19 pneumonia. 1 month history of intermittent chest tightness with even at rest. Symptoms associated with shortness of breath worse on exertion. No response to outpatient antibiotic Rx for possible bronchitis. Denies fluid retention. Denies weight gain. Compliant with home medications. Symptoms worse tonight. Patient comfortable after aspirin administration at the ER. 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 External ears normal. No rhinorrhea. Moist mucous membranes. Neck: Supple, full range of motion, no observable masses, No meningeal sign. Lungs: No Respiratory distress. CV: RRR, no edema. Abdomen: Soft, nondistended, No rebound tenderness. MSK: No joint swelling, no redness. Skin: No rashes, petechiae, lesions. Normal color per patient. Neuro: Normal Gait, Grossly intact. Psych: Appropriate for situation. Updated Medication List Medication Instructions Recorded Confirmed Type carvedilol 25 mg tablet 37.5 mg PO BID #90 tabs 05/11/19 11/13/24 History spironolactone 25 mg tablet 12.5 mg PO QAM #30 tabs 05/11/19 11/13/24 History sacubitril 24 mg-valsartan 26 mg 1 tab PO BID 07/24/21 11/13/24 History tablet (Entresto) albuterol sulfate 90 mcg/actuation 1 inh inhalation Q6H PRN Shortness 07/06/22 11/13/24 History aerosol inhaler (ProAir HFA) Of Breath apixaban 5 mg tablet (Eliquis) 5 mg PO BID 07/06/22 11/13/24 History escitalopram oxalate 10 mg tablet 10 mg PO DAILY 11/14/24 11/14/24 History rosuvastatin 20 mg tablet 20 mg PO DAILY 11/14/24 11/14/24 History aspirin 81 mg tablet,delayed 81 mg PO DAILY #30 tabs 11/15/24 Rx release empagliflozin 10 mg tablet 10 mg PO DAILY #30 tabs 11/15/24 Rx (Jardiance) furosemide 20 mg tablet 20 mg PO DAILY #30 tabs 11/15/24 Rx Hospital Stay Data Consultations 11/13/24 22:03 ED Decision to Admit Stat 11/14/24 00:25 Consult Cardiology Routine Pending Results Patient Have Any Pending Studies at Discharge: No Discharge Instructions Given to Patient (Per Discharging Provider) 1. Follow up with cardiology and PCP. 2. Take all medications as prescribed. 3. Follow up TSH in 4-6 weeks. Total Time Total Time Spent Total Time Spent (In Minutes): I spent a total of 35 minutes in direct patient care, including [id number] time with the patient and/or family, reviewing medical records, ordering and reviewing diagnostic tests, and coordinating care with other healthcare providers. This time includes: history taking, physical examination, medical decision making, counseling, ECG interpretation, imaging interpretation, lab interpretation, orders, and education, excluding time spent in the performance of separately billed services.
== END 2024-11-15 12:53 | disposition home or self-care (01) | DRG 291 ==
LOC: ED 17:39 → 2S 17:39 → SUATTDRO 11-14 19:10